=== PATIENT | male | born 1950 | race Caucasian/White ===

== ENCOUNTER 2020-10-07 10:42 | Inpatient (IN) | payer MEDICARE, OTHER ==
[2020-10-07 10:48] VITALS: RESP 18
[2020-10-07] MEDS ORDERED: FUROSEMIDE 10 MG/ML 2 ML VIAL IV STA (11:09)
--- NOTE | 2020-10-07 11:11 | ED ---
General Adult HPI - General Chief complaint: Chest Pain Stated complaint: swelling in legs Time Seen by Provider: 10/07/20 10:45 Source: patient, RN notes reviewed, old records reviewed Mode of arrival: wheelchair Limitations: no limitations - History of Present Illness Initial comments: This is a 69-year-old male with past medical history significant for smoking. Patient states he hasn't seen a doctor since . Patient comes in today because he states his legs are swollen his been ongoing for over 2 weeks. Patient states it started in August when he was put on steroids for a short duration. Patient states she's had no chest pain palpitations. Patient states she's little bit short of breath but he does smoke heavily. Patient denies any abdominal pain patient denies nausea vomiting or diarrhea. Patient states the swelling is now up into his abdomen. Patient noted today it was difficult to get his pants buckled. Patient denies any recent fever chills or cough. Patient states 2 weeks ago he had an upper respiratory infection which she was given Zithromax for. - Related Data Allergies Allergy/AdvReac Type Severity Reaction Status Date / Time Penicillins Allergy Unknown Verified 10/07/20 10:48 Review of Systems ROS Statement: Those systems with pertinent positive or pertinent negative responses have been documented in the HPI. ROS Other: All systems not noted in ROS Statement are negative. Past Medical History Past Medical History: No Reported History History of Any Multi-Drug Resistant Organisms: None Reported Past Surgical History: No Surgical Hx Reported Past Psychological History: No Psychological Hx Reported Smoking Status: Current some day smoker Past Alcohol Use History: None Reported Past Drug Use History: None Reported General Exam - General Exam Comments Initial Comments: GENERAL: Patient is well-developed and well-nourished. Patient is nontoxic and well- hydrated and is in mild distress. ENT: Neck is soft and supple. No significant lymphadenopathy is noted. Oropharynx is clear. Moist mucous membranes. Neck has full range of motion without eliciting any pain. EYES: The sclera were anicteric and conjunctiva were pink and moist. Extraocular movements were intact and pupils were equal round and reactive to light. Ey elids were unremarkable. PULMONARY: Unlabored respirations. Good breath sounds bilaterally. No audible rales rhonchi or wheezing was noted. CARDIOVASCULAR: There is a regular rate and rhythm without any murmurs gallops or rubs. ABDOMEN: Soft and nontender with normal bowel sounds. SKIN: Skin is clear with no lesions or rashes and otherwise unremarkable. NEUROLOGIC: Patient is alert and oriented x3. Cranial nerves II through XII are grossly intact. Motor and sensory are also intact. Normal speech, volume and content. Symmetrical smile. MUSCULOSKELETAL: Normal extremities with adequate strength and full range of motion. 2+ edema in the legs and his mild edema all the way up into the abdomen. LYMPHATICS: No significant lymphadenopathy is noted PSYCHIATRIC: Normal psychiatric evaluation. Limitations: no limitations Course Vital Signs 10/07/20 10:45 Temperature 98.2 F Pulse Rate 100 Respiratory 18 Rate Blood Pressure 122/61 O2 Sat by Pulse 96 Oximetry Medical Decision Making - Medical Decision Making EKG shows sinus rhythm at [address] interval 218 QRS is 116 QT interval is 362 QTC is 454. Patient's EKG shows T-wave inversions with in leads V5 and V6 and 1 and aVL. Chest x-ray shows probable congestive heart failure. Patient's troponin was mildly elevated at 0.1 and having congestive heart failure I heparinized the patient I consult cardiology. I spoke with Dr. Avendaño he agreed to admit the patient admitted the patient wrote admitting orders I continued heparin Nitropaste on the floor. - Lab Data Result diagrams: 10/07/20 11:11 10/07/20 11:11 Lab Results 10/07/20 10/07/20 10/07/20 Range/Units 11:11 11:11 11:11 WBC 8.0 (3.8-10.6) k/uL RBC 5.13 (4.30-5.90) m/uL Hgb 15.9 (13.0-17.5) gm/dL Hct 48.2 (39.0-53.0) % MCV 93.9 (80.0-100.0) fL MCH 31.0 (25.0-35.0) pg MCHC 33.0 (31.0-37.0) g/dL RDW 14.3 (11.5-15.5) % Plt Count 236 (150-450) k/uL MPV 7.5 Neutrophils % 72 % Lymphocytes % 19 % Monocytes % 6 % Eosinophils % 1 % Basophils % 1 % Neutrophils # 5.7 (1.3-7.7) k/uL Lymphocytes # 1.5 (1.0-4.8) k/uL Monocytes # 0.5 (0-1.0) k/uL Eosinophils # 0.0 (0-0.7) k/uL Basophils # 0.1 (0-0.2) k/uL PT 10.7 (9.0-12.0) sec INR 1.0 (<1.2) APTT 23.3 (22.0-30.0) sec Sodium 139 (137-145) mmol/L Potassium 4.6 (3.5-5.1) mmol/L Chloride 106 (98-107) mmol/L Carbon Dioxide 25 (22-30) mmol/L Anion Gap 8 mmol/L BUN 25 H (9-20) mg/dL Creatinine 0.73 (0.66-1.25) mg/dL Est GFR (CKD-EPI)AfAm >90 (>60 ml/min/1.73 sqM) Est GFR (CKD-EPI)NonAf >90 (>60 ml/min/1.73 sqM) Glucose 139 H (74-99) mg/dL Calcium 9.2 (8.4-10.2) mg/dL Magnesium 1.9 (1.6-2.3) mg/dL Total Bilirubin 0.7 (0.2-1.3) mg/dL AST 48 (17-59) U/L ALT 47 (4-49) U/L Alkaline Phosphatase 102 (38-126) U/L Troponin I (0.000-0.034) ng/mL NT-Pro-B Natriuret Pep pg/mL Total Protein 6.6 (6.3-8.2) g/dL Albumin 3.7 (3.5-5.0) g/dL 10/07/20 10/07/20 Range/Units 11:11 11:11 WBC (3.8-10.6) k/uL RBC (4.30-5.90) m/uL Hgb (13.0-17.5) gm/dL Hct (39.0-53.0) % MCV (80.0-100.0) fL MCH (25.0-35.0) pg MCHC (31.0-37.0) g/dL RDW (11.5-15.5) % Plt Count (150-450) k/uL MPV Neutrophils % % Lymphocytes % % Monocytes % % Eosinophils % % Basophils % % Neutrophils # (1.3-7.7) k/uL Lymphocytes # (1.0-4.8) k/uL Monocytes # (0-1.0) k/uL Eosinophils # (0-0.7) k/uL Basophils # (0-0.2) k/uL PT (9.0-12.0) sec INR (<1.2) APTT (22.0-30.0) sec Sodium (137-145) mmol/L Potassium (3.5-5.1) mmol/L Chloride (98-107) mmol/L Carbon Dioxide (22-30) mmol/L Anion Gap mmol/L BUN (9-20) mg/dL Creatinine (0.66-1.25) mg/dL Est GFR (CKD-EPI)AfAm (>60 ml/min/1.73 sqM) Est GFR (CKD-EPI)NonAf (>60 ml/min/1.73 sqM) Glucose (74-99) mg/dL Calcium (8.4-10.2) mg/dL Magnesium (1.6-2.3) mg/dL Total Bilirubin (0.2-1.3) mg/dL AST (17-59) U/L ALT (4-49) U/L Alkaline Phosphatase (38-126) U/L Troponin I 0.100 H* (0.000-0.034) ng/mL NT-Pro-B Natriuret Pep 11836 pg/mL Total Protein (6.3-8.2) g/dL Albumin (3.5-5.0) g/dL Critical Care Time Critical Care Time: Yes Total Critical Care Time: 35 Disposition Clinical Impression: Acute non-ST elevation myocardial infarction (NSTEMI) Disposition: ADMITTED IP TO THIS HOSP Referrals: None,Stated [Primary Care Provider] - 1-2 days Time of Disposition: 12:25
[2020-10-07 11:23] LABS: Basophils # (A) 0.1 k/uL (0-0.2); Basophils % (A) 1 %; Eosinophils % (A) 1 %; HCT 48.2 % (39.0-53.0); HGB 15.9 gm/dL (13.0-17.5); Lymphocytes # (A) 1.5 k/uL (1.0-4.8); Lymphocytes % (A) 19 %; MCV 93.9 fL (80.0-100.0); Mean Platelet Volume 7.5; Monocytes # (A) 0.5 k/uL (0-1.0); Monocytes % (A) 6 %; Neutrophils # (A) 5.7 k/uL (1.3-7.7); Neutrophils % (A) 72 %; Platelet Count 236 k/uL (150-450); RBC 5.13 m/uL (4.30-5.90); RDW 14.3 % (11.5-15.5)
[2020-10-07 11:34] LABS: ALT 47 U/L (4-49); AST 48 U/L (17-59); African American GFR (CKD) >90 (>60 ml/min/1.73 sqM); Albumin 3.7 g/dL (3.5-5.0); Alkaline Phosphatase 102 U/L (38-126); Anion Gap 8 mmol/L; Blood Urea Nitrogen 25 mg/dL (9-20); Calcium 9.2 mg/dL (8.4-10.2); Carbon Dioxide 25 mmol/L (22-30); Chloride 106 mmol/L (98-107); Glucose 139 mg/dL (74-99); Magnesium 1.9 mg/dL (1.6-2.3); Non-African American GFR(CKD) >90 (>60 ml/min/1.73 sqM); Potassium 4.6 mmol/L (3.5-5.1); Sodium 139 mmol/L (137-145); Total Bilirubin 0.7 mg/dL (0.2-1.3); Total Protein 6.6 g/dL (6.3-8.2)
[2020-10-07 11:41] LABS: Partial Thromboplastin Time 23.3 sec (22.0-30.0); Prothrombin Time 10.7 sec (9.0-12.0)
--- NOTE | 2020-10-07 11:45 | XR ---
EXAMINATION TYPE: XR chest 2V DATE OF EXAM: 10/07/2020 COMPARISON: NONE TECHNIQUE: PA and lateral views submitted. HISTORY: Shortness of breath and chest pain FINDINGS: Bilateral consolidation and pleural effusion with diffuse interstitial pattern. No pneumothorax. Hear t size enlarged. Atherosclerotic change aorta. Arthropathy of the shoulders. IMPRESSION: 1. CHF favored over interstitial pneumonia.
[2020-10-07] MEDS ORDERED: HEPARIN SODIUM,PORCINE 5,000 UNIT/ML 1 ML VIAL IV ONE (12:27)
[2020-10-07] MEDS: FUROSEMIDE 10 MG/ML 4 ML VIAL IV SCH ×2 (12:42→23:20)
[2020-10-07] MEDS: HEPARIN SOD,PORK IN 0.45% NACL 25,000 UNIT in 0.45% NACL 1 250ML.BAG IV SCH (12:45)
[2020-10-07] MEDS ORDERED: NITROGLYCERIN OINT 1 INCH/GM PACKET TOPICAL SCH (13:00)
[2020-10-07] MEDS ORDERED: NITROGLYCERIN SL TABS 0.4 MG TAB SUBLINGUAL PRN (14:10)
--- NOTE | 2020-10-07 15:07 | P.HPIM ---
History of Present Illness H&P Date: 10/07/20 Chief Complaint: CC: Lower extremity edema Patient is a 69-year-old male with a significant past medical history of tobacco abuse who has not seen a PCP since the who presents to the ED with worsening lower extremity edema 2 weeks. Patient states that 2 weeks ago he was having some URI symptoms with nasal congestion so he went to an urgent care and was prescribed steroids and azithromycin. Patient states that after 3 days of steroids he noticed lower extremity swelling so called the urgent care who told him to discontinue the steroids. Patient states that since then his lower extremity swelling has been worsening to the point where it has extended to his abdomen and this morning he had a difficult time putting his pants on. So he decided to come to the ED. Patient also states that he has been feeling more short of breath than usual. He states that he can normally walk about a block however today just walking from the car to the ED he had to stop a couple of times to catch his breath. Patient states that at times he has to get up in the middle of the night gasping for air. Patient states he sleeps on 2 pillows. He is currently denying any chest pain, nausea vomiting, fever or chills. In ED EKG shows sinus rhythm and T-wave inversions in leads V5 and V6 and 1 and aVL Chest x-ray shows finding consistent with CHF. Troponin is 0.1. BNP is 14,000. Review of Systems 10 ROS reviewed and are negative except as noted in HPI Past Medical History Past Medical History: No Reported History History of Any Multi-Drug Resistant Organisms: None Reported Past Surgical History: No Surgical Hx Reported Past Psychological History: No Psychological Hx Reported Smoking Status: Current every day smoker Past Alcohol Use History: None Reported Past Drug Use History: None Reported - Past Family History Father History Unknown: Yes Medications and Allergies Home Medications Medication Instructions Recorded Confirmed Type No Known Home Medications 10/07/20 10/07/20 History Allergies Allergy/AdvReac Type Severity Reaction Status Date / Time Penicillins Allergy Unknown Verified 10/07/20 12:41 Physical Exam Osteopathic Statement: *. No significant issues noted on an osteopathic structural exam other than those noted in the History and Physical/Consult. Vitals: Vital Signs Temp Pulse Pulse Resp BP BP Pulse Ox 10/07/20 13:43 97.5 F L 96 18 121/90 94 L 10/07/20 13:09 98.6 F 98 18 116/82 98 10/07/20 10:45 98.2 F 100 18 122/61 96 Intake and Output 10/07/20 10/07/20 10/07/20 06:59 14:59 22:59 Output Total 650 Balance -650 Output: Urine 650 Other: Weight 68.039 kg General: [Alert and oriented, well nourished, no acute distress, cachectic appearing]. Eye: [PERRL, EOMI, normal conjunctiva]. HENT: [Normocephalic, clear tympanic membranes, normal hearing, moist oral mucosa, no scleral icterus, no sinus tenderness]. Neck: [Supple, non-tender, no carotid bruits, no JVD, no lymphadenopathy]. Lungs: [Diminished pulses bilaterally]. Heart: [Normal rate, regular rhythm, no murmur, gallop + +3 bilateral lower extremity edema]. Abdomen: [Soft, non-tender, non-distended, normal bowel sounds, no masses]. Musculoskeletal: [Normal range of motion and strength, no tenderness or swelling]. Skin: [Skin is warm, dry and pink, no rashes or lesions]. Neurologic: [Awake, alert, and oriented X3, CN II-XII intact]. Psychiatric: [Cooperative, appropriate mood and affect]. Results CBC & Chem 7: 10/07/20 11:11 10/07/20 11:11 Labs: Abnormal Lab Results - Last 24 Hours (Table) 10/07/20 10/07/20 Range/Units 11:11 11:11 BUN 25 H (9-20) mg/dL Glucose 139 H (74-99) mg/dL Troponin I 0.100 H* (0.000-0.034) ng/mL Thrombosis Risk Factor Assmnt - Choose All That Apply Each Factor Represents 1 point: Heart failure (<1month), Swollen legs (current) Each Risk Factor Represents 2 Points: Age 61-74 years Thrombosis Risk Factor Assessment Total Risk Factor Score: 4 Thrombosis Risk Factor Assessment Level: Moderate Risk Assessment and Plan Assessment: #Lower extremity edema secondary to heart failure versus pulmonary hypertension due to cor pulmonale -Check echocardiogram -Resume Lasix 40 mg IV every 8 hours -Strict I's and O's -Cardiology consult #Non-ST elevation UT likely type II -Resume heparin drip -Trend troponin -Resume aspirin 325 daily -Cardiology consult -Check hemoglobin A1c and lipid panel #Likely underlying COPD -Not in exacerbation at this no wheezing on exam -DuoNeb as needed -At the time of discharge will encourage patient to follow-up with pulmonology for PFTs #Tobacco abuse -Patient states that he quit 3 weeks ago. CODE STATUS:full code DVT prophylaxis: Heparin drip Discussed with: Patient, ER, rn Anticipated length of stay > than [address]: Depending on clinical course. Anticipate patient will go home
[2020-10-07] MEDS: IPRATROPIUM-ALBUTEROL 3 ML NEB INHALATION PRN (19:54)
[2020-10-08 05:00] LABS: Basophils % (A) 1 %; Eosinophils # (A) 0.1 k/uL (0-0.7); Eosinophils % (A) 1 %; HCT 43.8 % (39.0-53.0); HGB 14.3 gm/dL (13.0-17.5); Lymphocytes # (A) 1.3 k/uL (1.0-4.8); Lymphocytes % (A) 17 %; MCH 30.4 pg (25.0-35.0); MCHC 32.7 g/dL (31.0-37.0); MCV 92.9 fL (80.0-100.0); Mean Platelet Volume 7.6; Monocytes # (A) 0.5 k/uL (0-1.0); Monocytes % (A) 7 %; Neutrophils # (A) 5.4 k/uL (1.3-7.7); Neutrophils % (A) 73 %; Platelet Count 227 k/uL (150-450); RBC 4.72 m/uL (4.30-5.90); RDW 14.3 % (11.5-15.5); WBC 7.3 k/uL (3.8-10.6)
[2020-10-08 05:11] LABS: ALT 58 U/L (4-49); AST 127 U/L (17-59); African American GFR (CKD) >90 (>60 ml/min/1.73 sqM); Albumin 3.5 g/dL (3.5-5.0); Alkaline Phosphatase 111 U/L (38-126); Anion Gap 5 mmol/L; Blood Urea Nitrogen 30 mg/dL (9-20); Calcium 9.2 mg/dL (8.4-10.2); Carbon Dioxide 32 mmol/L (22-30); Chloride 101 mmol/L (98-107); Cholesterol 182 mg/dL (<200); Glucose 104 mg/dL (74-99); HDL Cholesterol 77 mg/dL (40-60); LDL Cholesterol,Calculated 89 mg/dL (0-99); Magnesium 1.9 mg/dL (1.6-2.3); Non-African American GFR(CKD) 80 (>60 ml/min/1.73 sqM); Potassium 4.2 mmol/L (3.5-5.1); Sodium 138 mmol/L (137-145); Total Bilirubin 0.8 mg/dL (0.2-1.3); Total Protein 6.2 g/dL (6.3-8.2); Triglycerides 78 mg/dL (<150)
[2020-10-08] MEDS: FUROSEMIDE 10 MG/ML 4 ML VIAL IV SCH ×3 (08:30→23:50)
[2020-10-08] MEDS ORDERED: ASPIRIN 325 MG TAB PO SCH (09:00)
--- NOTE | 2020-10-08 10:16 | P.PN ---
Subjective Progress Note Date: 10/08/20 Principal diagnosis: CC: Lower Extremity swelling Patient says that his breathing is slightly better today. Patient thinks that his lower extremity edema is also improving. Yesterday the patient's troponin increased to 8.7 and this morning 21. Cardiology was made aware. Objective - Vital Signs Vital signs: Vital Signs Temp 97.4 F L 10/08/20 08:00 Pulse 75 10/08/20 08:00 Resp 18 10/08/20 08:00 BP 137/76 10/08/20 08:00 Pulse Ox 93 L 10/08/20 08:00 Intake & Output 10/07/20 10/08/20 10/08/20 18:59 06:59 18:59 Intake Total 240 485.239 Output Total 1000 1974 500 Balance -760 -1489.761 -500 Weight 68.039 kg 71.6 kg Intake: Intake, IV Titration 145.239 Amount Heparin Sod,Pork in 0.45% 145.239 NaCl 25,000 unit In 0.45 % NaCl 1 250ml.bag @ 12 UNITS/KG/HR 8.165 mls/hr IV .Q24H [facility] Rx#: [id number] Oral 240 340 Output: Urine 1000 1974 500 Other: # Voids 1 2 - Exam General examination - Alert and Oriented 3 in NAD, cachectic appearing Heart - + S1S2 no murmurs Lungs - diminished breath sounds bilaterally Abdomen soft NT ND +ve BS Extremities - +3 pitting edema in bilateral lower extremities STEERSMAN - Moving all 4 extremities spontaneously Psych - Calm and cooperative - Labs CBC & Chem 7: 10/08/20 04:23 10/08/20 04:23 Labs: Abnormal Lab Results - Last 24 Hours (Table) 10/07/20 10/07/20 10/07/20 Range/Units 11:11 11:11 14:41 APTT (22.0-30.0) sec Carbon Dioxide (22-30) mmol/L BUN 25 H (9-20) mg/dL Glucose 139 H (74-99) mg/dL AST (17-59) U/L ALT (4-49) U/L Troponin I 0.100 H* 0.978 H* (0.000-0.034) ng/mL Total Protein (6.3-8.2) g/dL HDL Cholesterol (40-60) mg/dL 10/07/20 10/07/20 10/08/20 Range/Units 18:18 18:18 04:23 APTT 36.0 H (22.0-30.0) sec Carbon Dioxide 32 H (22-30) mmol/L BUN 30 H (9-20) mg/dL Glucose 104 H (74-99) mg/dL AST 127 H (17-59) U/L ALT 58 H (4-49) U/L Troponin I 8.770 H* (0.000-0.034) ng/mL Total Protein 6.2 L (6.3-8.2) g/dL HDL Cholesterol 77 H (40-60) mg/dL 10/08/20 10/08/20 Range/Units 04:23 04:23 APTT 37.5 H (22.0-30.0) sec Carbon Dioxide (22-30) mmol/L BUN (9-20) mg/dL Glucose (74-99) mg/dL AST (17-59) U/L ALT (4-49) U/L Troponin I 21.100 H* (0.000-0.034) ng/mL Total Protein (6.3-8.2) g/dL HDL Cholesterol (40-60) mg/dL Assessment and Plan Assessment: #Non-ST elevation PR likley type 1 -Resume heparin drip -Troponin is increasing. Last troponin is 21. Cardiology has been notified. -Resume aspirin 325 daily -Check hemoglobin A1c and lipid panel #Lower extremity edema secondary to heart failure versus pulmonary hypertension due to cor pulmonale -Check echocardiogram -Resume Lasix 40 mg IV every 8 hours -Strict I's and O's -Cardiology consult #Likely underlying COPD -Not in exacerbationas there is no wheezing on exam -DuoNeb as needed -At the time of discharge will encourage patient to follow-up with pulmonology for PFTs #Tobacco abuse -Patient states that he quit 3 weeks ago. CODE STATUS:full code DVT prophylaxis: Heparin drip Discussed with: Patient, ER, rn Anticipated length of stay > than [address]: Depending on clinical course. Anticipate patient will go home
[2020-10-08] MEDS ORDERED: ATORVASTATIN 80 MG TAB PO STA (11:04)
[2020-10-08] MEDS ORDERED: ALPRAZolam 0.5 MG TAB PO PRN (11:04)
[2020-10-08] MEDS ORDERED: NITROGLYCERIN SL TABS 0.4 MG TAB SUBLINGUAL PRN ×2 (11:04→15:32)
[2020-10-08] MEDS ORDERED: ASPIRIN 325 MG TAB PO STA (11:04)
[2020-10-08] MEDS: lisinopriL 5 MG TAB PO SCH ×2 (11:04→22:09)
[2020-10-08] MEDS ORDERED: ALPRAZolam 0.25 MG TAB PO PRN (11:04)
[2020-10-08] MEDS: ATORVASTATIN 40 MG TAB PO SCH (11:04)
[2020-10-08] MEDS ORDERED: SODIUM CHLORIDE 0.9% 1,000 ML in EMPTY BAG 1 BAG IV ONE (11:04)
[2020-10-08] MEDS: METOPROLOL TARTRATE 25 MG TAB PO SCH ×2 (11:05→22:09)
[2020-10-08 11:30] VITALS: BMI 21.4
--- NOTE | 2020-10-08 12:37 | CONS ---
CONSULTATION Mr. Miguel is a 69-year-old male who has not seen a physician in over 30 years, who presented with symptoms of progressive dyspnea and peripheral edema. His symptoms started about 2 weeks or so ago. Initially he was seen in a medic and was started on steroids and antibiotics but he started to have progressive peripheral edema. He had no chest discomfort. He had some episode of PND. He has some cough. No wheezing. He takes no medication at home. He smokes about a pack a day. On admission, he was noted to be in heart failure and his troponin elevated initially at 0.97, 8.7 and 21.1. His NT proBNP on admission was 14,000. He is feeling slightly better today. He denies any dizziness or palpitations. He denies any nausea. His coronary risk factors are remarkable for the smoking. He has no documented history of hypertension and hyperlipidemia. MEDICATION: At home none. REVIEW OF SYSTEMS: RESPIRATORY SYSTEM: He had dyspnea on exertion, the cough and wheezing and the dyspnea and wheezing. GI system: No recent GI bleeding. No nausea. No vomiting. system: No dysuria or hematuria. Nervous system: No history of stroke or seizure. PHYSICAL EXAMINATION: He is a 69-year-old male, alert, oriented, in no apparent distress. Blood pressure 137/70 with a heart rate in 70s. HEAD: Normocephalic. Eyes: Sclerae anicteric. Neck: No bruit. Lungs with crackles and rales at the bases. HEART: Regular rate and rhythm S1, S2. No S3. No rub. ABDOMEN: Soft, nontender. Positive bowel sounds. No organomegaly. Extremities +3 edema bilaterally. LAB DATA: Revealed BUN and creatinine 30 and 0.96. Hemoglobin of 14.3, white blood cell of 7.3. His EKG revealed a sinus mechanism with left ventricular hypertrophy and nonspecific ST- T wave changes. His chest x-ray revealed evidence of CHF and pleural effusion. IMPRESSION: 1. Acute congestive heart failure, his systolic function is not available. Probably systolic dysfunction. 2. Evidence of non ST-segment elevation myocardial infarction. The patient has no chest discomfort. His main complaint has been the dyspnea on exertion. 3. History of smoking. RECOMMENDATION: From the cardiac standpoint, I will continue IV Lasix. I will start beta alexsander and his BASSAM inhibitor and I will add a statin to his regimen. Patient will undergo an echocardiogram. He will require coronary angiography. I will reassess his status and see if he is stable to lay supine to undergo the procedure. I have discussed those findings with the patient. Thank you for this consult. We will follow with you. MARIA LUISA / COLEEN: [id number] /
[2020-10-08] MEDS ORDERED: IV FLUID CONTINUATION 1,000 ML IV ONE (13:00)
[2020-10-08] MEDS ORDERED: fentaNYL (PF) 50 MCG/ML 2 ML AMP ONE (13:07)
[2020-10-08] MEDS ORDERED: VERAPAMIL 2.5 MG/ML 2 ML AMP ONE (13:07)
[2020-10-08] MEDS ORDERED: HEPARIN SODIUM 1,000 UN/ML (10ML VL) ONE (13:07)
[2020-10-08] MEDS ORDERED: LIDOCAINE 1% INJ 10MG/ML (20 ML MDV) ONE (13:07)
[2020-10-08] MEDS ORDERED: fentaNYL (PF) 50 MCG/ML 2 ML AMP IV ONE (13:15)
[2020-10-08] MEDS ORDERED: LIDOCAINE 1% INJ 10MG/ML (20 ML MDV) SQ ONE (13:16)
[2020-10-08] MEDS ORDERED: VERAPAMIL SYRINGE (5 MG/10 ML) INTRAARTER ONE (13:26)
--- NOTE | 2020-10-08 13:30 | ECHOF ---
Referral Reason:LE edema MEASUREMENTS -------- HEIGHT: 177.8 cm WEIGHT: 68.0 kg BP: IVSd: 1.4 cm (0.6 - 1.1) LVIDd: 4.4 cm (3.9 - 5.3) LVPWd: 1.6 cm (0.6 - 1.1) IVSs: 1.2 cm LVIDs: 3.8 cm LVPWs: 1.1 cm LAESV Index (A-L): 61.44 ml/m AV Cusp: 2.0 cm (1.5 - 2.6) LA Diam: 3.3 cm (2.7 - 3.8) MV EXCURSION: 21.730 mm (> 18.000) MV EF SLOPE: 170 mm/s (70 - 150) EPSS: 4.9 cm MV E Tao: 0.59 m/s MV DecT: 150 ms MV A Tao: 0.35 m/s MV E/A Ratio: 1.69 RAP: 5.00 mmHg RVSP: 45.09 mmHg FINDINGS -------- Sinus rhythm. This was a technically adequate study. The left ventricular size is normal. There is moderate concentric left ventricular hypertrophy. T here is severe global hypokinesis of LV . Overall left ventricular systolic function is severely im paired with, an EF < 20%. Increased LAP. Grade 3 Diastolic Dysfunction. The right ventricle is normal in size. LA is severely dilated >40 ml/m2 The right atrial size is normal. There is mild aortic valve sclerosis. Mild mitral annular calcification present. Mild mitral regurgitation is present. The tricuspid valve appears structurally normal. Mild tricuspid regurgitation present. There is m ild pulmonary hypertension. The right ventricular systolic pressure, as measured by Doppler, is 45. 09mmHg. There is no pulmonic regurgitation present. The aortic root size is normal. IVC Not well visulized. There is no pericardial effusion. CONCLUSIONS -------- 1. There is moderate concentric left ventricular hypertrophy. 2. There is severe global hypokinesis of LV . 3. Overall left ventricular systolic function is severely impaired with, an EF < 20%. 4. Increased LAP. Grade 3 Diastolic Dysfunction. 5. LA is severely dilated >40 ml/m2 6. There is mild aortic valve sclerosis. 7. Mild mitral regurgitation is present. 8. Mild tricuspid regurgitation present. 9. There is mild pulmonary hypertension. 10. There is no pericardial effusion. SPECIAL DELIVERY WORKER: Sima South RDCS
[2020-10-08] MEDS ORDERED: HEPARIN SODIUM 1,000 UN/ML (10ML VL) IV ONE (13:34)
[2020-10-08] MEDS ORDERED: CLOPIDOGREL 75 MG TAB ONE (13:50)
[2020-10-08] MEDS ORDERED: CLOPIDOGREL 75 MG TAB PO ONE (13:52)
[2020-10-08] MEDS ORDERED: IOPAMIDOL-370 125ML BTL INJ ONE ×2 (14:18)
[2020-10-08] MEDS ORDERED: IOPAMIDOL-370 100ML BTL INJ ONE ×3 (14:30→15:04)
[2020-10-08] MEDS: HEPARIN SOD,PORK IN 0.45% NACL 25,000 UNIT in 0.45% NACL 1 250ML.BAG IV SCH (15:31)
[2020-10-08] MEDS ORDERED: ZOLPIDEM 5 MG TAB PO PRN (15:32)
[2020-10-08] MEDS ORDERED: MAG HYDROX/AL HYDROX/SIMETH 30 ML CUP PO PRN (15:32)
[2020-10-08] MEDS ORDERED: ATROPINE SULFATE 0.1 MG/ML 10ML SYRINGE IV PRN (15:32)
[2020-10-08] MEDS ORDERED: RX INFO: IV CONTRAST WAS GIVEN 1 EACH MISC MISCELLANE PRN (15:32)
[2020-10-08] MEDS ORDERED: SODIUM CHLORIDE 0.9% 1,000 ML IV SCH (15:45)
[2020-10-08] MEDS: IPRATROPIUM-ALBUTEROL 3 ML NEB INHALATION PRN ×2 (15:46→18:48)
--- NOTE | 2020-10-08 16:04 | CC ---
CARDIAC CATHETERIZATION REPORT Mr. Miguel is a 69-year-old male with history of chronic tobacco use who has not seen a physician in over 40 years. He presented to the emergency room with symptoms of progressive dyspnea and peripheral edema going on for the last 2 weeks. After admission he was noted to have an elevation of the troponin up to 21 without significant EKG changes. His echocardiogram revealed severe global hypokinesis. In view of his presentation, recommendation was made regarding cardiac catheterization. The procedure, its risks and complications were discussed with the patient, who was in full understanding and agreement. PROCEDURE DESCRIPTION: The patient was brought to the laboratory technology teacher in a fasting, semi-sedated state. After receiving fentanyl and Benadryl and achieving a moderate conscious sedated state, using Xylocaine anesthesia and Seldinger technique, a 6-Italian sheath was introduced into the right radial artery. Selective right and left coronary angiography was performed using 5-Italian 3-1/2 bend right and left Maikol catheters. Multiple views were taken of the arteries, including hemiaxial views. A 6-Italian AL 0.75 guiding catheter was used to cannulate the anomalous origin of the left circumflex. Multiple views of the coronary arteries were obtained. Following that, angioplasty and stenting were performed. Following that, a 5-Italian tight pigtail catheter was introduced into the left ventricle and pressures were calculated. At the end of the procedure, catheter and sheath were removed. Hemostasis was obtained with deployment of a TR band. There was no immediate complication. The patient was returned to his room in stable condition. FINDINGS: FLUOROSCOPY: There was severe calcification involving the proximal left anterior descending artery as well as the ostial right coronary artery. LEFT MAIN: This is a large-sized vessel bifurcating into ramus intermedius and LAD. The left main coronary artery is calcified; has no evidence of high-grade stenosis. LEFT ANTERIOR DESCENDING ARTERY: This is a large-sized vessel reaching to the apex with a wrap around the apex segment giving rise to a small diagonal branch. At the takeoff of the first septal provider relations coordinator, there is an extensive calcified 50% plaque. The rest of the vessel has no high-grade stenosis. RAMUS INTERMEDIUS: This is a large-sized vessel reaching toward the apicolateral wall. It has mild disease proximally of 30% without any evidence of high-grade stenosis. RIGHT CORONARY ARTERY: This is a codominant vessel, small in caliber. It has a 40% plaque proximally. The rest of the vessel has no high-grade stenosis. 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 The vessel is totally occluded proximally with no significant antegrade flow. COLLATERALS: There is a collateral from the left coronary system toward the left circumflex, PDA and obtuse marginal branch. LEFT VENTRICULOGRAM: Left ventriculogram was not performed. HEMODYNAMICS: There was no gradient across the aortic valve. The left ventricular end- diastolic pressure was 20 mmHg. CONCLUSION: 1. 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 2. Heavily calcified left anterior descending artery with a 50% plaque in the proximal segment. 3. A 50% plaque in the ostium of the RCA. 4. Elevated left ventricular end-diastolic pressure. RECOMMENDATIONS: In view of findings and anatomy, I have recommended proceeding with attempted angioplasty and stenting of the left circumflex. The procedure, its risks and complications were discussed with the patient, who is in full understanding and agreement. MMODL / IJN: [id number] /
--- NOTE | 2020-10-08 16:13 | CC ---
CARDIAC CATHETERIZATION REPORT Mr. 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 In view of that, recommendation was made regarding angioplasty and stenting. The procedure, it risks and complications were discussed with the patient, who was in full understanding and agreement. PROCEDURE DESCRIPTION: Using the 6-Finnish 0.75 AL guiding catheter, the ostium of the left circumflex was cannulated. Attempts to advance a 0.014 balanced medium weight J-wire with the help of a straight Supercross were unsuccessful. That wire was removed and a Whisper J-wire was advanced and was able to cross the total occlusion. Subsequent attempts to advance the Supercross were unsuccessful. The microcatheter was removed and attempts to advance a 1.5 x 8 mm Trek balloon were unsuccessful. That balloon was removed and a 1.0 x 8 mm Sapphire balloon was advanced and multiple inflations at maximum of 10 atmospheres were done. Following that the balloon was removed and the 1.5 balloon was readvanced and multiple inflations were done at maximum of 10 atmospheres. After removing the balloon, the microcatheter was reintroduced and the wire was exchanged to a 0.014 balanced medium weight J-wire. After removing the microcatheter, a 2.0 x 12 mm Trek balloon was advanced and multiple inflations were done at a maximum of 8 atmospheres. Following that, a 2.25 x 12 mm Trek balloon was advanced and multiple inflations up to 8 atmospheres were done, Following that, the balloon was removed and attempts to advance a 2.5 x 15 mm Xience stent were unsuccessful. That stent was removed and a 2.5 x 12 mm NC Emerge balloon was advanced and inflations in multiple segments at maximum of 12 atmospheres were done. Following that, the balloon was removed and the 2.5 x 15 mm Xience Kailee stent was advanced, deployed and post-dilated at 16 atmospheres. Following that the balloon was removed and a 2.5 x 23 mm Xience Kailee stent was deployed proximal to the first one and post-dilated at 16 atmospheres. After removing that balloon, a 2.5 x 28 mm Xience Kailee stent was deployed proximally and post-dilated to 16 atmospheres. After the last inflation, after appropriate wait, the balloon and the guidewire were withdrawn back into the guiding catheter. Images were obtained and repeated. Those images revealed stable successful stenting. At that point, the guiding catheter, the balloon and the guidewire were removed, and the 5- Finnish FR 3-1/2 catheter was introduced. Images of the left coronary system were obtained. Following that, catheter was removed and left ventricular end-diastolic pressure was calculated. Following that, catheter and sheath were removed. Hemostasis was obtained with deployment of a TR band. There was no immediate complication. The patient was returned to his room in stable condition. Of note, the patient received a total of 4000 units of intravenous heparin as well as oral loading dose of clopidogrel. His ACT was monitored. He had no chest discomfort or EKG changes with the inflations. He received intra-arterial verapamil at the start of the procedure. 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 RECOMMENDATIONS: Patient will be continued on aspirin, Plavix, BASSAM inhibitor, beta alexsander and statin. The importance of dual antiplatelet treatment was discussed with the patient, who is in full understanding and agreement. Duration of the procedure was 155 minutes. MMPRINCESSL / ESMERN: [id number] /
[2020-10-09] MEDS ORDERED: HEPARIN SODIUM,PORCINE 10,000 UNIT in SODIUM CHLORIDE 0.9% 1,000 ML IRRIGATION PRN (07:00)
[2020-10-09] MEDS ORDERED: HEPARIN SODIUM,PORCINE 2,500 UNIT in SODIUM CHLORIDE 0.9% 250 ML IRRIGATION PRN (07:00)
[2020-10-09] MEDS: IPRATROPIUM-ALBUTEROL 3 ML NEB INHALATION PRN ×3 (07:04→20:01)
[2020-10-09 07:30] LABS: Basophils % (A) 0 %; Eosinophils # (A) 0.1 k/uL (0-0.7); Eosinophils % (A) 1 %; HCT 40.5 % (39.0-53.0); HGB 13.6 gm/dL (13.0-17.5); Lymphocytes # (A) 1.1 k/uL (1.0-4.8); Lymphocytes % (A) 14 %; MCH 30.8 pg (25.0-35.0); MCHC 33.6 g/dL (31.0-37.0); MCV 91.8 fL (80.0-100.0); Mean Platelet Volume 7.6; Monocytes # (A) 0.5 k/uL (0-1.0); Monocytes % (A) 7 %; Neutrophils # (A) 5.7 k/uL (1.3-7.7); Neutrophils % (A) 76 %; Platelet Count 225 k/uL (150-450); RBC 4.42 m/uL (4.30-5.90); RDW 14.3 % (11.5-15.5); WBC 7.5 k/uL (3.8-10.6)
[2020-10-09 07:44] LABS: African American GFR (CKD) >90 (>60 ml/min/1.73 sqM); Anion Gap 6 mmol/L; Blood Urea Nitrogen 28 mg/dL (9-20); Calcium 8.9 mg/dL (8.4-10.2); Carbon Dioxide 30 mmol/L (22-30); Chloride 101 mmol/L (98-107); Glucose 97 mg/dL (74-99); Non-African American GFR(CKD) 82 (>60 ml/min/1.73 sqM); Potassium 3.8 mmol/L (3.5-5.1); Sodium 137 mmol/L (137-145)
[2020-10-09] MEDS: ASPIRIN 81 MG PO SCH (09:23)
[2020-10-09] MEDS: ATORVASTATIN 40 MG TAB PO SCH (09:23)
[2020-10-09] MEDS: METOPROLOL TARTRATE 25 MG TAB PO SCH ×2 (09:23→20:36)
[2020-10-09] MEDS: CLOPIDOGREL 75 MG TAB PO SCH (09:23)
[2020-10-09] MEDS: SPIRONOLACTONE 25 MG TAB PO SCH (09:24)
[2020-10-09] MEDS: FUROSEMIDE 10 MG/ML 4 ML VIAL IV SCH ×3 (09:24→23:35)
[2020-10-09] MEDS: lisinopriL 5 MG TAB PO SCH ×2 (09:24→20:36)
--- NOTE | 2020-10-09 13:38 | P.PN ---
Subjective Progress Note Date: 10/09/20 Patient is doing well today. He denies any chest pain. He reported that lower extremity edema improved significantly since admission. No shortness of breath. Objective - Vital Signs Vital signs: Vital Signs Temp 98.2 F 10/09/20 08:00 Pulse 88 10/09/20 08:00 Resp 18 10/09/20 04:00 BP 117/70 10/09/20 08:00 Pulse Ox 96 10/09/20 08:00 Intake & Output 10/08/20 10/09/20 10/09/20 18:59 06:59 18:59 Intake Total 480 Output Total 2250 500 Balance -1770 -500 Weight 71.6 kg 72.1 kg Intake: IV 100 Intake, IV Titration 140 Amount Sodium Chloride 0.9% 1, 140 000 ml In Empty Bag 1 bag @ 1 ML/KG/HR 71.6 mls/hr IV .[id number] ONE Rx#: [id number] Oral 240 Output: Urine 2250 500 - Exam General: The patient is awake and alert, in no distress Eye: there is normal conjunctiva bilaterally. Neck: The neck is supple, there is no JVD. Cardiovascular: Normal S1-S2, no S3-S4, no murmurs. Respiratory: Lungs clear to auscultation bilaterally Gastrointestinal: Abdomen is soft, nontender Musculoskeletal: There is +1-2 pedal edema up to the midshin Neurological:. Speech is normal. Skin: Skin is warm and dry - Labs CBC & Chem 7: 10/09/20 07:06 10/09/20 07:06 Labs: Abnormal Lab Results - Last 24 Hours (Table) 10/08/20 10/09/20 Range/Units 16:20 07:06 BUN 28 H (9-20) mg/dL Troponin I 10.800 H* (0.000-0.034) ng/mL Assessment and Plan Assessment: This is a 69-year-old male with no known past medical history who presented to the emergency room with worsening lower extremity edema and some URI symptoms. Patient was evaluated in the ER and admitted to the hospital for further management of his medical problems noted below. #Non-ST elevation ID sueley type 1 -Seen and evaluated by cardiology. Status post left heart catheterization with stent placement to left circumflex -Continue optimal medical management Aspirin, Plavix, Metoprolol, Spironolactone, and Lipitor #Ischemic cardiomyopathy with acute systolic heart failure exacerbation -Echocardiogram showed EF less than 20% -Currently on Lasix 40 mg every 8 hours -Continue strict I's and O's. Diuresing well. Daily weight. #Likely underlying COPD -Not in exacerbationas there is no wheezing on exam -DuoNeb as needed -At the time of discharge will encourage patient to follow-up with pulmonology for PFTs #Tobacco abuse -Patient states that he quit 3 weeks ago. CODE STATUS:full code Anticipated discharge place: Depending on clinical course. Anticipate patient will go home
--- NOTE | 2020-10-09 14:19 | P.PN ---
Subjective Progress Note Date: 10/09/20 HISTORY OF PRESENT ILLNESS: Patient is status post cardiac cath physician with stent to the circumflex. Patient examined this point the bedside. He denies chest pain or pressure. Denies shortness of breath. He remains on IV Lasix. Creatinine 0.94 today. He continues to have bilateral lower extremity edema that is improving daily. Echocardiogram performed reveals ejection fraction less than 20%. PHYSICAL EXAM: VITAL SIGNS: Reviewed. GENERAL: Well-developed in no acute distress. NECK: Supple. No JVD or thyromegaly LUNGS: Respirations even and unlabored. Lungs essentially clear to auscultation bilaterally. HEART: Regular rate and rhythm. S1 and S2 heard. EXTREMITIES: Normal range of motion. No clubbing or cyanosis. Peripheral pulses intact. 2+ bilateral lower extremity edema. Radial cath site with pulse present. ASSESSMENT: Non-STEMI, status post cardiac cath with PCI to circumflex Ischemic cardiomyopathy, EF 20% Acute systolic congestive heart failure Nicotine dependence PLAN: Continue current cardiac medications Continue IV Lasix for another 24 hours Patient will require LifeVest at the time of discharge to prevent sudden cardiac secondary to cardiomyopathy with ejection fraction less than 20%. Anticipate discharge home tomorrow. Nurse practitioner note has been reviewed by physician. Signing provider agrees with the documented findings, assessment, and plan of care. Objective - Vital Signs Vital signs: Vital Signs Temp 98.2 F 10/09/20 08:00 Pulse 88 10/09/20 08:00 Resp 18 10/09/20 04:00 BP 117/70 10/09/20 08:00 Pulse Ox 96 10/09/20 08:00 Intake & Output 10/08/20 10/09/20 10/09/20 18:59 06:59 18:59 Intake Total 480 Output Total 2250 500 Balance -1770 -500 Weight 71.6 kg 72.1 kg Intake: IV 100 Intake, IV Titration 140 Amount Sodium Chloride 0.9% 1, 140 000 ml In Empty Bag 1 bag @ 1 ML/KG/HR 71.6 mls/hr IV .[id number] ONE Rx#: [id number] Oral 240 Output: Urine 2250 500 - Labs CBC & Chem 7: 10/09/20 07:06 10/09/20 07:06 Labs: Abnormal Lab Results - Last 24 Hours (Table) 10/08/20 10/09/20 Range/Units 16:20 07:06 BUN 28 H (9-20) mg/dL Troponin I 10.800 H* (0.000-0.034) ng/mL
[2020-10-10 00:24] VITALS: TEMP 98
[2020-10-10] MEDS: IPRATROPIUM-ALBUTEROL 3 ML NEB INHALATION PRN (07:51)
[2020-10-10 08:39] LABS: Calcium 9.1 mg/dL (8.4-10.2); Magnesium 1.7 mg/dL (1.6-2.3); Potassium 4.1 mmol/L (3.5-5.1)
--- NOTE | 2020-10-10 09:26 | P.DS ---
Providers Date of admission: 10/07/20 12:35 Expected date of discharge: 10/10/20 Attending physician: Malcolm Avendaño MD Consults: 10/07/20 12:25 Consult Physician Routine Consulting Provider: Abe Mandujano Consult Reason/Comments: N STEMI, congestive heart failure Do you want consulting provider notified?: Yes 10/08/20 15:32 Consult Physician Routine Consulting Provider: Abe Mandujano Consult Reason/Comments: Post Interventional patient Do you want consulting provider notified?: Already Contacted Primary care physician: Stated None Hospital Course: This is a 69-year-old male with no known past medical history who presented to the emergency room with worsening lower extremity edema and some URI symptoms. Patient was evaluated in the ER and admitted to the hospital for further management of his medical problems noted below. #Non-ST elevation [place] -Seen and evaluated by cardiology. Status post left heart catheterization with stent placement to left circumflex -Continue optimal medical management Aspirin, Plavix, Metoprolol, Spironolactone, and Lipitor #Ischemic cardiomyopathy with acute systolic heart failure exacerbation -Echocardiogram showed EF less than 20% -Patient will be discharged with the LifeVest and plan to follow-up with cardiology outpatient for repeat echocardiogram and assessment for the need for permanent defibrillator -Started on IV Lasix during this admission with good response -Continue Lasix 40 mg daily and monitor weight daily at home #Likely underlying COPD -Not in exacerbationas #Tobacco abuse -Patient states that he quit 3 weeks ago. Encouraged to continue his effort Patient will be discharged home in a stable condition. For further details about this hospitalization please refer to the electronic chart. Time spent on discharge > 30 minutes including counseling and coordination of care Patient Condition at Discharge: Stable Plan - Discharge Summary Discharge Rx Participant: No New Discharge Prescriptions: New Spironolactone [Aldactone] 25 mg PO DAILY #30 tab Aspirin 81 mg PO DAILY #30 chew Furosemide [Lasix] 40 mg PO DAILY #30 tablet Atorvastatin [Lipitor] 40 mg PO DAILY #30 tab Metoprolol Tartrate [Lopressor] 25 mg PO BID #60 tab Clopidogrel [Plavix] 75 mg PO DAILY #30 tab lisinopriL [Zestril] 5 mg PO DAILY #30 tab Discharge Medication List Aspirin 81 mg PO DAILY #30 chew 10/10/20 [Rx] Atorvastatin [Lipitor] 40 mg PO DAILY #30 tab 10/10/20 [Rx] Clopidogrel [Plavix] 75 mg PO DAILY #30 tab 10/10/20 [Rx] Furosemide [Lasix] 40 mg PO DAILY #30 tablet 10/10/20 [Rx] Metoprolol Tartrate [Lopressor] 25 mg PO BID #60 tab 10/10/20 [Rx] Spironolactone [Aldactone] 25 mg PO DAILY #30 tab 10/10/20 [Rx] lisinopriL [Zestril] 5 mg PO DAILY #30 tab 10/10/20 [Rx] Follow up Appointment(s)/Referral(s): Patricia Mckinney MD [STAFF PHYSICIAN] - 1 Week Beka Cunha [STAFF PHYSICIAN] - 3 Days Patient Instructions/Handouts: *[facility] - After Heart Catheterization - Am bulatory Care Instructions, Heart Failure (DC), How to Stop Smoking (DC) Discharge Disposition: HOME SELF-CARE
[2020-10-10] MEDS: ASPIRIN 81 MG PO SCH (10:28)
[2020-10-10] MEDS: FUROSEMIDE 10 MG/ML 4 ML VIAL IV SCH (10:28)
[2020-10-10] MEDS: lisinopriL 5 MG TAB PO SCH (10:28)
[2020-10-10] MEDS: SPIRONOLACTONE 25 MG TAB PO SCH (10:28)
[2020-10-10] MEDS: METOPROLOL TARTRATE 25 MG TAB PO SCH (10:28)
[2020-10-10] MEDS: CLOPIDOGREL 75 MG TAB PO SCH (10:28)
[2020-10-10] MEDS: ATORVASTATIN 40 MG TAB PO SCH (10:29)
[2020-10-10 13:07] VITALS: BP 103/51; PULSE 57
--- NOTE | 2020-10-10 14:46 | P.PN ---
Subjective Progress Note Date: 10/10/20 HISTORY OF PRESENT ILLNESS: 10/09/2020 Patient is status post cardiac catheterization with stent to the circumflex. Patient examined this point the bedside. He denies chest pain or pressure. Denies shortness of breath. He remains on IV Lasix. Creatinine 0.94 today. He continues to have bilateral lower extremity edema that is improving daily. Echocardiogram performed reveals ejection fraction less than 20%. 10/10/2020 Patient examined this morning the bedside. He denies chest pain or pressure. Denies shortness of breath. Vital signs are stable. He is anxious to be di scharged home today. He is awaiting a LifeVest. PHYSICAL EXAM: VITAL SIGNS: Reviewed. GENERAL: Well-developed in no acute distress. NECK: Supple. No JVD or thyromegaly LUNGS: Respirations even and unlabored. Lungs essentially clear to auscultation bilaterally. HEART: Regular rate and rhythm. S1 and S2 heard. EXTREMITIES: Normal range of motion. No clubbing or cyanosis. Peripheral pulses intact. 2+ bilateral lower extremity edema. Radial cath site with pulse present. ASSESSMENT: Non-STEMI, status post cardiac cath with PCI to circumflex Ischemic cardiomyopathy, EF 20% Acute systolic congestive heart failure Nicotine dependence PLAN: Continue current cardiac medications Transition patient to oral Lasix Patient will require LifeVest at the time of discharge to prevent sudden cardiac secondary to cardiomyopathy with ejection fraction less than 20%. Case management following as patient does not have any insurance. Patient may be discharged home this afternoon if he is able to receive his LifeVest today. Nurse practitioner note has been reviewed by physician. Signing provider agrees with the documented findings, assessment, and plan of care. Objective - Vital Signs Vital signs: Vital Signs Temp 98.0 F 10/10/20 08:00 Pulse 57 L 10/10/20 12:00 Resp 18 10/10/20 07:51 BP 103/51 10/10/20 12:00 Pulse Ox 95 10/10/20 12:00 Intake & Output 10/09/20 10/10/20 10/10/20 18:59 06:59 18:59 Intake Total 780 240 Output Total 1300 Balance 780 -1300 240 Weight 66.4 kg Intake: Oral 780 240 Output: Urine 1300 Other: # Voids 2 - Labs CBC & Chem 7: 10/09/20 07:06 10/10/20 07:39 Labs: Abnormal Lab Results - Last 24 Hours (Table) 10/10/20 Range/Units 07:39 Chloride 97 L (98-107) mmol/L Carbon Dioxide 40 H (22-30) mmol/L BUN 25 H (9-20) mg/dL Glucose 107 H (74-99) mg/dL
[2020-10-11] MEDS ORDERED: FUROSEMIDE 40 MG TAB PO SCH (09:00)
== END 2020-10-10 17:54 | disposition home or self-care (01) | DRG 246 ==
LOC: EC 10:42 → 3SCARD 12:35
PROVIDERS: ADMIT Internal Medicine; ATTEND Internal Medicine
PROC: 027036Z Dilation of Coronary Artery, One Artery with Three Drug-eluting Intraluminal Devices, Percutaneous Approach (ICD-10-PCS; principal; 2020-10-08 12:41)
PROC: B2111ZZ Fluoroscopy of Multiple Coronary Arteries using Low Osmolar Contrast (ICD-10-PCS; 2020-10-08 12:41)
DX: I21.4 Non-ST elevation (NSTEMI) myocardial infarction (principal); I50.23 Acute on chronic systolic (congestive) heart failure; R64 Cachexia; J44.9 Chronic obstructive pulmonary disease, unspecified; I25.10 Atherosclerotic heart disease of native coronary artery without angina pectoris; I25.5 Ischemic cardiomyopathy; F17.210 Nicotine dependence, cigarettes, uncomplicated; Z71.6 Tobacco abuse counseling; Z88.0 Allergy status to penicillin
CPT/HCPCS: 36415; 71046; 80048; 80053; 80061; 83036; 83735; 83880; 84484; 85025; 85347; 85610; 85730; 93005; 93306; 93458; 94640; 94760; 96365; 96375; 96376; 99291

== ENCOUNTER → 2020-11-22 | Outpatient (CLI) | payer MEDICARE, OTHER ==
[2020-11-22 21:11] LABS: African American GFR (CKD) 86.8 (60.0-200.0); Albumin 4.6 g/dL (3.80-4.90); Albumin/Globulin Ratio 1.92 (1.60-3.17); Anion Gap 10.9 mmol/L (4.00-12.00); Calcium 9.8 mg/dL (8.7-10.3); Carbon Dioxide 27.1 mmol/L (21.6-31.8); Chol/HDL Ratio 2.56; Globulin 2.4 g/dL (1.6-3.3); LDL Cholesterol,Calculated 79.6 mg/dL (0.0-131.0); Non-African American GFR(CKD) 74.9 (60.0-200.0); Potassium 4.9 mmol/L (3.5-5.5); Total Bilirubin 0.9 mg/dL (0.2-1.2); VLDL Calculation 20.4 mg/dL (5.00-40.00)
== END | disposition home or self-care (01) ==
LOC: LABWHC1 11:15
PROVIDERS: ATTEND Internal Medicine Interventional Cardiology
DX: E78.2 Mixed hyperlipidemia (principal)
CPT/HCPCS: 36415; 80053; 80061

== ENCOUNTER 2020-12-06 11:43 | Day surgery (SDC) | payer MEDICARE, OTHER ==
[2020-12-05 08:55] VITALS: BMI 18.8
[~2020-12-06 11:43] MED LIST: CLINDAMYCIN 600 MG in SODIUM CHLORIDE 0.9% 250 ML IRRIGATION PRN; CLINDAMYCIN 900 MG in DEXTROSE 5% IN WATER 50 ML IVPB PRN; LIDOCAINE 1% (10MG/ML) FOR IV START INTRADERMA PRN; SODIUM CHLORIDE 0.9% 1,000 ML IV SCH
[2020-12-06] MEDS ORDERED: SODIUM CHLORIDE 0.9% 1,000 ML IV ONE (11:56)
[2020-12-06 12:29] LABS: Basophils % (A) 0 %; Eosinophils # (A) 0.4 k/uL (0-0.7); Eosinophils % (A) 5 %; HCT 37.9 % (39.0-53.0); HGB 12.5 gm/dL (13.0-17.5); Lymphocytes # (A) 1.6 k/uL (1.0-4.8); Lymphocytes % (A) 21 %; MCV 90.9 fL (80.0-100.0); Mean Platelet Volume 6.8; Monocytes # (A) 0.4 k/uL (0-1.0); Monocytes % (A) 5 %; Neutrophils % (A) 67 %; Platelet Count 263 k/uL (150-450); RBC 4.17 m/uL (4.30-5.90); RDW 14.5 % (11.5-15.5); WBC 7.4 k/uL (3.8-10.6)
[2020-12-06 12:39] LABS: African American GFR (CKD) >90 (>60 ml/min/1.73 sqM); Anion Gap 6 mmol/L; Blood Urea Nitrogen 22 mg/dL (9-20); Calcium 9.7 mg/dL (8.4-10.2); Carbon Dioxide 29 mmol/L (22-30); Chloride 101 mmol/L (98-107); Glucose 84 mg/dL (74-99); Non-African American GFR(CKD) 89 (>60 ml/min/1.73 sqM); Potassium 4.4 mmol/L (3.5-5.1); Sodium 136 mmol/L (137-145)
[2020-12-06] MEDS ORDERED: IOPAMIDOL-370 50ML BTL INJ ONE (13:05)
[2020-12-06] MEDS ORDERED: LIDOCAINE 1% INJ 10MG/ML (20 ML MDV) ONE ×2 (13:24→13:52)
[2020-12-06] MEDS ORDERED: fentaNYL (PF) 50 MCG/ML 2 ML AMP ONE (13:27)
[2020-12-06] MEDS ORDERED: MIDAZOLAM 2 MG/2 ML VIAL IV ONE (13:28)
[2020-12-06] MEDS ORDERED: fentaNYL (PF) 50 MCG/ML 2 ML AMP IV ONE (13:29)
[2020-12-06] MEDS ORDERED: PROPOFOL 10 MG/ML 20 ML VIAL IV ONE (13:31)
[2020-12-06] MEDS ORDERED: MIDAZOLAM 2 MG/2 ML VIAL ONE (13:31)
[2020-12-06] MEDS ORDERED: LIDOCAINE 1% INJ 10MG/ML (20 ML MDV) SQ ONE ×3 (13:34→13:53)
[2020-12-06] MEDS ORDERED: ACETAMINOPHEN TAB 325 MG TAB PO PRN (14:45)
--- NOTE | 2020-12-06 17:15 | P.PCN ---
Date of Procedure: 12/06/20 Preoperative Diagnosis: Ischemic cardiomyopathy Postoperative Diagnosis: The same Procedure(s) Performed: Axillary venography, dual-chamber AICD implantation and DFT testing Description of Procedure: HISTORY: This is a 70-year-old gentleman with history of ischemic heart disease and ischemic heart myopathy, status post stent placement. Patient LV function hasn't improved. Patient has had LifeVest. Patient is advised to have prophylactic AICD implantation. Patient has class 1-2 CHF and LV function below 35%. CONSENT:I have discussed the risks, benefits and alternative therapies for the above-mentioned procedure and for both sedation/analgesia as well as necessary blood product administration, if indicated, as they pertain to this patient. The patient has indicated understanding and acceptance of the risks and pro cedures discussed. PROCEDURE: Patient was brought to the lab in a fasting state. Patient was prepped and draped in the usual fashion. Patient was given IV sedation by department of anesthesia. Axillary venography was performed for delineation of the axillary vein and subclavian vein. The skin below the left clavicle was infiltrated with lidocaine. Attempts were made to enter axillary vein from the lateral approach. However, it resulted in arterial stick and the procedure was canceled from that approach. Manual compression was applied for hemostasis. Subsequently ,subclavian stick was performed and the guidewire was advanced in the superior vena cava. An incision was made parallel to deltopectoral groove was deepened until the pectoral fascia was exposed. A pocket was created by blunt dissection and cautery. The introducer sheath was advanced over the guidewire. Another guidewire was advanced through the sheath and using exchange technique, a second introducer sheath was advanced. The atrial lead and ventricular lead were advanced through the sheath and left in superior vena cava. Conscious Sedation: Sedation was provided by department of anesthesia Duration : 62 minutes LEADS: ATRIAL: This is manufactured by [employer]. Model number is [id number]. The serial number is [id number]. VENTRICULAR: This is manufactured by [employer]. Model number is [id number] and the serial number is capital [id number] THE DEVICE: This is manufactured by [employer]. Model number is [id number] and the serial number is [id number]. The ventricular lead is maneuvered l with help of a straight and curved stylets into the left ventricle apical region. Satisfactory position was obtained and threshold measurements were made. The atrial lead was then maneuvered into the right atrial appendage. And thresholds were obtained. Both leads were screw-in leads THRESHOLDS: ATRIUM:. The minimum patient threshold was 0.7 at pulse width of 0.5 with impedance of 8 and 60 ohms P-wave: 4.7 VENTRICLE:. The minimal patient threshold is 0.7 at pulse width of 0.5 with impedance of 573. R-wave: 6 mV. The leads and pulse generator remained in the pocket after it was washed with antibiotics. Pocket was closed in the usual fashion. The fascia was closed with 2-0 Prolene ,the subcutaneous tissue was closed with 3-0 Prolene and the skin was closed with 4-0 Prolene. DFT TESTING. This was done under general anesthesia provided by department of anesthesia. Ventricular fibrillation was induced with T shock. This was appropriately detected. Shocks of 50 J followed by 20 J was applied. Patient converted to sinus rhythm with 20 J shock. There is one dropout. impedance was about 50 PROGRAMMING: Bradycardia programming: MODE: AAIR with mode switch to DDDR RATE: 60 to 130 OUTPUT: Atrium : 3.5 Ventricle : 3.5 Tachycardia programming: The VT zone was programmed to a rate of 171. The VF is programmed to a rate of 200 bpm. The monitor zone is programmed to 1 50 bpm. Further VF, the initial injection is programmed to 30 out of 40 and sedated. It was programmed pulled out of 16. The therapies for the V. tach were programmed to burst pacing 2 followed by cardioversion 1 at 25 J followed by cardioversion at 35 J 3. Therapies for the V. fib was programmed to 25 J shock followed by 355 FINAL IMPRESSION: #1. Axillary venography #2. Dual-chamber ICD implantation #3. DFT testing COMPLICATIONS: None PLAN: Continue to monitor patient on the telemetry unit. Continue prophylactic antibiotics. Chest x-ray today and tomorrow. Possible discharge in am
[2020-12-06] MEDS: LACTATED RINGERS 1,000 ML IV SCH ×2 (18:33→18:46)
[2020-12-06] MEDS ORDERED: CLINDAMYCIN 900 MG in DEXTROSE 5% IN WATER 50 ML IVPB SCH ×2 (19:30)
[2020-12-06] MEDS: lisinopriL 5 MG TAB PO SCH (20:58)
[2020-12-06] MEDS: METOPROLOL TARTRATE 25 MG TAB PO SCH (20:59)
[2020-12-07] VITALS: RESP 16
[2020-12-07] MEDS: METOPROLOL TARTRATE 25 MG TAB PO SCH (08:42)
[2020-12-07] MEDS: lisinopriL 5 MG TAB PO SCH (08:42)
[2020-12-07 08:45] VITALS: BP 100/49; PULSE 64; TEMP 98.5
--- NOTE | 2020-12-07 08:57 | XR ---
EXAMINATION TYPE: XR chest 2V DATE OF EXAM: 12/07/2020 COMPARISON: Chest x-ray 12/06/2020 HISTORY: Lead placement check TECHNIQUE: Frontal and lateral views of the chest are obtained. FINDINGS: There is again noted generator in the left pectoral region, leads are present in the right atrium and ventricle. Interstitium is increased. There is no focal air space opacity, pleural effusio n, or pneumothorax seen. The cardiac silhouette size is stable. The aorta is dense. There are promin ent lung volumes and flattening the hemidiaphragms suggesting underlying COPD. The osseous structures are intact. IMPRESSION: No acute cardiopulmonary process.
[2020-12-07] MEDS ORDERED: FUROSEMIDE 20 MG TAB PO SCH (09:00)
[2020-12-07] MEDS ORDERED: SPIRONOLACTONE 25 MG TAB PO SCH (09:00)
[2020-12-07] MEDS ORDERED: ATORVASTATIN 40 MG TAB PO SCH (09:00)
[2020-12-07] MEDS ORDERED: ASPIRIN 81 MG PO SCH (10:00)
--- NOTE | 2020-12-07 11:42 | XR ---
EXAMINATION TYPE: XR chest 1V portable DATE OF EXAM: 12/06/2020 COMPARISON: Chest x-ray 10/07/2020 HISTORY: Lead placement check TECHNIQUE: Single frontal view of the chest is obtained. FINDINGS: There is been interval placement of a generator in the left pectoral region, leads are pre sent in the right atrium and ventricle. Heart size appears prominently although patient is rotated. T here is interval improvement in aeration, interstitium, central vascularity prominence. Lung bases sh ow interval improved visualization of the hemidiaphragms. There is no evident pneumothorax. Underlyin g COPD changes are suspected, there may be pulmonary arterial hypertension, prominence of pulmonary a rteries noted. There is apical pleural thickening, prominence interstitium. The aorta is dense. IMPRESSION: Leads as described, improvement in findings of heart failure and prior exam. Additional findings above.
--- NOTE | 2020-12-07 13:18 | P.DS ---
Providers Attending physician: Oni Davila Primary care physician: Beka [facility] Course: 70-year-old male who underwent dual-chamber AICD implantation with Dr. Davila on 12/06/2020. Patient is doing well postoperatively. Chest x-ray obtained without evidence of pneumothorax. AICD was interrogated this morning by device rep and is functioning properly. Patient is stable for discharge home today. Please see EMR for further hospital course details. Discharge Diagnosis Ischemic cardiomyopathy, status post dual-chamber AICD implantation Nurse practitioner note has been reviewed by physician. Signing provider agrees with the documented findings, assessment, and plan of care. Plan - Discharge Summary Discharge Rx Participant: Yes New Discharge Prescriptions: New Clindamycin HCl 300 mg PO TID #9 cap Continue Spironolactone [Aldactone] 25 mg PO DAILY #30 tab Aspirin 81 mg PO DAILY #30 chew Atorvastatin [Lipitor] 40 mg PO DAILY #30 tab Metoprolol Tartrate [Lopressor] 25 mg PO BID #60 tab Clopidogrel [Plavix] 75 mg PO DAILY #30 tab Furosemide [Lasix] 20 mg PO DAILY lisinopriL [Zestril] 5 mg PO BID Discharge Medication List Aspirin 81 mg PO DAILY #30 chew 10/10/20 [Rx] Atorvastatin [Lipitor] 40 mg PO DAILY #30 tab 10/10/20 [Rx] Clopidogrel [Plavix] 75 mg PO DAILY #30 tab 10/10/20 [Rx] Metoprolol Tartrate [Lopressor] 25 mg PO BID #60 tab 10/10/20 [Rx] Spironolactone [Aldactone] 25 mg PO DAILY #30 tab 10/10/20 [Rx] Furosemide [Lasix] 20 mg PO DAILY 12/05/20 [History] lisinopriL [Zestril] 5 mg PO BID 12/05/20 [History] Clindamycin HCl 300 mg PO TID #9 cap 12/07/20 [Rx] Follow up Appointment(s)/Referral(s): Oni Davila MD [STAFF PHYSICIAN] - 1 Week (office will call you with an appt.) Patient Instructions/Handouts: Pacemaker (DC) Activity/Diet/Wound Care/Special Instructions: Resume plavix tomorrow Discharge Disposition: HOME SELF-CARE
== END 2020-12-07 12:49 | disposition home or self-care (01) ==
LOC: CATHEP 11:43 → 3SCARD 14:32 → CATHEP 12-07 12:49
PROVIDERS: ATTEND Internal Medicine Cardiovascular Disease
DX: I25.5 Ischemic cardiomyopathy (principal); I25.9 Chronic ischemic heart disease, unspecified; I11.0 Hypertensive heart disease with heart failure; I50.23 Acute on chronic systolic (congestive) heart failure; E78.2 Mixed hyperlipidemia; Z95.5 Presence of coronary angioplasty implant and graft; Z87.891 Personal history of nicotine dependence; Z98.1 Arthrodesis status; Z82.49 Family history of ischemic heart disease and other diseases of the circulatory system; Z79.02 Long term (current) use of antithrombotics/antiplatelets; Z79.82 Long term (current) use of aspirin; Z79.899 Other long term (current) drug therapy; Z88.0 Allergy status to penicillin
CPT/HCPCS: 93641; 33249; 80048; 85025; 71045; 71046; C1769 ×2; C1892 ×2; C1895; C1898; C1721; J2250; J2001; J3010; J2704; Q9967

== ENCOUNTER → 2021-04-25 | Outpatient (CLI) | payer MEDICARE, OTHER ==
--- NOTE | 2021-04-25 13:08 | XR ---
EXAMINATION TYPE: XR knee limited RT DATE OF EXAM: 04/25/2021 COMPARISON: NONE HISTORY: Pain TECHNIQUE: Two views are submitted. FINDINGS: There is severe narrowing of the tricompartment joint spaces with hypertrophic spurring. Diffuse oste openia with vascular calcifications.. Osseous structures are intact. No acute fracture seen. IMPRESSION: 1. Severe osteoarthritis..
== END | disposition home or self-care (01) ==
LOC: RADXRMAIN 12:25
PROVIDERS: ATTEND Family Medicine
DX: M17.11 Unilateral primary osteoarthritis, right knee (principal)

== ENCOUNTER → 2021-05-08 | Outpatient (CLI) | payer MEDICARE, OTHER ==
--- NOTE | 2021-05-08 21:33 | CTL ---
EXAMINATION TYPE: CT Low Dose Lung DATE OF EXAM ORDERED: 05/08/2021 HISTORY: . Lung cancer screening CT DLP: mGycm CT CTDI: mGy Automated exposure control for dose reduction was used. SCREENING VISIT: Initial COMPARISON: None TECHNIQUE: Low dose computed tomography scan was performed through the chest at 1 mm thick sections a nd reconstructed images in the coronal plane at [address] DIAGNOSTIC QUALITY: Limited, but interpretable FINDINGS: LUNG NODULES: None. Linear opacities are at the right apex may represent some scarring. LUNGS: COPD: Severity: Moderate Fibrosis: Severity: None Lymph nodes: None Other findings: None RIGHT PLEURAL SPACE: Effusion: None Calcification: None Thickening: None Pneumothorax: None LEFT PLEURAL SPACE: Effusion: None Calcification: None Thickening: None Pneumothorax: None HEART: Heart Size: Normal Coronary calcification: Moderate coronary artery calcification is present. Pericardial effusion: None OTHER FINDINGS: Upper abdomen: Normal Bony thorax: Normal Supraclavicular region: Normal Other: Ascending thoracic aorta at the level the main pulmonary artery measures 8.5 cm. The main pul monary artery at the bifurcation measures 2.4 cm. IMPRESSION: 1. No suspicious changes to suggest neoplasm. 2. COPD FOLLOW UP CT CHEST RECOMMENDATION: Yes, low-dose CT chest one year CT LUNG RAD: 2
== END | disposition home or self-care (01) ==
LOC: RADCTMAIN 07:27
PROVIDERS: ATTEND Family Medicine
DX: J44.9 Chronic obstructive pulmonary disease, unspecified (principal); I10 Essential (primary) hypertension; Z87.891 Personal history of nicotine dependence
CPT/HCPCS: 36415; 71271; 82565; 84520

== ENCOUNTER → 2021-05-10 | Outpatient (CLI) | payer MEDICARE, OTHER ==
--- NOTE | 2021-05-10 10:38 | CT ---
EXAMINATION TYPE: CT abdomen pelvis w con DATE OF EXAM: 05/10/2021 COMPARISON: HISTORY: Chronic Diarrhea CT DLP: 724 mGycm, Automated Exposure Control for Dose Reduction was Utilized. CONTRAST: CT scan of the abdomen and pelvis is performed with oral and with IV Contrast, patient injected with 100 mL of Isovue 300. FINDINGS: LUNG BASES: Motion artifact degradation with mild bibasilar linear scarring and/or atelectasis. LIVER/GB: No significant abnormality is appreciated. PANCREAS: No significant abnormality is seen. SPLEEN: No significant abnormality is seen. ADRENALS: No significant abnormality is seen. KIDNEYS: No significant abnormality is seen. BOWEL: Oral contrast reaches level of rectum. No suspicious small or large bowel dilatation is seen. Scattered colonic diverticula greatest near junction of left and sigmoid colon. Short segment of mode rate concentric wall thickening left lower quadrant near iliac crest could reflect focal spasm, deepak ntric or apple core type neoplasm not entirely excluded. Slightly low-lying cecum into the pelvis. No rmal contrast-filled appendix. Poor contrast opacification of duodenal sweep makes evaluation at this level suboptimal. Patient has little intra-abdominal fat. Some motion artifact degradation is presen t. PROSTATE/SEMINAL VESICLES: Heterogeneous enlarged prostate consistent with BPH. Mild areas of wall th ickening and bladder presumed product of outlet obstruction. LYMPH NODES: No greater than 1cm abdominal or pelvic lymph nodes are appreciated. OSSEOUS STRUCTURES: Moderate disc space narrowing L4-L5 and L5-S1 levels. Moderate axial joint space loss both hips OTHER: Moderate to severe calcified plaque of the abdominal aorta extends into branch vessels. Focal aneurysmal to 3.7 cm transversely axial image 24. No aneurysm extension into common iliac arteries.. IMPRESSION: 1. No bowel obstruction. Distal colonic diverticulosis. Short segment of moderate concentric wall thi ckening could reflect spasm, neoplasm not excluded. Colonoscopy follow-up advised if not performed in last 3 years. 2. Enlarged prostate consistent with BPH. Suspected outlet obstruction on bladder. 3. Moderate to severe atherosclerotic change of aorta with aneurysm up to 3.7 cm.
== END | disposition home or self-care (01) ==
LOC: RADCTMAIN 07:56
PROVIDERS: ATTEND Family Medicine
DX: K57.30 Diverticulosis of large intestine without perforation or abscess without bleeding (principal); N40.0 Benign prostatic hyperplasia without lower urinary tract symptoms; I71.4 Abdominal aortic aneurysm, without rupture
CPT/HCPCS: 74177; Q9967 ×2

== ENCOUNTER → 2021-06-11 | Outpatient (CLI) | payer OTHER ==
--- NOTE | 2021-06-11 09:50 | US ---
EXAMINATION TYPE: US duplex aorta DATE OF EXAM: 06/11/2021 COMPARISON: NONE CLINICAL HISTORY: Screening AAA [place] Medicare screen AAA. EXAM MEASUREMENTS: Abdominal Aorta: Proximal: 2.0 x 2.3cm Mid: 2.1 x 2.3cm Distal: 2.8 x 3.9cm Right Iliac: 0.7 x 0.8cm Left Iliac: 0.6 x 0.8cm AAA distal aorta measuring 2.8 x 3.9cm IMPRESSION: Distal abdominal aortic aneurysm as noted above.
== END | disposition home or self-care (01) ==
LOC: RADUSWWP 08:54
PROVIDERS: ATTEND Family Medicine
DX: Z13.6 Encounter for screening for cardiovascular disorders (principal); I71.4 Abdominal aortic aneurysm, without rupture
CPT/HCPCS: 93979

== ENCOUNTER → 2021-06-22 | Outpatient (CLI) | payer MEDICARE, OTHER ==
--- NOTE | 2021-06-22 11:59 | XR ---
Lumbar spine HISTORY: Radiating leg pain 3 views of lumbar spine, correlation CT scan 05/10/2021 Bone mineralization is reduced. Superior endplate of L1 shows some mild depression. There is a spinal curvature. Multilevel spondylosis is present. Loss of disc height is present at the intervertebral d isc levels, greatest at L5-S1, L4-5 with associated vacuum phenomenon. Sclerosis is present in the po sterior elements. Atherosclerotic calcifications are present at the infrarenal abdominal aorta level, there is abdominal aortic aneurysm. Dense calcification noted incidentally in the left lower quadran t. IMPRESSION: Osteoporotic compression deformity superior endplate of L1 is chronic. There is degenerat fer disc disease, facet arthropathy, mild spinal curvature. Abdominal aortic aneurysm was noted on pr ior CT.
== END | disposition home or self-care (01) ==
LOC: RADXRMAIN 10:55
PROVIDERS: ATTEND Family Medicine
DX: M51.17 Intervertebral disc disorders with radiculopathy, lumbosacral region (principal); I71.4 Abdominal aortic aneurysm, without rupture
CPT/HCPCS: 72100; G0103

== ENCOUNTER → 2021-08-08 | Outpatient (CLI) | payer MEDICARE ==
[2021-08-08 12:35] LABS: African American GFR (CKD) 98.5 (60.0-200.0); Albumin 4.2 g/dL (3.8-4.9); Albumin/Globulin Ratio 1.91 (1.60-3.17); Anion Gap 11.7 mmol/L (4.00-12.00); BUN/Creat Ratio 17.44 Ratio (12.00-20.00); Blood Urea Nitrogen 15.7 mg/dL (9.0-27.0); Calcium 9.3 mg/dL (8.7-10.3); Carbon Dioxide 25.3 mmol/L (21.6-31.8); Chol/HDL Ratio 2.01 Ratio; Globulin 2.2 g/dL (1.6-3.3); HDL Cholesterol 78.6 mg/dL (40.00-60.00); LDL Cholesterol,Calculated 68.9 mg/dL (0.0-131.0); Potassium 4.4 mmol/L (3.5-5.5); Total Bilirubin 0.3 mg/dL (0.30-1.20); Total Protein 6.4 g/dL (6.2-8.2); Triglycerides 52.5 mg/dL (0.00-149.00); VLDL Calculation 10.5 mg/dL (5.00-40.00)
== END | disposition home or self-care (01) ==
LOC: LABWHC1 07:05
PROVIDERS: ATTEND Nurse Practitioner Adult Health
DX: I25.5 Ischemic cardiomyopathy (principal); E78.2 Mixed hyperlipidemia
CPT/HCPCS: 36415; 80053; 80061

== ENCOUNTER 2022-01-18 07:30 | Inpatient (IN) | payer MEDICARE, OTHER ==
[2022-01-25 10:22] VITALS: BMI 21.2
[2022-01-28] MEDS ORDERED: CLINDAMYCIN 900 MG in DEXTROSE 5% IN WATER 50 ML IVPB PRN ×2 (05:00)
[2022-01-28] MEDS ORDERED: ONDANSETRON 4 MG/2 ML VIAL IVP ONE (10:18)
[2022-01-28] MEDS ORDERED: MIDAZOLAM 2 MG/2 ML VIAL IV PRN (10:18)
[2022-01-28] MEDS ORDERED: DEXAMETHASONE SOD PHOSPHATE 4 MG/ML 1 ML VIAL IV ONE (10:18)
[2022-01-28] MEDS ORDERED: LIDOCAINE 1% (10MG/ML) FOR IV START INTRADERMA PRN (10:18)
[2022-01-28] MEDS ORDERED: HYDROmorphone 0.5 MG/0.5 ML SYRINGE IVP PRN (10:18)
[2022-01-28] MEDS ORDERED: MIDAZOLAM 2 MG/2 ML VIAL IV ONE (11:52)
[2022-01-28] MEDS: LACTATED RINGERS 1,000 ML IV SCH (11:54)
--- NOTE | 2022-01-28 12:17 | P.ANPRN ---
Procedure Note - Anesthesia - Invasive Line Left Arterial Line Time Out Performed: Yes Date of Procedure: 01/28/22 Time of Procedure: 12:00 Location of Patient: PreOp Preparation: Sterile Prep, Sterile Dressing Arterial Line Location: Radial Ultrasound Used: No Purpose - Visualization and Identification of Vasculature: No Needle Guage: 20G- 2.5 inch Image Stored and Saved: No Narrative: Arterial line placement per sterile protocol utilized - one attempt. The patient tolerated well without any problems. No complications.
[2022-01-28] MEDS ORDERED: NITROGLYCERIN-D5W PMX 50 MG in DEXTROSE/WATER 1 250ML.BAG IV SCH ×2 (12:30→12:45)
[2022-01-28] MEDS ORDERED: PHENYLEPHRINE-0.9% NACL SYG 1,000 MCG/10 ML SYRINGE ONE (12:40)
[2022-01-28] MEDS ORDERED: fentaNYL (PF) 50 MCG/ML 2 ML AMP ONE (12:40)
[2022-01-28] MEDS ORDERED: PROTAMINE SULFATE 10 MG/ML 5 ML VIAL IV ONE (12:40)
[2022-01-28] MEDS ORDERED: PROPOFOL 10 MG/ML 20 ML VIAL IV ONE (12:40)
[2022-01-28] MEDS ORDERED: LIDOCAINE 2% INJ 20 MG/ML (2 ML VIAL) ONE (12:40)
[2022-01-28] MEDS ORDERED: HEPARIN SODIUM,PORCINE 10,000 UNIT/ML 1 ML VIAL ONE (12:40)
[2022-01-28] MEDS ORDERED: SUCCINYLCHOLINE CHLORIDE 100 MG/5 ML SYR IV ONE (12:40)
[2022-01-28] MEDS ORDERED: NEOSTIGMINE 1 MG/ML 10 ML VIAL ONE (12:40)
[2022-01-28] MEDS ORDERED: ROCURONIUM 10 MG/ML (5 ML VIAL) IV ONE (12:40)
[2022-01-28] MEDS ORDERED: GLYCOPYRROLATE 0.2 MG/ML 2 ML VIAL ONE (12:40)
[2022-01-28] MEDS ORDERED: MIDAZOLAM 2 MG/2 ML VIAL ONE (12:40)
[2022-01-28] MEDS ORDERED: PHENYLEPHRINE 40 MG in SODIUM CHLORIDE 0.9% 250 ML IV SCH (12:45)
[2022-01-28] MEDS ORDERED: SODIUM CHLORIDE 0.9% 500 ML 500 ML with HEPARIN SODIUM,PORCINE 5,000 UNIT IV ONE ×2 (13:23)
[2022-01-28] MEDS ORDERED: LACTATED RINGERS 1,000 ML IV ONE (13:45)
[2022-01-28] MEDS ORDERED: HYDROcodone/APAP 5-325MG 1 EACH TAB PO PRN (14:26)
[2022-01-28] MEDS ORDERED: ACETAMINOPHEN TAB 325 MG TAB PO PRN (14:26)
[2022-01-28] MEDS ORDERED: MORPHINE SULFATE 2 MG/ML SYRINGE IVP PRN (14:26)
[2022-01-28] MEDS ORDERED: MAG HYDROX/AL HYDROX/SIMETH 30 ML CUP PO PRN (14:26)
--- NOTE | 2022-01-28 14:49 | P.OP ---
Date of Procedure: 01/28/22 Preoperative Diagnosis: Hemodynamically severe right internal carotid artery stenosis. Postoperative Diagnosis: Same. Procedure(s) Performed: Right carotid endarterectomy with patch angioplasty. Anesthesia: NATIA Surgeon: Sameer Gutiérrez Estimated Blood Loss (ml): 25 Urine output (ml): 0 Pathology: other (Right carotid plaque.) Condition: stable Disposition: ICU Indications for Procedure: Patient is a 71-year-old male who presented with a complaint of lower extremity arterial insufficiency. During workup he was found be suffering from hemodynamically severe right internal carotid artery stenosis estimated to be greater than 80% on the right. The plaque is extremely heavily calcified and was not felt candidate for carotid stenting. Patient was thus offered carotid endarterectomy. The procedure, risk and benefits were discussed and patient wished to proceed. Consent form was signed. Description of Procedure: Patient was brought the upper and placed in the supine position and administered general endotracheal anesthesia delivered by the department anesthesiology. Patient received 900 mg of clindamycin intravenously in the perioperative phase for prophylactic antibiotic therapy. The right lateral neck and anterior chest wall were sterilely prepped and draped in usual manner. Skin incision overlying the anterior border the sternocleidomastoid muscle was made carried down through the subcutaneous tissues. Hemostasis was achieved using electrocautery. Platysma layer was incised. The facial vein was identified and skeletonized of investing tissues, doubly ligated with silk suture and divided. The dissection was then carried down through the fascia and entrance was gained into the carotid sheath. The origin of the internal carotid artery was dissected free of investing tissues. Ansa was mobilized from harm's way. The vagus nerve was identified and left undisturbed. Sloop was placed around the exposed proximal portion of the common carotid artery. The dissection was then carried cephalad to the old level of the superior thyroid artery was dissected free of investing tissues and encircled vessel loop. Similar procedure was performed on the external carotid artery. The dissection was then carried cephalad. The hypoglossal nerve was noted and left undisturbed. The internal carotid artery distal to the area of plaque formation was identified. This was soft and otherwise unremarkable. Vessel loop was placed about this section of the artery. The patient was systemically heparinized with 7500 units of heparin and after adequate circulation time vessel loops surrounding the internal carotid artery common carotid artery external and superior thyroid arteries were drawn closed. Arteriotomy was made in the common and extended through the bulb and into the internal segment. Some pressures were obtained. Mean pressure was approximate 45 mmHg and was felt appropriate to shunt the patient. As such a shunt was placed in the internal carotid artery, backbled and then placed into the common carotid artery thus restoring flow into the internal system. Should be noted the patient had a post heparinization ACT of approximately 280. Endarterectomy was then begun at the level of the common carotid extended to the bulb level. Retraction endarterectomy was performed on the external system. The endarterectomy was then extended into the internal carotid and the distal en d feathered off quite well without the need for tacking sutures. The specimen was then sent to pathology. The remaining luminal surface was inspected for any loose or free-floating material and where identified was removed. Patch angioplasty closure was performed with bovine pericardial patch and 6-0 Prolene suture placed in a running fashion. Just prior to completion of the anastomotic line the internal carotid artery was backbled and the common carotid artery was flushed and no thrombus was retrieved. The anastomotic line was completed. Backbleeding through the internal carotid artery was allowed to occur and the internal carotid was then occluded at its origin. Vessel loops surrounding the superior thyroid, external carotid and finally the common carotid artery were released thus flushing any potential debris into the external system. Flow was then restored into the internal system. Excellent pulsatile flow was identified superior to the end of the endarterectomy plane. One area of anastomotic line oozing was identified and this was controlled with 6-0 Prolene suture. The patient was administered 25 mg of protamine to help reverse the heparin effect. The wound was irrigated. Hemostasis was judged be adequate. Deep tissues were closed with 3-0 Vicryl dermis was closed with 4-0 Monocryl placed in running intradermal fashion. Appropriate dressing was applied. Patient tolerated the procedure well, awoke without apparent neurologic complication and was transferred to the recovery area in satisfactory and stable condition.
--- NOTE | 2022-01-28 15:35 | P.CNPUL ---
History of Present Illness Consult date: 01/28/22 Requesting physician: Sameer Gutiérrez Reason for consult: other Chief complaint: Severe right internal carotid artery stenosis History of present illness: This is a 71-year-old male patient who was recently found to have hemodynamically significant severe right internal carotid artery artery stenosis of greater than 80%. Patient was being evaluated for a complaint of lower extremity arterial insufficiency. Patient carries extensive history of smoking which has been in remission for 1 year. He used to smoke 1 pack a day for 57 years. Has a history of ischemic cardiomyopathy status post ICD/dual chamber pacemaker implantation, previous history of myocardial infarction, hypertension, dyslipidemia and coronary artery disease with previous stenting. He was seen by Dr. Lesetr in the pulmonary clinic for evaluation of his lung function, his full outpatient PFT showed FEV1 of 2.59 L or 78% predicted, FVC of 4.9 L or 110% of predicted with an MCV of 78, with reversibility of obstruction with bronchodilators. Patient is not oxygen dependent at baseline. His low dose computed tomography scan of the chest from April 2021 showed no suspicious changes to suggest neoplasm, and underlying COPD. On 01/28/2022 patient underwent right carotid endarterectomy with patch angioplasty. Patient tolerated procedure quite well, he is awake and alert, he is in the phase I recovery, hemodynamic stable, breathing comfortably, he is on minimal supplemental oxygen, no altered mentation, answering questions appropriate. His right neck oblique incision is covered with surgical dressing, clean dry and intact, trachea is midline, no hematoma noted, neurologically intact. No breathing difficulty, lung sounds are clear. Is awaiting a bed in the ICU. Patient is currently on nitroglycerin infusion at 5 mics per kilo per minute. Systolic blood pressures in the 130s millimeters of mercury. Has no specific complaints Review of Systems All systems: negative Constitutional: Denies chills, Denies fever Eyes: denies blurred vision, denies pain Ears, nose, mouth and throat: Denies headache, Denies sore throat Cardiovascular: Denies chest pain, Denies shortness of breath Respiratory: Denies cough Gastrointestinal: Denies abdominal pain, Denies diarrhea, Denies nausea, Denies vomiting Musculoskeletal: Denies myalgias Integumentary: Denies pruritus, Denies rash Neurological: Denies numbness, Denies weakness Psychiatric: Denies anxiety, Denies depression Endocrine: Denies fatigue, Denies weight change Past Medical History Past Medical History: Coronary Artery Disease (CAD), COPD, Hypertension, Myocardial Infarction (NH) Additional Past Medical History / Comment(s): hx covid 10/14/21-states received infusion., AAA., AICD., pain in legs with walking. Last Myocardial Infarction Date:: UNKNOWN History of Any Multi-Drug Resistant Organisms: None Reported Past Surgical History: Back Surgery, Heart Catheterization With Stent Additional Past Surgical History / Comment(s): [id number] (1972)., AICD - (12/06/20 [employer])., HEART CATH WITH 3 STENTS (10/08/20)., CATARACTS Past Anesthesia/Blood Transfusion Reactions: No Reported Reaction Date of Last Stent Placement:: 10/08/2020 Type of Cardiac Device: Permanent Pacemaker Device Placement Date:: 12/06/2020 Past Psychological History: No Psychological Hx Reported Smoking Status: Former smoker Past Alcohol Use History: Occasional Additional Past Alcohol Use History / Comment(s): QUIT SMOKING OCT 2020, HX OF 1-2 PPD, SMOKED APPROX 56 YEARS. Past Drug Use History: None Reported - Past Family History Father History Unknown: Yes Family Medical History: No Reported History Medications and Allergies Home Medications Medication Instructions Recorded Confirmed Type Aspirin 81 mg PO DAILY #30 chew 10/10/20 01/28/22 Rx Clopidogrel [Plavix] 75 mg PO DAILY #30 tab 10/10/20 01/25/22 Rx Metoprolol Tartrate [Lopressor] 25 mg PO BID #60 tab 10/10/20 01/28/22 Rx Spironolactone [Aldactone] 25 mg PO DAILY #30 tab 10/10/20 01/28/22 Rx lisinopriL [Zestril] 5 mg PO BID 12/05/20 01/28/22 History Albuterol Sulfate [Albuterol 2 puff PO Q6H PRN 01/25/22 01/28/22 History Sulfate Hfa] Atorvastatin [Lipitor] 40 mg PO HS 01/25/22 01/28/22 History Furosemide [Lasix] 20 mg PO DAILY 01/25/22 01/28/22 History Allergies Allergy/AdvReac Type Severity Reaction Status Date / Time ampicillin Allergy Unknown turned Verified 01/28/22 11:20 pink, trouble breathing Penicillins Allergy turned Verified 01/28/22 11:20 pink, trouble breathing Physical Exam Vitals: Vital Signs Temp Pulse Resp BP BP Pulse Ox 01/28/22 12:25 70 16 96 01/28/22 11:30 97.8 F 77 16 160/77 172/80 100 Intake and Output 01/27/22 01/28/22 01/28/22 22:59 06:59 14:59 Intake Total 2056 Output Total 20 Balance 2036 Intake: IV 2056 Output: Estimated Blood Loss 20 GENERAL EXAM: Alert, pleasant, 71-year-old white male, on room air, with a pulse ox of 99% comfortable in no apparent distress. HEAD: Normocephalic/atraumatic. EYES: Normal reaction of pupils, equal size. Conjunctiva pink, sclera white. NOSE: Clear with pink turbinates. THROAT: No erythema or exudates. NECK: No masses, no JVD, no thyroid enlargement, no adenopathy. Right neck incision is clean dry and intact CHEST: No chest wall deformity. Symmetrical expansion. LUNGS: Equal air entry with CVS: Regular rate and rhythm, normal S1 and S2, no gallops, no murmurs, no rubs ABDOMEN: Soft, nontender. No hepatosplenomegaly, normal bowel sounds, no guarding or rigidity. EXTREMITIES: No clubbing, no edema, no cyanosis, 2+ pulses and upper and lower extremities. MUSCULOSKELETAL: Muscle strength and tone normal. SPINE: No scoliosis or deformity SKIN: No rashes CENTRAL NERVOUS SYSTEM: Alert and oriented -3. No focal deficits, tone is normal in all 4 extremities. PSYCHIATRIC: Alert and oriented -3. Appropriate affect. Intact judgment and insight. Assessment and Plan Plan: Assessment: #1. Severe right internal carotid artery stenosis, status post right carotid endarterectomy with patch angioplasty on 01/28/2022 #2. [id number] smoking history, in remission for the past year #3. Ischemic cardiomyopathy with EF of 20%, status post ICD/dual-chamber pacemaker insertion #4. COPD, mild, stage II, may have component of asthma, based on the bronchodilator response on the PFT. FEV1 is 2.59 or 78% of predicted from 01/29/2021 #5. Possible history of EtOH, somewhat vague at this point #6. Hypertension #7. Dyslipidemia #8. Previous history of myocardial infarction #9. History of coronary artery disease with previous stenting of the circumflex #10. History of chronic systolic CHF Plan: Continue close hemodynamic monitoring in the ICU Patient is requiring minimal doses of nitroglycerin infusion Blood pressure stable, Breathing comfortably Provide incentive spirometer Prophylactic antibiotics per vascular surgery Continue monitor neurological status, Monitor for bleeding, hematoma at the incision Maintain pain control GI and DVT prophylaxis per vascular surgery We'll continue to follow I have personally seen and examined the patient, performed the documentation and the assessment and plan as written. Number of minutes spent on the visit: [15]
[2022-01-28 15:39] LABS: Glucose,Whole Blood 118 mg/dL (75-99)
[2022-01-28] MEDS: ASPIRIN 81 MG PO SCH (17:01)
[2022-01-28] MEDS: ATORVASTATIN 40 MG TAB PO SCH (20:39)
[2022-01-28] MEDS: METOPROLOL TARTRATE 25 MG TAB PO SCH (20:39)
[2022-01-28] MEDS: lisinopriL 5 MG TAB PO SCH (20:39)
[2022-01-28] MEDS: CLINDAMYCIN 900 MG in DEXTROSE 5% IN WATER 50 ML IVPB SCH ×2 (20:47)
--- NOTE | 2022-01-29 00:40 | P.CONS ---
History of Present Illness - Reason for Consult Consult date: 01/28/22 medical management post op Requesting physician: Sameer Gutiérrez - Chief Complaint scheduled right carotid endarterectomy - History of Present Illness 71 year old male with hypertension, hyperlipidemia, COPD, CAD, AAA, I CMP patient presented for scheduled right carotid endarterectomy. This was discovered while doing some workup for peripheral arterial disease. And found to have severe right internal carotid artery stenosis of more than 80%. Patient tolerated procedure well reports no difficulty swallowing or breathing no swelling at site of surgery no chest pain or trouble breathing. Patient with history of hypertension on medications currently blood pressure well-controlled required initially some nitro drip currently off the nitro drip. Patient also has history of mild COPD not requiring home oxygen currently denies any shortness of breath or wheezing He also has history of ischemic cardiomyopathy and coronary artery disease status post ICD and dual-chamber pacemaker. Most recent stent was in September 2020 denies any anginal-like symptoms Patient has history of heavy smoking he quit 1 year ago. Review of Systems Pertinent positives as noted in HPI. All other systems were reviewed and are negative Past Medical History Past Medical History: Coronary Artery Disease (CAD), COPD, Hypertension, Myocardial Infarction (MO) Additional Past Medical History / Comment(s): hx covid 10/14/21-states received infusion., AAA., AICD., pain in legs with walking. Last Myocardial Infarction Date:: UNKNOWN History of Any Multi-Drug Resistant Organisms: None Reported Past Surgical History: Back Surgery, Heart Catheterization With Stent Additional Past Surgical History / Comment(s): [id number] (1972)., AICD - (12/06/20 [employer])., HEART CATH WITH 3 STENTS (10/08/20)., CATARACTS Past Anesthesia/Blood Transfusion Reactions: No Reported Reaction Date of Last Stent Placement:: 10/08/2020 Type of Cardiac Device: Permanent Pacemaker Device Placement Date:: 12/06/2020 Past Psychological History: No Psychological Hx Reported Smoking Status: Former smoker Past Alcohol Use History: Occasional Additional Past Alcohol Use History / Comment(s): QUIT SMOKING OCT 2020, HX OF 1-2 PPD, SMOKED APPROX 58 YEARS. Past Drug Use History: None Reported - Past Family History Father History Unknown: Yes Family Medical History: No Reported History Medications and Allergies Home Medications Medication Instructions Recorded Confirmed Type Aspirin 81 mg PO DAILY #30 chew 01/12/21 05/02/22 Rx Clopidogrel [Plavix] 75 mg PO DAILY #30 tab 10/10/20 01/25/22 Rx Metoprolol Tartrate [Lopressor] 25 mg PO BID #60 tab 10/10/20 01/28/22 Rx Spironolactone [Aldactone] 25 mg PO DAILY #30 tab 10/10/20 01/28/22 Rx lisinopriL [Zestril] 5 mg PO BID 12/05/20 01/28/22 History Albuterol Sulfate [Albuterol 2 puff PO Q6H PRN 01/25/22 01/28/22 History Sulfate Hfa] Atorvastatin [Lipitor] 40 mg PO HS 01/25/22 01/28/22 History Furosemide [Lasix] 20 mg PO DAILY 01/25/22 01/28/22 History Allergies Allergy/AdvReac Type Severity Reaction Status Date / Time ampicillin Allergy Unknown turned Verified 01/28/22 11:20 pink, trouble breathing Penicillins Allergy turned Verified 01/28/22 11:20 pink, trouble breathing Physical Exam Vitals: Vital Signs Temp Pulse Pulse Resp BP BP BP 01/28/22 22:00 64 18 124/70 01/28/22 21:45 61 9 L 120/87 01/28/22 21:30 65 10 L 123/63 01/28/22 21:15 61 10 L 121/59 01/28/22 21:00 61 14 142/78 01/28/22 20:45 60 11 L 125/62 01/28/22 20:30 60 11 L 135/56 01/28/22 20:15 60 9 L 156/90 01/28/22 20:00 98.1 F 60 8 L 136/78 01/28/22 19:45 60 17 132/75 01/28/22 19:30 71 15 138/71 01/28/22 19:15 61 15 140/85 01/28/22 19:00 62 14 01/28/22 18:45 60 13 134/78 01/28/22 18:30 60 14 139/83 01/28/22 18:15 60 14 141/62 01/28/22 18:00 60 11 L 124/66 01/28/22 17:45 60 14 118/56 01/28/22 17:30 60 14 120/56 01/28/22 17:15 92.2 F L 60 16 139/63 01/28/22 17:07 60 17 127/70 01/28/22 17:00 151/67 01/28/22 16:45 157/73 01/28/22 16:30 157/70 01/28/22 16:15 151/71 01/28/22 16:00 166/68 01/28/22 15:45 139/79 01/28/22 15:15 59 L 16 161/69 01/28/22 15:00 68 16 143/65 01/28/22 14:48 97 F L 76 16 143/65 01/28/22 12:25 70 16 01/28/22 11:30 97.8 F 77 16 160/77 172/80 Pulse Ox 01/28/22 22:00 94 L 01/28/22 21:45 01/28/22 21:30 94 L 01/28/22 21:15 95 01/28/22 21:00 01/28/22 20:45 93 L 01/28/22 20:30 93 L 01/28/22 20:15 92 L 01/28/22 20:00 93 L 01/28/22 19:45 92 L 01/28/22 19:30 01/28/22 19:15 68 L 01/28/22 19:00 94 L 01/28/22 18:45 97 01/28/22 18:30 01/28/22 18:15 94 L 01/28/22 18:00 96 01/28/22 17:45 88 L 01/28/22 17:30 92 L 01/28/22 17:15 94 L 01/28/22 17:07 91 L 01/28/22 17:00 01/28/22 16:45 01/28/22 16:30 01/28/22 16:15 01/28/22 16:00 01/28/22 15:45 01/28/22 15:15 99 01/28/22 15:00 99 01/28/22 14:48 97 01/28/22 12:25 96 01/28/22 11:30 100 Intake and Output 01/28/22 01/28/22 01/29/22 14:59 22:59 06:59 Intake Total 2056 1034.05 Output Total 20 Balance 2036 1034.05 Intake: IV 2056 560 Lactated Ringers 1,000 ml 560 @ 80 mls/hr IV .[id number] BUCK Rx#:[id number] Intake, IV Titration 27.05 Amount Nitroglycerin-D5w Pmx 50 27.05 mg In Dextrose/Water 1 250ml.bag @ Titrate IV . Q0M [facility] Rx#:[id number] Oral 447 Output: Estimated Blood Loss 20 Other: Voiding Method Urinal # Voids 0 ABP, PAP, CO, CI - Last 8 Hours Arterial Blood Pressure 122/47 Arterial Blood Pressure 121/44 Arterial Blood Pressure 124/49 Arterial Blood Pressure 117/46 Arterial Blood Pressure 139/48 Arterial Blood Pressure 171/164 Arterial Blood Pressure 141/48 Arterial Blood Pressure 146/49 Arterial Blood Pressure 154/51 Arterial Blood Pressure 116/59 Arterial Blood Pressure 152/56 Arterial Blood Pressure 150/51 Arterial Blood Pressure 134/51 Arterial Blood Pressure 125/71 Arterial Blood Pressure 142/47 Arterial Blood Pressure 137/42 Arterial Blood Pressure 131/42 Arterial Blood Pressure 139/45 Arterial Blood Pressure 163/54 Constitutional: No acute distress, conversant, pleasant Eyes: Anicteric sclerae, moist conjunctiva, Pupils equal round reactive to light ENMT: NC/AT Oropharynx clear, no erythema, or exudates Neck: Right neck surgical site surgical dressing extracted intact and clean no palpable swelling no visible ecchymosis, Supple, no masses, or JVD No thyromegaly Lungs: Clear to auscultation Clear to percussion Normal respiratory effort, no accessory muscle use Cardiovascular: Heart regular in rate and rhythm, No murmurs, gallops, or rubs No peripheral edema Abdominal: Soft Nontender, no guarding, rebound or rigidity Abdomen moving with respiration Normoactive bowel sounds No hepatomegaly, No splenomegaly No palpable mass No abdominal wall hernia noted Skin: Normal temperature, tone, texture, turgor No induration No subcutaneous nodules No rash, lesions No ulcers Extremities: No digital cyanosis No clubbing Pedal pulses weak and symmetrical, capillary fill immediate Radial pulses intact and symmetrical No calf tenderness Psychiatric: Alert and oriented to person, place and time Appropriate affect fair judgement Neuro Muscles Strength 5/5 in all 4 extremities Sensation to light touch grossly present throughout Cranial nerves II-XII grossly intact No focal sensory deficits Lymphatics: no palpable cervical or supraclavicular , or inguinal lymph nodes Results Labs: Abnormal Lab Results - Last 24 Hours (Table) 01/28/22 Range/Units 15:37 POC Glucose (mg/dL) 118 H (75-99) mg/dL Assessment and Plan Assessment: Severe right internal carotid stenosis status post right carotid endarterectomy postoperative day 0 Tolerated procedure well Further management per primary team Chronic conditions Hypertension, currently controlled, resume a metoprolol and lisinopril History of CAD, status post stents September 2020 ICMP Resume cardiac meds, aspirin, Plavix, spironolactone, lisinopril, metoprolol COPD, DuoNeb's when necessary as needed Full code Check CBC CMP in the morning Thank you for allowing us to participate in the care of this patient. Do not hesitate to contact us with questions. Someone can be reached from the [facility] hospitalist group at all hours of the day at [phone].
[2022-01-29 05:46] LABS: Basophils % (A) 0 %; Eosinophils # (A) 0.1 k/uL (0-0.7); Eosinophils % (A) 0 %; HCT 31.2 % (39.0-53.0); HGB 10.4 gm/dL (13.0-17.5); Lymphocytes # (A) 1.2 k/uL (1.0-4.8); Lymphocytes % (A) 10 %; MCH 31.3 pg (25.0-35.0); MCHC 33.3 g/dL (31.0-37.0); MCV 94.2 fL (80.0-100.0); Mean Platelet Volume 8.3; Monocytes # (A) 0.7 k/uL (0-1.0); Monocytes % (A) 7 %; Neutrophils # (A) 9.1 k/uL (1.3-7.7); Neutrophils % (A) 81 %; Platelet Count 245 k/uL (150-450); RBC 3.32 m/uL (4.30-5.90); RDW 13.7 % (11.5-15.5); WBC 11.1 k/uL (3.8-10.6)
[2022-01-29 06:03] LABS: ALT 18 U/L (4-49); AST 33 U/L (17-59); African American GFR (CKD) >90 (>60 ml/min/1.73 sqM); Albumin 3.8 g/dL (3.5-5.0); Alkaline Phosphatase 111 U/L (38-126); Anion Gap 11 mmol/L; Blood Urea Nitrogen 20 mg/dL (9-20); Calcium 9.2 mg/dL (8.4-10.2); Carbon Dioxide 24 mmol/L (22-30); Chloride 102 mmol/L (98-107); Glucose 136 mg/dL (74-99); Magnesium 1.8 mg/dL (1.6-2.3); Non-African American GFR(CKD) 81 (>60 ml/min/1.73 sqM); Potassium 4.5 mmol/L (3.5-5.1); Sodium 137 mmol/L (137-145); Total Bilirubin 0.7 mg/dL (0.2-1.3); Total Protein 6.8 g/dL (6.3-8.2)
[2022-01-29] MEDS: CLINDAMYCIN 900 MG in DEXTROSE 5% IN WATER 50 ML IVPB SCH ×2 (06:45)
[2022-01-29] MEDS: SPIRONOLACTONE 25 MG TAB PO SCH (08:18)
[2022-01-29] MEDS: ENOXAPARIN 40 MG/0.4 ML SYRINGE SQ SCH (08:18)
[2022-01-29] MEDS: METOPROLOL TARTRATE 25 MG TAB PO SCH ×2 (08:18→21:02)
[2022-01-29] MEDS: ASPIRIN 81 MG PO SCH (08:18)
[2022-01-29] MEDS: lisinopriL 5 MG TAB PO SCH (08:18)
[2022-01-29] MEDS: CLOPIDOGREL 75 MG TAB PO SCH (08:18)
--- NOTE | 2022-01-29 09:10 | P.DS ---
Providers Date of admission: 01/28/22 10:43 Attending physician: Sameer Gutiérrez DO Consults: 01/28/22 14:31 Consult Physician Routine Consulting Provider: Domenico Moses Reason/Comments: icu management Do you want consulting provider notified?: Yes 01/28/22 14:35 Consult Physician Routine Consulting Provider: Paola Ybarra Consult Reason/Comments: Medical management Do you want consulting provider notified?: Yes Primary care physician: Beka [facility] Course: Discharge diagnoses: Hemodynamically severe right internal carotid artery stenosis status post right carotid endarterectomy with patch angioplasty This is 71-year-old male who had presented to vascular surgery with complaints of lower extremity arterial insufficiency. During that workup he was found to be suffering from hemodynamically severe right internal carotid artery stenosis with an estimated greater than 80% stenosis on the right. Patient is postop day #1 for right carotid endarterectomy with patch angioplasty. Overall he is doing well. He had some episodes of hypertension 180s to 200s over 70s 80s. He denies any shortness of breath or chest pain. Oxygen saturation has been 90-91% on room air. Patient denies any home oxygen use. Does have a history of COPD and follows with Dr. Lester. No focal deficits reported or noted. Qureshi catheter has been discontinued Some difficulty with urination, nursing reports 200 output. Encourage ambulation, medicine to adjust blood pressure medication for optimal blood pressure control. Possible discharge later today if blood pressure control. The impression and plan of care has been dictated as directed. I performed a history and examination of this patient, discussed the same with the dictator. I agree with the dictator's note ,documented as a scribe. Any additional findings or plans will be noted. Procedures: Right carotid endarterectomy with patch angioplasty Patient Condition at Discharge: Stable Plan - Discharge Summary Discharge Rx Participant: No New Discharge Prescriptions: No Action Spironolactone [Aldactone] 25 mg PO DAILY #30 tab Aspirin 81 mg PO DAILY #30 chew Metoprolol Tartrate [Lopressor] 25 mg PO BID #60 tab Clopidogrel [Plavix] 75 mg PO DAILY #30 tab lisinopriL [Zestril] 5 mg PO BID Atorvastatin [Lipitor] 40 mg PO HS Albuterol Sulfate [Albuterol Sulfate Hfa] 2 puff PO Q6H PRN PRN Reason: Shortness Of Breath Furosemide [Lasix] 20 mg PO DAILY Discharge Medication List Aspirin 81 mg PO DAILY #30 chew 10/10/20 [Rx] Clopidogrel [Plavix] 75 mg PO DAILY #30 tab 10/10/20 [Rx] Metoprolol Tartrate [Lopressor] 25 mg PO BID #60 tab 10/10/20 [Rx] Spironolactone [Aldactone] 25 mg PO DAILY #30 tab 10/10/20 [Rx] lisinopriL [Zestril] 5 mg PO BID 12/05/20 [History] Albuterol Sulfate [Albuterol Sulfate Hfa] 2 puff PO Q6H PRN 01/25/22 [History] Atorvastatin [Lipitor] 40 mg PO HS 01/25/22 [History] Furosemide [Lasix] 20 mg PO DAILY 01/25/22 [History] Follow up Appointment(s)/Referral(s): Sameer Gutiérrez DO [Doctor of Osteopathic Medicine] - 1 Week Beka Cunha [Primary Care Provider] - 1-2 Days Patient Instructions/Handouts: Carotid Endarterectomy (DC) Activity/Diet/Wound Care/Special Instructions: May shower using soap and water. No heavy lifting, strenuous activity until follow-up with surgeon. Watch incision site for redness, swelling, drainage, and report fever greater than 100.4 Continue aspirin, Plavix, and Lipitor Discharge Disposition: HOME SELF-CARE
[2022-01-29] MEDS ORDERED: lisinopriL 10 MG TAB PO SCH (09:26)
[2022-01-29] MEDS ORDERED: lisinopriL 5 MG TAB PO ONE (09:30)
[2022-01-29] MEDS: amLODIPine 5 MG TAB PO SCH ×2 (09:44→21:02)
[2022-01-29] MEDS: LACTATED RINGERS 1,000 ML IV SCH (11:19)
--- NOTE | 2022-01-29 11:44 | P.PN ---
Subjective Progress Note Date: 01/29/22 Principal diagnosis: Right carotid stenosis This is a 71-year-old male patient who was recently found to have hemodynamically significant severe right internal carotid artery artery stenosis of greater than 80%. Patient was being evaluated for a complaint of lower extremity arterial insufficiency. Patient carries extensive history of smoking which has been in remission for 1 year. He used to smoke 1 pack a day for 57 years. Has a history of ischemic cardiomyopathy status post ICD/dual chamber pacemaker implantation, previous history of myocardial infarction, hypertension, dyslipidemia and coronary artery disease with previous stenting. He was seen by Dr. Lester in the pulmonary clinic for evaluation of his lung function, his full outpatient PFT showed FEV1 of 2.59 L or 78% predicted, FVC of 4.9 L or 110% of predicted with an MCV of 78, with reversibility of obstruction with bronchodilators. Patient is not oxygen dependent at baseline. His low dose computed tomography scan of the chest from April 2021 showed no suspicious changes to suggest neoplasm, and underlying COPD. On 01/28/2022 patient underwent right carotid endarterectomy with patch angioplasty. Patient tolerated procedure quite well, he is awake and alert, he is in the phase I recovery, hemodynamic stable, breathing comfortably, he is on minimal supplemental oxygen, no altered mentation, answering questions appropriate. His right neck oblique incision is covered with surgical dressing, clean dry and intact, trachea is midline, no hematoma noted, neurologically intact. No breathing difficulty, lung sounds are clear. Is awaiting a bed in the ICU. Patient is currently on nitroglycerin infusion at 5 mics per kilo per minute. Systolic blood pressures in the 130s millimeters of mercury. Has no specific complaints The patient is seen today 01/29/2022 and follow-up in the intensive care unit. He is currently sitting up in bed. Awake and alert in no acute distress. He is maintaining good O2 saturations in the 90s on room air. He is status post right carotid endarterectomy. Postoperative day #1. He remains on nitroglycerin drip at 20 mcg/m. Lactated Ringer's at 80 MLS per hour. He resumed on his home medications of metoprolol, Zestril, Aldactone. Continued on statins, aspirin and Plavix. White count 11.1. Hemoglobin 10.4. Sodium 137. Potassium 4.5. BUN 20. Creatinine 0.94. Objective - Vital Signs Vital signs: Vital Signs Temp 98.0 F 01/29/22 08:00 Pulse 64 01/29/22 11:00 Resp 20 01/29/22 11:00 BP 189/86 01/29/22 11:00 Pulse Ox 91 L 01/29/22 11:00 Intake & Output 01/28/22 01/29/22 01/29/22 18:59 06:59 18:59 Intake Total 2531.30 1213.375 413.5 Output Total 20 1250 300 Balance 2511.30 -36.625 113.5 Weight 75 kg Intake: IV 2297 960 400 Lactated Ringers 1,000 ml 240 960 400 @ 80 mls/hr IV .[id number] BUCK Rx#:[id number] Intake, IV Titration 12.30 28.375 13.5 Amount Nitroglycerin-D5w Pmx 50 12.30 28.375 13.5 mg In Dextrose/Water 1 250ml.bag @ Titrate IV . Q0M BUCK Rx#:[id number] Oral 222 225 Output: Urine 1175 300 Post Void Residual 75 Estimated Blood Loss 20 Other: Voiding Method Urinal Urinal Urinal # Voids 0 1 0 ABP, PAP, CO, CI - Last Documented Arterial Blood Pressure 121/79 - Exam GENERAL EXAM: Alert, pleasant, 71-year-old male, on room air, with a pulse ox of 91% comfortable in no apparent distress. HEAD: Normocephalic/atraumatic. EYES: Normal reaction of pupils, equal size. Conjunctiva pink, sclera white. NOSE: Clear with pink turbinates. THROAT: No erythema or exudates. NECK: No masses, no JVD, no thyroid enlargement, no adenopathy. Right neck incision is clean dry and intact CHEST: No chest wall deformity. Symmetrical expansion. LUNGS: Equal air entry with CVS: Regular rate and rhythm, normal S1 and S2, no gallops, no murmurs, no rubs ABDOMEN: Soft, nontender. No hepatosplenomegaly, normal bowel sounds, no guarding or rigidity. EXTREMITIES: No clubbing, no edema, no cyanosis, 2+ pulses and upper and lower extremities. MUSCULOSKELETAL: Muscle strength and tone normal. SPINE: No scoliosis or deformity SKIN: No rashes CENTRAL NERVOUS SYSTEM: No focal deficits, tone is normal in all 4 extremities. PSYCHIATRIC: Alert and oriented -3. Appropriate affect. Intact judgment and insight. - Labs CBC & Chem 7: 01/29/22 05:30 01/29/22 05:30 Labs: Abnormal Lab Results - Last 24 Hours (Table) 01/28/22 01/29/22 01/29/22 Range/Units 15:37 05:30 05:30 WBC 11.1 H (3.8-10.6) k/uL RBC 3.32 L (4.30-5.90) m/uL Hgb 10.4 L (13.0-17.5) gm/dL Hct 31.2 L (39.0-53.0) % Neutrophils # 9.1 H (1.3-7.7) k/uL Glucose 136 H (74-99) mg/dL POC Glucose (mg/dL) 118 H (75-99) mg/dL Assessment and Plan Assessment: 1 Severe right internal carotid artery stenosis, status post right carotid endarterectomy with patch angioplasty on 01/28/2022 2 [id number] smoking history, in remission for the past year 3 Ischemic cardiomyopathy with EF of 20%, status post ICD/dual-chamber pacemaker insertion 4 COPD, mild, stage II, may have component of asthma, based on the bronchodilator response on the PFT. FEV1 is 2.59 or 78% of predicted from 01/29/2021 5 Possible history of EtOH, somewhat vague at this point 6 Hypertension 7 Dyslipidemia 8 Previous history of myocardial infarction 9 History of coronary artery disease with previous stenting of the circumflex 10 History of chronic systolic CHF Plan: The patient was seen and evaluated We will adjust hypertensive medications Increase lisinopril to 10 mg twice a day Add Norvasc 5 mg twice a day Continue beta blockers Wean off nitroglycerin drip Home once cleared by vascular surgery I have personally seen and examined the patient, performed the documentation and the assessment and plan as written. Number of minutes spent on the visit: 10.
[2022-01-29] MEDS: ALPRAZolam 0.5 MG TAB PO SCH ×2 (13:07→21:02)
[2022-01-29] MEDS: cloNIDine HCL 0.1 MG TAB PO SCH ×2 (13:07→21:05)
[2022-01-29] MEDS ORDERED: FUROSEMIDE 10 MG/ML 2 ML VIAL IV STA (16:11)
--- NOTE | 2022-01-29 16:14 | P.PN ---
Subjective Progress Note Date: 01/29/22 Principal diagnosis: carotid stenosis Patient is a 71-year-old, dyslipidemia, COPD CAD, AAA, and cardiomyopathy with ejection fraction less than 20% status post AICD who presented for elective right sided CEA. He has struggled with elevated blood pressures. Patient seen and examined at bedside. He typically follows with Dr. Mckinney of cardiology. He reports that he takes all his medications as prescribed at home and his blood pressure is typically fairly well controlled. He denies any significant pain. General: non toxic, no distress, appears at stated age Derm: warm, dry Head: atraumatic, normocephalic, symmetric, dressing over right neck Eyes: EOMI, no lid lag, anicteric sclera Mouth: no lip lesion, mucus membranes moist Cardiovascular: S1S2 irreg, no murmur, positive posterior tibial pulse bilateral, Lungs: CTA bilateral, no rhonchi, no rales , no accessory muscle use Abdominal: soft, nontender to palpation, no guarding, no appreciable organome nancie Ext: no gross muscle atrophy, no edema, no contractures Neuro: CN II-XI grossly intact, no focal neuro deficits Psych: Alert, oriented, appropriate affect Assessment/plan: Hypertensive urgency - norvasc added today - follow BP - metorpolol and lisinopril - pain control Right-sided carotid endarterectomy - management per surgery Cardiomyopathy with ejection fraction less than 20%, currently compensated - BB, ACEI - currently compensated Anemia - near baseline - follow CBC chronic: Dyslipidemia COPD without exacerbation Thank you for allowing us to participate in the care of this pleasant patient. Do not hesitate to contact us with questions. Someone can be reached from the [facility] hospitalist group all hours of the day at [phone] or via [employer]. Objective - Vital Signs Vital signs: Vital Signs Temp 98.0 F 01/29/22 16:00 Pulse 73 01/29/22 16:00 Resp 24 01/29/22 16:00 BP 188/82 01/29/22 16:00 Pulse Ox 91 L 01/29/22 16:00 Intake & Output 01/28/22 01/29/22 01/29/22 18:59 06:59 18:59 Intake Total 2531.30 1213.375 593.5 Output Total 20 1250 300 Balance 2511.30 -36.625 293.5 Weight 75 kg Intake: IV 2297 960 580 Lactated Ringers 1,000 ml 240 960 580 @ 80 mls/hr IV .[id number] BUCK Rx#:[id number] Intake, IV Titration 12.30 28.375 13.5 Amount Nitroglycerin-D5w Pmx 50 12.30 28.375 13.5 mg In Dextrose/Water 1 250ml.bag @ Titrate IV . Q0M BUCK Rx#:[id number] Oral 222 225 Output: Urine 1175 300 Post Void Residual 75 Estimated Blood Loss 20 Other: Voiding Method Urinal Urinal Urinal # Voids 0 1 0 ABP, PAP, CO, CI - Last Documented Arterial Blood Pressure 121/79 - Labs CBC & Chem 7: 01/29/22 05:30 01/29/22 05:30 Labs: Abnormal Lab Results - Last 24 Hours (Table) 01/29/22 01/29/22 Range/Units 05:30 05:30 WBC 11.1 H (3.8-10.6) k/uL RBC 3.32 L (4.30-5.90) m/uL Hgb 10.4 L (13.0-17.5) gm/dL Hct 31.2 L (39.0-53.0) % Neutrophils # 9.1 H (1.3-7.7) k/uL Glucose 136 H (74-99) mg/dL
[2022-01-29] MEDS: ONDANSETRON 4 MG/2 ML VIAL IVP PRN (18:30)
[2022-01-29] MEDS: ATORVASTATIN 40 MG TAB PO SCH (21:02)
[2022-01-29] MEDS: lisinopriL 10 MG TAB PO SCH (21:03)
[2022-01-30] MEDS: ONDANSETRON 4 MG/2 ML VIAL IVP PRN ×2 (02:14→08:26)
[2022-01-30 04:45] LABS: HCT 33.3 % (39.0-53.0); HGB 11.1 gm/dL (13.0-17.5); MCH 31.8 pg (25.0-35.0); MCHC 33.5 g/dL (31.0-37.0); Mean Platelet Volume 7.2; Platelet Count 291 k/uL (150-450); RDW 14.4 % (11.5-15.5); WBC 13.1 k/uL (3.8-10.6)
[2022-01-30 05:04] LABS: African American GFR (CKD) >90 (>60 ml/min/1.73 sqM); Anion Gap 8 mmol/L; Blood Urea Nitrogen 20 mg/dL (9-20); Calcium 9.2 mg/dL (8.4-10.2); Carbon Dioxide 26 mmol/L (22-30); Chloride 98 mmol/L (98-107); Glucose 143 mg/dL (74-99); Non-African American GFR(CKD) 80 (>60 ml/min/1.73 sqM); Potassium 4.1 mmol/L (3.5-5.1); Sodium 132 mmol/L (137-145)
[2022-01-30] MEDS: PANTOPRAZOLE 40 MG/10 ML VIAL IVP SCH (08:26)
[2022-01-30] MEDS: ENOXAPARIN 40 MG/0.4 ML SYRINGE SQ SCH ×2 (08:46→10:48)
--- NOTE | 2022-01-30 09:23 | CT ---
EXAMINATION TYPE: CT brain wo con DATE OF EXAM: 01/30/2022 COMPARISON: None HISTORY: Vomiting, rule out bleed CT DLP: 1277.4 mGycm Automated exposure control for dose reduction was used. FINDINGS: Prominent posterior fossa fluid and may represent prominent cisterna magna versus arachnoid cyst. Sravani la turcica normal. Craniocervical junction maintained. Orbits are symmetric. Calvarium intact. Mastoi d air cells and sinuses clear. There is generalized degenerative change. Faint low-attenuation the white matter can be associated wi th remote ischemic white matter change. More confluent density in the right temporal occipital juncti on suggests remote ischemia. No acute hemorrhage or mass effect. Intracranial atherosclerotic changes are noted. IMPRESSION: 1. Degenerative and remote ischemic change with no acute hemorrhage or mass effect. 2. Prominent CSF space posterior fossa differential diagnosis includes prominent cisterna magna versu s arachnoid cyst.
--- NOTE | 2022-01-30 09:36 | CT ---
EXAMINATION TYPE: CT soft tissue neck wo con DATE OF EXAM: 01/30/2022 COMPARISON: None HISTORY: Swelling on right side. Vomiting, rule out bleed. Unenhanced CT of the neck was performed. Lack of contrast does limit evaluation. AIRWAY: The suprag lottic, glottic, and subglottic portions of the airway appear patent and free of mass. There is increased soft tissue density with foci of air extending from the lower pole of the right pa rotid gland extending to the level of the right thyroid lobe measuring an estimated 8.1 cm craniocaud al dimension by 2.8 cm. This could reflect infection given internal foci of air. Hemorrhage is not ex cluded. Correlate clinically. SALIVARY GLANDS: The submandibular and parotid glands are free of mass or inflammatory process. THYROID GLAND: No nodules or masses seen. LYMPH NODES: No adenopathy seen greater than 1cm. LUNG APICES: No nodule or mass is seen. OTHER: Severe atheromatous change left carotid bulb. Mild scattered atheromatous change right carotid . Severe degenerative change cervical spine. IMPRESSION: As noted above there is increased soft tissue density extending from the lower pole of the right paro tid gland to the level of the right thyroid lobe. Internal foci of air are noted therefore infection is not excluded. Additional possibility is that of underlying hemorrhage.
--- NOTE | 2022-01-30 09:50 | P.PN ---
Subjective Progress Note Date: 01/30/22 Principal diagnosis: Carotid stenosis The patient is seen and examined postop day #2 for right carotid endarterectomy with patch angioplasty. The patient has had continued elevated blood pressures. Medicine has been managing and has increased lisinopril, added clonidine and No rvasc. Patient continues to be on nitro. He had an episode of vomiting through the night. States he started having hiccups and then vomited. This morning he also had 2 episodes of emesis after hiccups, with brown liquid. He denies any focal deficits. No pain in the neck. He denies any headache, shortness of breath, or chest pain. WBC 13 hemoglobin 11 platelet count 291,000 sodium 132 potassium 4.1 BUN 20 creatinine 0.95 Objective - Vital Signs Vital signs: Vital Signs Temp 97.9 F 01/30/22 04:00 Pulse 75 01/30/22 07:00 Resp 17 01/30/22 07:00 BP 137/70 01/30/22 07:00 Pulse Ox 92 L 01/30/22 07:00 Intake & Output 01/29/22 01/30/22 01/30/22 18:59 06:59 18:59 Intake Total 819.6 275.70 20 Output Total 1300 670 Balance -480.4 -394.30 20 Weight 77 kg Intake: IV 740 240 20 KVO 100 240 20 Lactated Ringers 1,000 ml 640 @ 80 mls/hr IV .[id number] BUCK Rx#:[id number] Intake, IV Titration 79.6 35.70 0 Amount Nitroglycerin-D5w Pmx 50 79.6 35.70 0 mg In Dextrose/Water 1 250ml.bag @ Titrate IV . Q0M BUCK Rx#:[id number] Output: Urine 1300 670 Other: Voiding Method Urinal Urinal # Voids 0 2 ABP, PAP, CO, CI - Last Documented Arterial Blood Pressure 179/62 - Exam General appearance: The patient is alert, oriented, appears in no acute distress. HET: Head is normocephalic and atraumatic. Pupils are equal and reactive. Neck: Supple without lymphadenopathy. Trachea midline. Dressing intact to right sided neck, removed small hematoma noted, with ecchymosis incision well approximated with glue. Heart: S1 S2. Regular rate and rhythm. Lungs: Clear to auscultation bilaterally. Abdomen: Soft, nontender, nondistended. Extremities: Normal skin color and turgor. No cyanosis, rash, ulceration, clubbing, or edema. Radial and pedal pulses are 2/4 bilaterally. Neurological: No focal deficits. Alert and oriented 3 - Labs CBC & Chem 7: 01/30/22 04:02 01/30/22 04:02 Labs: Abnormal Lab Results - Last 24 Hours (Table) 01/30/22 01/30/22 Range/Units 04:02 04:02 WBC 13.1 H (3.8-10.6) k/uL RBC 3.50 L (4.30-5.90) m/uL Hgb 11.1 L (13.0-17.5) gm/dL Hct 33.3 L (39.0-53.0) % Sodium 132 L (137-145) mmol/L Glucose 143 H (74-99) mg/dL Assessment and Plan Assessment: 1. Postop day #2 right carotid endarterectomy with patch angioplasty 2. Hemodynamically significant right ICA stenosis 3. Hypertension, uncontrolled 4. History coronary artery disease status post AICD, stents 5. COPD 6. Former smoker 7. History of myocardial infarction 8. Dyslipidemia Plan: 1. Continue symptomatic and supportive care 2. Continue Zofran as needed 3. Continue with recommendations ICU 4. Primary medicine for medical management 5. Cardiology consulted 6. Hold Lovenox 7. CT brain ordered 8. Gastric occult blood ordered 9. Increase ambulation as tolerated 10. Protonix 40 mg daily GI prophylaxis Further recommendations forthcoming per vascular surgeon The impression and plan of care has been dictated as directed. Dr. Qureshi I performed a history and examination of this patient, discussed the same with the dictator. I agree with the dictator's note ,documented as a scribe. Any additional findings or plans will be noted.
[2022-01-30] MEDS: ALPRAZolam 0.5 MG TAB PO SCH ×2 (09:57→21:22)
[2022-01-30] MEDS: METOPROLOL TARTRATE 25 MG TAB PO SCH ×2 (10:45→21:22)
[2022-01-30] MEDS: lisinopriL 10 MG TAB PO SCH ×2 (10:45→21:22)
--- NOTE | 2022-01-30 10:49 | CDI ---
Documentation Clarification Form Date: 01/30/2022 10:33:23 AM From: Renata Carson CCS, CCDS Admit Date: 01/28/2022 10:43:00 AM Patient Name: Narendra Miguel Visit Number: [id number] Discharge Date: ATTENTION: The Clinical Documentation Specialists (CDI) and [facility] Coding Staff appreciate your assistance in clarifying documentation. Please respond to the clarification below the line at the bottom and electronically sign. The CDI & [facility] Coding staff will review the response and follow-up if needed. Please note: Queries are made part of the Legal Health Record. If you have any questions, please contact the author of this message via ITS. Dr. Sameer Gutiérrez: Hypertension is documented in the patient's Past Medical history on Metoprolol & Lisinopril. Hypertensive Urgency is documented in the 01/29 Medical Management Progress Note with Norvasc added. Additional clarification is requested regarding the relationship, if any, that exists between the diagnosis of Hypertensive Urgency and the procedure. Patients Admitting Diagnosis per the 01/28 Procedure Note: Hemodynamically severe Right Internal Carotid Artery Stenosis. Post-Operative Diagnosis: Same. Procedure performed 01/28: Right Carotid Endarterectomy with Patch Angioplasty. History/Risk Factors per the 01/28 Medical Management Consult: PAD with severe Right Internal Carotid Artery Stenosis > 80%. Hypertension, Mild COPD, Ischemic Cardiomyopathy & CAD status post ICD & Dual Chamber Pacemaker, Coronary stent in 2020. Former smoker, quit 1 year ago. Clinical Indicators: Presented 01/28 for elective procedure described above. 01/28 BP: Left Arm 160/77, Right Arm: 172/80, 143/65, 161/69, 166/68, 151/71, 157/70. Arterial BP: 163/54, 139/45, 142/47, 134/51, 116/59, 154/51, 171/164. 01/29 BP: 164/65, 113/50, 181/75, 117/52, 194/84, 212/84 01/30 BP: 177/80, 110/59, 138/69, 101/56, 117/62 Treatment 01/29: RA - O2 2Lnc, PO Plavix 75 mg Daily, PO Aldactone 25 mg Daily, PO Norvasc 5 mg BID, PO Zestril 5 mg x1, PO Catapres 0.1 mg BID, IV Lasix 20 mg x1, IV Zofran 4 mg q6H/prn, PO Zestril 10 mg BID. 01/30: IV Apresoline 20 mg q4H/prn. What relationship, if any, exists between the diagnosis of Hypertensive Urgency and the procedure: [ ] Hypertensive Urgency is a complication of surgical procedure [ ] Hypertensive Urgency is an expected outcome of the surgical procedure [ x ] Hypertensive Urgency is related to patients co-morbid condition(s), please specify: and is not a complication of the procedure [ ] Other please specify: [ ] Unable to determine (Template Last Revised: November 2020) MTDD
--- NOTE | 2022-01-30 11:01 | CDI ---
Documentation Clarification Form Date: 01/30/2022 10:50:00 AM From: Renata Carson CCS, CCDS Admit Date: 01/28/2022 10:43:00 AM Patient Name: Narendra Miguel Visit Number: [id number] Discharge Date: ATTENTION: The Clinical Documentation Specialists (CDI) and [facility] Coding Staff appreciate your assistance in clarifying documentation. Please respond to the clarification below the line at the bottom and electronically sign. The CDI & [facility] Coding staff will review the response and follow-up if needed. Please note: Queries are made part of the Legal Health Record. If you have any questions, please contact the author of this message via ITS. Dr. Paola Ybarra: Anemia, near baseline is documented in the 01/29 Medical Management Progress Note. The patient also had surgery on 01/28: Right Carotid Endarterectomy. Additional specificity regarding the type & acuity of Anemia is requested along with any relationship between the diagnosis of Anemia and the procedure. . Patients Admitting Diagnosis per the 01/28 Procedure Note: Hemodynamically severe Right Internal Carotid Artery Stenosis. Post-Operative Diagnosis: Same. Procedure performed 01/28: Right Carotid Endarterectomy with Patch Angioplasty. History/Risk Factors per the 01/28 Medical Management Consult: PAD with severe Right Internal Carotid Artery Stenosis > 80%. Hypertension, Mild COPD, Ischemic Cardiomyopathy & CAD status post ICD & Dual Chamber Pacemaker, Coronary stent in 2020. Former smoker, quit 1 year ago. Clinical Indicators: Presented 01/28 for elective procedure described above. 01/28 VS: T 97.8 - 97; P 77 - 59; R 16, BP 160/77, PO 100 RA 01/29 VS: T ( ), P 66, R 20 - 11, BP 181/75, 127/52; PO 92, 80, 94 01/28 LAB: Hgb & Hct not documented. 01/29 Hgb: 10.4, Hct 31.2 01/30: Hgb 11.1, Hct 33.3 Treatment 01/28: IV Zofran 4 mg x1, IV Versed, IV Nitro/Dextrose 250 mls @ 1.5 mls/hr q24H, IV Na Cl w/Heparin, IV Lactated Ringers, IV Morphine 2 mg q4H/prn, po Aspirin 162 mg Daily, IV Clindamycin 56 mls @ 50 mls/hr q8H. 01/29: RA - O2 2Lnc, PO Plavix 75 mg Daily, PO Aldactone 25 mg Daily, PO Norvasc 5 mg BID, PO Zestril 5 mg x1, PO Catapres 0.1 mg BID, IV Lasix 20 mg x1, IV Zofran 4 mg q6H/prn, PO Zestril 10 mg BID. 01/30: IV Apresoline 20 mg q4H/prn. Please clarify the type and acuity of Anemia and the relationship between the Anemia and the procedure performed: [ ] Acute blood loss anemia [ ] ABLA is a complication of the patient's procedure [ ] ABLA is not a complication of the patient's procedure [ ] Acute on chronic blood loss anemia [ ] Chronic blood loss anemia [ ] Hemolytic anemia [ ] Drug induced anemia [ ] Anemia of chronic disease [ ] Unable to determine [ ] Other, please specify: (Template Last Revised: October 2020) Chronic anemia, undetermined etiology baseline HgB 11.4-December2021 MTDD
--- NOTE | 2022-01-30 11:39 | P.PN ---
Subjective Progress Note Date: 01/30/22 Principal diagnosis: Right carotid artery stenosis This is a 71-year-old male patient who was recently found to have hemodynamically significant severe right internal carotid artery artery stenosis of greater than 80%. Patient was being evaluated for a complaint of lower extremity arterial insufficiency. Patient carries extensive history of smoking which has been in remission for 1 year. He used to smoke 1 pack a day for 57 years. Has a history of ischemic cardiomyopathy status post ICD/dual chamber pacemaker implantation, previous history of myocardial infarction, hypertension, dyslipidemia and coronary artery disease with previous stenting. He was seen by Dr. Lester in the pulmonary clinic for evaluation of his lung function, his full outpatient PFT showed FEV1 of 2.59 L or 78% predicted, FVC of 4.9 L or 110% of predicted with an MCV of 78, with reversibility of obstruction with bronchodilators. Patient is not oxygen dependent at baseline. His low dose computed tomography scan of the chest from April 2021 showed no suspicious changes to suggest neoplasm, and underlying COPD. On 01/28/2022 patient underwent right carotid endarterectomy with patch angioplasty. Patient tolerated procedure quite well, he is awake and alert, he is in the phase I recovery, hemodynamic stable, breathing comfortably, he is on minimal supplemental oxygen, no altered mentation, answering questions appropriate. His right neck oblique incision is covered with surgical dressing, clean dry and intact, trachea is midline, no hematoma noted, neurologically intact. No breath ing difficulty, lung sounds are clear. Is awaiting a bed in the ICU. Patient is currently on nitroglycerin infusion at 5 mics per kilo per minute. Systolic blood pressures in the 130s millimeters of mercury. Has no specific complaints The patient is seen today 01/29/2022 and follow-up in the intensive care unit. He is currently sitting up in bed. Awake and alert in no acute distress. He is maintaining good O2 saturations in the 90s on room air. He is status post right carotid endarterectomy. Postoperative day #1. He remains on nitroglycerin drip at 20 mcg/m. Lactated Ringer's at 80 MLS per hour. He resumed on his home medications of metoprolol, Zestril, Aldactone. Continued on statins, aspirin and Plavix. White count 11.1. Hemoglobin 10.4. Sodium 137. Potassium 4.5. BUN 20. Creatinine 0.94. Patient was reevaluated today on 02/17, his postoperative day #2, status post right carotid endarterectomy with patch angioplasty. Blood pressure seems to be better controlled, I discontinued his nitroglycerin, however the patient is now having intermittent episodes of nausea and vomiting and his oral medications are placed back on hold. CT of the brain is nondiagnostic. Patient looked fairly comfortable during my evaluation. He was not in any distress, he did receive Zofran earlier. A blood pressure is rather low, his oral medications are on hold, I recommended Apresoline 20 mg every 4 hours when necessary if his blood pressure remains high. In the meantime I have discontinued his doctor listened drip. May inpatient Restart oral meds with small sips of water if needed . His labs today are basically unremarkable including basic metabolic profile, and CBC. Objective - Vital Signs Vital signs: Vital Signs Temp 98.1 F 01/30/22 08:00 Pulse 69 01/30/22 11:13 Resp 13 01/30/22 11:13 BP 134/68 01/30/22 11:13 Pulse Ox 99 01/30/22 11:13 Intake & Output 01/29/22 01/30/22 01/30/22 18:59 06:59 18:59 Intake Total 819.6 275.70 101.175 Output Total 1300 670 250 Balance -480.4 -394.30 -148.825 Weight 77 kg Intake: IV 740 240 80 KVO 100 240 80 Lactated Ringers 1,000 ml 640 @ 80 mls/hr IV .[id number] BUCK Rx#:[id number] Intake, IV Titration 79.6 35.70 6.175 Amount Nitroglycerin-D5w Pmx 50 79.6 35.70 6.175 mg In Dextrose/Water 1 250ml.bag @ Titrate IV . Q0M BUCK Rx#:[id number] Oral 15 Output: Urine 1300 670 200 Urine/Stool Mix 50 Other: Voiding Method Urinal Urinal Urinal # Voids 0 2 ABP, PAP, CO, CI - Last Documented Arterial Blood Pressure 127/43 - Exam Physical Exam: Revealed 71-year-old white male in no distress. On room air. Head: Atraumatic, normocephalic. HEENT:[Neck is supple.] [No neck masses.] [No thyromegaly.] [No JVD.] Chest: [Clear throughout, no crackles, no rhonchi, no wheezes.] Cardiac Exam: [Normal S1 and S2, no S3 gallop, no murmur.] Abdomen: [Soft, nontender, no megaly, no rebound, no guarding, normal bowel sounds.] Extremities: [No clubbing, no edema, no cyanosis.] Psychiatric: Normal mood affect and normal mental status examination. Musculoskeletal: No deformities and no limitation in range of motion Neurological Exam: [No focal neurologic deficit.] - Labs CBC & Chem 7: 01/30/22 04:02 01/30/22 04:02 Labs: Abnormal Lab Results - Last 24 Hours (Table) 01/30/22 01/30/22 Range/Units 04:02 04:02 WBC 13.1 H (3.8-10.6) k/uL RBC 3.50 L (4.30-5.90) m/uL Hgb 11.1 L (13.0-17.5) gm/dL Hct 33.3 L (39.0-53.0) % Sodium 132 L (137-145) mmol/L Glucose 143 H (74-99) mg/dL Assessment and Plan Assessment: Impression: Status post carotid endarterectomy and patch angioplasty, postoperative day #2. Nausea and vomiting, exact etiology is not clear, patient received Zofran, presently asymptomatic. He has no abdominal pain, and no abdominal tenderness on physical examination. We will treat his nausea and vomiting symptomatically. History of ischemic cardiomyopathy ejection fraction of 20%, patient had previous ICD/dual-chamber pacemaker insertion. History of alcohol abuse, patient is vague about his alcohol consumption. Previous history of [place]/coronary arteriosclerosis. And previous stenting of the circumflex. History of chronic systolic congestive heart failure. Recommendation: Continue to monitor the patient in the ICU. Hold oral intake for now. Zofran for nausea and vomiting. CT of the brain is nondiagnostic. Discontinue nitroglycerin drip, used Apresoline 20 mg IV push every 4 hours when necessary for elevated blood pressure above 160 systolic. Possible discharge planning in the next 24 hours. We'll continue to follow. Time with Patient: Less than 30
[2022-01-30] MEDS: SPIRONOLACTONE 25 MG TAB PO SCH (11:58)
[2022-01-30] MEDS: FUROSEMIDE 20 MG TAB PO SCH (11:58)
--- NOTE | 2022-01-30 12:04 | XR ---
EXAMINATION TYPE: XR KUB DATE OF EXAM: 01/30/2022 COMPARISON: NONE HISTORY: Nausea and pain TECHNIQUE: One view abdominal series FINDINGS: There are numerous severely dilated bowel loops in the abdomen suspicious for obstruction. Air is see n within the colon. Bilateral lower lobe infiltrate seen in the lung bases is suggestion of cardiac l venu. No obvious free air. Hypertrophic and degenerative change of the spine. Diffuse osteopenia. Art hropathy of the hips. Report called to patient's nurse at 12:02 PM 01/30/2022. IMPRESSION: 1. Numerous severely dilated small bowel loops correlate for obstruction. Severe ileus in the differe ntial diagnosis. 2. Bilateral lower lobe infiltrate.
[2022-01-30] MEDS: SODIUM CHLORIDE 0.9% 1,000 ML IV SCH (12:56)
[2022-01-30] MEDS: ASPIRIN 81 MG PO SCH (12:56)
[2022-01-30] MEDS: CLOPIDOGREL 75 MG TAB PO SCH (12:56)
--- NOTE | 2022-01-30 14:51 | P.PN ---
Subjective Progress Note Date: 01/30/22 (delayed charting seen at 0930) Principal diagnosis: carotid stenosis Patient is a 71-year-old, dyslipidemia, COPD CAD, AAA, and cardiomyopathy with ejection fraction less than 20% status post AICD who presented for elective right sided CEA. He has struggled with elevated blood pressures. He then developed nausea and vomtiting overnight Patient seen and examined at bedside. still with nausea, no vomiting, no abd pain, not passing gas, feeling tired. General: non toxic, no distress, appears at stated age Derm: warm, dry Head: atraumatic, normocephalic, symmetric, dressing over right neck Eyes: EOMI, no lid lag, anicteric sclera Mouth: no lip lesion, mucus membranes moist Cardiovascular: S1S2 irreg, no murmur, positive posterior tibial pulse bilateral, Lungs: CTA bilateral, no rhonchi, no rales , no accessory muscle use Abdominal: soft, nontender to palpation, no guarding, no appreciable organomegaly Ext: no gross muscle atrophy, no edema, no contractures Neuro: CN II-XI grossly intact, no focal neuro deficits Psych: sleeping but awakes to voice, oriented, appropriate affect Assessment/plan: Hypertensive urgency - off nitro gtt, metoprolol and lisinopril - hold norvasc and catapress - follow BP Ileus vs obstruction - NPO - NGT ordered by pulm - continue to monitor Right-sided carotid endarterectomy - management per surgery Cardiomyopathy with ejection fraction less than 20%, currently compensated - BB, ACEI - currently compensated Anemia, chronic - near baseline - follow CBC chronic: Dyslipidemia COPD without exacerbation Thank you for allowing us to participate in the care of this pleasant patient. Do not hesitate to contact us with questions. Someone can be reached from the [facility] hospitalist group all hours of the day at [phone] or via [employer]. Objective - Vital Signs Vital signs: Vital Signs Temp 99.1 F 01/30/22 12:00 Pulse 67 01/30/22 14:00 Resp 11 L 01/30/22 14:00 BP 129/65 01/30/22 14:00 Pulse Ox 100 01/30/22 14:00 Intake & Output 01/29/22 01/30/22 01/30/22 18:59 06:59 18:59 Intake Total 819.6 275.70 251.175 Output Total 1300 670 250 Balance -480.4 -394.30 1.175 Weight 77 kg Intake: IV 740 240 80 KVO 100 240 80 Lactated Ringers 1,000 ml 640 @ 80 mls/hr IV .[id number] BUCK Rx#:[id number] Intake, IV Titration 79.6 35.70 156.175 Amount Nitroglycerin-D5w Pmx 50 79.6 35.70 6.175 mg In Dextrose/Water 1 250ml.bag @ Titrate IV . Q0M BUCK Rx#:[id number] Sodium Chloride 0.9% 1, 150 000 ml @ 75 mls/hr IV . [id number] BUCK Rx#:[id number] Oral 15 Output: Urine 1300 670 200 Urine/Stool Mix 50 Other: Voiding Method Urinal Urinal Urinal # Voids 0 2 ABP, PAP, CO, CI - Last Documented Arterial Blood Pressure 128/40 - Labs CBC & Chem 7: 01/30/22 04:02 01/30/22 04:02 Labs: Abnormal Lab Results - Last 24 Hours (Table) 01/30/22 01/30/22 Range/Units 04:02 04:02 WBC 13.1 H (3.8-10.6) k/uL RBC 3.50 L (4.30-5.90) m/uL Hgb 11.1 L (13.0-17.5) gm/dL Hct 33.3 L (39.0-53.0) % Sodium 132 L (137-145) mmol/L Glucose 143 H (74-99) mg/dL
--- NOTE | 2022-01-30 18:42 | P.CRDCN ---
History of Present Illness Consult date: 01/30/22 Chief complaint: Nausea and vomiting History of present illness: The patient is a 71-year-old gentleman with coronary artery disease and prior st enting of the left circumflex as well as history of severe cardiomyopathy status post AICD for primary prevention as well as hypertension and dyslipidemia who was admitted to the hospital and underwent elective right internal carotid endarterectomy was performed 48 hours ago and the procedure itself was uneventful. The patient subsequently was admitted to the intensive care unit. We requested to see the patient here for further evaluation of uncontrolled blood pressure. The pressure has been elevated around 180 mmHg systolic and the patient subsequently was started on nitro drip. Subsequently he was weaned from nitro drip and currently he is on beta alexsander as well as BASSAM inhibitor as well as aldosterone antagonist. Currently his pressure has been on average around 130 mmHg to 140 mmHg. The patient has been struggling with severe nausea and vomiting and subsequently he was evaluated by the surgical service and he was diagnosed with small bowel obstruction and a conservative medical approach was advised. Currently he is nothing by mouth except for meds. He denies any abdominal pain. He denies any symptoms of chest pain or chest discomfort or shortness of breath. Currently he is receiving Lasix at 20 mg by mouth daily as well as lisinopril at 5 mg by mouth daily as well as Aldactone at 25 mg daily and also he is on metoprolol tartrate 25 mg by mouth twice a day. He is not on any drips and the nitroglycerin was stopped a earlier today because his pressure has been under better control. He is not in any overt congestive heart failure and he is not experiencing any symptoms of chest pain or chest discomfort at this point. Beside that he is on high intensity statin along with aspirin. The blood work was reviewed and his kidney function is within normal limits. Past Medical History Past Medical History: Coronary Artery Disease (CAD), COPD, Hypertension, Myocardial Infarction (CT) Additional Past Medical History / Comment(s): hx covid 10/14/21-states received infusion., AAA., AICD., pain in legs with walking. Last Myocardial Infarction Date:: UNKNOWN History of Any Multi-Drug Resistant Organisms: None Reported Past Surgical History: Back Surgery, Heart Catheterization With Stent Additional Past Surgical History / Comment(s): [id number] (1972)., AICD - (12/06/20 [employer])., HEART CATH WITH 3 STENTS (10/08/20)., CATARACTS Past Anesthesia/Blood Transfusion Reactions: No Reported Reaction Date of Last Stent Placement:: 10/08/2020 Type of Cardiac Device: Permanent Pacemaker Device Placement Date:: 12/06/2020 Past Psychological History: No Psychological Hx Reported Smoking Status: Former smoker Past Alcohol Use History: Occasional Additional Past Alcohol Use History / Comment(s): QUIT SMOKING OCT 2020, HX OF 1-2 PPD, SMOKED APPROX 56 YEARS. Past Drug Use History: None Reported - Past Family History Father History Unknown: Yes Family Medical History: No Reported History Medications and Allergies Home Medications Medication Instructions Recorded Confirmed Type Aspirin 81 mg PO DAILY #30 chew 10/10/20 01/28/22 Rx Clopidogrel [Plavix] 75 mg PO DAILY #30 tab 10/10/20 01/25/22 Rx Metoprolol Tartrate [Lopressor] 25 mg PO BID #60 tab 10/10/20 01/28/22 Rx Spironolactone [Aldactone] 25 mg PO DAILY #30 tab 10/10/20 01/28/22 Rx lisinopriL [Zestril] 5 mg PO BID 12/05/20 01/28/22 History Albuterol Sulfate [Albuterol 2 puff PO Q6H PRN 01/25/22 01/28/22 History Sulfate Hfa] Atorvastatin [Lipitor] 40 mg PO HS 01/25/22 01/28/22 History Furosemide [Lasix] 20 mg PO DAILY 01/25/22 01/28/22 History Allergies Allergy/AdvReac Type Severity Reaction Status Date / Time ampicillin Allergy Unknown turned Verified 01/28/22 11:20 pink, trouble breathing Penicillins Allergy turned Verified 01/28/22 11:20 pink, trouble breathing Physical Exam Vitals: Vital Signs Temp Pulse Resp BP Pulse Ox 01/30/22 18:00 68 16 136/70 90 L 01/30/22 17:30 69 17 116/59 91 L 01/30/22 17:00 66 12 171/87 98 01/30/22 16:30 77 19 131/64 93 L 01/30/22 16:00 65 12 125/59 94 L 01/30/22 15:30 65 11 L 122/64 96 01/30/22 15:00 70 26 H 145/65 96 01/30/22 14:30 66 20 118/65 95 01/30/22 14:00 67 11 L 129/65 100 01/30/22 13:30 67 11 L 139/69 89 L 01/30/22 13:00 73 18 118/60 93 L 01/30/22 12:30 67 11 L 124/67 95 01/30/22 12:00 99.1 F 74 23 114/63 91 L 01/30/22 11:30 71 14 117/63 95 01/30/22 11:13 69 13 134/68 99 01/30/22 11:12 70 13 134/68 99 01/30/22 11:11 68 13 134/68 99 01/30/22 11:10 68 16 134/68 99 01/30/22 11:09 67 16 134/68 99 01/30/22 11:08 70 17 134/68 95 01/30/22 11:07 70 18 134/68 97 01/30/22 11:06 69 16 134/68 98 01/30/22 11:05 69 17 134/68 96 01/30/22 11:04 67 16 134/68 90 L 01/30/22 11:03 77 23 134/68 91 L 01/30/22 11:02 71 21 134/68 93 L 01/30/22 11:01 72 17 111/62 01/30/22 11:00 73 19 111/62 99 01/30/22 10:59 72 16 111/62 75 L 01/30/22 10:58 71 21 111/62 93 L 01/30/22 10:57 73 19 111/62 86 L 01/30/22 10:56 79 20 111/62 77 L 01/30/22 10:55 73 20 111/62 82 L 01/30/22 10:54 72 16 111/62 85 L 01/30/22 10:53 75 19 111/62 89 L 01/30/22 10:52 75 19 111/62 92 L 01/30/22 10:51 70 26 H 111/62 85 L 01/30/22 10:50 77 27 H 111/62 87 L 01/30/22 10:49 75 22 111/62 90 L 01/30/22 10:48 74 16 111/62 86 L 01/30/22 10:47 76 21 111/62 81 L 01/30/22 10:46 76 17 110/57 01/30/22 10:45 73 19 110/57 90 L 01/30/22 10:44 72 20 110/57 97 01/30/22 10:43 69 11 L 110/57 97 01/30/22 10:42 70 12 110/57 97 01/30/22 10:41 68 12 110/57 98 01/30/22 10:40 70 12 110/57 99 01/30/22 10:39 68 12 110/57 99 01/30/22 10:38 68 13 110/57 99 01/30/22 10:37 68 18 110/57 97 01/30/22 10:36 78 16 110/57 91 L 01/30/22 10:35 80 18 110/57 83 L 01/30/22 10:34 72 18 110/57 91 L 01/30/22 10:33 75 22 110/57 86 L 01/30/22 10:32 75 19 110/57 97 01/30/22 10:31 74 13 110/57 98 01/30/22 10:30 72 12 118/62 98 01/30/22 10:29 73 12 118/62 98 01/30/22 10:28 73 12 118/62 98 01/30/22 10:27 73 12 118/62 98 01/30/22 10:26 72 13 118/62 96 01/30/22 10:25 71 12 118/62 97 01/30/22 10:24 72 12 118/62 97 01/30/22 10:03 73 12 117/62 87 L 01/30/22 10:02 75 13 117/62 83 L 01/30/22 10:01 73 11 L 117/62 84 L 01/30/22 10:00 76 11 L 116/61 96 01/30/22 09:59 73 13 116/61 91 L 01/30/22 09:58 73 12 116/61 92 L 01/30/22 09:57 72 12 116/61 91 L 01/30/22 09:56 75 12 116/61 78 L 01/30/22 09:55 76 11 L 116/61 86 L 01/30/22 09:54 74 11 L 116/61 83 L 01/30/22 09:53 75 13 116/61 81 L 05/22 09:52 75 11 L 116/61 78 L 01/30/22 09:51 74 11 L 116/61 83 L 01/30/22 09:50 75 14 116/61 89 L 01/30/22 09:49 74 11 L 116/61 84 L 01/30/22 09:48 71 11 L 116/61 82 L 01/30/22 09:47 75 11 L 116/61 83 L 01/30/22 09:46 74 12 116/61 89 L 01/30/22 09:45 75 12 101/56 01/30/22 09:44 74 12 101/56 94 L 01/30/22 09:43 75 13 101/56 94 L 01/30/22 09:42 73 16 101/56 95 01/30/22 09:41 73 14 101/56 96 01/30/22 09:40 75 16 101/56 96 01/30/22 09:39 77 17 101/56 96 01/30/22 09:38 75 20 101/56 97 01/30/22 09:37 75 18 101/56 96 01/30/22 09:36 75 20 101/56 97 01/30/22 09:35 77 20 101/56 93 L 01/30/22 09:34 81 20 101/56 83 L 01/30/22 09:33 78 14 101/56 94 L 01/30/22 09:32 78 19 101/56 95 01/30/22 09:31 78 21 101/56 92 L 01/30/22 09:30 77 21 138/69 95 01/30/22 09:29 78 21 138/69 01/30/22 09:28 76 19 138/69 01/30/22 09:27 75 18 138/69 01/30/22 09:26 138/69 01/30/22 09:25 138/69 01/30/22 09:24 138/69 01/30/22 09:23 138/69 01/30/22 09:22 138/69 01/30/22 09:21 138/69 01/30/22 09:20 138/69 01/30/22 09:19 138/69 01/30/22 09:18 138/69 01/30/22 09:17 138/69 01/30/22 09:16 138/69 01/30/22 09:15 138/69 01/30/22 09:14 138/69 01/30/22 09:13 138/69 01/30/22 09:12 138/69 01/30/22 09:11 138/69 01/30/22 09:10 138/69 01/30/22 09:09 138/69 01/30/22 09:08 138/69 01/30/22 09:07 138/69 01/30/22 09:06 138/69 01/30/22 09:05 138/69 01/30/22 09:04 138/69 01/30/22 09:03 138/69 01/30/22 09:02 74 138/69 01/30/22 08:49 82 21 138/69 91 L 01/30/22 08:40 75 24 139/71 90 L 01/30/22 08:30 80 21 181/86 90 L 01/30/22 08:00 98.1 F 70 13 132/82 90 L 01/30/22 07:30 74 11 L 143/69 92 L 01/30/22 07:00 75 17 137/70 92 L 01/30/22 06:30 69 12 119/63 92 L 01/30/22 06:00 68 13 144/75 92 L 01/30/22 05:30 71 15 113/70 93 L 01/30/22 05:00 69 14 139/70 94 L 01/30/22 04:30 68 12 139/70 92 L 01/30/22 04:00 97.9 F 68 17 119/61 92 L 01/30/22 03:30 70 14 110/59 92 L 01/30/22 03:00 69 13 157/72 91 L 01/30/22 02:30 72 19 173/75 91 L 01/30/22 02:00 76 18 161/83 91 L 01/30/22 01:30 72 19 139/77 91 L 01/30/22 01:00 70 15 120/73 93 L 01/30/22 00:30 69 14 140/74 92 L 01/30/22 00:00 98.3 F 71 18 177/80 92 L 01/29/22 23:30 76 18 141/75 92 L 01/29/22 23:00 70 17 127/89 93 L 01/29/22 22:30 72 15 145/78 91 L 01/29/22 22:00 66 14 150/74 01/29/22 21:30 72 19 165/86 91 L 01/29/22 21:00 67 14 139/68 92 L 01/29/22 20:30 71 23 125/68 94 L 01/29/22 20:00 97.9 F 70 21 134/63 93 L 01/29/22 19:30 73 24 131/64 01/29/22 19:00 101 H 15 107/59 92 L Intake and Output 01/30/22 01/30/22 01/30/22 06:59 14:59 22:59 Intake Total 194.45 251.175 300 Output Total 620 250 225 Balance -425.55 1.175 75 Intake: IV 160 80 KVO 160 80 Intake, IV Titration 34.45 156.175 300 Amount Nitroglycerin-D5w Pmx 50 34.45 6.175 mg In Dextrose/Water 1 250ml.bag @ Titrate IV . Q0M [facility] Rx#:[id number] Sodium Chloride 0.9% 1, 150 300 000 ml @ 75 mls/hr IV . [id number] [facility] Rx#:[id number] Oral 15 Output: Urine 620 200 225 Urine/Stool Mix 50 Other: Voiding Method Urinal Urinal Urinal # Voids 2 Weight 77 kg ABP, PAP, CO, CI - Last 8 Hours Arterial Blood Pressure 141/54 Arterial Blood Pressure 159/50 Arterial Blood Pressure 123/47 Arterial Blood Pressure 138/125 Arterial Blood Pressure 97/70 Arterial Blood Pressure 116/40 Arterial Blood Pressure 123/40 Arterial Blood Pressure 154/45 Arterial Blood Pressure 128/40 Arterial Blood Pressure 128/43 Arterial Blood Pressure 145/45 Arterial Blood Pressure 118/44 Arterial Blood Pressure 143/52 Arterial Blood Pressure 127/45 Arterial Blood Pressure 127/43 Arterial Blood Pressure 131/45 Arterial Blood Pressure 138/46 Arterial Blood Pressure 147/48 Arterial Blood Pressure 157/50 Arterial Blood Pressure 161/51 Arterial Blood Pressure 147/48 Arterial Blood Pressure 145/49 Arterial Blood Pressure 142/47 Arterial Blood Pressure 146/49 Arterial Blood Pressure 159/60 Arterial Blood Pressure 138/50 Arterial Blood Pressure 146/50 Arterial Blood Pressure 138/46 Arterial Blood Pressure 142/49 Arterial Blood Pressure 143/50 Arterial Blood Pressure 145/50 Arterial Blood Pressure 151/54 Arterial Blood Pressure 144/49 Arterial Blood Pressure 149/51 Arterial Blood Pressure 155/54 Arterial Blood Pressure 171/58 Arterial Blood Pressure 121/46 Arterial Blood Pressure 120/45 Arterial Blood Pressure 121/46 Arterial Blood Pressure 111/42 Arterial Blood Pressure 105/40 Arterial Blood Pressure 121/44 Arterial Blood Pressure 117/42 Arterial Blood Pressure 117/41 Arterial Blood Pressure 118/45 Arterial Blood Pressure 126/45 Arterial Blood Pressure 119/43 Arterial Blood Pressure 120/44 Arterial Blood Pressure 124/44 Arterial Blood Pressure 133/46 Arterial Blood Pressure 146/50 Arterial Blood Pressure 148/54 - Constitutional General appearance: no acute distress - Respiratory Respiratory: bilateral: diminished - Cardiovascular Rhythm: regular Heart sounds: normal: S1, S2 Results 01/30/22 04:02 01/30/22 04:02 CBC 01/30/22 Range/Units 04:02 WBC 13.1 H (3.8-10.6) k/uL RBC 3.50 L (4.30-5.90) m/uL Hgb 11.1 L (13.0-17.5) gm/dL Hct 33.3 L (39.0-53.0) % Plt Count 291 (150-450) k/uL Comprehensive Metabolic Panel 01/30/22 Range/Units 04:02 Sodium 132 L (137-145) mmol/L Potassium 4.1 (3.5-5.1) mmol/L Chloride 98 (98-107) mmol/L Carbon Dioxide 26 (22-30) mmol/L BUN 20 (9-20) mg/dL Creatinine 0.95 (0.66-1.25) mg/dL Glucose 143 H (74-99) mg/dL Calcium 9.2 (8.4-10.2) mg/dL Current Medications Generic Name Dose Route Start Last Admin Trade Name Freq PRN Reason Stop Dose Admin Acetaminophen 650 mg 01/28/22 14:26 Acetaminophen Tab 325 Mg Tab PO Q4HR PRN Pain Hydrocodone Bitart/Acetaminophen 1 each 01/28/22 14:26 Hydrocodone/Apap 5-325mg 1 Each Tab PO Q6HR PRN Pain Scale 4 to 6 Al Hydroxide/Mg Hydroxide 30 ml 01/28/22 14:26 Mag Hydrox/Al Hydrox/Simeth 30 Ml Cup PO Q6HR PRN Indigestion Alprazolam 0.5 mg 01/29/22 12:45 01/30/22 09:57 Alprazolam 0.5 Mg Tab PO Not Given BID [facility] Aspirin 162 mg 01/28/22 14:30 01/30/22 12:56 Aspirin 81 Mg PO 162 mg DAILY [facility] Administration Atorvastatin Calcium 40 mg 01/28/22 21:00 01/29/22 21:02 Atorvastatin 40 Mg Tab PO 40 mg HS [facility]CK Administration Clopidogrel Bisulfate 75 mg 01/29/22 09:00 01/30/22 12:56 Clopidogrel 75 Mg Tab PO 75 mg DAILY [facility] Administration Enoxaparin Sodium 40 mg 01/29/22 09:00 01/30/22 10:48 Enoxaparin 40 Mg/0.4 Ml Syringe SQ 40 mg DAILY [facility] Administration Furosemide 20 mg 01/30/22 09:00 01/30/22 11:58 Furosemide 20 Mg Tab PO 20 mg DAILY [facility] Administration Hydralazine HCl 20 mg 01/30/22 09:34 Hydralazine Hcl 20 Mg/Ml 1 Ml Vial IVP Q4HR PRN Blood Pressure - High Sodium Chloride 1,000 mls @ 75 mls/hr 01/30/22 12:45 01/30/22 12:56 Saline 0.9% IV 75 mls/hr .[id number] [facility] Administration Lidocaine HCl 0.1 ml 01/28/22 10:18 Lidocaine 1% (10mg/Ml) For Iv Start INTRADERMA PER PROTOCOL PRN IV Start Lisinopril 10 mg 01/29/22 21:00 01/30/22 10:45 Lisinopril 10 Mg Tab PO 10 mg BID BUCK Administration Metoclopramide HCl 10 mg 01/30/22 14:00 Metoclopramide 5 Mg/Ml 2 Ml Vial IVP Q6HR [facility] Metoprolol Tartrate 25 mg 01/28/22 21:00 01/30/22 10:45 Metoprolol Tartrate 25 Mg Tab PO 25 mg BID [facility]CK Administration Morphine Sulfate 2 mg 01/28/22 14:26 Morphine Sulfate 2 Mg/Ml Syringe IVP Q4H PRN Pain Scale 6 to 7 Ondansetron HCl 4 mg 01/29/22 18:18 01/30/22 08:26 Ondansetron 4 Mg/2 Ml Vial IVP 4 mg Q6H PRN Administration Nausea Pantoprazole Sodium 40 mg 01/30/22 09:00 01/30/22 08:26 Pantoprazole 40 Mg/10 Ml Vial IVP 40 mg DAILY [facility] Administration Spironolactone 25 mg 01/29/22 09:00 01/30/22 11:58 Spironolactone 25 Mg Tab PO 25 mg DAILY [facility]CK Administration Intake and Output 01/30/22 01/30/22 01/30/22 06:59 14:59 22:59 Intake Total 194.45 251.175 300 Output Total 620 250 225 Balance -425.55 1.175 75 Intake: IV 160 80 KVO 160 80 Intake, IV Titration 34.45 156.175 300 Amount Nitroglycerin-D5w Pmx 50 34.45 6.175 mg In Dextrose/Water 1 250ml.bag @ Titrate IV . Q0M [facility] Rx#:[id number] Sodium Chloride 0.9% 1, 150 300 000 ml @ 75 mls/hr IV . [id number] [facility] Rx#:[id number] Oral 15 Output: Urine 620 200 225 Urine/Stool Mix 50 Other: Voiding Method Urinal Urinal Urinal # Voids 2 Weight 77 kg 01/30/22 04:02 01/30/22 04:02 Assessment and Plan Assessment: Assessment #1 status post elective right carotid endarterectomy #2 small bowel obstruction treated conservatively #3 hypertension urgency #4 CAD with prior revascularization #5 history of severe cardiomyopathy status post AICD for primary prevention #6 borderline anemia #7 dyslipidemia #8 multiple comorbid conditions Plan #1 the symptoms of nausea and vomiting related to small bowel obstruction is contributing to the elevated blood pressure #2 the pressure seems to be under reasonable control on the current medical r egimen #3 possible increase the dose of lisinopril if the pressure starts going up above 130 mmHg #4 consider starting the patient on nitro drip if we need to #5 follow-up with the patient #6 low-sodium diet
--- NOTE | 2022-01-30 18:49 | P.GSCN ---
History of Present Illness Consult date: 01/30/22 Reason for Consult: Abdominal ileus History of present illness: 71-year-old male underwent elective right carotid endarterectomy 2 days ago. P lynnette was complaining of bloating and some nausea and had subsequent vomiting. Abdominal x-rays were performed which showed moderate amount of small bowel air with mild dilation present. No definite transition point is seen and some air also seen in colon. Patient denies pain. We are consulted for possible bowel obstruction. Patient is currently in the ICU still because of uncontrolled hypertension. Patient has had flatus. No bowel movement. No nausea currently. Attempts at nasogastric tube placement were unsuccessful. Review of Systems The patient denies any acute changes in vision or hearing, no dysphagia or odynophagia, no chest pain or shortness of breath, no dysuria or hematuria, no headache, no runny nose, no rectal bleeding or melena, no unexplained weight loss Past Medical History Past Medical History: Coronary Artery Disease (CAD), COPD, Hypertension, Myocardial Infarction (MD) Additional Past Medical History / Comment(s): hx covid 10/14/21-states received infusion., AAA., AICD., pain in legs with walking. Last Myocardial Infarction Date:: UNKNOWN History of Any Multi-Drug Resistant Organisms: None Reported Past Surgical History: Back Surgery, Heart Catheterization With Stent Additional Past Surgical History / Comment(s): [id number] (1972)., AICD - (12/06/20 [employer])., HEART CATH WITH 3 STENTS (10/08/20)., CATARACTS Past Anesthesia/Blood Transfusion Reactions: No Reported Reaction Date of Last Stent Placement:: 10/08/2020 Type of Cardiac Device: Permanent Pacemaker Device Placement Date:: 12/06/2020 Past Psychological History: No Psychological Hx Reported Smoking Status: Former smoker Past Alcohol Use History: Occasional Additional Past Alcohol Use History / Comment(s): QUIT SMOKING OCT 2020, HX OF 1-2 PPD, SMOKED APPROX 56 YEARS. Past Drug Use History: None Reported - Past Family History Father History Unknown: Yes Family Medical History: No Reported History Medications and Allergies Home Medications Medication Instructions Recorded Confirmed Type Aspirin 81 mg PO DAILY #30 chew 10/10/20 01/28/22 Rx Clopidogrel [Plavix] 75 mg PO DAILY #30 tab 10/10/20 01/25/22 Rx Metoprolol Tartrate [Lopressor] 25 mg PO BID #60 tab 10/10/20 01/28/22 Rx Spironolactone [Aldactone] 25 mg PO DAILY #30 tab 10/10/20 01/28/22 Rx lisinopriL [Zestril] 5 mg PO BID 12/05/20 01/28/22 History Albuterol Sulfate [Albuterol 2 puff PO Q6H PRN 01/25/22 01/28/22 History Sulfate Hfa] Atorvastatin [Lipitor] 40 mg PO HS 01/25/22 01/28/22 History Furosemide [Lasix] 20 mg PO DAILY 01/25/22 01/28/22 History Allergies Allergy/AdvReac Type Severity Reaction Status Date / Time ampicillin Allergy Unknown turned Verified 01/28/22 11:20 pink, trouble breathing Penicillins Allergy turned Verified 01/28/22 11:20 pink, trouble breathing Surgical - Exam Vital Signs Temp Pulse Resp BP Pulse Ox 97.8 F 77 16 172/80 100 01/28/22 11:30 01/28/22 11:30 01/28/22 11:30 01/28/22 11:30 01/28/22 11:30 Physical exam: General: Well-developed, well-nourished HEENT: Normocephalic, sclerae nonicteric, right neck incision clean and dry with mild induration Abdomen: Nontender, mild distention Extremities: No edema Neuro: Alert and oriented Results - Labs 01/30/22 04:02 01/30/22 04:02 Abnormal Lab Results - Last 24 Hours (Table) 01/30/22 01/30/22 Range/Units 04:02 04:02 WBC 13.1 H (3.8-10.6) k/uL RBC 3.50 L (4.30-5.90) m/uL Hgb 11.1 L (13.0-17.5) gm/dL Hct 33.3 L (39.0-53.0) % Sodium 132 L (137-145) mmol/L Glucose 143 H (74-99) mg/dL Diabetes panel 01/30/22 Range/Units 04:02 Sodium 132 L (137-145) mmol/L Potassium 4.1 (3.5-5.1) mmol/L Chloride 98 (98-107) mmol/L Carbon Dioxide 26 (22-30) mmol/L BUN 20 (9-20) mg/dL Creatinine 0.95 (0.66-1.25) mg/dL Glucose 143 H (74-99) mg/dL Calcium 9.2 (8.4-10.2) mg/dL Calcium panel 01/30/22 Range/Units 04:02 Calcium 9.2 (8.4-10.2) mg/dL Pituitary panel 01/30/22 Range/Units 04:02 Sodium 132 L (137-145) mmol/L Potassium 4.1 (3.5-5.1) mmol/L Chloride 98 (98-107) mmol/L Carbon Dioxide 26 (22-30) mmol/L BUN 20 (9-20) mg/dL Creatinine 0.95 (0.66-1.25) mg/dL Glucose 143 H (74-99) mg/dL Calcium 9.2 (8.4-10.2) mg/dL Adrenal panel 01/30/22 Range/Units 04:02 Sodium 132 L (137-145) mmol/L Potassium 4.1 (3.5-5.1) mmol/L Chloride 98 (98-107) mmol/L Carbon Dioxide 26 (22-30) mmol/L BUN 20 (9-20) mg/dL Creatinine 0.95 (0.66-1.25) mg/dL Glucose 143 H (74-99) mg/dL Calcium 9.2 (8.4-10.2) mg/dL Assessment and Plan (1) Ileus Narrative/Plan: 71-year-old male with abdominal bloating and x-rays suggesting ileus versus SBO. Certainly ileus more likely in this scenario. Add IV Reglan. Increase activity per primary service. Repeat abdominal x-rays tomorrow. Keep nothing by mouth for now. Will follow. Current Visit: Yes Status: Acute Code(s): K56.7 - ILEUS, UNSPECIFIED SNOMED Code(s): 738198562
[2022-01-30] MEDS: METOCLOPRAMIDE 5 MG/ML 2 ML VIAL IVP SCH ×2 (19:09→19:13)
[2022-01-30] MEDS: hydrALAZINE HCL 20 MG/ML 1 ML VIAL IVP PRN (19:10)
[2022-01-30] MEDS: ATORVASTATIN 40 MG TAB PO SCH (21:22)
[2022-01-31] MEDS: METOCLOPRAMIDE 5 MG/ML 2 ML VIAL IVP SCH ×4 (00:56→20:43)
[2022-01-31] MEDS: hydrALAZINE HCL 20 MG/ML 1 ML VIAL IVP PRN (01:07)
[2022-01-31] MEDS: SODIUM CHLORIDE 0.9% 1,000 ML IV SCH ×2 (05:19→10:43)
[2022-01-31 05:41] LABS: HCT 30.5 % (39.0-53.0); HGB 10.1 gm/dL (13.0-17.5); MCH 31.5 pg (25.0-35.0); MCV 95.5 fL (80.0-100.0); Mean Platelet Volume 7.4; Platelet Count 237 k/uL (150-450); RBC 3.19 m/uL (4.30-5.90); RDW 13.8 % (11.5-15.5); WBC 11.9 k/uL (3.8-10.6)
[2022-01-31 05:58] LABS: Albumin 3.2 g/dL (3.5-5.0); Calcium 8.5 mg/dL (8.4-10.2); Magnesium 1.8 mg/dL (1.6-2.3); Potassium 4.2 mmol/L (3.5-5.1); Total Bilirubin 0.8 mg/dL (0.2-1.3); Total Protein 5.9 g/dL (6.3-8.2)
--- NOTE | 2022-01-31 07:26 | P.PN ---
Subjective Progress Note Date: 01/31/22 Principal diagnosis: Hypertension urgency The patient is a 71-year-old gentleman with coronary artery disease and prior stenting of the LCx as well as severe cardiomyopathy and status post AICD as well as hypertension and dyslipidemia who was admitted to the hospital and underwent carotid endarterectomy. We consulted to see the patient for hypertension urgency. Beside that the patient was diagnosed recently with small bowel obstruction and he was experiencing symptoms of nausea and vomiting. We felt that hypertension was elevated wises severe nausea and vomiting he was experiencing. Once the nausea and vomiting has resolved his pressure has been under better control. His average systolic pressure is about 1 30 mmHg. Currently he is on metoprolol tartrate as well as lisinopril as well as Aldactone. I'm going to increase the dose of lisinopril from 20 mg by mouth daily to 30 mg by mouth daily and continue up titrating the dose of lisinopril if the pressure allowed. Beside that continue the current dose of metoprolol tartrate 25 mg twice and continue Aldactone at 25 mg by mouth daily. Beside that he is on dual antiplatelet therapy as well as high intensity statin Objective - Vital Signs Vital signs: Vital Signs Temp 98.6 F 01/31/22 04:30 Pulse 65 01/31/22 07:00 Resp 10 L 01/31/22 07:00 BP 138/57 01/31/22 07:00 Pulse Ox 95 01/31/22 07:00 Intake & Output 01/30/22 01/31/22 01/31/22 18:59 06:59 18:59 Intake Total 551.175 900 75 Output Total 475 400 Balance 76.175 500 75 Weight 74 kg Intake: IV 80 KVO 80 Intake, IV Titration 456.175 900 75 Amount Nitroglycerin-D5w Pmx 50 6.175 mg In Dextrose/Water 1 250ml.bag @ Titrate IV . Q0M [facility] Rx#:[id number] Sodium Chloride 0.9% 1, 450 900 75 000 ml @ 75 mls/hr IV . [id number] [facility] Rx#:[id number] Oral 15 Output: Urine 425 400 Urine/Stool Mix 50 Other: Voiding Method Urinal Urinal ABP, PAP, CO, CI - Last Documented Arterial Blood Pressure 125/41 - Constitutional General appearance: Present: no acute distress - Respiratory Respiratory: bilateral: diminished - Cardiovascular Rhythm: regular Heart sounds: normal: S1, S2 Abnormal Heart Sounds: Present: systolic murmur - Labs CBC & Chem 7: 01/31/22 05:00 01/31/22 05:00 Labs: Abnormal Lab Results - Last 24 Hours (Table) 01/31/22 01/31/22 Range/Units 05:00 05:00 WBC 11.9 H (3.8-10.6) k/uL RBC 3.19 L (4.30-5.90) m/uL Hgb 10.1 L (13.0-17.5) gm/dL Hct 30.5 L (39.0-53.0) % Sodium 136 L (137-145) mmol/L BUN 23 H (9-20) mg/dL Glucose 108 H (74-99) mg/dL Total Protein 5.9 L (6.3-8.2) g/dL Albumin 3.2 L (3.5-5.0) g/dL Assessment and Plan Assessment: Assessment #1 status post elective right carotid endarterectomy #2 small bowel obstruction treated conservatively #3 hypertension urgency #4 CAD with prior revascularization #5 history of severe cardiomyopathy status post AICD for primary prevention #6 borderline anemia #7 dyslipidemia #8 multiple comorbid conditions Plan #1 the blood pressure seems to be under better control on the current medical regimen #2 increase the dose of lisinopril 30 mg by mouth daily from 20 mg by mouth daily #3 continue uptitrate the dose of lisinopril if the blood pressure allow #4 the nausea and vomiting related to small bowel obstruction have resolved #5 follow-up with the patient
[2022-01-31] MEDS ORDERED: ALPRAZolam 0.5 MG TAB PO PRN (07:58)
[2022-01-31] MEDS: lisinopriL 10 MG TAB PO SCH (08:18)
[2022-01-31] MEDS: ASPIRIN 81 MG PO SCH (08:18)
[2022-01-31] MEDS: METOPROLOL TARTRATE 25 MG TAB PO SCH ×2 (08:19→20:44)
[2022-01-31] MEDS: PANTOPRAZOLE 40 MG/10 ML VIAL IVP SCH (08:19)
[2022-01-31] MEDS: SPIRONOLACTONE 25 MG TAB PO SCH (08:19)
[2022-01-31] MEDS: ENOXAPARIN 40 MG/0.4 ML SYRINGE SQ SCH (08:19)
[2022-01-31] MEDS: FUROSEMIDE 20 MG TAB PO SCH (08:19)
[2022-01-31] MEDS: CLOPIDOGREL 75 MG TAB PO SCH (08:19)
--- NOTE | 2022-01-31 09:32 | XR ---
EXAMINATION TYPE: XR abdomen 2V DATE OF EXAM: 01/31/2022 COMPARISON: NONE HISTORY: Nausea and pain TECHNIQUE: One view abdominal series FINDINGS: There are numerous severely dilated bowel loops in the abdomen suspicious for obstruction. Air is see n within the colon. Bilateral lower lobe infiltrate seen in the lung bases is suggestion of cardiac l venu. No obvious free air. Hypertrophic and degenerative change of the spine. Diffuse osteopenia. Art hropathy of the hips. IMPRESSION: 1. Numerous severely dilated small bowel loops correlate for obstruction. Severe ileus in the differe ntial diagnosis. 2. Bilateral lower lobe infiltrate.
--- NOTE | 2022-01-31 10:39 | P.PN ---
Subjective Progress Note Date: 01/31/22 Principal diagnosis: Carotid stenosis The patient is seen and examined postop day #3 for right carotid endarterectomy with patch angioplasty. Yesterday patient had continued elevated blood pressures. There've been changes to oral medications by both ICU team as well as cardiology. Yesterday he was having some vomiting, abdominal x-ray was taken and showed ileus possible small bowel obstruction. Gen. surgery Dr. Moncada was consulted, he saw the patient did believe it was more likely to be an ileus and not a small bowel obstruction. The NG tube was attempted on patient however they were unable to place it. He states he's been passing some flatus. No bowel movement. No more nausea or vomiting. Has been nothing by mouth. Blood pressures are more controlled, running 125 over 40s 50s to 150s over 50s.. Repeat abdominal x-ray reports numerous severely dilated small bowel loops correlate for obstruction. Severe ileus is in the differential. Bilateral lower lobe infiltrate. Objective - Vital Signs Vital signs: Vital Signs Temp 98.6 F 01/31/22 04:30 Pulse 65 01/31/22 07:00 Resp 10 L 01/31/22 07:00 BP 138/57 01/31/22 07:00 Pulse Ox 95 01/31/22 07:00 Intake & Output 01/30/22 01/31/22 01/31/22 18:59 06:59 18:59 Intake Total 551.175 900 75 Output Total 475 400 Balance 76.175 500 75 Weight 74 kg Intake: IV 80 KVO 80 Intake, IV Titration 456.175 900 75 Amount Nitroglycerin-D5w Pmx 50 6.175 mg In Dextrose/Water 1 250ml.bag @ Titrate IV . Q0M [facility] Rx#:[id number] Sodium Chloride 0.9% 1, 450 900 75 000 ml @ 75 mls/hr IV . [id number] [facility] Rx#:[id number] Oral 15 Output: Urine 425 400 Urine/Stool Mix 50 Other: Voiding Method Urinal Urinal ABP, PAP, CO, CI - Last Documented Arterial Blood Pressure 125/41 - Exam General appearance: The patient is alert, oriented, appears in no acute distress. HET: Head is normocephalic and atraumatic. Pupils are equal and reactive. Neck: Supple without lymphadenopathy. Trachea midline. Right side of neck with small hematoma noted, swelling, with ecchymosis incision well approximated with glue. Patient has full range of motion of his neck. Heart: S1 S2. Regular rate and rhythm. Lungs: Clear to auscultation bilaterally. Abdomen: Soft, nontender, nondistended. Extremities: Normal skin color and turgor. No cyanosis, rash, ulceration, clubbing, or edema. Radial and pedal pulses are 2/4 bilaterally. Neurological: No focal deficits. Alert and oriented 3 - Labs CBC & Chem 7: 01/31/22 05:00 01/31/22 05:00 Labs: Abnormal Lab Results - Last 24 Hours (Table) 01/31/22 01/31/22 Range/Units 05:00 05:00 WBC 11.9 H (3.8-10.6) k/uL RBC 3.19 L (4.30-5.90) m/uL Hgb 10.1 L (13.0-17.5) gm/dL Hct 30.5 L (39.0-53.0) % Sodium 136 L (137-145) mmol/L BUN 23 H (9-20) mg/dL Glucose 108 H (74-99) mg/dL Total Protein 5.9 L (6.3-8.2) g/dL Albumin 3.2 L (3.5-5.0) g/dL Assessment and Plan Assessment: 1. Postop day #3 right carotid endarterectomy with patch angioplasty 2. Hemodynamically significant right ICA stenosis 3. Hypertension, uncontrolled, resolved 4. Ileus 5. History coronary artery disease status post AICD, stents 6. COPD 7. Former smoker 8. History of myocardial infarction 9. Dyslipidemia Plan: 1. Continue symptomatic and supportive care 2. Continue Zofran as needed, Reglan added 3. Continue with recommendations ICU 4. Primary medicine for medical management 5. Cardiology consulted 6. Increase, encourage ambulation as tolerated 7. Protonix 40 mg daily GI prophylaxis 8. Gen. surgery on consult, appreciate their recommendations 9. Okay to start clear liquid diet Further recommendations forthcoming per vascular surgeon The impression and plan of care has been dictated as directed. Dr. Gutiérrez I performed a history and examination of this patient, discussed the same with the dictator. I agree with the dictator's note ,documented as a scribe. Any additional findings or plans will be noted.
--- NOTE | 2022-01-31 10:54 | P.PN ---
Subjective Progress Note Date: 01/31/22 Principal diagnosis: Right carotid artery stenosis This is a 71-year-old male patient who was recently found to have hemodynamically significant severe right internal carotid artery artery stenosis of greater than 80%. Patient was being evaluated for a complaint of lower extremity arterial insufficiency. Patient carries extensive history of smoking which has been in remission for 1 year. He used to smoke 1 pack a day for 57 years. Has a history of ischemic cardiomyopathy status post ICD/dual chamber pacemaker implantation, previous history of myocardial infarction, hypertension, dyslipidemia and coronary artery disease with previous stenting. He was seen by Dr. Lester in the pulmonary clinic for evaluation of his lung function, his full outpatient PFT showed FEV1 of 2.59 L or 78% predicted, FVC of 4.9 L or 110% of predicted with an MCV of 78, with reversibility of obstruction with bronchodilators. Patient is not oxygen dependent at baseline. His low dose computed tomography scan of the chest from April 2021 showed no suspicious changes to suggest neoplasm, and underlying COPD. On 01/28/2022 patient underwent right carotid endarterectomy with patch angioplasty. Patient tolerated procedure quite well, he is awake and alert, he is in the phase I recovery, hemodynamic stable, breathing comfortably, he is on minimal supplemental oxygen, no altered mentation, answering questions appropriate. His right neck oblique incision is covered with surgical dressing, clean dry and intact, trachea is midline, no hematoma noted, neurologically intact. No breath ing difficulty, lung sounds are clear. Is awaiting a bed in the ICU. Patient is currently on nitroglycerin infusion at 5 mics per kilo per minute. Systolic blood pressures in the 130s millimeters of mercury. Has no specific complaints The patient is seen today 01/29/2022 and follow-up in the intensive care unit. He is currently sitting up in bed. Awake and alert in no acute distress. He is maintaining good O2 saturations in the 90s on room air. He is status post right carotid endarterectomy. Postoperative day #1. He remains on nitroglycerin drip at 20 mcg/m. Lactated Ringer's at 80 MLS per hour. He resumed on his home medications of metoprolol, Zestril, Aldactone. Continued on statins, aspirin and Plavix. White count 11.1. Hemoglobin 10.4. Sodium 137. Potassium 4.5. BUN 20. Creatinine 0.94. Patient was reevaluated today on 01/30/22, his postoperative day #2, status post right carotid endarterectomy with patch angioplasty. Blood pressure seems to be better controlled, I discontinued his nitroglycerin, however the patient is now having intermittent episodes of nausea and vomiting and his oral medications are placed back on hold. CT of the brain is nondiagnostic. Patient looked fairly comfortable during my evaluation. He was not in any distress, he did receive Zofran earlier. A blood pressure is rather low, his oral medications are on hold, I recommended Apresoline 20 mg every 4 hours when necessary if his blood pressure remains high. In the meantime I have discontinued his doctor listened drip. May inpatient Restart oral meds with small sips of water if needed . His labs today are basically unremarkable including basic metabolic profile, and CBC. Reevaluated today on 01/31/22, patient remains in the ICU, he is postoperative day #3. Clinically the patient is doing great, however the patient developed ileus, and there was difficulty passing a nasogastric tube in this patient, surgery was consulted, today the patient does not seem to be in any distress, denies any abdominal pain denies any nausea or vomiting. His flat abdomen showed multiple dilated bowel loops. Patient is able to take his oral medications. No further episodes of vomiting. Again the nurses had difficulty passing the nasogastric tube in spite of multiple attempts, and no more attempts were made. Patient has not had any bowel movements since admission. His CBC is normal his electrolytes are normal renal profile is normal patient remains on IV fluids, and surgery is addressing his ileus. Objective - Vital Signs Vital signs: Vital Signs Temp 98.5 F 01/31/22 08:00 Pulse 66 01/31/22 10:00 Resp 15 01/31/22 10:00 BP 144/63 01/31/22 10:00 Pulse Ox 90 L 01/31/22 10:00 Intake & Output 01/30/22 01/31/22 01/31/22 18:59 06:59 18:59 Intake Total 551.175 900 300 Output Total 475 400 400 Balance 76.175 500 -100 Weight 74 kg Intake: IV 80 KVO 80 Intake, IV Titration 456.175 900 300 Amount Nitroglycerin-D5w Pmx 50 6.175 mg In Dextrose/Water 1 250ml.bag @ Titrate IV . Q0M [facility] Rx#:[id number] Sodium Chloride 0.9% 1, 450 900 300 000 ml @ 75 mls/hr IV . [id number] [facility] Rx#:[id number] Oral 15 Output: Urine 425 400 400 Urine/Stool Mix 50 Other: Voiding Method Urinal Urinal ABP, PAP, CO, CI - Last Documented Arterial Blood Pressure 155/52 - Exam Physical Exam: Revealed 71-year-old white male in no distress. On room air. Head: Atraumatic, normocephalic. HEENT:[Neck is supple.] [No neck masses.] [No thyromegaly.] [No JVD.] Chest: [Clear throughout, no crackles, no rhonchi, no wheezes.] Cardiac Exam: [Normal S1 and S2, no S3 gallop, no murmur.] Abdomen: [Slightly distended but not tender. no megaly, no rebound, no guarding, no bowel sounds. Extremities: [No clubbing, no edema, no cyanosis.] Psychiatric: Normal mood affect and normal mental status examination. Musculoskeletal: No deformities and no limitation in range of motion Neurological Exam: [No focal neurologic deficit.] - Labs CBC & Chem 7: 01/31/22 05:00 01/31/22 05:00 Labs: Abnormal Lab Results - Last 24 Hours (Table) 01/31/22 01/31/22 Range/Units 05:00 05:00 WBC 11.9 H (3.8-10.6) k/uL RBC 3.19 L (4.30-5.90) m/uL Hgb 10.1 L (13.0-17.5) gm/dL Hct 30.5 L (39.0-53.0) % Sodium 136 L (137-145) mmol/L BUN 23 H (9-20) mg/dL Glucose 108 H (74-99) mg/dL Total Protein 5.9 L (6.3-8.2) g/dL Albumin 3.2 L (3.5-5.0) g/dL Assessment and Plan Assessment: Impression: Status post carotid endarterectomy and patch angioplasty, postoperative day #3 Acute ileus, being addressed by surgery on the case. History of ischemic cardiomyopathy ejection fraction of 20%, patient had previous ICD/dual-chamber pacemaker insertion. History of alcohol abuse, patient is vague about his alcohol consumption. Previous history of [place]/coronary arteriosclerosis. And previous stenting of the circumflex. History of chronic systolic congestive heart failure. Recommendation: Transfer patient out of the ICU. Surgery to continue to follow regarding his ileus. Resume oral meds for blood pressure. Zofran for nausea and vomiting. We'll continue to follow. Time with Patient: Less than 30
--- NOTE | 2022-01-31 11:02 | CDI ---
Documentation Clarification Form Date: 01/31/2022 10:48:41 AM From: Renata Carson CCS, CCDS Admit Date: 01/28/2022 10:43:00 AM Patient Name: Narendra Miguel Visit Number: [id number] Discharge Date: ATTENTION: The Clinical Documentation Specialists (CDI) and [facility] Coding Staff appreciate your assistance in clarifying documentation. Please respond to the clarification below the line at the bottom and electronically sign. The CDI & [facility] Coding staff will review the response and follow-up if needed. Please note: Queries are made part of the Legal Health Record. If you have any questions, please contact the author of this message via ITS. Dr. Sameer Gutiérrez: Ileus is documented in the following documents status post Right Carotid Endarterectomy on 01/28: 01/30 Medical Management Progress Note: Ileus vs Obstruction: npo, NGT ordered by Pulmonary/Critical Care, Monitor. 01/30 Surgery Consult: Abdominal Ileus: Add IV Reglan, Increase activity, Repeat Abominal Xrays tomorrow, NPO. Additional clarification is requested regarding the relationship, if any, that exists between the diagnosis of Ileus and the procedure. Patients Admitting Diagnosis per the 01/28 Procedure Note: Hemodynamically severe Right Internal Carotid Artery Stenosis. Post-Operative Diagnosis: Same. Procedure performed 01/28: Right Carotid Endarterectomy with Patch Angioplasty History/Risk Factors per the 01/29 Medical Management Consult: CAD status post Heart Catheterization with Stent, AICD, Hypertension, RI, COVID 09/2021, AAA, Former Smoker. Clinical Indicators: Presented for Elective procedure described above. Per the 01/30 Vascular Surgery Progress Note: POD #2, the patient continued to have elevated blood pressures, had an episode of vomiting in the night, started having hiccups & then vomited. Continued in ICU, IV Zofran, Lovenox held, Gastric occult blood ordered, increased ambulation, IV Protonix. 01/30 XR KUB: Numerous severely dilated small bowel loops correlate for obstruction. Severe ileus in the differential diagnosis. Bilateral lower lobe infiltrate. 01/31 XR Abdomen: Numerous severely dilated small bowel loops correlate for obstruction.Severe ileus in the differential diagnosis. Bilateral lower lobe infiltrate. Treatment 01/30: IV Protonix 40 mg Daily, IV Apresoline 20 mg q4H/prn, IV Na Cl 1,000 mls @ 75 mls/hr q13H, IV Reglan 10 mg q6H. What relationship, if any, exists between the diagnosis of Ileus and the procedure: [ ] Ileus is a complication of surgical procedure [ ] Ileus is an expected outcome of the surgical procedure [] Ileus is related to patients co-morbid condition(s) of (please specify condition): and is not a complication of the procedure [ X] Other please specify: [ ] Unable to determine (Template Last Revised: November 2020) NO RELATIONSHIP TO SURGERY MTDD
--- NOTE | 2022-01-31 14:04 | P.PN ---
Subjective Progress Note Date: 01/31/22 Principal diagnosis: ileus Patient was seen and examined. No acute events overnight. Yesterday, patient started experiencing abdominal pain and intractable nausea and vomiting. KUB showed dilated loops of bowel with severe ileus. NG tube was attempted but was unsuccessful. Patient was seen and examined this afternoon. He reports complete resolution of his nausea and vomiting. He denies any abdominal pain. Reports that he is passing gas. He denies any chest pain, shortness of breath or palpitations. No nausea or vomiting. No fever or chills. Objective - Vital Signs Vital signs: Vital Signs Temp 98.5 F 01/31/22 08:00 Pulse 73 01/31/22 13:00 Resp 19 01/31/22 13:00 BP 152/60 01/31/22 13:00 Pulse Ox 90 L 01/31/22 10:00 Intake & Output 01/30/22 01/31/22 01/31/22 18:59 06:59 18:59 Intake Total 551.175 900 775 Output Total 475 400 500 Balance 76.175 500 275 Weight 74 kg Intake: IV 80 KVO 80 Intake, IV Titration 456.175 900 525 Amount Nitroglycerin-D5w Pmx 50 6.175 mg In Dextrose/Water 1 250ml.bag @ Titrate IV . Q0M [facility] Rx#:[id number] Sodium Chloride 0.9% 1, 450 900 525 000 ml @ 75 mls/hr IV . [id number] [facility] Rx#:[id number] Oral 15 250 Output: Urine 425 400 500 Urine/Stool Mix 50 Other: Voiding Method Urinal Urinal Urinal ABP, PAP, CO, CI - Last Documented Arterial Blood Pressure 155/52 - Exam General: [non toxic], [no distress], [appears at stated age] Derm: [warm], [dry] Head: [atraumatic], [normocephalic], [symmetric] Eyes: [EOMI], [no lid lag], [anicteric sclera] Mouth: [no lip lesion], [mucus membranes moist] Cardiovascular: [S1S2 reg], [no murmur] Lungs: [CTA bilateral], [no rhonchi, no rales] , [no accessory muscle use] Abdominal: [soft], [ nontender to palpation], [no guarding], [positive bowel sounds] Ext: [no gross muscle atrophy], [no edema], [no contractures] Neuro: [no focal neuro deficits] Psych: [Alert], [oriented], [appropriate affect] - Labs CBC & Chem 7: 01/31/22 05:00 01/31/22 05:00 Labs: Abnormal Lab Results - Last 24 Hours (Table) 01/31/22 01/31/22 Range/Units 05:00 05:00 WBC 11.9 H (3.8-10.6) k/uL RBC 3.19 L (4.30-5.90) m/uL Hgb 10.1 L (13.0-17.5) gm/dL Hct 30.5 L (39.0-53.0) % Sodium 136 L (137-145) mmol/L BUN 23 H (9-20) mg/dL Glucose 108 H (74-99) mg/dL Total Protein 5.9 L (6.3-8.2) g/dL Albumin 3.2 L (3.5-5.0) g/dL Assessment and Plan Assessment: Hypertensive urgency - Continue lisinopril, Aldactone and metoprolol. Hydralazine IV as needed. Ileus vs obstruction - Failed attempt at NG tube. - Clear liquid diet and advance as tolerated. - Continue Reglan scheduled. - Continue Protonix 40 mg IV daily. - Zofran as needed for nausea and vomiting. - General surgery on board. Right-sided carotid endarterectomy - Management per surgery Cardiomyopathy with ejection fraction less than 20%, currently compensated - BB, ACEI - Currently compensated Anemia, chronic - Near baseline - Follow CBC Chronic conditions: Dyslipidemia COPD without exacerbation
--- NOTE | 2022-01-31 15:17 | P.PN ---
Subjective Progress Note Date: 01/31/22 Principal diagnosis: Ileus Patient feels well today. He is sitting up in the chair. He was started on sips of liquids and tolerating that well. He has had more flatus. Today's x- rays reviewed and still shows some degree of small bowel dilation although areas present within the colon. Patient denies nausea or vomiting. Objective - Vital Signs Vital signs: Vital Signs Temp 98.5 F 01/31/22 08:00 Pulse 73 01/31/22 13:00 Resp 19 01/31/22 13:00 BP 152/60 01/31/22 13:00 Pulse Ox 90 L 01/31/22 10:00 Intake & Output 01/30/22 01/31/22 01/31/22 18:59 06:59 18:59 Intake Total 551.175 900 775 Output Total 475 400 500 Balance 76.175 500 275 Weight 74 kg Intake: IV 80 KVO 80 Intake, IV Titration 456.175 900 525 Amount Nitroglycerin-D5w Pmx 50 6.175 mg In Dextrose/Water 1 250ml.bag @ Titrate IV . Q0M [facility] Rx#:[id number] Sodium Chloride 0.9% 1, 450 900 525 000 ml @ 75 mls/hr IV . [id number] [facility] Rx#:[id number] Oral 15 250 Output: Urine 425 400 500 Urine/Stool Mix 50 Other: Voiding Method Urinal Urinal Urinal ABP, PAP, CO, CI - Last Documented Arterial Blood Pressure 155/52 - Exam Abdomen: Soft, minimal distention, nontender - Labs CBC & Chem 7: 01/31/22 05:00 01/31/22 05:00 Labs: Abnormal Lab Results - Last 24 Hours (Table) 01/31/22 01/31/22 Range/Units 05:00 05:00 WBC 11.9 H (3.8-10.6) k/uL RBC 3.19 L (4.30-5.90) m/uL Hgb 10.1 L (13.0-17.5) gm/dL Hct 30.5 L (39.0-53.0) % Sodium 136 L (137-145) mmol/L BUN 23 H (9-20) mg/dL Glucose 108 H (74-99) mg/dL Total Protein 5.9 L (6.3-8.2) g/dL Albumin 3.2 L (3.5-5.0) g/dL Assessment and Plan (1) Ileus Narrative/Plan: Overall patient seems to be improving despite x-ray appearance. Agree with clear liquid diet for now. We'll reevaluate tomorrow. Certainly if the patient has any abdominal complaints will evaluate with CT abdomen and pelvis. Current Visit: Yes Status: Acute Code(s): K56.7 - ILEUS, UNSPECIFIED SNOMED Code(s): 975294020
[2022-01-31] MEDS: cloNIDine HCL 0.1 MG TAB PO SCH (18:57)
[2022-01-31] MEDS: amLODIPine 5 MG TAB PO SCH (18:57)
[2022-01-31] MEDS: ATORVASTATIN 40 MG TAB PO SCH (20:44)
[2022-02-01] MEDS: METOCLOPRAMIDE 5 MG/ML 2 ML VIAL IVP SCH ×3 (00:55→12:55)
[2022-02-01 08:26] VITALS: TEMP 98.4
[2022-02-01] MEDS: ENOXAPARIN 40 MG/0.4 ML SYRINGE SQ SCH (08:28)
[2022-02-01] MEDS: PANTOPRAZOLE 40 MG/10 ML VIAL IVP SCH (08:28)
[2022-02-01] MEDS: CLOPIDOGREL 75 MG TAB PO SCH (08:29)
[2022-02-01] MEDS: ASPIRIN 81 MG PO SCH (08:29)
[2022-02-01] MEDS: lisinopriL 10 MG TAB PO SCH (08:29)
[2022-02-01] MEDS: METOPROLOL TARTRATE 25 MG TAB PO SCH (08:29)
[2022-02-01] MEDS: FUROSEMIDE 20 MG TAB PO SCH (08:29)
[2022-02-01] MEDS: SPIRONOLACTONE 25 MG TAB PO SCH (08:29)
--- NOTE | 2022-02-01 11:52 | P.PN ---
Subjective Progress Note Date: 02/01/22 Principal diagnosis: Hypertension urgency The patient is a 71-year-old gentleman with coronary artery disease and prior stenting of the LCx as well as severe cardiomyopathy and status post AICD as well as hypertension and dyslipidemia who was admitted to the hospital and underwent carotid endarterectomy. We consulted to see the patient for hypertension urgency. Beside that the patient was diagnosed recently with small bowel obstruction and he was experiencing symptoms of nausea and vomiting. The patient was seen this morning he is asymptomatic from the cardiovascular st andpoint of view and he is hemodynamically stable. From the cardiovascular standpoint of view, the patient can be discharged home. Otherwise if he is stable with follow-up with the patient on when necessary case. Pressure seems to be under excellent control on the current medical regimen Objective - Vital Signs Vital signs: Vital Signs Temp 98.4 F 02/01/22 08:00 Pulse 93 02/01/22 08:00 Resp 14 02/01/22 08:00 BP 139/61 02/01/22 08:00 Pulse Ox 93 L 02/01/22 08:00 Intake & Output 01/31/22 02/01/22 02/01/22 18:59 06:59 18:59 Intake Total 1075 Output Total 850 Balance 225 Weight 70 kg Intake: Intake, IV Titration 825 Amount Sodium Chloride 0.9% 1, 825 000 ml @ 75 mls/hr IV . [id number] [facility] Rx#:[id number] Oral 250 Output: Urine 850 Other: Voiding Method Urinal Toilet Urinal # Voids 1 ABP, PAP, CO, CI - Last Documented Arterial Blood Pressure 155/52 - Constitutional General appearance: Present: no acute distress - Respiratory Respiratory: bilateral: diminished - Cardiovascular Rhythm: regular Heart sounds: normal: S1, S2 - Labs CBC & Chem 7: 01/31/22 05:00 01/31/22 05:00 Assessment and Plan Assessment: Assessment #1 status post elective right carotid endarterectomy #2 small bowel obstruction treated conservatively #3 hypertension urgency #4 CAD with prior revascularization #5 history of severe cardiomyopathy status post AICD for primary prevention #6 borderline anemia #7 dyslipidemia #8 multiple comorbid conditions Plan #1 the blood pressure seems to be under better control on the current medical regimen #2 follow-up with the patient on when necessary came
--- NOTE | 2022-02-01 12:07 | P.DS ---
Providers Date of admission: 01/28/22 10:43 Expected date of discharge: 02/01/22 Attending physician: Sameer Gutiérrez DO Consults: 01/28/22 14:31 Consult Physician Routine Consulting Provider: Domenico Moses Consult Reason/Comments: icu management Do you want consulting provider notified?: Yes 01/28/22 14:35 Consult Physician Routine Consulting Provider: Paola Ybarra Consult Reason/Comments: Medical management Do you want consulting provider notified?: Yes 01/30/22 08:10 Consult Physician Urgent Consulting Provider: Luciano Navarro Consult Reason/Comments: hypertensive urgency, hx CAD known to Dr. Mckinney Do you want consulting provider notified?: Yes 01/30/22 12:36 Consult Physician Urgent Consulting Provider: César Moncada Consult Reason/Comments: ileus Do you want consulting provider notified?: Yes Primary care physician: Beka [facility] Course: Discharge diagnoses: Hemodynamically severe right internal carotid artery stenosis status post right carotid endarterectomy with patch angioplasty This is 71-year-old male who had presented to vascular surgery with complaints of lower extremity arterial insufficiency. During that workup he was found to be suffering from hemodynamically severe right internal carotid artery stenosis with an estimated greater than 80% stenosis on the right. Patient is postop day # 4 for right carotid endarterectomy with patch angioplasty. Patient initially had hypertensive episodes requiring nitro and hydrazine initiated by ICU and medicine teams. He continued to have hypertensive episodes and cardio logy was consulted. He had medications were adjusted and her last 2 days blood pressures have improved. Postop day #1 patient did have some hiccups and vomiting. He was slightly distended. He had an abdominal x-ray that did show ileus versus small bowel obstruction. Gen. surgery was consulted. NG tube was attempted however I was not able to be placed. Since then he had started passing flatus. He now has had 3 bowel movements. No nausea or vomiting. Advancing to a regular diet. Denies any focal deficits, shortness of breath, chest pain. No abdominal pain nausea or vomiting. He has been afebrile. He is voiding without difficulty. The impression and plan of care has been dictated as directed. Dr. Qureshi I performed a history and examination of this patient, discussed the same with the dictator. I agree with the dictator's note ,documented as a scribe. Any additional findings or plans will be noted. Procedures: Right carotid endarterectomy with patch angioplasty Patient Condition at Discharge: Stable Plan - Discharge Summary Discharge Rx Participant: No New Discharge Prescriptions: New lisinopriL [Zestril] 30 mg PO DAILY 30 Days #90 tab Metoclopramide [Reglan] 10 mg PO ACHS #28 tab Continue Spironolactone [Aldactone] 25 mg PO DAILY #30 tab Aspirin 81 mg PO DAILY #30 chew Metoprolol Tartrate [Lopressor] 25 mg PO BID #60 tab Clopidogrel [Plavix] 75 mg PO DAILY #30 tab Atorvastatin [Lipitor] 40 mg PO HS Albuterol Sulfate [Albuterol Sulfate Hfa] 2 puff PO Q6H PRN PRN Reason: Shortness Of Breath Furosemide [Lasix] 20 mg PO DAILY Discontinued lisinopriL [Zestril] 5 mg PO BID Discharge Medication List Aspirin 81 mg PO DAILY #30 chew 10/10/20 [Rx] Clopidogrel [Plavix] 75 mg PO DAILY #30 tab 10/10/20 [Rx] Metoprolol Tartrate [Lopressor] 25 mg PO BID #60 tab 10/10/20 [Rx] Spironolactone [Aldactone] 25 mg PO DAILY #30 tab 10/10/20 [Rx] Albuterol Sulfate [Albuterol Sulfate Hfa] 2 puff PO Q6H PRN 01/25/22 [History] Atorvastatin [Lipitor] 40 mg PO HS 01/25/22 [History] Furosemide [Lasix] 20 mg PO DAILY 01/25/22 [History] Metoclopramide [Reglan] 10 mg PO ACHS #28 tab 02/01/22 [Rx] lisinopriL [Zestril] 30 mg PO DAILY 30 Days #90 tab 02/01/22 [Rx] Follow up Appointment(s)/Referral(s): Sameer Gutiérrez DO [Doctor of Osteopathic Medicine] - 1 Week Beka Cunha [Primary Care Provider] - 1-2 Days Patricia Mckinney MD [STAFF PHYSICIAN] - 1 Week Patient Instructions/Handouts: Carotid Endarterectomy (DC) Activity/Diet/Wound Care/Special Instructions: May shower using soap and water. No heavy lifting, strenuous activity until follow-up with surgeon. Watch incision site for redness, swelling, drainage, and report fever greater than 100.4 Continue aspirin, Plavix, and Lipitor Discharge Disposition: HOME SELF-CARE
[2022-02-01 12:55] VITALS: BP 164/69; PULSE 85; RESP 16
--- NOTE | 2022-02-01 13:24 | P.PN ---
Subjective Progress Note Date: 02/01/22 Principal diagnosis: ileus Patient was seen and examined. No acute events overnight. He reports complete resolution of his nausea and vomiting. He denies any abdominal pain. Reports that he is passing gas. Had a bowel movement today. He denies any chest pain, shortness of breath or palpitations. No nausea or vomiting. No fever or chills. Excited about wanting to go home. Objective - Vital Signs Vital signs: Vital Signs Temp 98.4 F 02/01/22 12:00 Pulse 85 02/01/22 12:00 Resp 16 02/01/22 12:00 BP 164/69 02/01/22 12:00 Pulse Ox 98 02/01/22 12:00 Intake & Output 01/31/22 02/01/22 02/01/22 18:59 06:59 18:59 Intake Total 1075 Output Total 850 Balance 225 Weight 70 kg Intake: Intake, IV Titration 825 Amount Sodium Chloride 0.9% 1, 825 000 ml @ 75 mls/hr IV . [id number] [facility] Rx#:[id number] Oral 250 Output: Urine 850 Other: Voiding Method Urinal Toilet Urinal # Voids 1 ABP, PAP, CO, CI - Last Documented Arterial Blood Pressure 155/52 - Exam General: [non toxic], [no distress], [appears at stated age] Derm: [warm], [dry] Head: [atraumatic], [normocephalic], [symmetric] Eyes: [EOMI], [no lid lag], [anicteric sclera] Mouth: [no lip lesion], [mucus membranes moist] Cardiovascular: [S1S2 reg], [no murmur] Lungs: [CTA bilateral], [no rhonchi, no rales] , [no accessory muscle use] Abdominal: [soft], [ nontender to palpation], [no guarding], [positive bowel sounds] Ext: [no gross muscle atrophy], [no edema], [no contractures] Neuro: [no focal neuro deficits] Psych: [Alert], [oriented], [appropriate affect] - Labs CBC & Chem 7: 01/31/22 05:00 01/31/22 05:00 Assessment and Plan Assessment: Hypertensive urgency - Continue lisinopril, Aldactone and metoprolol. Ileus vs obstruction - Failed attempt at NG tube. - Clear liquid diet and advance as tolerated. - Continue Reglan for 7 more days. - Continue Protonix. - Zofran as needed for nausea and vomiting. - General surgery on board. Right-sided carotid endarterectomy - Management per surgery Cardiomyopathy with ejection fraction less than 20%, currently compensated - BB, ACEI - Currently compensated Anemia, chronic - Near baseline - Follow CBC Chronic conditions: Dyslipidemia COPD without exacerbation This patient is medically cleared for discharge. Thank you for involving us in the care of this patient.
--- NOTE | 2022-02-01 13:28 | P.PN ---
Subjective Progress Note Date: 02/01/22 CHIEF COMPLAINT: Ileus HISTORY OF PRESENT ILLNESS: Patient is sitting up in bed. He is tolerating his clear liquids. His diet has been advanced to regular primary service. On patient denies any nausea or vomiting. He's been having flatus and bowel movements. He is up and ambulating. He denies any abdominal pain. Afebrile WBC 11.9 hemoglobin 10.1 PHYSICAL EXAM: VITAL SIGNS: Reviewed. GENERAL: Well-developed in no acute distress. HEENT: No sclera icterus. Extraocular movements grossly intact. Moist buccal mucosa. Head is atraumatic, normocephalic. ABDOMEN: Soft. Nondistended. Nontender. NEUROLOGIC: Alert and oriented. Cranial nerves II through XII grossly intact. ASSESSMENT: 1. Ileus improved PLAN: -Patient can be discharged from surgical standpoint if he tolerates regular diet Physician Quotation Checker note has been reviewed by physician. Signing provider agrees with the documented findings, assessment, and plan of care. I have personally seen and examined the patient, reviewed the PHOTOGRAPHIC AIDE /PAs history, exam and MDM and agree with the assessment and plan as written. Based on total visit time, I have performed more than 50% of the visit. As above: Patient tolerating regular food so far. Denies nausea or vomiting. He did have a bowel movement. Does not feel bloated. Possible discharge today if tolerates diet further. Objective - Vital Signs Vital signs: Vital Signs Temp 98.4 F 02/01/22 08:00 Pulse 93 02/01/22 08:00 Resp 14 02/01/22 08:00 BP 139/61 02/01/22 08:00 Pulse Ox 93 L 02/01/22 08:00 Intake & Output 01/31/22 02/01/22 02/01/22 18:59 06:59 18:59 Intake Total 1075 Output Total 850 Balance 225 Weight 70 kg Intake: Intake, IV Titration 825 Amount Sodium Chloride 0.9% 1, 825 000 ml @ 75 mls/hr IV . [id number] [facility] Rx#:[id number] Oral 250 Output: Urine 850 Other: Voiding Method Urinal Toilet Urinal # Voids 1 ABP, PAP, CO, CI - Last Documented Arterial Blood Pressure 155/52 - Labs CBC & Chem 7: 01/31/22 05:00 01/31/22 05:00
== END 2022-02-01 14:38 | disposition home or self-care (01) | DRG 38 ==
LOC: 2ORMAIN 01-28 10:43 → 2SICU 01-28 15:12 → 3SCARD 01-31 17:46
PROVIDERS: ADMIT Surgery; ATTEND Surgery
PROC: 03UK0JZ Supplement Right Internal Carotid Artery with Synthetic Substitute, Open Approach (ICD-10-PCS; 2022-01-28)
PROC: 03CK0ZZ Extirpation of Matter from Right Internal Carotid Artery, Open Approach (ICD-10-PCS; principal; 2022-01-28 12:30)
DX: I65.21 Occlusion and stenosis of right carotid artery (principal); I50.22 Chronic systolic (congestive) heart failure; K56.7 Ileus, unspecified; E78.5 Hyperlipidemia, unspecified; I11.0 Hypertensive heart disease with heart failure; I71.4 Abdominal aortic aneurysm, without rupture; F10.21 Alcohol dependence, in remission; D64.89 Other specified anemias; R06.6 Hiccough; R11.10 Vomiting, unspecified; I16.0 Hypertensive urgency; I25.10 Atherosclerotic heart disease of native coronary artery without angina pectoris; I25.2 Old myocardial infarction; I25.5 Ischemic cardiomyopathy; I73.9 Peripheral vascular disease, unspecified; I77.1 Stricture of artery; J44.9 Chronic obstructive pulmonary disease, unspecified; Z79.02 Long term (current) use of antithrombotics/antiplatelets; Z79.82 Long term (current) use of aspirin; Z79.899 Other long term (current) drug therapy; Z86.16 Personal history of COVID-19; Z87.891 Personal history of nicotine dependence; Z95.5 Presence of coronary angioplasty implant and graft; Z95.810 Presence of automatic (implantable) cardiac defibrillator; Z88.0 Allergy status to penicillin; Z82.49 Family history of ischemic heart disease and other diseases of the circulatory system; Z88.1 Allergy status to other antibiotic agents
CPT/HCPCS: 70450; 70490; 74018; 74019; 80048; 80053; 83735; 85025; 85027; 86850; 86900; 86901; 88304; 88311

== ENCOUNTER → 2022-01-25 | Outpatient (CLI) | payer MEDICARE, OTHER ==
[2022-01-25 18:10] LABS: HCT 35.1 % (39.6-50.0); HGB 11.4 g/dL (13.0-17.0); MCHC 32.5 g/dL (32.0-37.0); MCV 95.4 fL (80.0-97.0); Mean Platelet Volume 9.8 fL (9.5-12.2); NRBC Per 100 WBC 0 /100 WBCS (0.0-0.0); Platelet Count 282 X 10*3/uL (140-440); RBC 3.68 X 10*6/uL (4.40-5.60); RDW 13.5 % (11.5-14.5); WBC 6.07 X 10*3/uL (4.50-10.00)
[2022-01-25 18:17] LABS: Anion Gap 13.2 mmol/L (10.00-18.00); Carbon Dioxide 22.1 mmol/L (20.0-27.5); Potassium 5.5 mmol/L (3.5-5.5)
== END | disposition home or self-care (01) ==
LOC: LABPAT 11:00
PROVIDERS: ATTEND Surgery
DX: Z01.812 Encounter for preprocedural laboratory examination (principal)
CPT/HCPCS: 36415; 80051; 85027

== ENCOUNTER 2022-02-02 20:09 | Inpatient (IN) | payer MEDICARE, OTHER ==
[2022-02-02] MEDS ORDERED: ONDANSETRON 4 MG/2 ML VIAL IVP STA (20:35)
[2022-02-02 20:49] LABS: Basophils % (A) 0 %; Eosinophils # (A) 0.2 k/uL (0-0.7); Eosinophils % (A) 2 %; HGB 10.8 gm/dL (13.0-17.5); Lymphocytes # (A) 1.4 k/uL (1.0-4.8); Lymphocytes % (A) 13 %; MCH 30.8 pg (25.0-35.0); MCHC 32.7 g/dL (31.0-37.0); Mean Platelet Volume 7.4; Monocytes # (A) 0.5 k/uL (0-1.0); Monocytes % (A) 5 %; Neutrophils # (A) 8.3 k/uL (1.3-7.7); Neutrophils % (A) 78 %; Platelet Count 332 k/uL (150-450); RBC 3.51 m/uL (4.30-5.90); RDW 13.7 % (11.5-15.5); WBC 10.7 k/uL (3.8-10.6)
--- NOTE | 2022-02-02 21:00 | XR ---
EXAMINATION TYPE: XR KUB DATE OF EXAM: 02/02/2022 COMPARISON: 01/31/2022 HISTORY: Follow-up ileus. Abdominal pain. TECHNIQUE: 2 views upright FINDINGS: There are multiple small bowel fluid levels in mildly dilated small bowel. No evidence of f ree air. There is some blunting of the costophrenic angles. Sacroiliac joints are intact. There is va scular calcification. IMPRESSION: Dilated small bowel with fluid levels suggestive of ileus or mechanical small bowel obst ruction. No change compared to the old exam.
[2022-02-02 21:02] LABS: Calcium 8.6 mg/dL (8.4-10.2); Potassium 3.2 mmol/L (3.5-5.1); Total Bilirubin 1.1 mg/dL (0.2-1.3); Total Protein 6.7 g/dL (6.3-8.2)
--- NOTE | 2022-02-02 23:12 | CT ---
EXAMINATION TYPE: CT abdomen pelvis w con DATE OF EXAM: 02/02/2022 COMPARISON: 05/10/2021 HISTORY: pain CT DLP: 831.6 mGycm Automated exposure control for dose reduction was used. CONTRAST: Performed with IV Contrast, patient injected with 100 mL of Isovue 300. Images obtained from the diaphragm to the floor of the pelvis with IV contrast. There is bilateral pleural effusions. Heart is borderline enlarged. No pericardial effusion. There is some infiltrate and atelectasis at both lung bases. The stomach is intact. Gallbladder is intact. The bile ducts are not dilated. Spleen is intact. There is no evidence of pancreatic mass. Liver shows no focal defect. There is no adrenal mass. Kidneys show satisfactory contrast opacification. There is no hydronephrosi s. Delayed images show normal renal excretion. There is aneurysm of the lower abdominal aorta that me asures up to 4 cm. There is thrombus on the left lateral wall. No retroperitoneal adenopathy. Bladder distends smoothly. There is some prostate calcification. No inguinal hernia. There is small amount o f free fluid in the pelvis with low attenuation. There are multiple sigmoid diverticula. There are so me dilated fluid-filled loops of small bowel in the lower abdomen. Small bowel measures up to 4.2 cm. Appendix is medial and posterior and appears normal. Transverse colon is not dilated. There is some retained fecal material in the cecum. Terminal ileum appears dilated. The lumbar vertebrae have normal alignment. No compression fracture. There is degenerative disc space narrowing at L4-5 and L5-S1. The bony pelvis is intact. The hip joints are intact. IMPRESSION: Dilated small bowel suggestive of distal mechanical small bowel obstruction or significant small donna l ileus and appears new compared to the old exam. Transition point not seen. Small bowel appears dila garrett up to the cecum. Colonic diverticulosis without diverticulitis. 4 cm abdominal aortic aneurysm without change. Pleural effusions with basilar pulmonary infiltrates and atelectasis is new compared to the old exam. Congestive heart failure is possible.
--- NOTE | 2022-02-02 23:31 | ED ---
Abdominal Pain HPI - General Chief Complaint: Abdominal Pain Stated Complaint: Recheck Abdominal Pain Time Seen by Provider: 02/02/22 20:30 Source: patient Mode of arrival: ambulatory Limitations: no limitations - History of Present Illness Initial Comments: 71-year-old male just discharged from the hospital yesterday after he had carotid endarterectomy surgery presents today with abdominal pain. After surgery he did develop an ileus. His nausea was controlled and did have a bowel movement therefore he was discharged from the hospital. He reports that he went home yesterday. Had some soup for breakfast and some soup for dinner. Afterwards he felt very nauseated and had an episode of heaving. He admits to abdominal discomfort. Did have a bowel movement yesterday which was loose. No black or bloody stools. He was told that if he had recurrence of his symptoms that he needed to come back to the hospital. No other alleviating, precipit ating or modifying factors - Related Data Home Medications Medication Instructions Recorded Confirmed Albuterol Sulfate [Albuterol 2 puff PO RT-Q6H PRN 01/25/22 02/03/22 Sulfate Hfa] Atorvastatin [Lipitor] 40 mg PO HS 01/25/22 02/03/22 Furosemide [Lasix] 20 mg PO DAILY 01/25/22 02/03/22 Previous Rx's Medication Instructions Recorded Aspirin 81 mg PO DAILY #30 chew 10/10/20 Clopidogrel [Plavix] 75 mg PO DAILY #30 tab 10/10/20 Spironolactone [Aldactone] 25 mg PO DAILY #30 tab 10/10/20 lisinopriL [Zestril] 30 mg PO DAILY 30 Days #90 tab 02/01/22 Metoprolol Tartrate [Lopressor] 50 mg PO BID 30 Days #60 tab 02/06/22 Allergies Allergy/AdvReac Type Severity Reaction Status Date / Time ampicillin Allergy Unknown turned Verified 02/03/22 12:06 pink, trouble breathing Penicillins Allergy turned Verified 02/03/22 12:06 pink, trouble breathing Review of Systems ROS Statement: Those systems with pertinent positive or pertinent negative responses have been documented in the HPI. ROS Other: All systems not noted in ROS Statement are negative. Past Medical History Past Medical History: Coronary Artery Disease (CAD), COPD, Hypertension, Myocardial Infarction (MD) Additional Past Medical History / Comment(s): hx covid 10/14/21-states received infusion., AAA., AICD., pain in legs with walking. Last Myocardial Infarction Date:: UNKNOWN History of Any Multi-Drug Resistant Organisms: None Reported Past Surgical History: Back Surgery, Heart Catheterization With Stent Additional Past Surgical History / Comment(s): [id number] (1972)., AICD - (12/06/20 [employer])., HEART CATH WITH 3 STENTS (10/08/20)., CATARACTS Past Anesthesia/Blood Transfusion Reactions: No Reported Reaction Date of Last Stent Placement:: 10/08/2020 Type of Cardiac Device: Permanent Pacemaker Device Placement Date:: 12/06/2020 Past Psychological History: No Psychological Hx Reported Smoking Status: Former smoker Past Alcohol Use History: Occasional Past Drug Use History: None Reported - Past Family History Father History Unknown: Yes Family Medical History: No Reported History General Exam Limitations: no limitations General appearance: alert, in no apparent distress Head exam: Present: atraumatic, normocephalic, normal inspection Eye exam: Present: normal appearance, PERRL, EOMI. Absent: scleral icterus, conjunctival injection, periorbital swelling ENT exam: Present: normal exam, mucous membranes moist Neck exam: Present: tenderness, other (healing incision right neck. palpable swelling to surrouding soft tissue with ecchymosis). Absent: meningismus, lymphadenopathy Respiratory exam: Present: normal lung sounds bilaterally. Absent: respiratory distress, wheezes, rales, rhonchi, stridor Cardiovascular Exam: Present: regular rate, normal rhythm, normal heart sounds. Absent: systolic murmur, diastolic murmur, rubs, gallop, clicks GI/Abdominal exam: Present: soft, distended, tenderness (generalized), diminished bowel sounds. Absent: guarding, rebound, rigid Extremities exam: Present: normal inspection, full ROM, normal capillary refill. Absent: tenderness, pedal edema, joint swelling, calf tenderness Back exam: Present: normal inspection Neurological exam: Present: alert, oriented X3, CN II-XII intact Psychiatric exam: Present: normal affect, normal mood Skin exam: Present: warm, dry, intact, normal color. Absent: rash Course Vital Signs 02/02/22 02/02/22 02/02/22 20:11 20:46 22:15 Temperature 97.9 F Pulse Rate 60 78 79 Pulse Rate [ Pulse Oximetery ] Respiratory 18 18 18 Rate Blood Pressure 207/74 213/89 183/74 O2 Sat by Pulse 94 L 95 95 Oximetry 02/03/22 02/03/22 02/03/22 01:05 01:49 02:00 Temperature 99.1 F Pulse Rate 106 H 88 Pulse Rate [ 128 H Pulse Oximetery ] Respiratory 18 18 18 Rate Blood Pressure 175/72 156/94 O2 Sat by Pulse 96 95 92 L Oximetry Medical Decision Making - Medical Decision Making Upon arrival patient is placed into room 3. A thorough history and physical exam was performed. IV access established and the patient is given 4 of Zofran for nausea. Laboratory studies are conducted and reviewed. Potassium mildly low at 3.2. Lipase 602. CT performed of the abdomen and pelvis which demonstrates dilated small bowel suggestive of distal mechanical small bowel obstruction or significant small bowel ileus. Transition point not well seen. Because of this I did recommend admission for surgical consultation. Spoke with Dr. Bazan who agreed to admit the patient. Dr. Moncada placed on consult. - Lab Data Result diagrams: 02/06/22 04:06 02/06/22 04:06 Lab Results 02/02/22 02/02/22 02/02/22 Range/Units 20:39 20:39 20:39 WBC 10.7 H (3.8-10.6) k/uL RBC 3.51 L (4.30-5.90) m/uL Hgb 10.8 L (13.0-17.5) gm/dL Hct 33.0 L (39.0-53.0) % MCV 94.0 (80.0-100.0) fL MCH 30.8 (25.0-35.0) pg MCHC 32.7 (31.0-37.0) g/dL RDW 13.7 (11.5-15.5) % Plt Count 332 (150-450) k/uL MPV 7.4 Neutrophils % 78 % Lymphocytes % 13 % Monocytes % 5 % Eosinophils % 2 % Basophils % 0 % Neutrophils # 8.3 H (1.3-7.7) k/uL Lymphocytes # 1.4 (1.0-4.8) k/uL Monocytes # 0.5 (0-1.0) k/uL Eosinophils # 0.2 (0-0.7) k/uL Basophils # 0.0 (0-0.2) k/uL Sodium 138 (137-145) mmol/L Potassium 3.2 L (3.5-5.1) mmol/L Chloride 103 (98-107) mmol/L Carbon Dioxide 25 (22-30) mmol/L Anion Gap 10 mmol/L BUN 18 (9-20) mg/dL Creatinine 0.97 (0.66-1.25) mg/dL Est GFR (CKD-EPI)AfAm 90 (>60 ml/min/1.73 sqM) Est GFR (CKD-EPI)NonAf 78 (>60 ml/min/1.73 sqM) Glucose 219 H (74-99) mg/dL Plasma Lactic Acid Gulshan 1.7 (0.7-2.0) mmol/L Calcium 8.6 (8.4-10.2) mg/dL Total Bilirubin 1.1 (0.2-1.3) mg/dL AST 43 (17-59) U/L ALT 29 (4-49) U/L Alkaline Phosphatase 108 (38-126) U/L Total Protein 6.7 (6.3-8.2) g/dL Albumin 4.0 (3.5-5.0) g/dL Lipase 602 H (23-300) U/L Disposition Clinical Impression: Ileus, Abdominal pain, Small bowel obstruction Disposition: ADMITTED IP TO THIS [facility] Condition: Stable Is patient prescribed a controlled substance at d/c from ED?: No Time of Disposition: 23:30 Decision to Admit Reason: Admit from EC Decision Date: 02/02/22 Decision Time: 23:30
[2022-02-02] MEDS ORDERED: ONDANSETRON 4 MG/2 ML VIAL IVP PRN (23:51)
[2022-02-02] MEDS ORDERED: NALOXONE 0.4 MG/ML 1 ML VIAL IV PRN (23:51)
--- NOTE | 2022-02-03 00:45 | P.HPIM ---
History of Present Illness H&P Date: 02/03/22 Patient is 71-year-old male with a PMH of hypertension, hyperlipidemia, coronary artery disease status post multiple stents, abdominal aortic aneurysm, carotid stenosis status post right carotid endarterectomy on 01/28/22 presents to the emergency room with complaints of abdominal distention and constipation. Of note, the patient had developed ileus and hypertensive urgency postoperatively, requiring a 4 day hospitalization, and was discharged on 02/01. Multiple attempts were made to place an NG tube during prior hospitalization without success. He reports having a bowel movement shortly after discharge and none in the past 36 hours. Reports gradually worsening abdominal distention and discomfort. Unable to quantify the pain. Denies nausea, vomiting. Denies chest pain, shortness of breath, fever, chills, cough, urinary complaints. CT abdomen and pelvis revealed findings consistent for small bowel ileus versus obstruction with no transition point noted along with an unchanged aortic aneurysm. Laboratory evaluation was remarkable for leukocytosis of 10.7, hemoglobin 10.8, potassium 3.2, glucose 219, and lactic acid 1.7. Blood pressure was elevated upon presentation to the emergency room at 207/74, pulse 60, and SpO2 94% on room air. Review of systems: Pertinent positives and negatives as discussed in HPI, a complete review of systems was performed and all other systems are negative. Physical examination: General: non toxic, no distress, appears at stated age, normal weight Derm: no unusual rashes/lesions no unusual ecchymoses, warm, dry Head: atraumatic, normocephalic, symmetric Eyes: EOMI, no lid lag, anicteric sclera, pupils equal round reactive to light ENT: Nose and ears atraumatic, no thrush, no pharyngeal erythema Neck: R neck incision approximated and healing, No thyromegaly, no cervical lymphadenopathy, trachea midline, supple Mouth: no lip lesion, mucus membranes moist Cardiovascular: S1S2 reg, no murmur, positive posterior tibial pulse bilateral, no edema, capillary refill less than 2 seconds Lungs: CTA bilateral, no rhonchi, no rales , no accessory muscle use Abdominal: Mildly distended, minimal diffuse tenderness, no guarding, no appreciable organomegaly, normal bowel sounds Ext: no gross muscle atrophy, muscle strength 5 out of 5 in all 4 extremities grossly, no contractures, Neuro: CN II-XI grossly intact, light touch intact all 4 extremities, finger to nose within normal limits, Psych: Alert, oriented, appropriate affect Assessment/plan Ileus versus small bowel obstruction -Attempted to pass NG tube twice without success -Nothing by mouth for now -Surgery consult -Antiemetics HTN urgency -C/w home antihypertensives -Stat dose of Labetalol ordered Hyperglycemia -Check A1C Hypokalemia -Replace and monitor Leukocytosis, likely due to ongoing stressor -Continue to monitor Chronic conditions: Hyperlipidemia, coronary artery disease, recent carotid endarterectomy -Continue with home meds DVT prophylaxis -Heparin subcu The patient is admitted with an anticipated greater than 2 midnight stay for evaluation of SBO/ileus CODE STATUS: Full Code Discussed with: Patient Anticipated discharge date: 2-[address]: Home Past Medical History Past Medical History: Coronary Artery Disease (CAD), COPD, Hypertension, Myocardial Infarction ([place]) Additional Past Medical History / Comment(s): hx covid 10/14/21-states received infusion., AAA., AICD., pain in legs with walking. Last Myocardial Infarction Date:: UNKNOWN History of Any Multi-Drug Resistant Organisms: None Reported Past Surgical History: Back Surgery, Heart Catheterization With Stent Additional Past Surgical History / Comment(s): [id number] (1972)., AICD - (12/06/20 [employer])., HEART CATH WITH 3 STENTS (10/08/20)., CATARACTS Past Anesthesia/Blood Transfusion Reactions: No Reported Reaction Date of Last Stent Placement:: 10/08/2020 Type of Cardiac Device: Permanent Pacemaker Device Placement Date:: 12/06/2020 Past Psychological History: No Psychological Hx Reported Smoking Status: Former smoker Past Alcohol Use History: Occasional Past Drug Use History: None Reported - Past Family History Father History Unknown: Yes Family Medical History: No Reported History Medications and Allergies Home Medications Medication Instructions Recorded Confirmed Type Aspirin 81 mg PO DAILY #30 chew 10/10/20 01/28/22 Rx Clopidogrel [Plavix] 75 mg PO DAILY #30 tab 10/10/20 01/25/22 Rx Metoprolol Tartrate [Lopressor] 25 mg PO BID #60 tab 10/10/20 01/28/22 Rx Spironolactone [Aldactone] 25 mg PO DAILY #30 tab 10/10/20 01/28/22 Rx Albuterol Sulfate [Albuterol 2 puff PO Q6H PRN 01/25/22 01/28/22 History Sulfate Hfa] Atorvastatin [Lipitor] 40 mg PO HS 01/25/22 01/28/22 History Furosemide [Lasix] 20 mg PO DAILY 01/25/22 01/28/22 History Metoclopramide [Reglan] 10 mg PO ACHS #28 tab 02/01/22 Rx lisinopriL [Zestril] 30 mg PO DAILY 30 Days #90 tab 02/01/22 Rx Allergies Allergy/AdvReac Type Severity Reaction Status Date / Time ampicillin Allergy Unknown turned Verified 02/02/22 20:15 pink, trouble breathing Penicillins Allergy turned Verified 02/02/22 20:15 pink, trouble breathing Physical Exam Vitals: Vital Signs Temp Pulse Resp BP Pulse Ox 02/02/22 20:46 78 18 213/89 95 02/02/22 20:11 97.9 F 60 18 207/74 94 L Intake and Output 02/02/22 02/02/22 02/03/22 14:59 22:59 06:59 Other: Weight 69.4 kg Results CBC & Chem 7: 02/02/22 20:39 02/02/22 20:39 Labs: Abnormal Lab Results - Last 24 Hours (Table) 02/02/22 02/02/22 Range/Units 20:39 20:39 WBC 10.7 H (3.8-10.6) k/uL RBC 3.51 L (4.30-5.90) m/uL Hgb 10.8 L (13.0-17.5) gm/dL Hct 33.0 L (39.0-53.0) % Neutrophils # 8.3 H (1.3-7.7) k/uL Potassium 3.2 L (3.5-5.1) mmol/L Glucose 219 H (74-99) mg/dL Lipase 602 H (23-300) U/L
[2022-02-03] MEDS ORDERED: LABETALOL 200 MG TAB PO STA (02:21)
[2022-02-03] MEDS ORDERED: POTASSIUM CHLORIDE ER 20 MEQ TAB.ER PO STA (02:22)
[2022-02-03] MEDS ORDERED: MORPHINE SULFATE 2 MG/ML SYRINGE IVP STA (02:23)
--- NOTE | 2022-02-03 02:48 | XR ---
EXAMINATION TYPE: XR chest 1V portable DATE OF EXAM: 02/03/2022 COMPARISON: 12/07/2020 HISTORY: Hypoxemia TECHNIQUE: Single view FINDINGS: There is some blunting of the right costophrenic angle. There is increased interstitial den sity in the right lung. There is left axillary pacemaker. Thoracic aorta is atheromatous. IMPRESSION: Compared to last exam there is appearance of small right pleural effusion and mild right sided interstitial infiltrate. No obvious heart failure.
[2022-02-03] MEDS ORDERED: METOPROLOL TARTRATE 25 MG TAB PO SCH ×2 (03:00→09:00)
[2022-02-03 03:52] LABS: Basophils % (A) 0 %; Eosinophils % (A) 0 %; HCT 31.1 % (39.0-53.0); HGB 10.3 gm/dL (13.0-17.5); Lymphocytes # (A) 0.6 k/uL (1.0-4.8); Lymphocytes % (A) 8 %; MCHC 33.1 g/dL (31.0-37.0); MCV 93.6 fL (80.0-100.0); Mean Platelet Volume 7.1; Monocytes # (A) 0.4 k/uL (0-1.0); Monocytes % (A) 5 %; Neutrophils % (A) 86 %; Platelet Count 303 k/uL (150-450); RBC 3.32 m/uL (4.30-5.90); RDW 14.3 % (11.5-15.5); WBC 8.1 k/uL (3.8-10.6)
[2022-02-03 04:05] LABS: African American GFR (CKD) >90 (>60 ml/min/1.73 sqM); Anion Gap 8 mmol/L; Blood Urea Nitrogen 16 mg/dL (9-20); Calcium 8.8 mg/dL (8.4-10.2); Carbon Dioxide 28 mmol/L (22-30); Chloride 101 mmol/L (98-107); Glucose 131 mg/dL (74-99); Non-African American GFR(CKD) 83 (>60 ml/min/1.73 sqM); Potassium 3.7 mmol/L (3.5-5.1); Sodium 137 mmol/L (137-145)
[2022-02-03] MEDS ORDERED: FUROSEMIDE 10 MG/ML 10 ML VIAL IV STA (05:39)
[2022-02-03 06:50] LABS: Glucose,Whole Blood 128 mg/dL (75-99)
[2022-02-03] MEDS: INSULIN ASPART (NovoLOG) 100 UNIT/ML VIAL SQ SCH ×4 (08:56→20:46)
[2022-02-03] MEDS: lisinopriL 10 MG TAB PO SCH (09:03)
[2022-02-03] MEDS: METOCLOPRAMIDE 10 MG TAB PO SCH ×4 (09:03→21:31)
[2022-02-03] MEDS: FUROSEMIDE 20 MG TAB PO SCH (09:04)
[2022-02-03] MEDS: SPIRONOLACTONE 25 MG TAB PO SCH (09:04)
[2022-02-03] MEDS: HEPARIN SODIUM,PORCINE/PF 5,000 UNIT/0.5 ML SYRINGE SQ SCH ×3 (09:04→23:49)
[2022-02-03] MEDS: CLOPIDOGREL 75 MG TAB PO SCH (09:04)
[2022-02-03] MEDS: ASPIRIN 81 MG PO SCH (09:04)
--- NOTE | 2022-02-03 10:33 | P.GSCN ---
History of Present Illness Consult date: 02/03/22 Reason for Consult: Abdominal pain History of present illness: 71-year-old male known to our service. Patient was recently hospitalized for el ective carotid endarterectomy. Postoperatively the patient had an ileus with abdominal bloating and nausea with vomiting. Patient was discharged home tolerating a regular diet here however at home had a few meals and subsequent developed abdominal discomfort and recurrent vomiting. Came back for evaluation. Patient describes abdominal bloating. He says it is better than it was yesterday. His pain is likewise minimal compared to yesterday. CAT scan performed which was described as ileus versus SBO. On a few of the images pneumatosis is not excluded in the small bowel. The patient's white blood cell count is normal, no fevers, normal lactic acid. Patient appears quite comfortable. Review of Systems The patient denies any acute changes in vision or hearing, no dysphagia or odynophagia, no chest pain or shortness of breath, no dysuria or hematuria, no headache, no runny nose, no rectal bleeding or melena, no unexplained weight loss Past Medical History Past Medical History: Coronary Artery Disease (CAD), COPD, Hypertension, Myocardial Infarction ([place]) Additional Past Medical History / Comment(s): hx covid 10/14/21-states received infusion., AAA., AICD., pain in legs with walking. Last Myocardial Infarction Date:: UNKNOWN History of Any Multi-Drug Resistant Organisms: None Reported Past Surgical History: Back Surgery, Heart Catheterization With Stent Additional Past Surgical History / Comment(s): [id number] (1972)., AICD - (12/06/20 [employer])., HEART CATH WITH 3 STENTS (10/08/20)., CATARACTS Past Anesthesia/Blood Transfusion Reactions: No Reported Reaction Date of Last Stent Placement:: 10/08/2020 Type of Cardiac Device: Permanent Pacemaker Device Placement Date:: 12/06/2020 Past Psychological History: No Psychological Hx Reported Smoking Status: Former smoker Past Alcohol Use History: Occasional Past Drug Use History: None Reported - Past Family History Father History Unknown: Yes Family Medical History: No Reported History Medications and Allergies Home Medications Medication Instructions Recorded Confirmed Type Aspirin 81 mg PO DAILY #30 chew 10/10/20 01/28/22 Rx Clopidogrel [Plavix] 75 mg PO DAILY #30 tab 10/10/20 01/25/22 Rx Metoprolol Tartrate [Lopressor] 25 mg PO BID #60 tab 10/10/20 01/28/22 Rx Spironolactone [Aldactone] 25 mg PO DAILY #30 tab 10/10/20 01/28/22 Rx Albuterol Sulfate [Albuterol 2 puff PO Q6H PRN 01/25/22 01/28/22 History Sulfate Hfa] Atorvastatin [Lipitor] 40 mg PO HS 01/25/22 01/28/22 History Furosemide [Lasix] 20 mg PO DAILY 01/25/22 01/28/22 History Metoclopramide [Reglan] 10 mg PO ACHS #28 tab 02/01/22 Rx lisinopriL [Zestril] 30 mg PO DAILY 30 Days #90 tab 02/01/22 Rx Allergies Allergy/AdvReac Type Severity Reaction Status Date / Time ampicillin Allergy Unknown turned Verified 02/02/22 20:15 pink, trouble breathing Penicillins Allergy turned Verified 02/02/22 20:15 pink, trouble breathing Surgical - Exam Vital Signs Temp Pulse Resp BP Pulse Ox 97.9 F 60 18 207/74 94 L 02/02/22 20:11 02/02/22 20:11 02/02/22 20:11 02/02/22 20:11 02/02/22 20:11 Physical exam: General: Well-developed, well-nourished HEENT: Normocephalic, sclerae nonicteric Abdomen: Mild distention, mild diffuse tenderness, no rebound or guarding Extremities: No edema Neuro: Alert and oriented Results - Labs 02/03/22 03:22 02/03/22 03:22 Abnormal Lab Results - Last 24 Hours (Table) 02/02/22 02/02/22 02/03/22 Range/Units 20:39 20:39 03:22 WBC 10.7 H (3.8-10.6) k/uL RBC 3.51 L 3.32 L (4.30-5.90) m/uL Hgb 10.8 L 10.3 L (13.0-17.5) gm/dL Hct 33.0 L 31.1 L (39.0-53.0) % Neutrophils # 8.3 H (1.3-7.7) k/uL Lymphocytes # 0.6 L (1.0-4.8) k/uL Potassium 3.2 L (3.5-5.1) mmol/L Glucose 219 H (74-99) mg/dL POC Glucose (mg/dL) (75-99) mg/dL Troponin I (0.000-0.034) ng/mL Lipase 602 H (23-300) U/L 02/03/22 02/03/22 02/03/22 Range/Units 03:22 03:22 06:48 WBC (3.8-10.6) k/uL RBC (4.30-5.90) m/uL Hgb (13.0-17.5) gm/dL Hct (39.0-53.0) % Neutrophils # (1.3-7.7) k/uL Lymphocytes # (1.0-4.8) k/uL Potassium (3.5-5.1) mmol/L Glucose 131 H (74-99) mg/dL POC Glucose (mg/dL) 128 H (75-99) mg/dL Troponin I 0.087 H* (0.000-0.034) ng/mL Lipase (23-300) U/L 02/03/22 Range/Units 07:55 WBC (3.8-10.6) k/uL RBC (4.30-5.90) m/uL Hgb (13.0-17.5) gm/dL Hct (39.0-53.0) % Neutrophils # (1.3-7.7) k/uL Lymphocytes # (1.0-4.8) k/uL Potassium (3.5-5.1) mmol/L Glucose (74-99) mg/dL POC Glucose (mg/dL) (75-99) mg/dL Troponin I 0.100 H* (0.000-0.034) ng/mL Lipase (23-300) U/L Diabetes panel 02/02/22 02/03/22 02/03/22 Range/Units 20:39 03:22 03:22 Sodium 138 137 (137-145) mmol/L Potassium 3.2 L 3.7 (3.5-5.1) mmol/L Chloride 103 101 (98-107) mmol/L Carbon Dioxide 25 28 (22-30) mmol/L BUN 18 16 (9-20) mg/dL Creatinine 0.97 0.91 (0.66-1.25) mg/dL Glucose 219 H 131 H (74-99) mg/dL Hemoglobin A1c 5.6 (0.0-6.0) % Calcium 8.6 8.8 (8.4-10.2) mg/dL AST 43 (17-59) U/L ALT 29 (4-49) U/L Alkaline Phosphatase 108 (38-126) U/L Total Protein 6.7 (6.3-8.2) g/dL Albumin 4.0 (3.5-5.0) g/dL Thyroid panel 02/03/22 Range/Units 03:22 TSH 0.484 (0.465-4.680) mIU/L Calcium panel 02/02/22 02/03/22 Range/Units 20:39 03:22 Calcium 8.6 8.8 (8.4-10.2) mg/dL Albumin 4.0 (3.5-5.0) g/dL Pituitary panel 02/02/22 02/03/22 02/03/22 Range/Units 20:39 03:22 03:22 Sodium 138 137 (137-145) mmol/L Potassium 3.2 L 3.7 (3.5-5.1) mmol/L Chloride 103 101 (98-107) mmol/L Carbon Dioxide 25 28 (22-30) mmol/L BUN 18 16 (9-20) mg/dL Creatinine 0.97 0.91 (0.66-1.25) mg/dL Glucose 219 H 131 H (74-99) mg/dL Calcium 8.6 8.8 (8.4-10.2) mg/dL TSH 0.484 (0.465-4.680) mIU/L Adrenal panel 02/02/22 02/03/22 Range/Units 20:39 03:22 Sodium 138 137 (137-145) mmol/L Potassium 3.2 L 3.7 (3.5-5.1) mmol/L Chloride 103 101 (98-107) mmol/L Carbon Dioxide 25 28 (22-30) mmol/L BUN 18 16 (9-20) mg/dL Creatinine 0.97 0.91 (0.66-1.25) mg/dL Glucose 219 H 131 H (74-99) mg/dL Calcium 8.6 8.8 (8.4-10.2) mg/dL Total Bilirubin 1.1 (0.2-1.3) mg/dL AST 43 (17-59) U/L ALT 29 (4-49) U/L Alkaline Phosphatase 108 (38-126) U/L Total Protein 6.7 (6.3-8.2) g/dL Albumin 4.0 (3.5-5.0) g/dL Assessment and Plan (1) Abdominal pain Narrative/Plan: 71-year-old male readmitted with abdominal pain and vomiting. CAT scan images again were suspicious for possible pneumatosis however patient appears quite comfortable, his pain is improved, and his exam findings are benign. Keep nothing by mouth except for sips of liquids for today. Contacted the patient's vascular surgeon and will consult them as well. We'll follow closely. Current Visit: Yes Status: Acute Code(s): R10.9 - UNSPECIFIED ABDOMINAL PAIN SNOMED Code(s): 49281249
--- NOTE | 2022-02-03 11:23 | P.CRDCN ---
History of Present Illness Consult date: 02/03/22 History of present illness: This is a 71-year-old gentleman who is known to her service before with a past medical history significant for coronary artery disease and prior stenting of the left circumflex as well as severe cardiomyopathy status post AICD for primary prevention as well as hypertension and dyslipidemia and carotid disease was underwent recently right carotid endarterectomy and during his hospital stay he developed abdominal discomfort and was diagnosed with small bowel obstruction which was resolved spontaneously and the patient was discharged in stable medical condition. He presented back to the hospital because after he left from here he was at home and he tried to eat and subsequently developed discomfort in the belly again and for that reason he decided to come to the emergency department. We consulted to see the patient because his troponin was checked and came in to be slightly abnormal. The patient did not have any symptoms of chest pain or chest discomfort nor increasing in the shortness of breath nor dizziness or lightheadedness or any feeling of heart racing or fluttering and no presyncope or syncope. His main issue was abdominal discomfort which has somewhat improved compared to before. Currently surgical team is on the case regarding the possible small bowel obstruction. On examination he is a slightly tachycardic. I'm going to increase the dose of metoprolol from 25 mg by mouth twice a day to 50 mg by mouth twice a day. The mildly abnormal troponin could be related to the tachycardia and also could be related to the cardiomyopathy. I would advise only a conservative medical approach in the absence of any signs of ischemia clinically. Past Medical History Past Medical History: Coronary Artery Disease (CAD), COPD, Hypertension, Myocardial Infarction ([place]) Additional Past Medical History / Comment(s): hx covid 10/14/21-states received infusion., AAA., AICD., pain in legs with walking. Last Myocardial Infarction Date:: UNKNOWN History of Any Multi-Drug Resistant Organisms: None Reported Past Surgical History: Back Surgery, Heart Catheterization With Stent Additional Past Surgical History / Comment(s): [id number] (1972)., AICD -(12/06/20 [employer])., HEART CATH WITH 3 STENTS (10/08/20)., CATARACTS Past Anesthesia/Blood Transfusion Reactions: No Reported Reaction Date of Last Stent Placement:: 10/08/2020 Type of Cardiac Device: Permanent Pacemaker Device Placement Date:: 12/06/2020 Past Psychological History: No Psychological Hx Reported Smoking Status: Former smoker Past Alcohol Use History: Occasional Past Drug Use History: None Reported - Past Family History Father History Unknown: Yes Family Medical History: No Reported History Medications and Allergies Home Medications Medication Instructions Recorded Confirmed Type Aspirin 81 mg PO DAILY #30 chew 10/10/20 01/28/22 Rx Clopidogrel [Plavix] 75 mg PO DAILY #30 tab 10/10/20 01/25/22 Rx Metoprolol Tartrate [Lopressor] 25 mg PO BID #60 tab 10/10/20 01/28/22 Rx Spironolactone [Aldactone] 25 mg PO DAILY #30 tab 10/10/20 01/28/22 Rx Albuterol Sulfate [Albuterol 2 puff PO Q6H PRN 01/25/22 01/28/22 History Sulfate Hfa] Atorvastatin [Lipitor] 40 mg PO HS 01/25/22 01/28/22 History Furosemide [Lasix] 20 mg PO DAILY 01/25/22 01/28/22 History Metoclopramide [Reglan] 10 mg PO ACHS #28 tab 02/01/22 Rx lisinopriL [Zestril] 30 mg PO DAILY 30 Days #90 tab 02/01/22 Rx Allergies Allergy/AdvReac Type Severity Reaction Status Date / Time ampicillin Allergy Unknown turned Verified 02/02/22 20:15 pink, trouble breathing Penicillins Allergy turned Verified 02/02/22 20:15 pink, trouble breathing Physical Exam Vitals: Vital Signs Temp Pulse Pulse Pulse Resp BP BP 02/03/22 08:00 99.3 F 81 16 139/67 02/03/22 04:00 82 02/03/22 03:32 128 H 18 02/03/22 03:19 153/77 02/03/22 02:00 99.1 F 128 H 18 02/03/22 01:49 88 18 156/94 02/03/22 01:05 106 H 18 175/72 02/02/22 22:15 79 18 183/74 02/02/22 20:46 78 18 213/89 02/02/22 20:11 97.9 F 60 18 207/74 Pulse Ox 02/03/22 08:00 95 02/03/22 04:00 02/03/22 03:32 02/03/22 03:19 02/03/22 02:00 92 L 02/03/22 01:49 95 02/03/22 01:05 96 02/02/22 22:15 95 02/02/22 20:46 95 02/02/22 20:11 94 L Intake and Output 02/02/22 02/03/22 02/03/22 22:59 06:59 14:59 Other: Voiding Method Urinal # Voids 2 Weight 69.4 kg 69.4 kg - Constitutional General appearance: no acute distress - Respiratory Respiratory: bilateral: diminished - Cardiovascular Rhythm: regular Results 02/03/22 03:22 02/03/22 03:22 Cardiac Enzymes 02/02/22 02/03/22 02/03/22 Range/Units 20:39 03:22 07:55 AST 43 (17-59) U/L Troponin I 0.087 H* 0.100 H* (0.000-0.034) ng/mL 02/03/22 Range/Units 10:17 AST (17-59) U/L Troponin I 0.087 H* (0.000-0.034) ng/mL CBC 02/02/22 02/03/22 Range/Units 20:39 03:22 WBC 10.7 H 8.1 (3.8-10.6) k/uL RBC 3.51 L 3.32 L (4.30-5.90) m/uL Hgb 10.8 L 10.3 L (13.0-17.5) gm/dL Hct 33.0 L 31.1 L (39.0-53.0) % Plt Count 332 303 (150-450) k/uL Comprehensive Metabolic Panel 02/02/22 02/03/22 Range/Units 20:39 03:22 Sodium 138 137 (137-145) mmol/L Potassium 3.2 L 3.7 (3.5-5.1) mmol/L Chloride 103 101 (98-107) mmol/L Carbon Dioxide 25 28 (22-30) mmol/L BUN 18 16 (9-20) mg/dL Creatinine 0.97 0.91 (0.66-1.25) mg/dL Glucose 219 H 131 H (74-99) mg/dL Calcium 8.6 8.8 (8.4-10.2) mg/dL AST 43 (17-59) U/L ALT 29 (4-49) U/L Alkaline Phosphatase 108 (38-126) U/L Total Protein 6.7 (6.3-8.2) g/dL Albumin 4.0 (3.5-5.0) g/dL Current Medications Generic Name Dose Route Start Last Admin Trade Name Freq PRN Reason Stop Dose Admin Aspirin 81 mg 02/03/22 09:00 02/03/22 09:04 Aspirin 81 Mg PO 81 mg DAILY BUCK Administration Atorvastatin Calcium 40 mg 02/03/22 21:00 Atorvastatin 40 Mg Tab PO HS BUCK Clopidogrel Bisulfate 75 mg 02/03/22 09:00 02/03/22 09:04 Clopidogrel 75 Mg Tab PO 75 mg DAILY BUCK Administration Furosemide 20 mg 02/03/22 09:00 02/03/22 09:04 Furosemide 20 Mg Tab PO 20 mg DAILY BUCK Administration Heparin Sodium (Porcine) 5,000 unit 02/03/22 08:00 02/03/22 09:04 Heparin Sodium,Porcine/Pf 5,000 Unit/0.5 Ml Syringe SQ 5,000 unit Q8HR BUCK Administration Insulin Aspart 0 unit 02/03/22 07:30 02/03/22 08:56 Insulin Aspart (Novolog) 100 Unit/Ml Vial SQ Not Given [facility] Protocol Lisinopril 30 mg 02/03/22 09:00 02/03/22 09:03 Lisinopril 10 Mg Tab PO 30 mg DAILY BUCK Administration Metoclopramide HCl 10 mg 02/03/22 07:30 02/03/22 09:03 Metoclopramide 10 Mg Tab PO 10 mg ACHS [facility] Administration Metoprolol Tartrate 50 mg 02/03/22 21:00 Metoprolol Tartrate 25 Mg Tab PO BID BUCK Naloxone HCl 0.2 mg 02/02/22 23:51 Naloxone 0.4 Mg/Ml 1 Ml Vial IV Q2M PRN Opioid Reversal Ondansetron HCl 4 mg 02/02/22 23:51 Ondansetron 4 Mg/2 Ml Vial IVP Q8HR PRN Nausea And Vomiting Spironolactone 25 mg 02/03/22 09:00 02/03/22 09:04 Spironolactone 25 Mg Tab PO 25 mg DAILY BUCK Administration Intake and Output 02/02/22 02/03/22 02/03/22 22:59 06:59 14:59 Other: Voiding Method Urinal # Voids 2 Weight 69.4 kg 69.4 kg 02/03/22 03:22 02/03/22 03:22 Assessment and Plan Assessment: Assessment #1 status post right carotid endarterectomy. The site appears to be swollen. Vascular surgeon is on the case #2 small bowel obstruction. Surgical team is on the case #3 evidence of myocardial injury without ischemia. This is could be related to tachycardia as well as cardiomyopathy #4 coronary artery disease with prior revascularization #5 history of severe cardiomyopathy status post AICD #Multiple comorbid conditions Plan #1 consider medical treatment for the mildly abnormal troponin #2 increase the dose of metoprolol because of the tachycardia #3 follow-up with the patient and continue up titrating the dose of metoprolol if need to
[2022-02-03 11:58] LABS: Glucose,Whole Blood 107 mg/dL (75-99)
[2022-02-03 12:29] LABS: African American GFR (CKD) 82 (>60 ml/min/1.73 sqM); Anion Gap 11 mmol/L; Blood Urea Nitrogen 18 mg/dL (9-20); Calcium 8.8 mg/dL (8.4-10.2); Carbon Dioxide 29 mmol/L (22-30); Chloride 102 mmol/L (98-107); Glucose 115 mg/dL (74-99); Magnesium 1.9 mg/dL (1.6-2.3); Non-African American GFR(CKD) 71 (>60 ml/min/1.73 sqM); Potassium 3.9 mmol/L (3.5-5.1); Sodium 142 mmol/L (137-145)
[2022-02-03] MEDS ORDERED: METOPROLOL TARTRATE 25 MG TAB PO STA (13:57)
--- NOTE | 2022-02-03 14:51 | P.GSCN ---
History of Present Illness Consult date: 02/03/22 History of present illness: Patient is a 71-year-old male known to us from previous admission, he recently underwent a right carotid endarterectomy and subsequent swelling had an ileus. He is found to be improving was sent home. He had increasing abdominal pain with meals and return to the ER. At this time he feels much better than he did previously. He denies any pain in his neck surgical site. He denies any weakness or difficulty with breathing or swallowing. Review of Systems 14 point review of systems performed. Pertinent positives and negatives per the HPI Past Medical History Past Medical History: Coronary Artery Disease (CAD), COPD, Hypertension, Myocardial Infarction (MT) Additional Past Medical History / Comment(s): hx covid 10/14/21-states received infusion., AAA., AICD., pain in legs with walking. Last Myocardial Infarction Date:: UNKNOWN History of Any Multi-Drug Resistant Organisms: None Reported Past Surgical History: Back Surgery, Heart Catheterization With Stent Additional Past Surgical History / Comment(s): [id number] (1972)., AICD - (12/06/20 [employer])., HEART CATH WITH 3 STENTS (10/08/20)., CATARACTS Past Anesthesia/Blood Transfusion Reactions: No Reported Reaction Date of Last Stent Placement:: 10/08/2020 Type of Cardiac Device: Permanent Pacemaker Device Placement Date:: 12/06/2020 Past Psychological History: No Psychological Hx Reported Smoking Status: Former smoker Past Alcohol Use History: Occasional Past Drug Use History: None Reported - Past Family History Father History Unknown: Yes Family Medical History: No Reported History Medications and Allergies Home Medications Medication Instructions Recorded Confirmed Type Aspirin 81 mg PO DAILY #30 chew 10/10/20 02/03/22 Rx Clopidogrel [Plavix] 75 mg PO DAILY #30 tab 10/10/20 02/03/22 Rx Metoprolol Tartrate [Lopressor] 25 mg PO BID #60 tab 10/10/20 02/03/22 Rx Spironolactone [Aldactone] 25 mg PO DAILY #30 tab 10/10/20 02/03/22 Rx Albuterol Sulfate [Albuterol 2 puff PO RT-Q6H PRN 01/25/22 02/03/22 History Sulfate Hfa] Atorvastatin [Lipitor] 40 mg PO HS 01/25/22 02/03/22 History Furosemide [Lasix] 20 mg PO DAILY 01/25/22 02/03/22 History Metoclopramide [Reglan] 10 mg PO ACHS #28 tab 02/01/22 02/03/22 Rx lisinopriL [Zestril] 30 mg PO DAILY 30 Days #90 tab 02/01/22 02/03/22 Rx Allergies Allergy/AdvReac Type Severity Reaction Status Date / Time ampicillin Allergy Unknown turned Verified 02/03/22 12:06 pink, trouble breathing Penicillins Allergy turned Verified 02/03/22 12:06 pink, trouble breathing Surgical - Exam Vital Signs Temp Pulse Resp BP Pulse Ox 97.9 F 60 18 207/74 94 L 02/02/22 20:11 02/02/22 20:11 02/02/22 20:11 02/02/22 20:11 02/02/22 20:11 Gen. is a pleasant and cooperative male in no acute distress. HEENT is normocephalic, atraumatic, extraocular motion intact. Right neck with swelling, likely hematoma versus seroma. Nonpulsatile. No active bleeding. No evidence of infection. Heart appears regular in rate and rhythm at this time. Lungs a re clear bilaterally. Abdomen soft, nontender nondistended. Extremity show no clubbing, cyanosis or edema Results Computed tomography scan is reviewed. - Labs 02/03/22 03:22 02/03/22 10:17 Abnormal Lab Results - Last 24 Hours (Table) 02/02/22 02/02/22 02/03/22 Range/Units 20:39 20:39 03:22 WBC 10.7 H (3.8-10.6) k/uL RBC 3.51 L 3.32 L (4.30-5.90) m/uL Hgb 10.8 L 10.3 L (13.0-17.5) gm/dL Hct 33.0 L 31.1 L (39.0-53.0) % Neutrophils # 8.3 H (1.3-7.7) k/uL Lymphocytes # 0.6 L (1.0-4.8) k/uL Potassium 3.2 L (3.5-5.1) mmol/L Glucose 219 H (74-99) mg/dL POC Glucose (mg/dL) (75-99) mg/dL Troponin I (0.000-0.034) ng/mL Lipase 602 H (23-300) U/L 02/03/22 02/03/22 02/03/22 Range/Units 03:22 03:22 06:48 WBC (3.8-10.6) k/uL RBC (4.30-5.90) m/uL Hgb (13.0-17.5) gm/dL Hct (39.0-53.0) % Neutrophils # (1.3-7.7) k/uL Lymphocytes # (1.0-4.8) k/uL Potassium (3.5-5.1) mmol/L Glucose 131 H (74-99) mg/dL POC Glucose (mg/dL) 128 H (75-99) mg/dL Troponin I 0.087 H* (0.000-0.034) ng/mL Lipase (23-300) U/L 02/03/22 02/03/22 02/03/22 Range/Units 07:55 10:17 10:17 WBC (3.8-10.6) k/uL RBC (4.30-5.90) m/uL Hgb (13.0-17.5) gm/dL Hct (39.0-53.0) % Neutrophils # (1.3-7.7) k/uL Lymphocytes # (1.0-4.8) k/uL Potassium (3.5-5.1) mmol/L Glucose 115 H (74-99) mg/dL POC Glucose (mg/dL) (75-99) mg/dL Troponin I 0.100 H* 0.087 H* (0.000-0.034) ng/mL Lipase (23-300) U/L 02/03/22 Range/Units 11:57 WBC (3.8-10.6) k/uL RBC (4.30-5.90) m/uL Hgb (13.0-17.5) gm/dL Hct (39.0-53.0) % Neutrophils # (1.3-7.7) k/uL Lymphocytes # (1.0-4.8) k/uL Potassium (3.5-5.1) mmol/L Glucose (74-99) mg/dL POC Glucose (mg/dL) 107 H (75-99) mg/dL Troponin I (0.000-0.034) ng/mL Lipase (23-300) U/L Diabetes panel 02/02/22 02/03/22 02/03/22 Range/Units 20:39 03:22 03:22 Sodium 138 137 (137-145) mmol/L Potassium 3.2 L 3.7 (3.5-5.1) mmol/L Chloride 103 101 (98-107) mmol/L Carbon Dioxide 25 28 (22-30) mmol/L BUN 18 16 (9-20) mg/dL Creatinine 0.97 0.91 (0.66-1.25) mg/dL Glucose 219 H 131 H (74-99) mg/dL Hemoglobin A1c 5.6 (0.0-6.0) % Calcium 8.6 8.8 (8.4-10.2) mg/dL AST 43 (17-59) U/L ALT 29 (4-49) U/L Alkaline Phosphatase 108 (38-126) U/L Total Protein 6.7 (6.3-8.2) g/dL Albumin 4.0 (3.5-5.0) g/dL 02/03/22 Range/Units 10:17 Sodium 142 (137-145) mmol/L Potassium 3.9 (3.5-5.1) mmol/L Chloride 102 (98-107) mmol/L Carbon Dioxide 29 (22-30) mmol/L BUN 18 (9-20) mg/dL Creatinine 1.05 (0.66-1.25) mg/dL Glucose 115 H (74-99) mg/dL Hemoglobin A1c (0.0-6.0) % Calcium 8.8 (8.4-10.2) mg/dL AST (17-59) U/L ALT (4-49) U/L Alkaline Phosphatase (38-126) U/L Total Protein (6.3-8.2) g/dL Albumin (3.5-5.0) g/dL Thyroid panel 02/03/22 Range/Units 03:22 TSH 0.484 (0.465-4.680) mIU/L Calcium panel 02/02/22 02/03/22 02/03/22 Range/Units 20:39 03:22 10:17 Calcium 8.6 8.8 8.8 (8.4-10.2) mg/dL Albumin 4.0 (3.5-5.0) g/dL Pituitary panel 02/02/22 02/03/22 02/03/22 Range/Units 20:39 03:22 03:22 Sodium 138 137 (137-145) mmol/L Potassium 3.2 L 3.7 (3.5-5.1) mmol/L Chloride 103 101 (98-107) mmol/L Carbon Dioxide 25 28 (22-30) mmol/L BUN 18 16 (9-20) mg/dL Creatinine 0.97 0.91 (0.66-1.25) mg/dL Glucose 219 H 131 H (74-99) mg/dL Calcium 8.6 8.8 (8.4-10.2) mg/dL TSH 0.484 (0.465-4.680) mIU/L 02/03/22 Range/Units 10:17 Sodium 142 (137-145) mmol/L Potassium 3.9 (3.5-5.1) mmol/L Chloride 102 (98-107) mmol/L Carbon Dioxide 29 (22-30) mmol/L BUN 18 (9-20) mg/dL Creatinine 1.05 (0.66-1.25) mg/dL Glucose 115 H (74-99) mg/dL Calcium 8.8 (8.4-10.2) mg/dL TSH (0.465-4.680) mIU/L Adrenal panel 02/02/22 02/03/22 02/03/22 Range/Units 20:39 03:22 10:17 Sodium 138 137 142 (137-145) mmol/L Potassium 3.2 L 3.7 3.9 (3.5-5.1) mmol/L Chloride 103 101 102 (98-107) mmol/L Carbon Dioxide 25 28 29 (22-30) mmol/L BUN 18 16 18 (9-20) mg/dL Creatinine 0.97 0.91 1.05 (0.66-1.25) mg/dL Glucose 219 H 131 H 115 H (74-99) mg/dL Calcium 8.6 8.8 8.8 (8.4-10.2) mg/dL Total Bilirubin 1.1 (0.2-1.3) mg/dL AST 43 (17-59) U/L ALT 29 (4-49) U/L Alkaline Phosphatase 108 (38-126) U/L Total Protein 6.7 (6.3-8.2) g/dL Albumin 4.0 (3.5-5.0) g/dL Assessment and Plan Assessment: Postop) carotid endarterectomy Abdominal pain Ileus versus obstruction Plan: At this time patient appears to be relatively comfortable. No signs of toxicity. His labs are stable and his vitals are improved. No further tachycardia with adjustment of medications. His neck site appears clean and dry. There is some swelling as noted previously prior to his discharge, this point no further intervention is needed. We'll continue to monitor this. Continue medications as ordered.
[2022-02-03 16:58] LABS: Glucose,Whole Blood 114 mg/dL (75-99)
[2022-02-03 20:37] LABS: Glucose,Whole Blood 100 mg/dL (75-99)
[2022-02-03] MEDS: ATORVASTATIN 40 MG TAB PO SCH (21:31)
[2022-02-03] MEDS: METOPROLOL TARTRATE 50 MG TAB PO SCH (21:31)
[2022-02-04 07:02] LABS: Glucose,Whole Blood 93 mg/dL (75-99)
[2022-02-04] MEDS: ASPIRIN 81 MG PO SCH (07:53)
[2022-02-04] MEDS: METOPROLOL TARTRATE 50 MG TAB PO SCH ×2 (07:53→19:20)
[2022-02-04] MEDS: CLOPIDOGREL 75 MG TAB PO SCH (07:54)
[2022-02-04] MEDS: HEPARIN SODIUM,PORCINE/PF 5,000 UNIT/0.5 ML SYRINGE SQ SCH ×2 (07:54→16:47)
[2022-02-04] MEDS: METOCLOPRAMIDE 10 MG TAB PO SCH ×4 (07:54→19:20)
[2022-02-04] MEDS: INSULIN ASPART (NovoLOG) 100 UNIT/ML VIAL SQ SCH ×4 (07:54→19:21)
[2022-02-04] MEDS: SPIRONOLACTONE 25 MG TAB PO SCH (07:54)
[2022-02-04] MEDS: FUROSEMIDE 20 MG TAB PO SCH (07:54)
[2022-02-04] MEDS: lisinopriL 10 MG TAB PO SCH (07:54)
--- NOTE | 2022-02-04 09:05 | P.PN ---
Subjective Progress Note Date: 02/04/22 Hospital course: Patient is a very pleasant 71-year-old male with a past medical history CAD with stents, cardiomyopathy status post AICD, abdominal aortic aneurysm, hypertension, hyperlipidemia, and carotid stenosis status post right carotid endarterectomy on 01/28/22. Patient presented to the emergency department on 02/03/22 with a chief complaint of abdominal pain and distention. Patient underwent current hospitalization with carotid endarterectomy on 01/28/22 and was discharged on 02/01/22 and during this hospitalization patient developed constipation. He reports gradually worsening constipation, abdominal distention, and now experiencing abdominal discomfort. Patient underwent full evaluation in the emergency department. He was found to have elevated troponin of 0.087, 0.100, and 0.087. EKG completed revealing sinus tachycardia at 123 beats per minute with ST depression in leads 1, 2, and V4 through V6. CBC initially revealing mild leukocytosis with WBC count of 10.7 and BMP showing hypokalemia with potassium of 3.2. KUB revealed dilated small bowel with fluid levels suggestive of ileus versus mechanical small bowel obstruction. CT abdomen and pelvis with contrast revealing a dilated small bowel suggestive of distal mechanical small bowel obstruction versus ileus as well as colonic diverticulosis without diverticulitis and a stable 4 cm abdominal aortic aneu rysm. Physical exam: Vital signs reviewed and stable. General: Nontoxic, no distress and appears stated age. Derm: Skin warm and dry, normal coloration for ethnicity. Head/Neck: Atraumatic, normocephalic and symmetric. Patient has moderate swelling to right lateral neck with a healing surgical incision that is intact with no signs of dehiscence or infection Eyes: EOMs intact, no lid lag, and anicteric sclera Mouth: no lip lesions, mucus membranes moist Cardiovascular: regular rate and rhythm with normal S1S2, no murmur, positive posterior tibial pulses bilaterally, and cap refill < 2 seconds. Lungs: Respirations even, regular, and unlabored on room air. Lungs CTA bilaterally, no rhonchi, no rales, no wheezing, and no accessory muscle usage. Abdominal: soft, nontender to palpation, no guarding, no appreciable organomegaly. bowel sounds 4 quadrants.. Ext: ROM intact. No gross muscle atrophy, no edema, no contractures Neuro: Speech clear, face symmetrical and CN II-XII grossly intact with no noted focal neuro deficits Psych: Alert and oriented to person, place, time, and situation. Appropriate and pleasant affect. Assessment and Plan of Care: Small bowel obstruction versus ileus -Likely resolved, patient reports having 2 bowel movements over the past 24 hours accompanied by resolution of previously reported abdominal pain/dis comfort. -Gen. surgery advanced diet to clear liquids, appreciate further recommendations. -Continue to monitor closely and provide symptomatic and supportive care. Elevated troponin Sinus tachycardia History of CAD with stents Cardiomyopathy status post AICD -Cardiology following, recommending medical treatment for the mildly abnormal troponin -Telemetry monitoring -Metoprolol increased secondary to tachycardia -Continue daily medication regimen with aspirin, atorvastatin, Plavix, lisinopril, metoprolol, Lasix, and Aldactone Status post right carotid endarterectomy -Vascular surgery following -Continue daily medication regimen with aspirin, atorvastatin, and Plavix. Abdominal aortic aneurysm -CT abdomen and pelvis revealing stable 4 cm abdominal aortic aneurysm -Continue to follow up outpatient with cardiothoracic/vascular surgery for long- term monitoring/management. Hypertension -Monitor vital signs and continue daily medication regimen. Hyperlipidemia -Continue daily medication regimen with atorvastatin nightly. CODE STATUS: Full code DVT prophylaxis: Heparin Discussed with: Patient and RN Anticipated discharge date: Clinical course to determine Anticipated discharge place: Home A total of 36 minutes was spent on the care of this complex patient more than 50% of the time was spent in counseling and care coordination. I reviewed the documentation as provided by the ANNE above, who is the original author of this note. I agree with the documented assessment and plan, with the following changes: none Objective - Vital Signs Vital signs: Vital Signs Temp 98.8 F 02/04/22 01:49 Pulse 75 02/04/22 01:49 Resp 16 02/04/22 01:49 BP 110/63 02/04/22 01:49 Pulse Ox 95 02/04/22 01:49 Intake & Output 02/03/22 02/04/22 02/04/22 18:59 06:59 18:59 Other: Voiding Method Urinal Urinal # Voids 3 2 - Labs CBC & Chem 7: 02/04/22 04:17 02/04/22 04:17 Labs: Abnormal Lab Results - Last 24 Hours (Table) 02/03/22 02/03/22 02/03/22 Range/Units 07:55 10:17 10:17 Glucose 115 H (74-99) mg/dL POC Glucose (mg/dL) (75-99) mg/dL Troponin I 0.100 H* 0.087 H* (0.000-0.034) ng/mL 02/03/22 02/03/22 02/03/22 Range/Units 11:57 16:57 20:35 Glucose (74-99) mg/dL POC Glucose (mg/dL) 107 H 114 H 100 H (75-99) mg/dL Troponin I (0.000-0.034) ng/mL
--- NOTE | 2022-02-04 09:09 | P.PN ---
Subjective Progress Note Date: 02/04/22 Principal diagnosis: Abdominal pain The patient was seen and examined sitting up in bed as a follow-up. Patient recently underwent right carotid endarterectomy with patch angioplasty. During that admission he had some nausea and vomiting was found to have an ileus versus small bowel obstruction. His symptoms are not improved, he had no further nausea or vomiting, he had several bowel movements and he was discharged home. Apparently he started having abdominal pain with nausea and vomiting and return to the hospital. Today he states he has no abdominal pain, nausea or vomiting. He's had 2 bowel movements this morning. He's been tolerating ice chips. Gen. surgery is following. He denies any pain in the left side of his neck. He has full range of motion. No focal deficits. Objective - Vital Signs Vital signs: Vital Signs Temp 98.3 F 02/04/22 08:00 Pulse 78 02/04/22 08:00 Resp 18 02/04/22 08:00 BP 145/66 02/04/22 08:00 Pulse Ox 99 02/04/22 08:53 Intake & Output 02/03/22 02/04/22 02/04/22 18:59 06:59 18:59 Other: Voiding Method Urinal Urinal Urinal # Voids 3 2 - Exam General appearance: The patient is alert, oriented, appears in no acute distress. HET: Head is normocephalic and atraumatic. Pupils are equal and reactive. Neck: Supple, right side of neck with swelling likely hematoma versus seroma. Incision site is well approximated with no active bleeding or drainage. Heart: S1 S2. Regular rate and rhythm. Lungs: Clear to auscultation bilaterally. Abdomen: Soft, nontender, nondistended. Extremities: Normal skin color and turgor. No cyanosis, rash, ulceration, clubbing, or edema. Radial and pedal pulses are 2/4 bilaterally. Neurological: No focal deficits. Strength and sensation are grossly intact. - Labs CBC & Chem 7: 02/03/22 03:22 02/03/22 10:17 Labs: Abnormal Lab Results - Last 24 Hours (Table) 02/03/22 02/03/22 02/03/22 Range/Units 10:17 10:17 11:57 Glucose 115 H (74-99) mg/dL POC Glucose (mg/dL) 107 H (75-99) mg/dL Troponin I 0.087 H* (0.000-0.034) ng/mL 02/03/22 02/03/22 Range/Units 16:57 20:35 Glucose (74-99) mg/dL POC Glucose (mg/dL) 114 H 100 H (75-99) mg/dL Troponin I (0.000-0.034) ng/mL Assessment and Plan Assessment: 1. Postop right carotid endarterectomy 2. Abdominal pain 3. Ileus versus obstruction Plan: 1. Advance diet per recommendations from general surgery 2. There is no indication for any vascular surgical intervention 3. Await recommendations from general surgery 4. Patient is cleared for discharge from vascular surgery once otherwise medically cleared. Patient to follow-up with Dr. Mackenzie this . The impression and plan of care has been dictated as directed. Dr. Gutiérrez I performed a history and examination of this patient, discussed the same with the dictator. I agree with the dictator's note ,documented as a scribe. Any additional findings or plans will be noted.
[2022-02-04 09:26] LABS: ALT 31 U/L (10-49); AST 36 U/L (14-35); African American GFR (CKD) 69.1 (60.0-200.0); Albumin 3.8 g/dL (3.8-4.9); Albumin/Globulin Ratio 1.81 (1.60-3.17); Alkaline Phosphatase 86 U/L (41-126); Blood Urea Nitrogen 22.2 mg/dL (9.0-27.0); Calcium 9.1 mg/dL (8.7-10.3); Carbon Dioxide 27.6 mmol/L (20.0-27.5); Chloride 102 mmol/L (96-109); Globulin 2.1 g/dL (1.6-3.3); Glucose 92 mg/dL (70-110); Non-African American GFR(CKD) 59.6 (60.0-200.0); Potassium 3.8 mmol/L (3.5-5.5); Sodium 140 mmol/L (135-145); Total Protein 5.9 g/dL (6.2-8.2)
[2022-02-04 09:27] LABS: LDL Cholesterol,Calculated 53.4 mg/dL (0.0-131.0)
[2022-02-04 09:33] LABS: Basophils # (A) 0.04 X 10*3/uL (0.00-0.10); Basophils % (A) 0.6 %; Eosinophils # (A) 0.18 X 10*3/uL (0.04-0.35); Eosinophils % (A) 2.6 %; HCT 28.2 % (39.6-50.0); Immature Grans, Automated 0.7 %; Lymphocytes % (A) 20.4 %; MCH 31.1 pg (27.0-32.0); MCHC 31.9 g/dL (32.0-37.0); MCV 97.6 fL (80.0-97.0); Mean Platelet Volume 10.1 fL (9.5-12.2); Monocytes # (A) 0.76 X 10*3/uL (0.20-1.00); Monocytes % (A) 11.1 %; NRBC Per 100 WBC 0 /100 WBCS (0.0-0.0); Neutrophils # (A) 4.44 X 10*3/uL (1.80-7.70); Neutrophils % (A) 64.6 %; Platelet Count 263 X 10*3/uL (140-440); RBC 2.89 X 10*6/uL (4.40-5.60); RDW 14.1 % (11.5-14.5); WBC 6.87 X 10*3/uL (4.50-10.00)
--- NOTE | 2022-02-04 11:09 | P.PN ---
Subjective Progress Note Date: 02/04/22 CHIEF COMPLAINT: Abdominal pain HISTORY OF PRESENT ILLNESS: The patient was readmitted to the hospital with abdominal pain and vomiting. This has resolved. He has had 2 bowel movements this morning. He is having flatus. He reports decrease in his abdominal distention. Denies any nausea or vomiting. Afebrile. WBC is 6.87 hemoglobin 9.0 potassium is 3.8 creatinine 1.2 patient recently hospitalized for an elective carotid enterectomy. He has been evaluated by vascular surgery. PHYSICAL EXAM: VITAL SIGNS: Reviewed. GENERAL: Well-developed in no acute distress. HEENT: No sclera icterus. Extraocular movements grossly intact. Moist buccal mucosa. Head is atraumatic, normocephalic. ABDOMEN: Soft. Nondistended. Nontender. NEUROLOGIC: Alert and oriented. Cranial nerves II through XII grossly intact. ASSESSMENT: 1. Abdominal pain with vomiting 2. Ileus versus small bowel obstruction 3. Pneumatosis PLAN: -Advance diet to clear liquids -Encourage patient to ambulate -Continue supportive care -Continue to monitor Physician Computer Technical Support Specialist note has been reviewed by physician. Signing provider agrees with the documented findings, assessment, and plan of care. I have personally seen and examined the patient, reviewed the TENTER /PAs history, exam and MDM and agree with the assessment and plan as written. Based on total visit time, I have performed more than 50% of the visit. As above: Patient doing well today. No pain at this time. He has had 3 bowel moments now. No nausea or vomiting. Tolerating clear liquids. Will increase to full liquids. Possible discharge tomorrow if doing well. Objective - Vital Signs Vital signs: Vital Signs Temp 98.3 F 02/04/22 08:00 Pulse 78 02/04/22 08:00 Resp 18 02/04/22 08:00 BP 145/66 02/04/22 08:00 Pulse Ox 99 02/04/22 08:53 Intake & Output 02/03/22 02/04/22 02/04/22 18:59 06:59 18:59 Other: Voiding Method Urinal Urinal Urinal # Voids 3 2 - Labs CBC & Chem 7: 02/04/22 04:17 02/04/22 04:17 Labs: Abnormal Lab Results - Last 24 Hours (Table) 02/03/22 02/03/22 02/03/22 Range/Units 10:17 10:17 11:57 RBC (4.40-5.60) X 10*6/uL Hgb (13.0-17.0) g/dL Hct (39.6-50.0) % MCV (80.0-97.0) fL MCHC (32.0-37.0) g/dL Immature Gran # (0.00-0.04) X 10*3/uL Carbon Dioxide (20.0-27.5) mmol/L Est GFR (CKD-EPI)NonAf (60.0-200.0) Glucose 115 H (74-99) mg/dL POC Glucose (mg/dL) 107 H (75-99) mg/dL AST (14-35) U/L Troponin I 0.087 H* (0.000-0.034) ng/mL Total Protein (6.2-8.2) g/dL 02/03/22 02/03/22 02/04/22 Range/Units 16:57 20:35 04:17 RBC 2.89 L (4.40-5.60) X 10*6/uL Hgb 9.0 L (13.0-17.0) g/dL Hct 28.2 L (39.6-50.0) % MCV 97.6 H (80.0-97.0) fL MCHC 31.9 L (32.0-37.0) g/dL Immature Gran # 0.05 H (0.00-0.04) X 10*3/uL Carbon Dioxide (20.0-27.5) mmol/L Est GFR (CKD-EPI)NonAf (60.0-200.0) Glucose (74-99) mg/dL POC Glucose (mg/dL) 114 H 100 H (75-99) mg/dL AST (14-35) U/L Troponin I (0.000-0.034) ng/mL Total Protein (6.2-8.2) g/dL 02/04/22 Range/Units 04:17 RBC (4.40-5.60) X 10*6/uL Hgb (13.0-17.0) g/dL Hct (39.6-50.0) % MCV (80.0-97.0) fL MCHC (32.0-37.0) g/dL Immature Gran # (0.00-0.04) X 10*3/uL Carbon Dioxide 27.6 H (20.0-27.5) mmol/L Est GFR (CKD-EPI)NonAf 59.6 L (60.0-200.0) Glucose (74-99) mg/dL POC Glucose (mg/dL) (75-99) mg/dL AST 36 H (14-35) U/L Troponin I (0.000-0.034) ng/mL Total Protein 5.9 L (6.2-8.2) g/dL
[2022-02-04 11:57] LABS: Glucose,Whole Blood 133 mg/dL (75-99)
--- NOTE | 2022-02-04 12:40 | CA ---
Transthoracic Echo Report Name: Narendra Miguel Age: 71 Gender: M : 1950 Exam Date: 02/04/2022 11:35 Exam Location: [facility] Ht (in): 71 Wt (lb): 153 Ordering Physician: Jing Walden MD Attending/Referring Phys: Sameer Gutiérrez DO [place] Operator Ana Coates RDCS Procedure CPT: Indications: positive trop, assess heart function Cardiac Hx: Technical Quality: Technically difficult study Contrast 1: Lumason Total Dose (mL): 4 Contrast 2: Total Dose (mL): MEASUREMENTS (Male / Female) Normal Values 2D ECHO LV Diastolic Diameter PLAX 4.7 cm 4.2 - 5.9 / 3.9 - 5.3 cm LV Systolic Diameter PLAX 3.8 cm IVS Diastolic Thickness 1.8 cm 0.6 - 1.0 / 0.6 - 0.9 cm LVPW Diastolic Thickness 1.6 cm 0.6 - 1.0 / 0.6 - 0.9 cm LV Relative Wall Thickness 0.7 LA Volume 74.0 cm??? 18 - 58 / 22 - 52 cm??? M-MODE Aortic Root Diameter MM 4.1 cm AV Cusp Separation MM 2.0 cm DOPPLER AV Peak Velocity 166.9 cm/s AV Peak Gradient 11.1 mmHg LVOT Peak Velocity 67.2 cm/s LVOT Peak Gradient 1.8 mmHg MV Area PHT 5.7 cm??? Mitral E Point Velocity 86.2 cm/s Mitral A Point Velocity 116.4 cm/s Mitral E to A Ratio 0.7 MV Deceleration Time 133.8 ms TR Peak Velocity 168.6 cm/s TR Peak Gradient 11.4 mmHg Right Ventricular Systolic Press 16.4 mmHg FINDINGS Left Ventricle Severely increased left ventricular wall thickness. No obvious regional wall motion abnormalities. Left ventricular ejection fraction is estimated at 50- 55%. Right Ventricle Right ventricle not well visualized. Right ventricular systolic pressure within normal limits. Right Atrium Right atrium not well visualized. Left Atrium Moderately increased left atrial volume. Mildly increased left atrial area. Mitral Valve No mitral stenosis. Mitral valve not well visualized. Mild mitral regurgitation. Aortic Valve Aortic valve not well visualized. No aortic regurgitation. No aortic stenosis. Tricuspid Valve Tricuspid valve not well visualized. Mild tricuspid regurgitation. Pulmonic Valve Pulmonic valve not well visualized. Trace pulmonic regurgitation. No pulmonic stenosis. Pericardium No pericardial or pleural effusion. Aorta Aortic root and proximal ascending aorta not well visualized. CONCLUSIONS Normal LV systolic function Enlarged left atrium Mild mitral regurgitation Previewed by: Dr. Naga Betancourt MD (Electronically Signed) Final Date: 04 Feb 2022 12:39
[2022-02-04 17:11] LABS: Glucose,Whole Blood 88 mg/dL (75-99)
[2022-02-04 19:17] LABS: Glucose,Whole Blood 130 mg/dL (75-99)
[2022-02-04] MEDS: ATORVASTATIN 40 MG TAB PO SCH (19:20)
[2022-02-05] MEDS: HEPARIN SODIUM,PORCINE/PF 5,000 UNIT/0.5 ML SYRINGE SQ SCH ×4 (00:01→22:46)
[2022-02-05 07:32] LABS: Glucose,Whole Blood 109 mg/dL (75-99)
[2022-02-05] MEDS: INSULIN ASPART (NovoLOG) 100 UNIT/ML VIAL SQ SCH ×4 (07:36→22:29)
[2022-02-05] MEDS: METOCLOPRAMIDE 10 MG TAB PO SCH ×4 (08:22→22:39)
[2022-02-05] MEDS: FUROSEMIDE 20 MG TAB PO SCH (08:22)
[2022-02-05] MEDS: SPIRONOLACTONE 25 MG TAB PO SCH (08:22)
[2022-02-05] MEDS: CLOPIDOGREL 75 MG TAB PO SCH (08:22)
[2022-02-05] MEDS: lisinopriL 10 MG TAB PO SCH (08:22)
[2022-02-05] MEDS: ASPIRIN 81 MG PO SCH (08:22)
[2022-02-05] MEDS: METOPROLOL TARTRATE 50 MG TAB PO SCH ×2 (08:22→22:39)
--- NOTE | 2022-02-05 11:29 | P.PN ---
Subjective Progress Note Date: 02/05/22 CHIEF COMPLAINT: Abdominal pain HISTORY OF PRESENT ILLNESS: The patient was readmitted to the hospital with abdominal pain and vomiting. This has resolved. Patient reports that he had loose stools every hour during the night last night. He reports his last stool was at 7 AM and loose. He reports that his stools were dark and possibly black in color. He denies any nausea or vomiting. His pain is resolved. He's currently on full liquid diet. Afebrile. CBC pending PHYSICAL EXAM: VITAL SIGNS: Reviewed. GENERAL: Well-developed in no acute distress. HEENT: No sclera icterus. Extraocular movements grossly intact. Moist buccal mucosa. Head is atraumatic, normocephalic. ABDOMEN: Soft. Nondistended. Nontender. NEUROLOGIC: Alert and oriented. Cranial nerves II through XII grossly intact. ASSESSMENT: 1. Abdominal pain with vomiting improved 2. Ileus versus small bowel obstruction 3. Pneumatosis PLAN: - -Encourage patient to ambulate -Continue supportive care -Continue to monitor Physician Cooker Loader note has been reviewed by physician. Signing provider agrees with the documented findings, assessment, and plan of care. I have personally seen and examined the patient, reviewed the PLOW MECHANIC /PAs history, exam and MDM and agree with the assessment and plan as written. Based on total visit time, I have performed more than 50% of the visit. As above: Patient denies abdominal pain. He has had multiple stools. Spoke with the nursing staff. Stools are brownish in color and not black. Await repeat CBC. Advance diet. If tolerates May discharge. Objective - Vital Signs Vital signs: Vital Signs Temp 98.7 F 02/05/22 08:00 Pulse 77 02/05/22 08:00 Resp 16 02/05/22 08:00 BP 163/65 02/05/22 08:00 Pulse Ox 93 L 02/05/22 08:00 Intake & Output 02/04/22 02/05/22 02/05/22 18:59 06:59 18:59 Intake Total 1270 Balance 1270 Intake: Oral 1270 Other: Voiding Method Urinal # Voids 3 # Bowel Movements 2 - Labs CBC & Chem 7: 02/04/22 04:17 02/04/22 04:17 Labs: Abnormal Lab Results - Last 24 Hours (Table) 02/04/22 02/04/2202/05/22 Range/Units 11:56 19:16 07:30 POC Glucose (mg/dL) 133 H 130 H 109 H (75-99) mg/dL
[2022-02-05 11:44] LABS: Glucose,Whole Blood 104 mg/dL (75-99)
--- NOTE | 2022-02-05 11:50 | P.PN ---
Subjective Progress Note Date: 02/05/22 Principal diagnosis: Abdominal pain The patient was seen and examined sitting up in bed as a follow-up. Patient recently underwent right carotid endarterectomy with patch angioplasty. During that admission he had some nausea and vomiting was found to have an ileus versus small bowel obstruction. His symptoms are not improved, he had no further nausea or vomiting, he had several bowel movements and he was discharged home. Apparently he started having abdominal pain with nausea and vomiting and return to the hospital. Gen. surgery is following patient for ileus versus small bowel obstruction. Patient had several bowel movements, loose through the night. He denies any abdominal pain, nausea, or vomiting. He's been afebrile. Denies any pain in his neck. States has full range of motion. No focal deficits. Objective - Vital Signs Vital signs: Vital Signs Temp 98.7 F 02/05/22 08:00 Pulse 77 02/05/22 08:00 Resp 16 02/05/22 08:00 BP 163/65 02/05/22 08:00 Pulse Ox 93 L 02/05/22 08:00 Intake & Output 02/04/22 02/05/22 02/05/22 18:59 06:59 18:59 Intake Total 1270 Balance 1270 Intake: Oral 1270 Other: Voiding Method Urinal # Voids 3 # Bowel Movements 2 - Exam General appearance: The patient is alert, oriented, appears in no acute distress. HET: Head is normocephalic and atraumatic. Pupils are equal and reactive. Neck: Supple, right side of neck with swelling likely hematoma versus seroma. Incision site is well approximated with no active bleeding or drainage. Heart: S1 S2. Regular rate and rhythm. Lungs: Clear to auscultation bilaterally. Abdomen: Soft, nontender, nondistended. Positive bowel sounds. Extremities: Normal skin color and turgor. No cyanosis, rash, ulceration, clubbing, or edema. Radial and pedal pulses are 2/4 bilaterally. Neurological: No focal deficits. Strength and sensation are grossly intact. - Labs CBC & Chem 7: 02/04/22 04:17 02/04/22 04:17 Labs: Abnormal Lab Results - Last 24 Hours (Table) 02/04/22 02/04/22 02/05/22 Range/Units 11:56 19:16 07:30 POC Glucose (mg/dL) 133 H 130 H 109 H (75-99) mg/dL 02/05/22 Range/Units 11:43 POC Glucose (mg/dL) 104 H (75-99) mg/dL Assessment and Plan Assessment: 1. Postop right carotid endarterectomy 2. Abdominal pain 3. Ileus versus obstruction Plan: 1. Advance diet per recommendations from general surgery 2. There is no indication for any vascular surgical intervention 3. Await recommendations from general surgery 4. Patient is cleared for discharge from vascular surgery once otherwise medically cleared. Patient to follow-up with Dr. Mackenzie this . The impression and plan of care has been dictated as directed. Dr. Reed I performed a history and examination of this patient, discussed the same with the dictator. I agree with the dictator's note ,documented as a scribe. Any additional findings or plans will be noted.
--- NOTE | 2022-02-05 12:30 | P.PN ---
Subjective Progress Note Date: 02/05/22 Hospital course: Patient is a very pleasant 71-year-old male with a past medical history CAD with stents, cardiomyopathy status post AICD, abdominal aortic aneurysm, hypertension, hyperlipidemia, and carotid stenosis status post right carotid endarterectomy on 01/28/22. Patient presented to the emergency department on 02/03/22 with a chief complaint of abdominal pain and distention. Patient underwent current hospitalization with carotid endarterectomy on 01/28/22 and was discharged on 02/01/22 and during this hospitalization patient developed constipation. He reports gradually worsening constipation, abdominal distention, and now experiencing abdominal discomfort. Patient underwent full evaluation in the emergency department. He was found to have elevated troponin of 0.087, 0.100, and 0.087. EKG completed revealing sinus tachycardia at 123 beats per minute with ST depression in leads 1, 2, and V4 through V6. CBC initially revealing mild leukocytosis with WBC count of 10.7 and BMP showing hypokalemia with potassium of 3.2. KUB revealed dilated small bowel with fluid levels suggestive of ileus versus mechanical small bowel obstruction. CT abdomen and pelvis with contrast revealing a dilated small bowel suggestive of distal mechanical small bowel obstruction versus ileus as well as colonic diverticulosis without diverticulitis and a stable 4 cm abdominal aortic aneu rysm. Physical exam: Patient was seen and fully evaluated at the bedside this morning. Patient re ports having several bouts of "explosive loose stool" throughout the night. he denies having any abdominal pain or cramping and denies having any nausea or vomiting. Patient reports he is tolerating his full liquid diet. Vital signs reviewed and stable. General: Nontoxic, no distress and appears stated age. Derm: Skin warm and dry, normal coloration for ethnicity. Head/Neck: Atraumatic, normocephalic and symmetric. Patient has mild swelling to right lateral neck with a healing surgical incision that is intact with no signs of dehiscence or infection (swelling appears to be improving) Eyes: EOMs intact, no lid lag, and anicteric sclera Mouth: no lip lesions, mucus membranes moist Cardiovascular: regular rate and rhythm with normal S1S2, no murmur, positive posterior tibial pulses bilaterally, and cap refill < 2 seconds. Lungs: Respirations even, regular, and unlabored on room air. Lungs CTA bilaterally, no rhonchi, no rales, no wheezing, and no accessory muscle usage. Abdominal: soft, nontender to palpation, no guarding, no appreciable organomegaly. bowel sounds 4 quadrants.. Ext: ROM intact. No gross muscle atrophy, no edema, no contractures Neuro: Speech clear, face symmetrical and CN II-XII grossly intact with no noted focal neuro deficits Psych: Alert and oriented to person, place, time, and situation. Appropriate and pleasant affect. Assessment and Plan of Care: Small bowel obstruction versus ileus -Likely resolved, patient began having bowel movements again on 02/04/22 and reports having several bowel movements throughout the past 24 hours. -Gen. surgery advanced diet to full liquids and continuing to monitor. Ap preciate further recommendations. -Continue to monitor closely and provide symptomatic and supportive care. Acute on chronic anemia -Hemoglobin 9.0 -no signs of active bleeding at this time, we will continue to monitor with repeat a.m. labs. Elevated troponin Sinus tachycardia History of CAD with stents Cardiomyopathy status post AICD -Cardiology following, recommending medical treatment for the mildly abnormal troponin -Telemetry monitoring -Metoprolol was increased secondary to tachycardia -Continue daily medication regimen with aspirin, atorvastatin, Plavix, lisinopril, metoprolol, Lasix, and Aldactone Status post right carotid endarterectomy -Vascular surgery following -Continue daily medication regimen with aspirin, atorvastatin, and Plavix. Abdominal aortic aneurysm -CT abdomen and pelvis revealing stable 4 cm abdominal aortic aneurysm -Continue to follow up outpatient with cardiothoracic/vascular surgery for long- term monitoring/management. Hypertension -Monitor vital signs and continue daily medication regimen. Hyperlipidemia -Continue daily medication regimen with atorvastatin nightly. CODE STATUS: Full code DVT prophylaxis: Heparin Discussed with: Patient and RN Anticipated discharge date: Clinical course to determine Anticipated discharge place: Home A total of 38 minutes was spent on the care of this complex patient more than 50% of the time was spent in counseling and care coordination. I reviewed the documentation as provided by the ANNE above, who is the original author of this note. I agree with the documented assessment and plan, with the following changes: none Objective - Vital Signs Vital signs: Vital Signs Temp 98.7 F 02/05/22 08:00 Pulse 77 02/05/22 08:00 Resp 16 02/05/22 08:00 BP 163/65 02/05/22 08:00 Pulse Ox 93 L 02/05/22 08:00 Intake & Output 02/04/22 02/05/22 02/05/22 18:59 06:59 18:59 Intake Total 1270 Balance 1270 Intake: Oral 1270 Other: Voiding Method Urinal # Voids 3 # Bowel Movements 2 - Labs CBC & Chem 7: 02/06/22 04:06 02/06/22 04:06 Labs: Abnormal Lab Results - Last 24 Hours (Table) 02/04/22 02/05/22 02/05/22 Range/Units 19:16 07:30 11:43 POC Glucose (mg/dL) 130 H 109 H 104 H (75-99) mg/dL
[2022-02-05 12:46] LABS: Basophils % (A) 0 %; Eosinophils # (A) 0.2 k/uL (0-0.7); Eosinophils % (A) 2 %; HGB 10.7 gm/dL (13.0-17.5); Lymphocytes # (A) 1.4 k/uL (1.0-4.8); Lymphocytes % (A) 17 %; MCH 31.1 pg (25.0-35.0); MCHC 32.4 g/dL (31.0-37.0); Mean Platelet Volume 7.3; Monocytes # (A) 0.6 k/uL (0-1.0); Monocytes % (A) 7 %; Neutrophils % (A) 72 %; Platelet Count 366 k/uL (150-450); RBC 3.44 m/uL (4.30-5.90); RDW 13.9 % (11.5-15.5); WBC 8.4 k/uL (3.8-10.6)
[2022-02-05 16:08] LABS: Glucose,Whole Blood 115 mg/dL (75-99)
[2022-02-05 21:00] LABS: Glucose,Whole Blood 128 mg/dL (75-99)
[2022-02-05] MEDS: ATORVASTATIN 40 MG TAB PO SCH (22:39)
[2022-02-06 03:00] VITALS: BP 159/67; PULSE 75; RESP 17; TEMP 98.7
[2022-02-06 06:42] LABS: Glucose,Whole Blood 122 mg/dL (75-99)
[2022-02-06] MEDS: INSULIN ASPART (NovoLOG) 100 UNIT/ML VIAL SQ SCH ×2 (06:45→11:35)
[2022-02-06] MEDS: CLOPIDOGREL 75 MG TAB PO SCH (08:44)
[2022-02-06] MEDS: lisinopriL 10 MG TAB PO SCH (08:44)
[2022-02-06] MEDS: FUROSEMIDE 20 MG TAB PO SCH (08:44)
[2022-02-06] MEDS: SPIRONOLACTONE 25 MG TAB PO SCH (08:44)
[2022-02-06] MEDS: ASPIRIN 81 MG PO SCH (08:44)
[2022-02-06] MEDS: METOPROLOL TARTRATE 50 MG TAB PO SCH (08:44)
[2022-02-06] MEDS: HEPARIN SODIUM,PORCINE/PF 5,000 UNIT/0.5 ML SYRINGE SQ SCH (08:44)
[2022-02-06] MEDS: METOCLOPRAMIDE 10 MG TAB PO SCH (08:47)
[2022-02-06 09:00] LABS: HGB 9.6 g/dL (13.0-17.0); MCH 30.9 pg (27.0-32.0); MCV 96.5 fL (80.0-97.0); Mean Platelet Volume 9.7 fL (9.5-12.2); NRBC Per 100 WBC 0 /100 WBCS (0.0-0.0); Platelet Count 323 X 10*3/uL (140-440); RBC 3.11 X 10*6/uL (4.40-5.60); RDW 14.3 % (11.5-14.5); WBC 8.76 X 10*3/uL (4.50-10.00)
[2022-02-06 09:19] LABS: African American GFR (CKD) 69.1 (60.0-200.0); Albumin/Globulin Ratio 1.54 (1.60-3.17); Anion Gap 13.3 mmol/L (10.00-18.00); BUN/Creat Ratio 20.08 Ratio (12.00-20.00); Blood Urea Nitrogen 24.1 mg/dL (9.0-27.0); Calcium 9.2 mg/dL (8.7-10.3); Carbon Dioxide 22.7 mmol/L (20.0-27.5); Globulin 2.6 g/dL (1.6-3.3); Non-African American GFR(CKD) 59.6 (60.0-200.0); Potassium 4.3 mmol/L (3.5-5.5); Total Bilirubin 0.6 mg/dL (0.30-1.20); Total Protein 6.6 g/dL (6.2-8.2)
[2022-02-06 11:32] LABS: Glucose,Whole Blood 96 mg/dL (75-99)
--- NOTE | 2022-02-06 11:34 | P.PN ---
Subjective Progress Note Date: 02/06/22 CHIEF COMPLAINT: Abdominal pain HISTORY OF PRESENT ILLNESS: Patient reports his abdominal pain has improved. He did have 12 episodes of loose stool through the night. No blood or black stool reported. Patient reports that his abdominal pain has resolved. Denies any nausea or vomiting. He is tolerating a low fiber diet. Patient had been receiving Reglan. Reglan discontinued this morning. Afebrile. WBC 8.7 HGB 9.6 creatinine 1.2 PHYSICAL EXAM: VITAL SIGNS: Reviewed. GENERAL: Well-developed in no acute distress. HEENT: No sclera icterus. Extraocular movements grossly intact. Moist buccal mucosa. Head is atraumatic, normocephalic. ABDOMEN: Soft. Nondistended. Nontender. NEUROLOGIC: Alert and oriented. Cranial nerves II through XII grossly intact. ASSESSMENT: 1. Abdominal pain with vomiting resolved 2. Ileus versus small bowel obstruction 3. Pneumatosis 4. Diarrhea PLAN: -Patient is tolerating low fiber diet. Abdominal pain has resolved. Discontinue Reglan. Patient can be discharged from surgical standpoint Physician Set Illustrator note has been reviewed by physician. Signing provider agrees with the documented findings, assessment, and plan of care. I have personally seen and examined the patient, reviewed the TIMBER MANAGEMENT SPECIALIST /PAs history, exam and MDM and agree with the assessment and plan as written. Based on total visit time, I have performed more than 50% of the visit. As above: Patient had some loose brown stools overnight. Doing well today. Tolerating regular food. Would like to go home. May discharge. Objective - Vital Signs Vital signs: Vital Signs Temp 98.7 F 02/06/22 02:00 Pulse 75 02/06/22 02:00 Resp 17 02/06/22 02:00 BP 159/67 02/06/22 02:00 Pulse Ox 96 02/06/22 02:00 Intake & Output 02/05/22 02/06/22 02/06/22 18:59 06:59 18:59 Other: # Bowel Movements 2 - Labs CBC & Chem 7: 02/06/22 04:06 02/06/22 04:06 Labs: Abnormal Lab Results - Last 24 Hours (Table) 02/05/22 02/05/22 02/05/22 Range/Units 11:32 11:43 16:07 RBC 3.44 L (4.30-5.90) m/uL Hgb 10.7 L (13.0-17.5) gm/dL Hct 33.0 L (39.0-53.0) % Est GFR (CKD-EPI)NonAf (60.0-200.0) BUN/Creatinine Ratio (12.00-20.00) Ratio Glucose (70-110) mg/dL POC Glucose (mg/dL) 104 H 115 H (75-99) mg/dL Albumin/Globulin Ratio (1.60-3.17) g/dL 02/05/22 02/06/22 02/06/22 Range/Units 20:58 04:06 04:06 RBC 3.11 L (4.30-5.90) m/uL Hgb 9.6 L (13.0-17.5) gm/dL Hct 30.0 L (39.0-53.0) % Est GFR (CKD-EPI)NonAf 59.6 L (60.0-200.0) BUN/Creatinine Ratio 20.08 H (12.00-20.00) Ratio Glucose 120 H (70-110) mg/dL POC Glucose (mg/dL) 128 H (75-99) mg/dL Albumin/Globulin Ratio 1.54 L (1.60-3.17) g/dL 02/06/22 Range/Units 06:41 RBC (4.30-5.90) m/uL Hgb (13.0-17.5) gm/dL Hct (39.0-53.0) % Est GFR (CKD-EPI)NonAf (60.0-200.0) BUN/Creatinine Ratio (12.00-20.00) Ratio Glucose (70-110) mg/dL POC Glucose (mg/dL) 122 H (75-99) mg/dL Albumin/Globulin Ratio (1.60-3.17) g/dL
--- NOTE | 2022-02-06 14:38 | P.DS ---
Providers Date of admission: 02/02/22 23:52 Expected date of discharge: 02/06/22 Attending physician: Torito Morin MD Consults: 02/02/22 23:53 Consult Physician Urgent Consulting Provider: César Moncada Consult Reason/Comments: sbo vs ileus Do you want consulting provider notified?: Yes 02/03/22 06:00 Consult Physician Urgent Consulting Provider: Torito Morin Consult Reason/Comments: Critical troponin; ST depression Do you want consulting provider notified?: Yes, Notify in am 02/03/22 09:27 Consult Physician Routine Consulting Provider: Rubina Qureshi Consult Reason/Comments: carotid endarectomy earlier this week Do you want consulting provider notified?: Already Contacted Primary care physician: Beka Cunha Va Hospital Course: Discharge Diagnosis: Ileus, resolved Abdominal pain with vomiting, resolved Diarrhea, patient is tolerating a low fiber diet and abdominal pain has resolved. Reglan was discontinued by surgery team and patient to follow up outpatient with Dr. Moncada in 1 week. Acute on chronic anemia, stable Elevated troponin, Cardiology evaluated and recommended continued daily cardiac medication regimen for the mildly abnormal troponin with daily aspirin, atorvastatin, Plavix, lisinopril, metoprolol, Lasix, and Aldactone. Sinus tachycardia, cardiology increased her metoprolol from 25 mg twice daily up to 50 mg twice daily. History of CAD with stents Cardiomyopathy status post AICD Status post right carotid endarterectomy, continue to follow-up with vascular surgery outpatient and continue daily medication regimen with aspirin, atorvastatin, and Plavix. Abdominal aortic aneurysm. CT abdomen and pelvis revealing stable 4 cm abdominal aortic aneurysm. Continue to follow up outpatient with cardiothoracic/vascular surgery for long-term monitoring/management. Hypertension, Monitor vital signs and continue daily medication regimen with th is and apparently metoprolol was increased from 25 mg twice daily up to 50 mg twice daily. Hyperlipidemia. Continue daily medication regimen with atorvastatin nightly. Hospital Course: Patient is a very pleasant 71-year-old male with a past medical history CAD with stents, cardiomyopathy status post AICD, abdominal aortic aneurysm, hypertension, hyperlipidemia, and carotid stenosis status post right carotid endarterectomy on 01/28/22. Patient presented to the emergency department on 02/03/22 with a chief complaint of abdominal pain and distention. Patient underwent current hospitalization with carotid endarterectomy on 01/28/22 and was discharged on 02/01/22 and during this hospitalization patient developed constipation. He reports gradually worsening constipation, abdominal distention, and now experiencing abdominal discomfort. Patient underwent full evaluation in the emergency department. He was found to have elevated troponin of 0.087, 0.100, and 0.087. EKG completed revealing sinus tachycardia at 123 beats per minute with ST depression in leads 1, 2, and V4 through V6. CBC initially revealing mild leukocytosis with WBC count of 10.7 and BMP showing hypokalemia with potassium of 3.2. KUB revealed dilated small bowel with fluid levels suggestive of ileus versus mechanical small bowel obstruction. CT abdomen and pelvis with contrast revealing a dilated small bowel suggestive of distal mechanical small bowel obstruction versus ileus as well as colonic diverticulosis without diverticulitis and a stable 4 cm abdominal aortic aneurysm. Patient underwent a 4 night 5 day hospitalization and was monitored closely. He was evaluated by general surgery, cardiology, and vascular surgery. Ileus resolved and patient was having bowel movements without difficulties. Patient was then noted to have frequent episodes of diarrhea and Reglan was discontinued by surgery team. Metoprolol was increased by cardiology secondary to sinus tachycardia. Cardiology recommending patient continue daily cardiac medication regimen with aspirin, atorvastatin, Plavix, lisinopril, Lasix, and Aldactone in addition to increasing home metoprolol dose. Vascular surgery evaluated patient as patient is status post right carotid endarterectomy and recommending patient to continue to follow up outpatient with her office as well as continue daily medication regimen. Patient's previously reported abdominal pain and distention completely resolved. Patient tolerating oral intake with a low fiber diet and denied having any other complaints. Morning labs reviewed showing no significant abnormalities and a stable hemoglobin of 9.6. Vital signs stable. Patient medically stable for discharge home and to follow up outpatient with general surgery, vascular surgery, cardiology, and PCP. Physical exam: Vital signs reviewed and stable. General: Nontoxic, no distress and appears stated age. Derm: Skin warm and dry, normal coloration for ethnicity. Head/Neck: Atraumatic, normocephalic and symmetric. Patient has mild swelling to right lateral neck with a healing surgical incision that is intact with no signs of dehiscence or infection (swelling appears to be improving) Eyes: EOMs intact, no lid lag, and anicteric sclera Mouth: no lip lesions, mucus membranes moist Cardiovascular: regular rate and rhythm with normal S1S2, no murmur, positive posterior tibial pulses bilaterally, and cap refill < 2 seconds. Lungs: Respirations even, regular, and unlabored on room air. Lungs CTA bilaterally, no rhonchi, no rales, no wheezing, and no accessory muscle usage. Abdominal: soft, nontender to palpation, no guarding, no appreciable organomegaly. bowel sounds 4 quadrants.. Ext: ROM intact. No gross muscle atrophy, no edema, no contractures Neuro: Speech clear, face symmetrical and CN II-XII grossly intact with no noted focal neuro deficits Psych: Alert and oriented to person, place, time, and situation. Appropriate and pleasant affect. A total of 39 minutes of time were spent preparing this complex discharge summary. Pt was discharged on 02/06/22 at 8:49 AM. I reviewed the documentation as provided by the ANNE above, who is the original author of this note. I agree with the documented assessment and plan, with the following changes: none Patient Condition at Discharge: Stable Plan - Discharge Summary Discharge Rx Participant: No New Discharge Prescriptions: New Metoprolol Tartrate [Lopressor] 50 mg PO BID 30 Days #60 tab Continue Spironolactone [Aldactone] 25 mg PO DAILY #30 tab Aspirin 81 mg PO DAILY #30 chew Clopidogrel [Plavix] 75 mg PO DAILY #30 tab Atorvastatin [Lipitor] 40 mg PO HS Albuterol Sulfate [Albuterol Sulfate Hfa] 2 puff PO RT-Q6H PRN PRN Reason: Shortness Of Breath lisinopriL [Zestril] 30 mg PO DAILY 30 Days #90 tab Furosemide [Lasix] 20 mg PO DAILY Discontinued Metoprolol Tartrate [Lopressor] 25 mg PO BID #60 tab Metoclopramide [Reglan] 10 mg PO ACHS #28 tab Discharge Medication List Aspirin 81 mg PO DAILY #30 chew 10/10/20 [Rx] Clopidogrel [Plavix] 75 mg PO DAILY #30 tab 10/10/20 [Rx] Spironolactone [Aldactone] 25 mg PO DAILY #30 tab 10/10/20 [Rx] Albuterol Sulfate [Albuterol Sulfate Hfa] 2 puff PO RT-Q6H PRN 01/25/22 [History] Atorvastatin [Lipitor] 40 mg PO HS 01/25/22 [History] Furosemide [Lasix] 20 mg PO DAILY 01/25/22 [History] lisinopriL [Zestril] 30 mg PO DAILY 30 Days #90 tab 02/01/22 [Rx] Metoprolol Tartrate [Lopressor] 50 mg PO BID 30 Days #60 tab 02/06/22 [Rx] Follow up Appointment(s)/Referral(s): César Moncada MD [Medical Doctor] - 02/14/22 9:20 am Sameer Gutiérrez DO [Doctor of Osteopathic Medicine] - 1 Week (office not answering Please call to schedule appointment) Naga Betancourt MD [STAFF PHYSICIAN] - 1 Week Beka Cunha [Primary Care Provider] - 02/13/22 11:45 am Patient Instructions/Handouts: Bowel Obstruction (DC), Ileus (DC) Activity/Diet/Wound Care/Special Instructions: Activity: As tolerated. Take breaks as needed. Diet: Heart healthy and carb consistent diet. Avoid salts, or foods with hidden salts such as canned or boxed foods and frozen dinners. Extra salt makes your heart work harder and traps the fluid in your body for longer. Special Instructions: Take all of your medications as directed and remember to keep all of your doctor's appointments and follow-up as needed. Continue to follow up outpatient for long-term monitoring/management of abdominal aortic aneurysm which is currently at 4 cm and unchanged from previous computed tomography scan. Thank you for allowing us to participate in your care, it was truly a pleasure having you for our patient!!! Discharge Disposition: HOME SELF-CARE
== END 2022-02-06 14:47 | disposition home or self-care (01) | DRG 389 ==
LOC: EC 20:09 → 4SSUR 23:52
PROVIDERS: ADMIT Internal Medicine; ATTEND Internal Medicine
DX: K56.7 Ileus, unspecified (principal); I42.9 Cardiomyopathy, unspecified; I5A Non-ischemic myocardial injury (non-traumatic); J44.9 Chronic obstructive pulmonary disease, unspecified; I71.4 Abdominal aortic aneurysm, without rupture; I16.0 Hypertensive urgency; K57.30 Diverticulosis of large intestine without perforation or abscess without bleeding; I10 Essential (primary) hypertension; I25.10 Atherosclerotic heart disease of native coronary artery without angina pectoris; D72.829 Elevated white blood cell count, unspecified; F43.9 Reaction to severe stress, unspecified; E78.5 Hyperlipidemia, unspecified; E87.6 Hypokalemia; R73.9 Hyperglycemia, unspecified; D64.9 Anemia, unspecified; K63.89 Other specified diseases of intestine; I25.2 Old myocardial infarction; Z79.82 Long term (current) use of aspirin; Z79.899 Other long term (current) drug therapy; Z79.02 Long term (current) use of antithrombotics/antiplatelets; Z86.16 Personal history of COVID-19; Z95.810 Presence of automatic (implantable) cardiac defibrillator; Z95.5 Presence of coronary angioplasty implant and graft; Z87.39 Personal history of other diseases of the musculoskeletal system and connective tissue; Z87.891 Personal history of nicotine dependence; Z86.79 Personal history of other diseases of the circulatory system; Z98.42 Cataract extraction status, left eye; Z98.41 Cataract extraction status, right eye; Z98.890 Other specified postprocedural states; Z88.0 Allergy status to penicillin
CPT/HCPCS: 36415; 71045; 74018; 74177; 80048; 80053; 80061; 83036; 83605; 83690; 83735; 83880; 84443; 84484; 85025; 85027; 93005; 93306; 94760; 96374; 99285

== ENCOUNTER 2022-02-21 12:06 | Emergency (ER) | payer MEDICARE, OTHER ==
--- NOTE | 2022-02-21 21:24 | ED ---
General Adult HPI - General Stated complaint: Hypotensive Time Seen by Provider: 02/21/22 21:08 Source: patient Mode of arrival: ambulatory Limitations: no limitations - History of Present Illness Initial comments: This patient is a 71-year-old man who presents here to have evaluation of hypotension. The patient states that he measures his blood pressure at home and it had been running in the 80s to 90s. He states that he had right carotid endarterectomy and that after the surgery his medication was changed from taking lisinopril 10 mg per day to lisinopril 30 mg per day. Since his surgery he noted the change in his blood pressure, was running low, and he was having fatigue. He states that yesterday he went to take a nap around 1 and he ended up sleeping 5-6 hours. When he went for the follow-up today they noted that his blood pressure was low and recommended that he be seen here. The patient had registered and then had waited approximately 9 hours by the time I had seen him. His blood pressure has recovered nicely him and he states that he is feeling well he has no symptoms now. -: days(s) Severity scale (1-10): 0 Consistency: constant Improves with: none Worsens with: none Associated Symptoms: weakness, other (Fatigue) Treatments Prior to Arrival: none - Related Data Home Medications Medication Instructions Recorded Confirmed Albuterol Sulfate [Albuterol 2 puff PO RT-Q6H PRN 01/25/22 02/03/22 Sulfate Hfa] Atorvastatin [Lipitor] 40 mg PO HS 01/25/22 02/03/22 Furosemide [Lasix] 20 mg PO DAILY 01/25/22 02/03/22 Previous Rx's Medication Instructions Recorded Aspirin 81 mg PO DAILY #30 chew 10/10/20 Clopidogrel [Plavix] 75 mg PO DAILY #30 tab 10/10/20 Spironolactone [Aldactone] 25 mg PO DAILY #30 tab 10/10/20 lisinopriL [Zestril] 30 mg PO DAILY 30 Days #90 tab 02/01/22 Metoprolol Tartrate [Lopressor] 50 mg PO BID 30 Days #60 tab 02/06/22 Allergies Allergy/AdvReac Type Severity Reaction Status Date / Time ampicillin Allergy Unknown turned Verified 02/03/22 12:06 pink, trouble breathing Penicillins Allergy turned Verified 02/03/22 12:06 pink, trouble breathing Review of Systems ROS Statement: Those systems with pertinent positive or pertinent negative responses have been documented in the HPI. ROS Other: All systems not noted in ROS Statement are negative. Constitutional: Reports: weakness (Generalized). Denies: fever, chills Eyes: Denies: vision change Respiratory: Denies: cough, dyspnea Cardiovascular: Denies: chest pain, palpitations, edema, syncope Gastrointestinal: Denies: abdominal pain, nausea, vomiting, melena, hematochezia Genitourinary: Denies: dysuria, hematuria Musculoskeletal: Denies: back pain Skin: Denies: rash Neurological: Denies: headache, weakness, numbness, confusion Past Medical History Past Medical History: Coronary Artery Disease (CAD), COPD, Hypertension, Myocardial Infarction ([place]) Additional Past Medical History / Comment(s): hx covid 10/14/21-states received infusion., AAA., AICD., pain in legs with walking. Last Myocardial Infarction Date:: UNKNOWN History of Any Multi-Drug Resistant Organisms: None Reported Past Surgical History: Back Surgery, Heart Catheterization With Stent Additional Past Surgical History / Comment(s): [id number] (1972)., AICD - (12/06/20 [employer])., HEART CATH WITH 3 STENTS (10/08/20)., CATARACTS Past Anesthesia/Blood Transfusion Reactions: No Reported Reaction Date of Last Stent Placement:: 10/08/2020 Type of Cardiac Device: Permanent Pacemaker Device Placement Date:: 12/06/2020 Past Psychological History: No Psychological Hx Reported Smoking Status: Former smoker Past Alcohol Use History: Occasional Past Drug Use History: None Reported - Past Family History Father History Unknown: Yes Family Medical History: No Reported History General Exam General appearance: alert, in no apparent distress Head exam: Present: atraumatic, normocephalic Eye exam: Present: normal appearance. Absent: scleral icterus, conjunctival injection ENT exam: Present: normal oropharynx Neck exam: Present: full ROM, other (The patient's right CEA site is clean dry and intact. No erythema or warmth. No signs of infection). Absent: tenderness Respiratory exam: Present: normal lung sounds bilaterally. Absent: respiratory distress, wheezes, rales, rhonchi, stridor, accessory muscle use Cardiovascular Exam: Present: regular rate, normal rhythm, normal heart sounds. Absent: systolic murmur, diastolic murmur, rubs, gallop GI/Abdominal exam: Present: soft. Absent: distended, tenderness, guarding, rebound, rigid, mass Extremities exam: Present: normal inspection, normal capillary refill. Absent: pedal edema, calf tenderness Back exam: Present: normal inspection. Absent: CVA tenderness (R), CVA tenderness (L) Neurological exam: Present: alert, oriented X3, CN II-XII intact. Absent: motor sensory deficit Skin exam: Present: warm, dry, intact, normal color. Absent: rash Medical Decision Making - Medical Decision Making I discussed obtaining some tests to workup the patient's earlier hypotension, but he states he is feeling well now and would like to go home. We discussed resuming his presurgical dosing of lisinopril. He does regularly check his blood pressure at home. He will stay on top of the pressure and understands he can of course increase the lisinopril. Should he have any recurrence of symptoms or should anything change he will return here Disposition Clinical Impression: Medication side effect Disposition: HOME SELF-CARE Condition: Good Instructions (If sedation given, give patient instructions): Hypotension (ED) Is patient prescribed a controlled substance at d/c from ED?: No Referrals: Beka Cunha [Primary Care Provider] - 1-2 days
== END 2022-02-21 21:48 | disposition home or self-care (01) ==
LOC: EC 12:06
DX: R53.1 Weakness (principal); T46.4X5A Adverse effect of angiotensin-converting-enzyme inhibitors, initial encounter; I10 Essential (primary) hypertension; I25.2 Old myocardial infarction; J44.9 Chronic obstructive pulmonary disease, unspecified; I25.10 Atherosclerotic heart disease of native coronary artery without angina pectoris; Z87.891 Personal history of nicotine dependence; Z79.51 Long term (current) use of inhaled steroids; Z79.82 Long term (current) use of aspirin; Z79.02 Long term (current) use of antithrombotics/antiplatelets; Z79.899 Other long term (current) drug therapy
CPT/HCPCS: 99284

== ENCOUNTER 2022-02-25 11:25 | Inpatient (IN) | payer MEDICARE, OTHER ==
[2022-02-25] MEDS ORDERED: ONDANSETRON 4 MG/2 ML VIAL IVP STA (12:22)
[2022-02-25] MEDS ORDERED: SODIUM CHLORIDE 0.9% 1,000 ML IV STA (12:22)
--- NOTE | 2022-02-25 12:40 | ED ---
General Adult HPI - General Chief complaint: Recheck/Abnormal Lab/Rx Stated complaint: Low BP Time Seen by Provider: 02/25/22 12:15 Source: patient, RN notes reviewed, old records reviewed Mode of arrival: wheelchair Limitations: no limitations - History of Present Illness Initial comments: Patient is a 71-year-old male with past medical history remarkable for recent carotid endarterectomy at the beginning of this month, hypertension, CAD with a pacemaker in place who presents to the emergency department complaining of generalized weakness. Patient has been having generalized weakness for the last 5-6 days. Did present to the emergency department late last week, and we did a prolonged period of time before seeing doctors as there was down time at that time. He was feeling improved by the time He was evaluated. He did have low blood pressure at that time has had low blood pressure since they increased his lisinopril dosage from 10 mg daily to 30 mg. The physician at that time recommended he decrease his dosage back, 10 mg and follow up with his PCP. Due to the holiday weekend, he has been unable to follow up with his PCP. Since he was seen the other day, patient has had intermittent episodes of nonbilious nonbloody emesis, nonbloody diarrhea, as well as loss of appetite. States he feels dehydrated. Denies any fevers, chills, cough. Denies chest pain. Denies headaches but does endorse a lightheadedness feeling. Denies any urinary complaints. His no other acute complaints at this time. No known sick contacts . No trauma. Presents for further evaluation.He states he has only eaten one can of pears of the last 4 days. He states he has no appetite. Denies any abdominal pain. - Related Data Home Medications Medication Instructions Recorded Confirmed Albuterol Sulfate [Albuterol 2 puff PO RT-Q6H PRN 01/25/22 02/25/22 Sulfate Hfa] Atorvastatin [Lipitor] 40 mg PO HS 01/25/22 02/25/22 Furosemide [Lasix] 20 mg PO DAILY 01/25/22 02/25/22 Previous Rx's Medication Instructions Recorded Aspirin 81 mg PO DAILY #30 chew 10/10/20 Clopidogrel [Plavix] 75 mg PO DAILY #30 tab 10/10/20 Spironolactone [Aldactone] 25 mg PO DAILY #30 tab 10/10/20 lisinopriL [Zestril] 30 mg PO DAILY 30 Days #90 tab 02/01/22 Metoprolol Tartrate [Lopressor] 50 mg PO BID 30 Days #60 tab 02/06/22 Allergies Allergy/AdvReac Type Severity Reaction Status Date / Time ampicillin Allergy Unknown turned Verified 02/25/22 13:48 pink, trouble breathing Penicillins Allergy turned Verified 02/25/22 13:48 pink, trouble breathing Review of Systems ROS Statement: Those systems with pertinent positive or pertinent negative responses have been documented in the HPI. Review of Systems: CONST: Endorses generalized weakness. EYES: Denies blurry vision ENT: Denies nasal congestion C/V: Denies Chest pain RESP: Denies shortness of breath GI: Denies abdominal pain : Denies dysuria SKIN: Denies rash. MSK: Denies joint pain. NEURO: Denies headache ROS Other: All systems not noted in ROS Statement are negative. Past Medical History Past Medical History: Coronary Artery Disease (CAD), COPD, Hypertension, Myocardial Infarction ([place]) Additional Past Medical History / Comment(s): hx covid 10/14/21-states received infusion., AAA., AICD., pain in legs with walking. Last Myocardial Infarction Date:: UNKNOWN History of Any Multi-Drug Resistant Organisms: None Reported Past Surgical History: Back Surgery, Heart Catheterization With Stent Additional Past Surgical History / Comment(s): [id number] (1972)., AICD - (12/06/20 [employer])., HEART CATH WITH 3 STENTS (10/08/20)., CATARACTS Past Anesthesia/Blood Transfusion Reactions: No Reported Reaction Date of Last Stent Placement:: 10/08/2020 Type of Cardiac Device: Permanent Pacemaker Device Placement Date:: 12/06/2020 Past Psychological History: No Psychological Hx Reported Smoking Status: Former smoker Past Alcohol Use History: Occasional Past Drug Use History: None Reported - Past Family History Father History Unknown: Yes Family Medical History: No Reported History General Exam - General Exam Comments Initial Comments: General: Appears in no acute distress. HEAD: Normal with no signs of head trauma. EYES: PERRLA, EOMI, conjunctiva normal, no discharge. ENT: Hearing grossly intact, normal oropharynx.. Dry Mucous membranes. RESPIRATORY: Clear breath sounds bilaterally. No wheezes, rales, or rhonchi. C/V: Regular rate and rhythm. S1 and S2 auscultated, no edema, peripheral pulses 2+ and intact throughout ABD: Abd is soft, nontender, nondistended EXT: Normal range of motion, no obvious deformity.Patient is kyphotic. SKIN: No rashes or lesions observed on exposed skin. NEURO: Alert and oriented 4. No focal sensory strength deficits. Limitations: no limitations Course Vital Signs 02/25/22 02/25/22 02/25/22 11:50 12:05 12:30 Temperature 98 F Pulse Rate 58 L 60 Pulse Rate [ 61 Validation Engineer ] Respiratory 18 23 Rate Blood Pressure 64/42 101/48 88/54 O2 Sat by Pulse 87 L 97 100 Oximetry 02/25/22 02/25/22 02/25/22 12:50 13:00 13:30 Temperature Pulse Rate 60 60 71 Pulse Rate [ Validation Engineer ] Respiratory 16 22 23 Rate Blood Pressure 88/54 98/58 O2 Sat by Pulse 84 L Oximetry 02/25/22 02/25/22 02/25/22 14:00 14:16 14:30 Temperature Pulse Rate 61 68 64 Pulse Rate [ Validation Engineer ] Respiratory 24 16 19 Rate Blood Pressure 139/88 O2 Sat by Pulse 96 92 L Oximetry 02/25/22 02/25/22 15:00 15:33 Temperature 97.9 F Pulse Rate 68 65 Pulse Rate [ Validation Engineer ] Respiratory 19 15 Rate Blood Pressure 125/84 O2 Sat by Pulse Oximetry Medical Decision Making - Medical Decision Making Patient's vital signs and he was in triage report, however patient inaccuracy, a s we repeated the medicines he was placed in a room and blood pressure is within normal limits, pulse ox is stable on room air. Based on the patient's presentation and physical exam, I'm concerned for possible infectious etiology versus cardiopulmonary etiology for the patient. Exam is relatively unremarkable. However he does appear dehydrated and will be given a 1 L fluid bolus. We will obtain laboratory studies, EKG, chest x-ray start. He was in agreement with this plan. Patient's EKG shows no signs of acute ischemia or signs of acute hyperkalemia. Shows chronic changes. Chest x-ray shows no acute cardiopulmonary process. Laboratory studies are remarkable for leukocytosis of 16.1. Hemoglobin of 11.9 which is chronic. Patient has acute renal failure, with SHOPPER of 116, creatinine of 10.13, as well as hyperkalemia of 7.8. Patient has what appears to be metabolic anion gap acidosis like he secondary to lactic acidosis. Troponin is elevated likely secondary to the patient's acute renal failure. At this time, patient does meet sepsis criteria. Patient will be given an additional 1 L fluid bolus to make 30 mL per KG requirement. Blood pressure is improved to 120 systolic. There is increased from 88 systolic. He will be placed on empiric vancomycin and Rocephin per sepsis protocol. Due to patient's hyperkalemia, he does meet ICU criteria. We will also speak with nephrology on- call. Cardiology will likely be consulted to monitor the patient. Troponin elevation is secondary to the acute renal failure more than likely with no acute EKG findings, no chest pain. We will continue to monitor. I discussed this the patient and family members and they were in agreement with this plan. He will be given a hyperkalemia cocktail as well, including calcium, albuterol, insulin, IV dextrose, Kayexalate. Blood cultures will be obtained and sent prior to initiating antibiotic therapy. Patient's current kidney issues are likely poly-factorial, secondary to an acute infection as well as secondary to severe dehydration as the patient has not been eating or drinking for the last multiple days. I spoke with Dr. Fu of critical care, who was in agreement and accepted the patient to the ICU. He is not convinced of sepsis at this time and recommended to start the patient on Rocephin. Vancomycin is therefore cancelled. Qureshi catheter will be placed. I did speak with Dr. Navarro of nephrology who recommended that the patient be placed on a bicarb drip instead of the normal saline maintenance infusion. She recommended 3 A of bicarbonate 100 mL an hour. This is ordered and replace the 100 mL an hour normal saline. We will obtain frequent potassium checks every 4 hours following the treatments. We'll monitor urine output. Troponin will be trended, however it is likely secondary to his acute renal failure. Flu are negative. I discussed this with the family and patient who were in agreement this plan.Vital signs improved with fluids. Vital signs are now within normal limits the stable at this time. Second IV was placed by nursing staff.Renal ultrasound was also obtained and showed no obvious uropathy or obstruction. Patient was therefore admitted and serous condition to the ICU. Patient was admitted under Dr. Frausto, place spoke with and accepted the patient. - Lab Data Result diagrams: 02/25/22 12:38 02/25/22 15:45 Lab Results 02/25/22 02/25/22 02/25/22 Range/Units 12:38 12:38 12:38 WBC 16.1 H (3.8-10.6) k/uL RBC 3.84 L (4.30-5.90) m/uL Hgb 11.9 L (13.0-17.5) gm/dL Hct 36.0 L (39.0-53.0) % MCV 93.7 (80.0-100.0) fL MCH 30.9 (25.0-35.0) pg MCHC 33.0 (31.0-37.0) g/dL RDW 13.5 (11.5-15.5) % Plt Count 361 (150-450) k/uL MPV 7.7 Neutrophils % 89 % Lymphocytes % 7 % Monocytes % 3 % Eosinophils % 1 % Basophils % 0 % Neutrophils # 14.3 H (1.3-7.7) k/uL Lymphocytes # 1.1 (1.0-4.8) k/uL Monocytes # 0.5 (0-1.0) k/uL Eosinophils # 0.1 (0-0.7) k/uL Basophils # 0.0 (0-0.2) k/uL PT 10.8 (9.0-12.0) sec INR 1.0 (<1.2) APTT 23.0 (22.0-30.0) sec VBG pH (7.31-7.41) VBG pCO2 (37-51) mmHg VBG HCO3 (24-28) mmol/L Sodium 134 L (137-145) mmol/L Potassium 7.8 H* (3.5-5.1) mmol/L Chloride 103 (98-107) mmol/L Carbon Dioxide 10 L (22-30) mmol/L Anion Gap 21 mmol/L BUN 116 H* (9-20) mg/dL Creatinine 10.13 H* (0.66-1.25) mg/dL Est GFR (CKD-EPI)AfAm 5 (>60 ml/min/1.73 sqM) Est GFR (CKD-EPI)NonAf 5 (>60 ml/min/1.73 sqM) Glucose 120 H (74-99) mg/dL Plasma Lactic Acid Gulshan (0.7-2.0) mmol/L Calcium 9.7 (8.4-10.2) mg/dL Magnesium 2.2 (1.6-2.3) mg/dL Total Bilirubin 0.4 (0.2-1.3) mg/dL AST 24 (17-59) U/L ALT 22 (4-49) U/L Alkaline Phosphatase 131 H (38-126) U/L Troponin I (0.000-0.034) ng/mL Total Protein 7.8 (6.3-8.2) g/dL Albumin 4.7 (3.5-5.0) g/dL Coronavirus (PCR) (Not Detectd) Influenza Type A RNA (Not Detectd) Influenza Type B (PCR) (Not Detectd) 02/25/22 02/25/22 02/25/22 Range/Units 12:38 13:00 13:00 WBC (3.8-10.6) k/uL RBC (4.30-5.90) m/uL Hgb (13.0-17.5) gm/dL Hct (39.0-53.0) % MCV (80.0-100.0) fL MCH (25.0-35.0) pg MCHC (31.0-37.0) g/dL RDW (11.5-15.5) % Plt Count (150-450) k/uL MPV Neutrophils % % Lymphocytes % % Monocytes % % Eosinophils % % Basophils % % Neutrophils # (1.3-7.7) k/uL Lymphocytes # (1.0-4.8) k/uL Monocytes # (0-1.0) k/uL Eosinophils # (0-0.7) k/uL Basophils # (0-0.2) k/uL PT (9.0-12.0) sec INR (<1.2) APTT (22.0-30.0) sec VBG pH (7.31-7.41) VBG pCO2 (37-51) mmHg VBG HCO3 (24-28) mmol/L Sodium (137-145) mmol/L Potassium (3.5-5.1) mmol/L Chloride (98-107) mmol/L Carbon Dioxide (22-30) mmol/L Anion Gap mmol/L BUN (9-20) mg/dL Creatinine (0.66-1.25) mg/dL Est GFR (CKD-EPI)AfAm (>60 ml/min/1.73 sqM) Est GFR (CKD-EPI)NonAf (>60 ml/min/1.73 sqM) Glucose (74-99) mg/dL Plasma Lactic Acid Gulshan (0.7-2.0) mmol/L Calcium (8.4-10.2) mg/dL Magnesium (1.6-2.3) mg/dL Total Bilirubin (0.2-1.3) mg/dL AST (17-59) U/L ALT (4-49) U/L Alkaline Phosphatase (38-126) U/L Troponin I 0.148 H* (0.000-0.034) ng/mL Total Protein (6.3-8.2) g/dL Albumin (3.5-5.0) g/dL Coronavirus (PCR) Not Detected (Not Detectd) Influenza Type A RNA Not Detected (Not Detectd) Influenza Type B (PCR) Not Detected (Not Detectd) 02/25/22 02/25/22 Range/Units 13:15 13:19 WBC (3.8-10.6) k/uL RBC (4.30-5.90) m/uL Hgb (13.0-17.5) gm/dL Hct (39.0-53.0) % MCV (80.0-100.0) fL MCH (25.0-35.0) pg MCHC (31.0-37.0) g/dL RDW (11.5-15.5) % Plt Count (150-450) k/uL MPV Neutrophils % % Lymphocytes % % Monocytes % % Eosinophils % % Basophils % % Neutrophils # (1.3-7.7) k/uL Lymphocytes # (1.0-4.8) k/uL Monocytes # (0-1.0) k/uL Eosinophils # (0-0.7) k/uL Basophils # (0-0.2) k/uL PT (9.0-12.0) sec INR (<1.2) APTT (22.0-30.0) sec VBG pH 7.15 L* (7.31-7.41) VBG pCO2 32 L (37-51) mmHg VBG HCO3 11 L (24-28) mmol/L Sodium (137-145) mmol/L Potassium (3.5-5.1) mmol/L Chloride (98-107) mmol/L Carbon Dioxide (22-30) mmol/L Anion Gap mmol/L BUN (9-20) mg/dL Creatinine (0.66-1.25) mg/dL Est GFR (CKD-EPI)AfAm (>60 ml/min/1.73 sqM) Est GFR (CKD-EPI)NonAf (>60 ml/min/1.73 sqM) Glucose (74-99) mg/dL Plasma Lactic Acid Gulshan 1.4 (0.7-2.0) mmol/L Calcium (8.4-10.2) mg/dL Magnesium (1.6-2.3) mg/dL Total Bilirubin (0.2-1.3) mg/dL AST (17-59) U/L ALT (4-49) U/L Alkaline Phosphatase (38-126) U/L Troponin I (0.000-0.034) ng/mL Total Protein (6.3-8.2) g/dL Albumin (3.5-5.0) g/dL Coronavirus (PCR) (Not Detectd) Influenza Type A RNA (Not Detectd) Influenza Type B (PCR) (Not Detectd) - EKG Data -: EKG Interpreted by Me EKG Comments: 12-lead Electrocardiogram Interpretation Note EKG was reviewed and interpreted by myself. 12-lead ECG performed at 1206 is interpreted by me as revealing normal sinus rhythm at a rate of 61 beats per minute. [place] is normal. MT interval is 230 ms, QRS durations 132 ms, QTc is 413 ms. There are chronic ST segment depressions in V4 through V6.. There were no acute ST or T wave abnormalities to suggest myocardial ischemia or injury. R wave progression across the precordium was satisfactory. By my interpretation this EKG is non-diagnostic for acute ischemia. Critical Care Time Critical Care Time: Yes Total Critical Care Time: 35 Critical Care Time: Upon my evaluation, this patient had a high probability of imminent or life- threatening deterioration due to concern for sepsis, acute renal failure, hyperkalemia, dehydration which required my direct attention, intervention, and personal management. I have personally provided 35 minutes of critical care time exclusive of time spent on separately billable procedures. Time includes review of laboratory data, radiology results, discussion with consultants, and monitoring for potential decompensation. Interventions were performed as documented in my note. Disposition Clinical Impression: Dehydration, Acute renal failure, Hyperkalemia, Diarrhea, Nausea & vomiting Disposition: ADMITTED IP TO THIS HOSP Condition: Serious Time of Disposition: 14:10
[2022-02-25 12:44] LABS: Basophils % (A) 0 %; Eosinophils # (A) 0.1 k/uL (0-0.7); Eosinophils % (A) 1 %; HGB 11.9 gm/dL (13.0-17.5); Lymphocytes # (A) 1.1 k/uL (1.0-4.8); Lymphocytes % (A) 7 %; MCH 30.9 pg (25.0-35.0); MCV 93.7 fL (80.0-100.0); Mean Platelet Volume 7.7; Monocytes # (A) 0.5 k/uL (0-1.0); Monocytes % (A) 3 %; Neutrophils # (A) 14.3 k/uL (1.3-7.7); Neutrophils % (A) 89 %; Platelet Count 361 k/uL (150-450); RBC 3.84 m/uL (4.30-5.90); RDW 13.5 % (11.5-15.5); WBC 16.1 k/uL (3.8-10.6)
[2022-02-25 12:52] LABS: Albumin 4.7 g/dL (3.5-5.0); Calcium 9.7 mg/dL (8.4-10.2); Magnesium 2.2 mg/dL (1.6-2.3); Total Bilirubin 0.4 mg/dL (0.2-1.3); Total Protein 7.8 g/dL (6.3-8.2)
--- NOTE | 2022-02-25 12:54 | XR ---
EXAMINATION TYPE: XR chest 2V DATE OF EXAM: 02/25/2022 COMPARISON: 02/03/2022 INDICATION: Weakness TECHNIQUE: Frontal and lateral views of the chest are obtained. FINDINGS: The heart size is normal. The pulmonary vasculature is normal. The lungs are clear. Pacemaker overlies left chest. IMPRESSION: 1. No acute pulmonary process.
[2022-02-25 12:56] LABS: Potassium 7.8 mmol/L (3.5-5.1)
[2022-02-25] MEDS ORDERED: ALBUTEROL NEB (CONC) 2.5 MG/0.5 ML INHALATION ONE (13:00)
[2022-02-25] MEDS ORDERED: INSULIN REGULAR 100 UNIT/ML VIAL (IV) IV ONE ×2 (13:00→17:24)
[2022-02-25] MEDS ORDERED: DEXTROSE 50% SYRINGE 50 ML IVP ONE (13:00)
[2022-02-25 13:01] LABS: Prothrombin Time 10.8 sec (9.0-12.0)
[2022-02-25] MEDS ORDERED: VANCOMYCIN IV PER PHARMACY 1 EACH MISC MISCELLANE PRN (13:02)
[2022-02-25] MEDS ORDERED: CALCIUM GLUCONATE IN NACL 1 GM in SALINE 1 100ML.BAG IVPB ONE ×2 (13:15→17:24)
[2022-02-25] MEDS ORDERED: SODIUM CHLORIDE 0.9% 1,000 ML IV SCH (13:15)
[2022-02-25] MEDS ORDERED: ONDANSETRON 4 MG/2 ML VIAL IVP PRN (13:35)
[2022-02-25 13:40] LABS: VBG PH 7.15 (7.31-7.41)
[2022-02-25] MEDS ORDERED: VANCOMYCIN 1,250 MG in SODIUM CHLORIDE 0.9% 250 ML IVPB ONE (14:00)
[2022-02-25] MEDS ORDERED: DEXTROSE 5% IN WATER 1,000 ML with SODIUM BICARB (1 MEQ/ML) 150 ML IV ONE (14:00)
--- NOTE | 2022-02-25 14:34 | US ---
EXAMINATION TYPE: US kidneys/renal and bladder DATE OF EXAM: 02/25/2022 COMPARISON: CT 02/02/2022 CLINICAL HISTORY: Acute renal failure. EXAM MEASUREMENTS: Right Kidney: 9.3 x 4.9 x 4.5 cm Left Kidney: 11.3 x 5.9 x 4.8 cm Right Kidney: Nonspecific hypoechoic area seen medially, measuring 1.2 x 1.1 x 0.8, without a definit e CT correlate, which may relate to a prominent pyramid or cyst. No hydronephrosis or renal calculi. Left Kidney: Limited due to gas. No definite hydronephrosis. Bladder: Not fully distended, limited. Bilateral Jets seen: Yes IMPRESSION: No evidence of obstructive uropathy within the limitations of the study.
[2022-02-25 15:35] LABS: Glucose,Whole Blood 131 mg/dL (75-99)
--- NOTE | 2022-02-25 16:02 | P.CNPUL ---
History of Present Illness Consult date: 02/25/22 Chief complaint: carlos History of present illness: 71-year-old male patient, presented to the emergency department because of generalized weakness and significantly abnormal blood work which includes an acute kidney injury and acute hyperkalemia and low urine output. The patient has been having diminished oral intake along with nausea and emesis and diminished appetite and he hasn't been able to tolerate any food. His blood pressure was also running low. He was maintained on a combination of medication which included BASSAM inhibitor and diuretics and Aldactone. His antihypertensive medications were modified and his lisinopril level was increased including a dosage of 30 mg and subsequently dropped down to 10 mg. Nevertheless, the p atient was running a lower blood pressure on outpatient basis. No chest pain. No shortness of breath. No pleurisy. No hemoptysis. No abdominal pain. No altered mentation. He is known to have multiple medical problems and comorbidities which includes CAD, previous history of coronary stent, history of cardiomyopathy and the most recent echo cardiac exam shows a preserved LV function. The patient has an AICD in place. The patient has an abdominal aortic aneurysm measuring 4 cm in size along with hypertension, hyperlipidemia, crotid artery disease. The patient was in the hospital between 01/28/2022 and 02/01/2022 and at that time he underwent a right carotid artery endarterectomy and his course was complicated by development of some constipation and this was treated medically and the patient was discharged. On 02/03/2022, the patient came in to the hospital again for abdominal pain and distention. CAT scan of the abdomen was done and showed ileus versus small bowel obstruction. The patient ultimately recovered with conservative measures. This turn down attendant to be an ileus. Gen. surgery and breast surgery were both consulted on the case. For now, the patient is an acute kidney injury. No fever no chills. Lactic acid level is at 1.4. Troponin is at 0.048. His sodium level is at 134 and a Cardizem 3 with a bicarb of 10 and a mild anion gap of the bullet acidosis. The BUN is at 160 with a creatinine of 10.1 and a glucose level is at 120. EKG is not showing any acute hyperkalemia changes. The white cell count is at 60 with a hemoglobin 11.9 and platelet count of 361. Chest x-ray shows no acute abnormalities. I was informed of this admission and accepted this patient to come in to the ICU with nephrology consultation. He received hyperkalemia cocktail in the emergency department the potassium level is to be monitored. He received calcium, bicarb, Kayexalate, and D50 insulin. His EKG showed no acute changes right hyperkalemia. Note that the patient had a COVID 19 infection back in Sep 2021 and he was treated with monoclonal antibodies. His current COVID 19 testing is negative and influenza screen is also negative. Review of Systems Constitutional: Reports fatigue, Reports poor appetite, Reports weakness Eyes: denies as per HPI, denies blurred vision, denies bulging eye, denies dec reased vision, denies diplopia, denies discharge, denies dry eye, denies irritation, denies itching, denies pain, denies photophobia, denies loss of peripheral vision, denies loss of vision, denies tunnel vision/blind spots Ears: deny: decreased hearing, ear discharge, earache, tinnitus Ears, nose, mouth and throat: Reports as per HPI Breasts: absent: as per HPI, gynecomastia Cardiovascular: Reports as per HPI Respiratory: Reports as per HPI Gastrointestinal: Reports loss of appetite, Reports nausea, Reports vomiting Genitourinary: Reports as per HPI Musculoskeletal: Reports as per HPI, Reports muscle weakness Musculoskeletal: absent: ankle pain, ankle stiffness, ankle swelling Integumentary: Reports as per HPI Neurological: Reports weakness Psychiatric: Reports as per HPI Endocrine: Reports as per HPI Hematologic/Lymphatic: Reports as per HPI Allergic/Immunologic: Reports as per HPI Past Medical History Past Medical History: Coronary Artery Disease (CAD), COPD, Hypertension, Myocardial Infarction ([place]) Additional Past Medical History / Comment(s): hx covid 10/14/21-states received infusion., AAA., AICD., pain in legs with walking. Last Myocardial Infarction Date:: UNKNOWN History of Any Multi-Drug Resistant Organisms: None Reported Past Surgical History: Back Surgery, Heart Catheterization With Stent Additional Past Surgical History / Comment(s): [id number] (1972)., AICD - (12/06/20 [employer])., HEART CATH WITH 3 STENTS (10/08/20)., CATARACTS Past Anesthesia/Blood Transfusion Reactions: No Reported Reaction Date of Last Stent Placement:: 10/08/2020 Type of Cardiac Device: Permanent Pacemaker Device Placement Date:: 12/06/2020 Past Psychological History: No Psychological Hx Reported Smoking Status: Former smoker Past Alcohol Use History: Occasional Past Drug Use History: None Reported - Past Family History Father History Unknown: Yes Family Medical History: No Reported History Medications and Allergies Home Medications Medication Instructions Recorded Confirmed Type Aspirin 81 mg PO DAILY #30 chew 10/10/20 02/25/22 Rx Clopidogrel [Plavix] 75 mg PO DAILY #30 tab 10/10/20 02/25/22 Rx Spironolactone [Aldactone] 25 mg PO DAILY #30 tab 10/10/20 02/25/22 Rx Albuterol Sulfate [Albuterol 2 puff PO RT-Q6H PRN 01/25/22 02/25/22 History Sulfate Hfa] Atorvastatin [Lipitor] 40 mg PO HS 01/25/22 02/25/22 History Furosemide [Lasix] 20 mg PO DAILY 01/25/22 02/25/22 History lisinopriL [Zestril] 30 mg PO DAILY 30 Days #90 tab 02/01/22 02/25/22 Rx Metoprolol Tartrate [Lopressor] 50 mg PO BID 30 Days #60 tab 02/06/22 02/25/22 Rx Allergies Allergy/AdvReac Type Severity Reaction Status Date / Time ampicillin Allergy Unknown turned Verified 02/25/22 13:48 pink, trouble breathing Penicillins Allergy turned Verified 02/25/22 13:48 pink, trouble breathing Physical Exam Vitals: Vital Signs Temp Pulse Pulse Resp BP Pulse Ox 02/25/22 14:16 68 16 139/88 02/25/22 12:50 60 16 88/54 02/25/22 12:05 61 02/25/22 11:50 98 F 58 L 18 64/42 87 L Intake and Output 02/25/22 02/25/22 02/25/22 06:59 14:59 22:59 Other: Weight 65.771 kg Vital signs reviewed and stable. The breathing is nonlabored and the patient is currently on room air oxygen. General: Nontoxic, no distress and appears stated age. Derm: Skin warm and dry, normal coloration for ethnicity. Head/Neck: Atraumatic, normocephalic and symmetric. Patient has mild swelling to right lateral neck with a healing surgical incision that is intact with no signs of dehiscence or infection (swelling appears to be improving) Eyes: EOMs intact, no lid lag, and anicteric sclera Mouth: no lip lesions, mucus membranes moist Cardiovascular: regular rate and rhythm with normal S1S2, no murmur, positive posterior tibial pulses bilaterally, and cap refill < 2 seconds. Lungs: Respirations even, regular, and unlabored on room air. Lungs CTA bilaterally, no rhonchi, no rales, no wheezing, and no accessory muscle usage. Abdominal: soft, nontender to palpation, no guarding, no appreciable organomegaly. bowel sounds 4 quadrants.. Ext: ROM intact. No gross muscle atrophy, no edema, no contractures Neuro: Speech clear, face symmetrical and CN II-XII grossly intact with no noted focal neuro deficits Psych: Alert and oriented to person, place, time, and situation. Appropriate and pleasant affect. Results - Laboratory Findings CBC and BMP: 02/25/22 12:38 02/25/22 12:38 PT/INR, D-dimer PT 10.8 sec (9.0-12.0) 02/25/22 12:38 INR 1.0 (<1.2) 02/25/22 12:38 Abnormal lab findings: Abnormal Labs 02/25/22 02/25/22 02/25/22 12:38 12:38 12:38 WBC 16.1 H RBC 3.84 L Hgb 11.9 L Hct 36.0 L Neutrophils # 14.3 H VBG pH VBG pCO2 VBG HCO3 Sodium 134 L Potassium 7.8 H* Carbon Dioxide 10 L BUN 116 H* Creatinine 10.13 H* Glucose 120 H Alkaline Phosphatase 131 H Troponin I 0.148 H* 02/25/22 13:15 WBC RBC Hgb Hct Neutrophils # VBG pH 7.15 L* VBG pCO2 32 L VBG HCO3 11 L Sodium Potassium Carbon Dioxide BUN Creatinine Glucose Alkaline Phosphatase Troponin I - Diagnostic Findings Chest x-ray: image reviewed Assessment and Plan Plan: Acute kidney injury, a complication of intravascular volume depletion, hypotension and medication effect as the patient And bassam inhibitors on outpatient basis. Acute anion gap metabolic acidosis Acute hyperkalemia secondary to above without any acute EKG changes Generalized weakness secondary to above Troponin leak, likely a type II ischemia Coronary artery disease with previous coronary stenting History of CHF. The most recent echo cardiac showed a preserved LV function History of AICD placement History of COVID 19 infection back in September 2021, recovered History of abdominal aortic aneurysm, 4 cm History of constipation with previous hospitalization for ileus/constipation Hypertension Hyperlipidemia Recent right carotid endarterectomy Plan Admit this patient to the intensive care unit. Hyperkalemia cocktail was given and the potassium level US of the kidney Bicarbonate drip with a total of 150 mEq of sodium bicarbonate severe and it 100 mL an hour Nephrology consult Stop lasix, aldactone and lisinopril Stop antihypertensive medications We'll continue to follow
[2022-02-25] MEDS: SODIUM CHLORIDE 0.9% 500 ML 500 ML IV SCH ×2 (16:49→16:50)
[2022-02-25 17:21] LABS: Appearance,Urine Cloudy (Clear); Bacteria,Urine Rare /hpf; Bilirubin,Urine Negative (Negative); Blood,Urine Moderate (Negative); Color,Urine Yellow; Glucose,Urine (UA) Negative (Negative); Hyaline Casts,Urine 44 /lpf (0-2); Ketones,Urine Negative (Negative); Leukocyte Esterase,Urine Trace (Negative); Mucus,Urine Rare /hpf; Nitrite,Urine Negative (Negative); Protein,Urine 1+ (Negative); RBC,Urine 20 /hpf (0-5); Specific Gravity,Urine 1.016 (1.001-1.035); Squamous Epithelial Cell,Urine <1 /hpf (0-4); Urobilinogen,Urine <2.0 mg/dL (<2.0); WBC,Urine 3 /hpf (0-5)
[2022-02-25] MEDS ORDERED: DEXTROSE 50% SYRINGE 50 ML IVP STA (17:25)
[2022-02-25] MEDS: SODIUM POLYSTYRENE SULFONATE 15 GM/60 ML BOTTLE PO SCH (17:41)
[2022-02-25] MEDS ORDERED: ALBUTEROL NEBULIZED 2.5 MG/3 ML INHALATION PRN (18:19)
--- NOTE | 2022-02-25 18:20 | P.HPIM ---
History of Present Illness H&P Date: 02/25/22 Chief Complaint: Weakness 71-year-old man with a history of hypertension, hyperlipidemia, COPD, CAD present for evaluation of generalized weakness. Patient was recently hospi talized here in early January for carotid endarterectomy. Following his discharge, patient had complaints of weakness and went to see his primary care physician who noted double blood pressure while he is taking his normal medications, and consequently decreased the dosage of his BP medications. Unfortunately, had not gotten much better, and in the time since then he has grown much weaker, and over the last several days he stopped making a significant amount of urine and feels very rundown. He denies fevers, reports chills. He denies nausea, vomiting, chest pain, palpitations, syncope, presyncope. He reports cough, mild dyspnea. He denies abdominal pain, constipation. He reports diarrhea. He denies numbness/weakness of extremities. In the emergency room, patient was afebrile, 139/88, heart rate 68, 92% on 4 L nasal cannula. CBC is remarkable for leukocytosis up to 16.1, hemoglobin of 11.9 with a left shift. Chemistries are remarkable for sodium of 134, potassium of 7.8, repeat was 6.2, BUN of 116, creatinine of 10.130 from normal baseline. LFTs show mild elevation of alkaline phosphatase at 131. Initial troponin is 0.129. VBG shows pH of 7.15, pCO2 of 32. UA shows 1+ protein, moderate blood, trace leukocyte esterase, 20 red blood cells, rare bacteria, 44 hyaline casts. Covid, influenza A/B are all negative. Coags are unremarkable. Chest x-ray shows no acute pulmonary process. EKG shows normal sinus rhythm with first- degree AV block, incomplete right bundle-branch block, T-wave inversions in leads 1, 2, 3, aVF, V4, V5, V6. T waves are not particularly peaked with possibly the exception of V3. Kidney ultrasound shows no evidence of obstructive uropathy. All Systems reviewed and pertinent positives and negatives noted in HPI, all other symptoms are negative Gen: awake, alert HEENT: normocephalic, atraumatic, good hearing acuity, moist mucous membranes Resp: good air exchange, breathing comfortably with no accessory muscle use, clear to auscultation bilaterally CVS: good distal perfusion x 4, regular rate and rhythm, no murmurs GI: soft, NTTP, ND : no SPT, no CVAT, pollard catheter is present MSK: no pitting edema, no clubbing Neuro: non-focal, moving all extremities Psych: cooperative, euthymic mood Labs and imaging reviewed as above Assessment/plan: Acute renal failure with hyperkalemia, secondary to ATN from hypotension as well as dehydration High anion gap metabolic acidosis -Admit to ICU, telemetry -Insulin, albuterol, D50, calcium were given in the ER -Nephrology consult -IV fluids with bicarb gtt -Pollard catheter -Strict ins and outs, daily weights -Trend lab work -Hold home lasix, spironolactone, lisinopril Acute hypoxemic respiratory failure -Unclear mechanism, continue oxygen as needed -Pulmonary consult -Possibly secondary to atelectasis, encourage incentive spirometry -ABG is pending Hypertension Hyperlipidemia COPD CAD -Home medications reviewed and reconciled, and changes noted above Patient is full code DVT prophylaxis with heparin 2 times a day Past Medical History Past Medical History: Coronary Artery Disease (CAD), COPD, Hypertension, Myocardial Infarction ([place]) Additional Past Medical History / Comment(s): hx covid 10/14/21-states received infusion., AAA., AICD., pain in legs with walking. Last Myocardial Infarction Date:: UNKNOWN History of Any Multi-Drug Resistant Organisms: None Reported Past Surgical History: Back Surgery, Heart Catheterization With Stent Additional Past Surgical History / Comment(s): [id number] (1972)., AICD - (12/06/20 [employer])., HEART CATH WITH 3 STENTS (10/08/20)., CATARACTS Past Anesthesia/Blood Transfusion Reactions: No Reported Reaction Date of Last Stent Placement:: 10/08/2020 Type of Cardiac Device: Permanent Pacemaker Device Placement Date:: 12/06/2020 Past Psychological History: No Psychological Hx Reported Smoking Status: Former smoker Past Alcohol Use History: Occasional Past Drug Use History: None Reported - Past Family History Father History Unknown: Yes Family Medical History: No Reported History Medications and Allergies Home Medications Medication Instructions Recorded Confirmed Type Aspirin 81 mg PO DAILY #30 chew 10/10/20 02/25/22 Rx Clopidogrel [Plavix] 75 mg PO DAILY #30 tab 10/10/20 02/25/22 Rx Spironolactone [Aldactone] 25 mg PO DAILY #30 tab 10/10/20 02/25/22 Rx Albuterol Sulfate [Albuterol 2 puff PO RT-Q6H PRN 01/25/22 02/25/22 History Sulfate Hfa] Atorvastatin [Lipitor] 40 mg PO HS 01/25/22 02/25/22 History Furosemide [Lasix] 20 mg PO DAILY 01/25/22 02/25/22 History lisinopriL [Zestril] 30 mg PO DAILY 30 Days #90 tab 02/01/22 02/25/22 Rx Metoprolol Tartrate [Lopressor] 50 mg PO BID 30 Days #60 tab 02/06/22 02/25/22 Rx Allergies Allergy/AdvReac Type Severity Reaction Status Date / Time ampicillin Allergy Unknown turned Verified 02/25/22 13:48 pink, trouble breathing Penicillins Allergy turned Verified 02/25/22 13:48 pink, trouble breathing Physical Exam Osteopathic Statement: *. No significant issues noted on an osteopathic structural exam other than those noted in the History and Physical/Consult. Vitals: Vital Signs Temp Pulse Pulse Resp BP Pulse Ox 02/25/22 16:00 67 23 124/67 02/25/22 15:33 97.9 F 65 15 125/84 02/25/22 15:00 68 19 02/25/22 14:30 64 19 92 L 02/25/22 14:16 68 16 139/88 02/25/22 14:00 61 24 96 02/25/22 13:30 71 23 84 L 02/25/22 13:00 60 22 98/58 02/25/22 12:50 60 16 88/54 02/25/22 12:30 60 23 88/54 100 02/25/22 12:05 61 101/48 97 02/25/22 11:50 98 F 58 L 18 64/42 87 L Intake and Output 02/25/22 02/25/22 02/25/22 06:59 14:59 22:59 Intake Total 1300 Output Total 175 Balance 1125 Intake: IV 1300 Calcium Gluconate in NaCl 100 1 gm In Saline 1 100ml. bag @ 100 mls/hr IVPB ONCE ONE Rx#:[id number] Dextrose 5% in Water 1, 200 000 ml @ 100 mls/hr IV . [id number] ONE with Sodium Bicarb (1 Meq/ml) 150 ml Rx#:[id number] Sodium Chloride 0.9% 1, 1000 000 ml @ 100 mls/hr IV . Q10H [facility] Rx#:[id number] Output: Urine 175 Other: Weight 65.771 kg 65.771 kg Results CBC & Chem 7: 02/25/22 12:38 02/25/22 15:45 Labs: Abnormal Lab Results - Last 24 Hours (Table) 02/25/22 02/25/22 02/25/22 Range/Units 12:38 12:38 12:38 WBC 16.1 H (3.8-10.6) k/uL RBC 3.84 L (4.30-5.90) m/uL Hgb 11.9 L (13.0-17.5) gm/dL Hct 36.0 L (39.0-53.0) % Neutrophils # 14.3 H (1.3-7.7) k/uL VBG pH (7.31-7.41) VBG pCO2 (37-51) mmHg VBG HCO3 (24-28) mmol/L Sodium 134 L (137-145) mmol/L Potassium 7.8 H* (3.5-5.1) mmol/L Carbon Dioxide 10 L (22-30) mmol/L BUN 116 H* (9-20) mg/dL Creatinine 10.13 H* (0.66-1.25) mg/dL Glucose 120 H (74-99) mg/dL POC Glucose (mg/dL) (75-99) mg/dL Alkaline Phosphatase 131 H (38-126) U/L Troponin I 0.148 H* (0.000-0.034) ng/mL Urine Protein (Negative) Urine Blood (Negative) Ur Leukocyte Esterase (Negative) Urine RBC (0-5) /hpf Urine Bacteria (None) /hpf Hyaline Casts (0-2) /lpf Urine Mucus (None) /hpf 02/25/22 02/25/22 02/25/22 Range/Units 13:15 15:33 15:45 WBC (3.8-10.6) k/uL RBC (4.30-5.90) m/uL Hgb (13.0-17.5) gm/dL Hct (39.0-53.0) % Neutrophils # (1.3-7.7) k/uL VBG pH 7.15 L* (7.31-7.41) VBG pCO2 32 L (37-51) mmHg VBG HCO3 11 L (24-28) mmol/L Sodium (137-145) mmol/L Potassium (3.5-5.1) mmol/L Carbon Dioxide (22-30) mmol/L BUN (9-20) mg/dL Creatinine (0.66-1.25) mg/dL Glucose (74-99) mg/dL POC Glucose (mg/dL) 131 H (75-99) mg/dL Alkaline Phosphatase (38-126) U/L Troponin I 0.129 H* (0.000-0.034) ng/mL Urine Protein (Negative) Urine Blood (Negative) Ur Leukocyte Esterase (Negative) Urine RBC (0-5) /hpf Urine Bacteria (None) /hpf Hyaline Casts (0-2) /lpf Urine Mucus (None) /hpf 02/25/22 02/25/22 Range/Units 15:45 16:10 WBC (3.8-10.6) k/uL RBC (4.30-5.90) m/uL Hgb (13.0-17.5) gm/dL Hct (39.0-53.0) % Neutrophils # (1.3-7.7) k/uL VBG pH (7.31-7.41) VBG pCO2 (37-51) mmHg VBG HCO3 (24-28) mmol/L Sodium (137-145) mmol/L Potassium 6.2 H* (3.5-5.1) mmol/L Carbon Dioxide (22-30) mmol/L BUN (9-20) mg/dL Creatinine (0.66-1.25) mg/dL Glucose (74-99) mg/dL POC Glucose (mg/dL) (75-99) mg/dL Alkaline Phosphatase (38-126) U/L Troponin I (0.000-0.034) ng/mL Urine Protein 1+ H (Negative) Urine Blood Moderate H (Negative) Ur Leukocyte Esterase Trace H (Negative) Urine RBC 20 H (0-5) /hpf Urine Bacteria Rare H (None) /hpf Hyaline Casts 44 H (0-2) /lpf Urine Mucus Rare H (None) /hpf
[2022-02-25] MEDS: METOPROLOL TARTRATE 50 MG TAB PO SCH (20:32)
[2022-02-25] MEDS: ATORVASTATIN 40 MG TAB PO SCH (20:32)
[2022-02-25] MEDS: HEPARIN SODIUM,PORCINE/PF 5,000 UNIT/0.5 ML SYRINGE SQ SCH (20:32)
[2022-02-25] MEDS: FAMOTIDINE 20 MG TAB PO SCH (20:32)
[2022-02-25 23:41] LABS: Calcium 9.1 mg/dL (8.4-10.2)
[2022-02-26 00:02] LABS: Glucose,Whole Blood 174 mg/dL (75-99)
[2022-02-26] MEDS: SODIUM POLYSTYRENE SULFONATE 15 GM/60 ML BOTTLE PO SCH ×3 (00:44→16:14)
[2022-02-26] MEDS: DEXTROSE 5% IN WATER 1,000 ML with SODIUM BICARB (1 MEQ/ML) 150 ML IV SCH ×2 (02:25→14:12)
[2022-02-26 05:50] LABS: Glucose,Whole Blood 163 mg/dL (75-99)
[2022-02-26 07:16] LABS: Albumin 3.4 g/dL (3.5-5.0); Calcium 8.7 mg/dL (8.4-10.2); Magnesium 1.8 mg/dL (1.6-2.3); Potassium 5.4 mmol/L (3.5-5.1); Total Bilirubin 0.4 mg/dL (0.2-1.3); Total Protein 5.9 g/dL (6.3-8.2)
[2022-02-26 07:18] LABS: Basophils % (A) 0 %; Eosinophils % (A) 0 %; HCT 28.3 % (39.0-53.0); Lymphocytes # (A) 1.2 k/uL (1.0-4.8); Lymphocytes % (A) 12 %; MCH 31.8 pg (25.0-35.0); MCHC 34.1 g/dL (31.0-37.0); MCV 93.1 fL (80.0-100.0); Mean Platelet Volume 7.4; Monocytes # (A) 0.6 k/uL (0-1.0); Monocytes % (A) 6 %; Neutrophils # (A) 8.2 k/uL (1.3-7.7); Neutrophils % (A) 81 %; Platelet Count 242 k/uL (150-450); RBC 3.04 m/uL (4.30-5.90); WBC 10.1 k/uL (3.8-10.6)
[2022-02-26 07:21] LABS: HGB 9.7 gm/dL (13.0-17.5)
[2022-02-26] MEDS ORDERED: VANCOMYCIN 1,250 MG in SODIUM CHLORIDE 0.9% 250 ML IVPB ONE (08:00)
[2022-02-26] MEDS: HEPARIN SODIUM,PORCINE/PF 5,000 UNIT/0.5 ML SYRINGE SQ SCH ×2 (08:21→20:22)
[2022-02-26] MEDS: CLOPIDOGREL 75 MG TAB PO SCH (08:21)
[2022-02-26] MEDS: FAMOTIDINE 20 MG TAB PO SCH ×2 (08:21→20:22)
[2022-02-26] MEDS: METOPROLOL TARTRATE 50 MG TAB PO SCH ×2 (08:21→20:22)
[2022-02-26] MEDS: ASPIRIN 81 MG PO SCH (08:21)
--- NOTE | 2022-02-26 11:05 | P.NPCON ---
History of Present Illness - Reason for Consult acute renal failure - History of Present Illness Patient is a 71-year-old male with previous history of hypertension, COPD, coronary artery disease. Patient is admitted to the hospital with complaints of increased weakness. Patient noted that his blood pressure was low at home he did come into the ER for evaluation. Blood pressure had improved and he was sent back home. Patient states that at home his weakness continued to worsen and therefore he came back. No complaints of significant diarrhea nausea or vomiting, no fever or chills no chest pains or shortness of breath. Potassium was 7.8 on admission and CO2 was 14. Serum creatinine was 7. Blood pressure was as low as 64 mmHg systolic. Patient has been maintained on aggressive IV hydration. He has had good urine output. Creatinine has improved to 5.7 with potassium at 5.4 today. Patient remains on bicarb drip at 100 mL an hour. Patient was maintained on BASSAM inhibitor's and Aldactone at home. He denies use of any nonsteroidal anti-inflammatory agents. Ultrasound shows no evidence of hydronephrosis Review of Systems As per HPI, other systems negative Past Medical History Past Medical History: Coronary Artery Disease (CAD), COPD, Hypertension, Myocardial Infarction ([place]) Additional Past Medical History / Comment(s): hx covid 10/14/21-states received infusion., AAA., AICD., pain in legs with walking. Last Myocardial Infarction Date:: UNKNOWN History of Any Multi-Drug Resistant Organisms: None Reported Past Surgical History: Back Surgery, Heart Catheterization With Stent Additional Past Surgical History / Comment(s): [id number] (1972)., AICD - (12/06/20 [employer])., HEART CATH WITH 3 STENTS (10/08/20)., CATARACTS Past Anesthesia/Blood Transfusion Reactions: No Reported Reaction Date of Last Stent Placement:: 10/08/2020 Type of Cardiac Device: Permanent Pacemaker Device Placement Date:: 12/06/2020 Past Psychological History: No Psychological Hx Reported Smoking Status: Former smoker Past Alcohol Use History: Occasional Past Drug Use History: None Reported - Past Family History Father History Unknown: Yes Family Medical History: No Reported History Medications and Allergies Home Medications Medication Instructions Recorded Confirmed Type Aspirin 81 mg PO DAILY #30 chew 10/10/20 02/25/22 Rx Clopidogrel [Plavix] 75 mg PO DAILY #30 tab 10/10/20 02/25/22 Rx Spironolactone [Aldactone] 25 mg PO DAILY #30 tab 10/10/20 02/25/22 Rx Albuterol Sulfate [Albuterol 2 puff PO RT-Q6H PRN 01/25/22 02/25/22 History Sulfate Hfa] Atorvastatin [Lipitor] 40 mg PO HS 01/25/22 02/25/22 History Furosemide [Lasix] 20 mg PO DAILY 01/25/22 02/25/22 History lisinopriL [Zestril] 30 mg PO DAILY 30 Days #90 tab 02/01/22 02/25/22 Rx Metoprolol Tartrate [Lopressor] 50 mg PO BID 30 Days #60 tab 02/06/22 02/25/22 Rx Allergies Allergy/AdvReac Type Severity Reaction Status Date / Time ampicillin Allergy Unknown turned Verified 02/25/22 13:48 pink, trouble breathing Penicillins Allergy turned Verified 02/25/22 13:48 pink, trouble breathing Physical Exam Vitals: Vital Signs Temp Pulse Pulse Resp BP Pulse Ox 02/26/22 10:00 63 12 111/52 97 02/26/22 09:00 66 9 L 115/53 95 02/26/22 08:00 98 F 60 15 106/58 95 02/26/22 07:00 67 12 100/54 98 02/26/22 06:00 66 14 98/41 97 02/26/22 05:00 65 14 108/56 98 02/26/22 04:00 65 13 102/50 98 02/26/22 03:00 63 16 115/53 97 02/26/22 02:00 62 15 110/56 96 02/26/22 01:00 65 16 115/56 98 02/26/22 00:14 63 13 115/56 98 02/26/22 00:00 98 F 64 15 96/81 100 02/25/22 23:00 64 18 108/50 98 02/25/22 22:00 67 12 130/51 98 02/25/22 21:00 67 19 142/57 98 02/25/22 20:00 98.1 F 66 18 131/52 100 02/25/22 19:30 66 16 129/58 100 02/25/22 19:00 73 14 129/58 99 02/25/22 18:30 67 16 99 02/25/22 18:00 86 16 162/58 98 02/25/22 17:30 64 16 148/60 96 02/25/22 17:00 63 14 162/59 100 02/25/22 16:30 60 15 100/88 02/25/22 16:00 67 23 124/67 02/25/22 15:33 97.9 F 65 15 125/84 02/25/22 15:00 68 19 02/25/22 14:30 64 19 92 L 02/25/22 14:16 68 16 139/88 02/25/22 14:00 61 24 96 02/25/22 13:30 71 23 84 L 02/25/22 13:00 60 22 98/58 02/25/22 12:50 60 16 88/54 02/25/22 12:30 60 23 88/54 100 02/25/22 12:05 61 101/48 97 02/25/22 11:50 98 F 58 L 18 64/42 87 L Intake and Output 02/25/22 02/26/22 02/26/22 22:59 06:59 14:59 Intake Total 1700 800 400 Output Total 485 445 220 Balance 1215 355 180 Intake: IV 1700 800 400 Calcium Gluconate in NaCl 100 1 gm In Saline 1 100ml. bag @ 100 mls/hr IVPB ONCE ONE Rx#:[id number] Dextrose 5% in Water 1, 600 800 400 000 ml @ 100 mls/hr IV . [id number] ONE with Sodium Bicarb (1 Meq/ml) 150 ml Rx#:[id number] Sodium Chloride 0.9% 1, 1000 000 ml @ 100 mls/hr IV . Q10H [facility] Rx#:[id number] Output: Urine 485 445 220 Other: Voiding Method Indwelling Catheter Indwelling Catheter Indwelling Catheter Weight 65.771 kg 67.3 kg Patient is awake, comfortable, not in any acute distress Examination of the heart S1 and S2 Examination lungs decreased breath sounds at the bases Abdomen is soft nontender next and examination lower extremity shows no evidence of edema [employer] exam grossly intact Results - Lab Results Most recent lab results Calcium 8.7 mg/dL (8.4-10.2) 02/26/22 06:24 Magnesium 1.8 mg/dL (1.6-2.3) 02/26/22 06:24 02/26/22 06:24 02/26/22 06:24 Assessment and Plan Assessment: 1. Acute kidney injury prerenal associated with severe hypotension and hypovolemia. Currently nonoliguric and improving with IV hydration. Ultrasound shows no evidence of hydronephrosis. UA shows 1+ protein and moderate blood 2. Severe hyperkalemia associated with acute kidney injury and metabolic acidosis as well as use of bassam inhibitors prior to admission. Currently improved 3. Anion gap metabolic acidosis associated with acute kidney injury. Lactic acid was not checked. Acidosis currently improved. Patient is maintained on bicarb drip 4. Severe hypotension, hypovolemia currently improved 5. Coronary artery disease with previous history of coronary artery stenting 6. Recent right carotid endarterectomy with bruising in the upper chest area Plan: Continue with the bicarb drip Repeat labs in a.m. Continue to hold off on BASSAM inhibitor's.
--- NOTE | 2022-02-26 11:13 | P.PN ---
Subjective Progress Note Date: 02/26/22 Principal diagnosis: Acute kidney injury 71-year-old male patient, presented to the emergency department because of generalized weakness and significantly abnormal blood work which includes an acute kidney injury and acute hyperkalemia and low urine output. The patient has been having diminished oral intake along with nausea and emesis and diminished appetite and he hasn't been able to tolerate any food. His blood pressure was also running low. He was maintained on a combination of medication which included BASSAM inhibitor and diuretics and Aldactone. His antihypertensive medications were modified and his lisinopril level was increased including a dosage of 30 mg and subsequently dropped down to 10 mg. Nevertheless, the patient was running a lower blood pressure on outpatient basis. No chest pain. No shortness of breath. No pleurisy. No hemoptysis. No abdominal pain. No altered mentation. He is known to have multiple medical problems and comorbidities which includes CAD, previous history of coronary stent, history of cardiomyopathy and the most recent echo cardiac exam shows a preserved LV function. The patient has an AICD in place. The patient has an abdominal aortic aneurysm measuring 4 cm in size along with hypertension, hyperlipidemia, crotid artery disease. The patient was in the hospital between 01/28/2022 and 02/01/2022 and at that time he underwent a right carotid artery endarterectomy and his course was complicated by development of some constipation and this was treated medically and the patient was discharged. On 02/03/2022, the patient came in to the hospital again for abdominal pain and distention. CAT scan of the abdomen was done and showed ileus versus small bowel obstruction. The patient ultimately recovered with conservative measures. This hospitalist nocturnist physician to be an ileus. Gen. surgery and breast surgery were both consulted on the case. For now, the patient is an acute kidney injury. No fever no chills. Lactic acid level is at 1.4. Troponin is at 0.048. His sodium level is at 134 and a Cardizem 3 with a bicarb of 10 and a mild anion gap of the bullet acidosis. The BUN is at 160 with a creatinine of 10.1 and a glucose level is at 120. EKG is not showing any acute hyperkalemia changes. The white cell count is at 60 with a hemoglobin 11.9 and platelet count of 361. Chest x-ray shows no acute abnormalities. I was informed of this admission and accepted this patient to come in to the ICU with nephrology consultation. He received hyperkalemia cocktail in the emergency department the potassium level is to be monitored. He received calcium, bicarb, Kayexalate, and D50 insulin. His EKG showed no acute changes right hyperkalemia. Note that the patient had a COVID 19 infection back in Sep 2021 and he was treated with monoclonal antibodies. His current COVID 19 testing is negative and influenza screen is also negative. On 02/26/2022 patient seen in follow-up in intensive care unit, he is awake and alert, in no acute distress, he is responding appropriately, he is oriented 3, breathing comfortably, room air pulse ox is 97%, he is not on any vasopressor support, IV fluids are D5 W with 3 A of bicarbonate at a rate of 100 ML per hour. His been tolerating oral intake, no nausea vomiting or diarrhea. However his appetite has been poor per nursing staff, blood pressure is been stable, no hypotension, he is afebrile, no cough, no shortness of breath, no complaints of chest discomfort, no abdominal pain no urinary complaints. He received a dose of Rocephin in the ER for possibility of sepsis during initial presentation. He has been fluid resuscitated, his vitals have been stable, his been afebrile. These labs have been reviewed, his white count is improving and is down to 10.1, hemoglobin is 9.7, serum sodium is 135, potassium is 5.4, chloride is 105, CO2 is 18, BUN is 105, creatinine is 5.7, his AST is 21, ALT is 15, and alk phos is 91. His urinalysis showed rare bacteria, his white blood cells in the urinalysis were not significantly elevated, influenza A and B and COVID-19 were all negative. Blood cultures have been sent and pending we will also send a pro-calcitonin level. Clinical patient is feeling better, his Aldactone and Lasix and lisinopril remain on hold, nephrology is following. Qureshi catheter is in place the patient's producing 50-60 mL of clear yellow urine hourly Objective - Vital Signs Vital signs: Vital Signs Temp 98 F 02/26/22 08:00 Pulse 63 02/26/22 10:00 Resp 12 02/26/22 10:00 BP 111/52 02/26/22 10:00 Pulse Ox 97 02/26/22 10:00 FiO2 Intake & Output 02/25/22 02/26/22 02/26/22 18:59 06:59 18:59 Intake Total 1400 1100 400 Output Total 235 695 220 Balance 1165 405 180 Weight 65.771 kg 67.3 kg Intake: IV 1400 1100 400 Calcium Gluconate in NaCl 100 1 gm In Saline 1 100ml. bag @ 100 mls/hr IVPB ONCE ONE Rx#:[id number] Dextrose 5% in Water 1, 300 1100 400 000 ml @ 100 mls/hr IV . [id number] ONE with Sodium Bicarb (1 Meq/ml) 150 ml Rx#:[id number] Sodium Chloride 0.9% 1, 1000 000 ml @ 100 mls/hr IV . Q10H [facility] Rx#:[id number] Output: Urine 235 695 220 Other: Voiding Method Indwelling Catheter Indwelling Catheter Indwelling Catheter - Exam GENERAL EXAM: Alert, very pleasant, 71-year-old white male on room air with a pulse ox of 97%, comfortable in no apparent distress. HEAD: Normocephalic/atraumatic. EYES: Normal reaction of pupils, equal size. Conjunctiva pink, sclera white. NOSE: Clear with pink turbinates. THROAT: No erythema or exudates. NECK: No masses, no JVD, no thyroid enlargement, no adenopathy. CHEST: No chest wall deformity. Symmetrical expansion. LUNGS: Equal air entry with no crackles, wheeze, rhonchi or dullness. CVS: Regular rate and rhythm, normal S1 and S2, no gallops, no murmurs, no rubs ABDOMEN: Soft, nontender. No hepatosplenomegaly, normal bowel sounds, no guarding or rigidity. EXTREMITIES: No clubbing, no edema, no cyanosis, 2+ pulses and upper and lower extremities. MUSCULOSKELETAL: Muscle strength and tone normal. SPINE: No scoliosis or deformity SKIN: No rashes CENTRAL NERVOUS SYSTEM: Alert and oriented -3. No focal deficits, tone is normal in all 4 extremities. PSYCHIATRIC: Alert and oriented -3. Appropriate affect. Intact judgment and insight. - Labs CBC & Chem 7: 02/26/22 06:24 02/26/22 06:24 Labs: Abnormal Lab Results - Last 24 Hours (Table) 02/25/22 02/25/2202/25/22 Range/Units 12:38 12:38 12:38 WBC 16.1 H (3.8-10.6) k/uL RBC 3.84 L (4.30-5.90) m/uL Hgb 11.9 L (13.0-17.5) gm/dL Hct 36.0 L (39.0-53.0) % Neutrophils # 14.3 H (1.3-7.7) k/uL VBG pH (7.31-7.41) VBG pCO2 (37-51) mmHg VBG HCO3 (24-28) mmol/L Sodium 134 L (137-145) mmol/L Potassium 7.8 H* (3.5-5.1) mmol/L Chloride (98-107) mmol/L Carbon Dioxide 10 L (22-30) mmol/L BUN 116 H* (9-20) mg/dL Creatinine 10.13 H* (0.66-1.25) mg/dL Glucose 120 H (74-99) mg/dL POC Glucose (mg/dL) (75-99) mg/dL Alkaline Phosphatase 131 H (38-126) U/L Troponin I 0.148 H* (0.000-0.034) ng/mL Total Protein (6.3-8.2) g/dL Albumin (3.5-5.0) g/dL Urine Protein (Negative) Urine Blood (Negative) Ur Leukocyte Esterase (Negative) Urine RBC (0-5) /hpf Urine Bacteria (None) /hpf Hyaline Casts (0-2) /lpf Urine Mucus (None) /hpf 02/25/22 02/25/22 02/25/22 Range/Units 13:15 15:33 15:45 WBC (3.8-10.6) k/uL RBC (4.30-5.90) m/uL Hgb (13.0-17.5) gm/dL Hct (39.0-53.0) % Neutrophils # (1.3-7.7) k/uL VBG pH 7.15 L* (7.31-7.41) VBG pCO2 32 L (37-51) mmHg VBG HCO3 11 L (24-28) mmol/L Sodium (137-145) mmol/L Potassium (3.5-5.1) mmol/L Chloride (98-107) mmol/L Carbon Dioxide (22-30) mmol/L BUN (9-20) mg/dL Creatinine (0.66-1.25) mg/dL Glucose (74-99) mg/dL POC Glucose (mg/dL) 131 H (75-99) mg/dL Alkaline Phosphatase (38-126) U/L Troponin I 0.129 H* (0.000-0.034) ng/mL Total Protein (6.3-8.2) g/dL Albumin (3.5-5.0) g/dL Urine Protein (Negative) Urine Blood (Negative) Ur Leukocyte Esterase (Negative) Urine RBC (0-5) /hpf Urine Bacteria (None) /hpf Hyaline Casts (0-2) /lpf Urine Mucus (None) /hpf 02/25/22 02/25/22 02/25/22 Range/Units 15:45 16:10 18:53 WBC (3.8-10.6) k/uL RBC (4.30-5.90) m/uL Hgb (13.0-17.5) gm/dL Hct (39.0-53.0) % Neutrophils # (1.3-7.7) k/uL VBG pH (7.31-7.41) VBG pCO2 (37-51) mmHg VBG HCO3 (24-28) mmol/L Sodium (137-145) mmol/L Potassium 6.2 H* (3.5-5.1) mmol/L Chloride (98-107) mmol/L Carbon Dioxide (22-30) mmol/L BUN (9-20) mg/dL Creatinine (0.66-1.25) mg/dL Glucose (74-99) mg/dL POC Glucose (mg/dL) (75-99) mg/dL Alkaline Phosphatase (38-126) U/L Troponin I 0.128 H* (0.000-0.034) ng/mL Total Protein (6.3-8.2) g/dL Albumin (3.5-5.0) g/dL Urine Protein 1+ H (Negative) Urine Blood Moderate H (Negative) Ur Leukocyte Esterase Trace H (Negative) Urine RBC 20 H (0-5) /hpf Urine Bacteria Rare H (None) /hpf Hyaline Casts 44 H (0-2) /lpf Urine Mucus Rare H (None) /hpf 02/25/22 02/26/22 02/26/22 Range/Units 23:00 00:00 00:18 WBC (3.8-10.6) k/uL RBC (4.30-5.90) m/uL Hgb (13.0-17.5) gm/dL Hct (39.0-53.0) % Neutrophils # (1.3-7.7) k/uL VBG pH (7.31-7.41) VBG pCO2 (37-51) mmHg VBG HCO3 (24-28) mmol/L Sodium 136 L (137-145) mmol/L Potassium 5.5 H (3.5-5.1) mmol/L Chloride 109 H (98-107) mmol/L Carbon Dioxide 12 L (22-30) mmol/L BUN 115 H* (9-20) mg/dL Creatinine 7.14 H* (0.66-1.25) mg/dL Glucose 168 H (74-99) mg/dL POC Glucose (mg/dL) 174 H (75-99) mg/dL Alkaline Phosphatase (38-126) U/L Troponin I (0.000-0.034) ng/mL Total Protein (6.3-8.2) g/dL Albumin (3.5-5.0) g/dL Urine Protein (Negative) Urine Blood (Negative) Ur Leukocyte Esterase (Negative) Urine RBC (0-5) /hpf Urine Bacteria (None) /hpf Hyaline Casts (0-2) /lpf Urine Mucus (None) /hpf 02/26/22 02/26/22 02/26/22 Range/Units 05:48 06:24 06:24 WBC (3.8-10.6) k/uL RBC 3.04 L (4.30-5.90) m/uL Hgb 9.7 L D (13.0-17.5) gm/dL Hct 28.3 L (39.0-53.0) % Neutrophils # 8.2 H (1.3-7.7) k/uL VBG pH (7.31-7.41) VBG pCO2 (37-51) mmHg VBG HCO3 (24-28) mmol/L Sodium 135 L (137-145) mmol/L Potassium 5.4 H (3.5-5.1) mmol/L Chloride (98-107) mmol/L Carbon Dioxide 18 L (22-30) mmol/L BUN 105 H* (9-20) mg/dL Creatinine 5.70 H (0.66-1.25) mg/dL Glucose 155 H (74-99) mg/dL POC Glucose (mg/dL) 163 H (75-99) mg/dL Alkaline Phosphatase (38-126) U/L Troponin I (0.000-0.034) ng/mL Total Protein 5.9 L (6.3-8.2) g/dL Albumin 3.4 L (3.5-5.0) g/dL Urine Protein (Negative) Urine Blood (Negative) Ur Leukocyte Esterase (Negative) Urine RBC (0-5) /hpf Urine Bacteria (None) /hpf Hyaline Casts (0-2) /lpf Urine Mucus (None) /hpf Assessment and Plan Plan: Assessment: #1. Acute kidney injury, related to intravascular volume depletion, hypotension and medication effect as the patient was taken diuretics in the form of Lasix, Aldactone and lisinopril on an outpatient basis #2. Acute anion gap metabolic acidosis, improving with hydration #3. Acute hyperkalemia secondary to the above without any acute EKG changes, improving #4. Generalized weakness secondary to the above #5. Troponin leak, possibly a type II ischemia #6. Coronary artery disease with previous coronary artery stenting #7. History of systolic CHF, with most recent echocardiogram showing preserved LV function which is improved from his baseline #8. History of AICD placement for ischemic cardio myopathy #9. History of COVID-19 infection back in February 2022, recovered #10. History of abdominal aortic aneurysm measuring 4 cm #11. History of constipation with previous hospitalization for ileus/constipation #12. Hypertension #13. Hyperlipidemia #14. Recent right carotid endarterectomy Plan: Continue IV fluids per nephrology recommendations Today's labs show improvement of patient's renal function, and electrolytes including potassium level Generally weak, but appears to be in no acute distress Continues to have poor appetite, but has not had any nausea vomiting or diarrhea We'll continue to follow with serial electrolytes and renal profile We'll send a procalcitonin level No clear source of infection Diuretics remain on hold We'll continue to follow in the ICU I have personally seen and examined the patient, performed the documentation and the assessment and plan as written. Number of minutes spent on the visit: [15] Time with Patient: Less than 30
[2022-02-26 11:15] LABS: Glucose,Whole Blood 161 mg/dL (75-99)
--- NOTE | 2022-02-26 13:27 | P.CRDCN ---
History of Present Illness History of present illness: - . HPI: [This is a 71-year-old gentleman with a known history of CAD prior stenting of circumflex and history of cardiomyopathy but subsequently LV function has improved has a dual-chamber ICD. He has abdominal aortic aneurysm which is not significant. In early January he underwent a right carotid endarterectomy complicated by development of some GI symptoms and subsequently was found to have a small bowel obstruction. He came into the hospital with generalized weakness and lack of energy was found to have hyperkalemia and acute kidney injury has been hydrated he feels better last echo actually revealed ejection fraction of nearly 55%. I am seeing him because of the elevated troponin and a history of ICD. Even though he has an ICD his LV function has improved since then and ejection fraction appears to be normal. Troponin elevation however does not suggest any myocardial injury. This could be related to his renal function which is abnormal and additionally acute kidney injury. Patient appears to have intravascular volume depletion and hypotension causing acute kidney injury and troponin elevation is not significant he is resting comfortably without symptoms at the time of my evaluation. He has history of coronary infection in September of this year from which he recovered well and he has a abdominal aortic aneurysm which is also not significant.]. RELEVANT PAST MEDICAL HISTORY: [Remarkable for CAD with previous PCI, decreased ejection fraction placement of dual-chamber AICD and symptoms in recovery of LV function. On Last small Chronic kidney disease Previous small bowel obstruction and ileus from which she has recovered Recent right carotid endarterectomy]. MEDICATIONS: [] ALLERGIES: []. REVIEW OF SYSTEMS: []. PHYSICIAL EXAM: [There is no JVD or carotid bruit. S1-S2 heard normally and no significant murmurs lungs reveal diminished air entry bilaterally abdomen is soft nontender lower extremities reveal diminished pulses central nervous system grossly no focal deficits.]. IMPRESSION: 1. [ Hypovolemia with acute kidney injury on top of previous EKG CAD with the prior PCI and ICD since then LV function is improved ]. 2. [ Small bowel obstruction/ileus]. 3. [ Abdominal aortic aneurysm of about 4 cm stable]. 4. []. 5. []. RECOMMENDATIONS: [No aggressive intervention from a cardiac standpoint. Patient's troponin does not suggest myocardial injury. Agree with cautious hydration and management per nephrology. We will continue to see the patient as needed. He is on a bicarb drip and renal function has shown improvement. Cardiac-warren no intervention. We will see as needed]. Past Medical History Past Medical History: Coronary Artery Disease (CAD), COPD, Hypertension, Myocardial Infarction ([place]) Additional Past Medical History / Comment(s): hx covid 10/14/21-states received infusion., AAA., AICD., pain in legs with walking. Last Myocardial Infarction Date:: UNKNOWN History of Any Multi-Drug Resistant Organisms: None Reported Past Surgical History: Back Surgery, Heart Catheterization With Stent Additional Past Surgical History / Comment(s): [id number] (1972)., AICD - (12/06/20 [employer])., HEART CATH WITH 3 STENTS (10/08/20)., CATARACTS Past Anesthesia/Blood Transfusion Reactions: No Reported Reaction Date of Last Stent Placement:: 10/08/2020 Type of Cardiac Device: Permanent Pacemaker Device Placement Date:: 12/06/2020 Past Psychological History: No Psychological Hx Reported Smoking Status: Former smoker Past Alcohol Use History: Occasional Past Drug Use History: None Reported - Past Family History Father History Unknown: Yes Family Medical History: No Reported History Medications and Allergies Home Medications Medication Instructions Recorded Confirmed Type Aspirin 81 mg PO DAILY #30 chew 10/10/20 02/25/22 Rx Clopidogrel [Plavix] 75 mg PO DAILY #30 tab 10/10/20 02/25/22 Rx Spironolactone [Aldactone] 25 mg PO DAILY #30 tab 10/10/20 02/25/22 Rx Albuterol Sulfate [Albuterol 2 puff PO RT-Q6H PRN 01/25/22 02/25/22 History Sulfate Hfa] Atorvastatin [Lipitor] 40 mg PO HS 01/25/22 02/25/22 History Furosemide [Lasix] 20 mg PO DAILY 01/25/22 02/25/22 History lisinopriL [Zestril] 30 mg PO DAILY 30 Days #90 tab 02/01/22 02/25/22 Rx Metoprolol Tartrate [Lopressor] 50 mg PO BID 30 Days #60 tab 02/06/22 02/25/22 Rx Allergies Allergy/AdvReac Type Severity Reaction Status Date / Time ampicillin Allergy Unknown turned Verified 02/25/22 13:48 pink, trouble breathing Penicillins Allergy turned Verified 02/25/22 13:48 pink, trouble breathing Physical Exam Vitals: Vital Signs Temp Pulse Resp BP Pulse Ox 02/26/22 12:00 98 F 59 L 12 100/51 96 02/26/22 11:00 63 10 L 96/75 99 02/26/22 10:00 63 12 111/52 97 02/26/22 09:00 66 9 L 115/53 95 02/26/22 08:00 98 F 60 15 106/58 95 02/26/22 07:00 67 12 100/54 98 02/26/22 06:00 66 14 98/41 97 02/26/22 05:00 65 14 108/56 98 02/26/22 04:00 65 13 102/50 98 02/26/22 03:00 63 16 115/53 97 02/26/22 02:00 62 15 110/56 96 02/26/22 01:00 65 16 115/56 98 02/26/22 00:14 63 13 115/56 98 02/26/22 00:00 98 F 64 15 96/81 100 02/25/22 23:00 64 18 108/50 98 02/25/22 22:00 67 12 130/51 98 02/25/22 21:00 67 19 142/57 98 02/25/22 20:00 98.1 F 66 18 131/52 100 02/25/22 19:30 66 16 129/58 100 02/25/22 19:00 73 14 129/58 99 02/25/22 18:30 67 16 99 02/25/22 18:00 86 16 162/58 98 02/25/22 17:30 64 16 148/60 96 02/25/22 17:00 63 14 162/59 100 02/25/22 16:30 60 15 100/88 02/25/22 16:00 67 23 124/67 02/25/22 15:33 97.9 F 65 15 125/84 02/25/22 15:00 68 19 02/25/22 14:30 64 19 92 L 02/25/22 14:16 68 16 139/88 02/25/22 14:00 61 24 96 02/25/22 13:30 71 23 84 L Intake and Output 02/25/22 02/26/22 02/26/22 22:59 06:59 14:59 Intake Total 1700 800 500 Output Total 485 445 295 Balance 1215 355 205 Intake: IV 1700 800 500 Calcium Gluconate in NaCl 100 1 gm In Saline 1 100ml. bag @ 100 mls/hr IVPB ONCE ONE Rx#:[id number] Dextrose 5% in Water 1, 600 800 500 000 ml @ 100 mls/hr IV . [id number] ONE with Sodium Bicarb (1 Meq/ml) 150 ml Rx#:[id number] Sodium Chloride 0.9% 1, 1000 000 ml @ 100 mls/hr IV . Q10H [facility] Rx#:[id number] Output: Urine 485 445 295 Other: Voiding Method Indwelling Catheter Indwelling Catheter Indwelling Catheter Weight 65.771 kg 67.3 kg 67.3 kg Results 02/26/22 06:24 02/26/22 06:24 Cardiac Enzymes 02/25/22 02/25/22 02/26/22 Range/Units 15:45 18:53 06:24 AST 21 (17-59) U/L Troponin I 0.129 H* 0.128 H* (0.000-0.034) ng/mL CBC 02/26/22 Range/Units 06:24 WBC 10.1 (3.8-10.6) k/uL RBC 3.04 L (4.30-5.90) m/uL Hgb 9.7 L D (13.0-17.5) gm/dL Hct 28.3 L (39.0-53.0) % Plt Count 242 (150-450) k/uL Comprehensive Metabolic Panel 02/25/22 02/25/22 02/26/22 Range/Units 15:45 23:00 00:18 Sodium 136 L (137-145) mmol/L Potassium 6.2 H* 5.5 H (3.5-5.1) mmol/L Chloride 109 H (98-107) mmol/L Carbon Dioxide 12 L (22-30) mmol/L BUN 115 H* (9-20) mg/dL Creatinine 7.14 H* (0.66-1.25) mg/dL Glucose 168 H (74-99) mg/dL Calcium 9.1 (8.4-10.2) mg/dL AST (17-59) U/L ALT (4-49) U/L Alkaline Phosphatase (38-126) U/L Total Protein (6.3-8.2) g/dL Albumin (3.5-5.0) g/dL 02/26/22 Range/Units 06:24 Sodium 135 L (137-145) mmol/L Potassium 5.4 H (3.5-5.1) mmol/L Chloride 105 (98-107) mmol/L Carbon Dioxide 18 L (22-30) mmol/L BUN 105 H* (9-20) mg/dL Creatinine 5.70 H (0.66-1.25) mg/dL Glucose 155 H (74-99) mg/dL Calcium 8.7 (8.4-10.2) mg/dL AST 21 (17-59) U/L ALT 15 (4-49) U/L Alkaline Phosphatase 91 (38-126) U/L Total Protein 5.9 L (6.3-8.2) g/dL Albumin 3.4 L (3.5-5.0) g/dL Current Medications Generic Name Dose Route Start Last Admin Trade Name Freq PRN Reason Stop Dose Admin Albuterol Sulfate 2.5 mg 02/25/22 18:19 Albuterol Nebulized 2.5 Mg/3 Ml INHALATION RT-Q6H PRN Shortness Of Breath Aspirin 81 mg 02/26/22 09:00 02/26/22 08:21 Aspirin 81 Mg PO 81 mg DAILY [facility] Administration Atorvastatin Calcium 40 mg 02/25/22 21:00 02/25/22 20:32 Atorvastatin 40 Mg Tab PO 40 mg HS BUCK Administration Clopidogrel Bisulfate 75 mg 02/26/22 09:00 02/26/22 08:21 Clopidogrel 75 Mg Tab PO 75 mg DAILY [facility]CK Administration Famotidine 20 mg 02/25/22 21:00 02/26/22 08:21 Famotidine 20 Mg Tab PO 20 mg BID BUCK Administration Heparin Sodium (Porcine) 5,000 unit 02/25/22 21:00 02/26/22 08:21 Heparin Sodium,Porcine/Pf 5,000 Unit/0.5 Ml Syringe SQ 5,000 unit Q12HR [facility] Administration Sodium Bicarbonate 150 ml/ 1,150 mls @ 100 mls/hr 02/26/22 01:30 02/26/22 02: 25 Dextrose/Water IV 100 mls/hr .[id number] [facility]CK Administration Metoprolol Tartrate 50 mg 02/25/22 21:00 02/26/22 08:21 Metoprolol Tartrate 50 Mg Tab PO 50 mg BID BUCK Administration Ondansetron HCl 4 mg 02/25/22 13:35 Ondansetron 4 Mg/2 Ml Vial IVP Q8HR PRN Nausea And Vomiting Intake and Output 02/25/22 02/26/22 02/26/22 22:59 06:59 14:59 Intake Total 1700 800 500 Output Total 485 445 295 Balance 1215 355 205 Intake: IV 1700 800 500 Calcium Gluconate in NaCl 100 1 gm In Saline 1 100ml. bag @ 100 mls/hr IVPB ONCE ONE Rx#:[id number] Dextrose 5% in Water 1, 600 800 500 000 ml @ 100 mls/hr IV . [id number] ONE with Sodium Bicarb (1 Meq/ml) 150 ml Rx#:[id number] Sodium Chloride 0.9% 1, 1000 000 ml @ 100 mls/hr IV . Q10H [facility] Rx#:[id number] Output: Urine 485 445 295 Other: Voiding Method Indwelling Catheter Indwelling Catheter Indwelling Catheter Weight 65.771 kg 67.3 kg 67.3 kg Patient Weight 02/27/22 06:59 Weight 67.3 kg 02/26/22 06:24 02/26/22 06:24
[2022-02-26 17:37] LABS: Glucose,Whole Blood 159 mg/dL (75-99)
--- NOTE | 2022-02-26 17:44 | P.PN ---
Subjective Progress Note Date: 02/26/22 (delayed charting seen at 1330) Principal diagnosis: weakness Patient is a 71-year-old man with a history of hypertension, hyperlipidemia, COPD, CAD present for evaluation of generalized weakness. Patient was recently hospitalized here in early January for carotid endarterectomy. On arrival to the ER he was found to have DAVID, severe acidosis, and hyperkalemia. He was admitted to the ICU and started on IV fluids. Nephrology, pulmonary, and cardiology were consulted. He was noted to have elevated troponins which were flat. He had respiratory distress which resolved spontaneously. He did have hypotension which resolved with his lasix, lisinopril, and aldactone being held and fluids being administered. Imagaing: Renal/Bladder US: no hydronephrosis Patient seen and examined at bedside. He denies chest pain, SOB, nasuea. Feeling better than yesterday. Did get slightly dizzy when up in the chair. He reports that his appetite was slightly low at home when he felt as though he is eating and drinking okay. He does report that he has had difficulty swallowing large pieces of food he reports no pain but sometimes felt as though they got stuck after surgery. General: ill appearing, no distress, appears at stated age Derm: warm, dry, bruising b/l chest (improving per patient) Head: atraumatic, normocephalic, symmetric Eyes: EOMI, no lid lag, anicteric sclera Mouth: no lip lesion, mucus membranes moist Cardiovascular: S1S2 reg, no murmur, positive posterior tibial pulse bilateral, Lungs: Decreased bs bilateral, no rhonchi, no rales , no accessory muscle use Abdominal: soft, nontender to palpation, no guarding, no appreciable organomegaly Ext: no gross muscle atrophy, no edema, no contractures Neuro: CN II-XI grossly intact, no focal neuro deficits Psych: Alert, oriented, appropriate affect Assessment/plan: Acute renal failure with hyperkalemia, secondary to ATN from hypotension as well as dehydration High anion gap metabolic acidosis -Nephrology recs -IV fluids with bicarb gtt -Qureshi catheter -Hold home lasix, spironolactone, lisinopril - avoid nephrotoxic agents - follow labs dysphagia since surgery - consult speech Elevated troponin Chronic systolic CHF with most recent EF 50-55% - monitor fluid status - cardio recs - Trop flat and not consistent with ACS - metoprolol -Hold home lasix, spironolactone, lisinopril Recovering acute blood loss anemia - follow CBC - no indication for transfusion at this time - check iron studies Recent CEA Chronic: Hypertension Hyperlipidemia COPD CAD -Home medications reviewed and reconciled, and changes noted above Acute hypoxemic respiratory failure, resolved DVT prophylaxis: Heparin Discussed with: patient, nursing Anticipated discharge: 4-[address]: home A total of 35 minutes was spent on the care of this complex patient more than 50% of the time was spent in counseling and care coordination. Objective - Vital Signs Vital signs: Vital Signs Temp 98.5 F 02/26/22 16:00 Pulse 68 02/26/22 16:00 Resp 12 02/26/22 16:00 BP 87/53 02/26/22 16:00 Pulse Ox 96 02/26/22 16:00 FiO2 Intake & Output 02/25/22 02/26/22 02/26/22 18:59 06:59 18:59 Intake Total 1400 1100 1000 Output Total 235 695 580 Balance 1165 405 420 Weight 65.771 kg 67.3 kg 67.3 kg Intake: IV 1400 1100 1000 Calcium Gluconate in NaCl 100 1 gm In Saline 1 100ml. bag @ 100 mls/hr IVPB ONCE ONE Rx#:[id number] Dextrose 5% in Water 1, 300 1100 1000 000 ml @ 100 mls/hr IV . [id number] ONE with Sodium Bicarb (1 Meq/ml) 150 ml Rx#:[id number] Sodium Chloride 0.9% 1, 1000 000 ml @ 100 mls/hr IV . Q10H [facility] Rx#:[id number] Output: Urine 235 695 580 Other: Voiding Method Indwelling Catheter Indwelling Catheter Indwelling Catheter - Labs CBC & Chem 7: 02/26/22 06:24 02/26/22 06:24 Labs: Abnormal Lab Results - Last 24 Hours (Table) 02/25/22 02/25/22 02/26/22 Range/Units 18:53 23:00 00:00 RBC (4.30-5.90) m/uL Hgb (13.0-17.5) gm/dL Hct (39.0-53.0) % Neutrophils # (1.3-7.7) k/uL Sodium 136 L (137-145) mmol/L Potassium (3.5-5.1) mmol/L Chloride 109 H (98-107) mmol/L Carbon Dioxide 12 L (22-30) mmol/L BUN 115 H* (9-20) mg/dL Creatinine 7.14 H* (0.66-1.25) mg/dL Glucose 168 H (74-99) mg/dL POC Glucose (mg/dL) 174 H (75-99) mg/dL Troponin I 0.128 H* (0.000-0.034) ng/mL Total Protein (6.3-8.2) g/dL Albumin (3.5-5.0) g/dL 02/26/22 02/26/22 02/26/22 Range/Units 00:18 05:48 06:24 RBC 3.04 L (4.30-5.90) m/uL Hgb 9.7 L D (13.0-17.5) gm/dL Hct 28.3 L (39.0-53.0) % Neutrophils # 8.2 H (1.3-7.7) k/uL Sodium (137-145) mmol/L Potassium 5.5 H (3.5-5.1) mmol/L Chloride (98-107) mmol/L Carbon Dioxide (22-30) mmol/L BUN (9-20) mg/dL Creatinine (0.66-1.25) mg/dL Glucose (74-99) mg/dL POC Glucose (mg/dL) 163 H (75-99) mg/dL Troponin I (0.000-0.034) ng/mL Total Protein (6.3-8.2) g/dL Albumin (3.5-5.0) g/dL 02/26/22 02/26/22 02/26/22 Range/Units 06:24 11:13 17:35 RBC (4.30-5.90) m/uL Hgb (13.0-17.5) gm/dL Hct (39.0-53.0) % Neutrophils # (1.3-7.7) k/uL Sodium 135 L (137-145) mmol/L Potassium 5.4 H (3.5-5.1) mmol/L Chloride (98-107) mmol/L Carbon Dioxide 18 L (22-30) mmol/L BUN 105 H* (9-20) mg/dL Creatinine 5.70 H (0.66-1.25) mg/dL Glucose 155 H (74-99) mg/dL POC Glucose (mg/dL) 161 H 159 H (75-99) mg/dL Troponin I (0.000-0.034) ng/mL Total Protein 5.9 L (6.3-8.2) g/dL Albumin 3.4 L (3.5-5.0) g/dL Microbiology - Last 24 Hours (Table) 02/25/22 14:25 Blood Culture - Preliminary Blood No Growth after 24 hours 02/25/22 14:10 Blood Culture - Preliminary Blood No Growth after 24 hours
[2022-02-26] MEDS: ATORVASTATIN 40 MG TAB PO SCH (20:22)
[2022-02-26 23:57] LABS: Glucose,Whole Blood 123 mg/dL (75-99)
[2022-02-27] MEDS: DEXTROSE 5% IN WATER 1,000 ML with SODIUM BICARB (1 MEQ/ML) 150 ML IV SCH (02:27)
[2022-02-27 06:43] LABS: HCT 27.4 % (39.0-53.0); HGB 9.3 gm/dL (13.0-17.5); MCH 31.3 pg (25.0-35.0); MCHC 33.8 g/dL (31.0-37.0); MCV 92.7 fL (80.0-100.0); Mean Platelet Volume 7.5; Platelet Count 190 k/uL (150-450); RBC 2.95 m/uL (4.30-5.90); RDW 14.1 % (11.5-15.5); WBC 8.7 k/uL (3.8-10.6)
[2022-02-27 07:11] LABS: Calcium 8.1 mg/dL (8.4-10.2); Potassium 4.6 mmol/L (3.5-5.1)
[2022-02-27] MEDS: ASPIRIN 81 MG PO SCH (08:41)
[2022-02-27] MEDS: METOPROLOL TARTRATE 50 MG TAB PO SCH ×2 (08:41→21:16)
[2022-02-27] MEDS: FAMOTIDINE 20 MG TAB PO SCH (08:41)
[2022-02-27] MEDS: HEPARIN SODIUM,PORCINE/PF 5,000 UNIT/0.5 ML SYRINGE SQ SCH ×2 (08:41→21:16)
[2022-02-27] MEDS: CLOPIDOGREL 75 MG TAB PO SCH (08:41)
--- NOTE | 2022-02-27 10:13 | P.PN ---
Subjective Progress Note Date: 02/27/22 Principal diagnosis: Acute kidney injury 71-year-old male patient, presented to the emergency department because of generalized weakness and significantly abnormal blood work which includes an acute kidney injury and acute hyperkalemia and low urine output. The patient has been having diminished oral intake along with nausea and emesis and diminished appetite and he hasn't been able to tolerate any food. His blood pressure was also running low. He was maintained on a combination of medication which included BASSAM inhibitor and diuretics and Aldactone. His antihypertensive medications were modified and his lisinopril level was increased including a dosage of 30 mg and subsequently dropped down to 10 mg. Nevertheless, the patient was running a lower blood pressure on outpatient basis. No chest pain. No shortness of breath. No pleurisy. No hemoptysis. No abdominal pain. No altered mentation. He is known to have multiple medical problems and comorbidities which includes CAD, previous history of coronary stent, history of cardiomyopathy and the most recent echo cardiac exam shows a preserved LV function. The patient has an AICD in place. The patient has an abdominal aortic aneurysm measuring 4 cm in size along with hypertension, hyperlipidemia, crotid artery disease. The patient was in the hospital between 01/28/2022 and 02/01/2022 and at that time he underwent a right carotid artery endarterectomy and his course was complicated by development of some constipation and this was treated medically and the patient was discharged. On 02/03/2022, the patient came in to the hospital again for abdominal pain and distention. CAT scan of the abdomen was done and showed ileus versus small bowel obstruction. The patient ultimately recovered with conservative measures. 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 Gen. surgery and breast surgery were both consulted on the case. For now, the patient is an acute kidney injury. No fever no chills. Lactic acid level is at 1.4. Troponin is at 0.048. His sodium level is at 134 and a Cardizem 3 with a bicarb of 10 and a mild anion gap of the bullet acidosis. The BUN is at 160 with a creatinine of 10.1 and a glucose level is at 120. EKG is not showing any acute hyperkalemia changes. The white cell count is at 60 with a hemoglobin 11.9 and platelet count of 361. Chest x-ray shows no acute abnormalities. I was informed of this admission and accepted this patient to come in to the ICU with nephrology consultation. He received hyperkalemia cocktail in the emergency department the potassium level is to be monitored. He received calcium, bicarb, Kayexalate, and D50 insulin. His EKG showed no acute changes right hyperkalemia. Note that the patient had a COVID 19 infection back in Sep 2021 and he was treated with monoclonal antibodies. His current COVID 19 testing is negative and influenza screen is also negative. On 02/26/2022 patient seen in follow-up in intensive care unit, he is awake and alert, in no acute distress, he is responding appropriately, he is oriented 3, breathing comfortably, room air pulse ox is 97%, he is not on any vasopressor support, IV fluids are D5 W with 3 A of bicarbonate at a rate of 100 ML per hour. His been tolerating oral intake, no nausea vomiting or diarrhea. However his appetite has been poor per nursing staff, blood pressure is been stable, no hypotension, he is afebrile, no cough, no shortness of breath, no complaints of chest discomfort, no abdominal pain no urinary complaints. He received a dose of Rocephin in the ER for possibility of sepsis during initial presentation. He has been fluid resuscitated, his vitals have been stable, his been afebrile. These labs have been reviewed, his white count is improving and is down to 10.1, hemoglobin is 9.7, serum sodium is 135, potassium is 5.4, chloride is 105, CO2 is 18, BUN is 105, creatinine is 5.7, his AST is 21, ALT is 15, and alk phos is 91. His urinalysis showed rare bacteria, his white blood cells in the urinalysis were not significantly elevated, influenza A and B and COVID-19 were all negative. Blood cultures have been sent and pending we will also send a pro-calcitonin level. Clinical patient is feeling better, his Aldactone and Lasix and lisinopril remain on hold, nephrology is following. Qureshi catheter is in place the patient's producing 50-60 mL of clear yellow urine hourly On 02/27/2022 patient seen in follow-up in the intensive care unit. Patient is awake and alert, in no acute distress, his appetite is improving, his had no nausea or vomiting, he had one bout of diarrhea last night, but she said that his stool is a bit more solid compared to what it was before admission. Hemodynamically stable, he is in sinus mechanism, the rate is controlled, blood pressure stable, D5W with 3 A of bicarbonate is infusing at a rate of 100 ML per hour. His diuretics including Lasix, Aldactone and lisinopril remain on hold. Patient denies any difficulty breathing, lung sounds are clear to auscultation, no abdominal pain. Today's labs have been reviewed showing white blood cell count of 8.7, hemoglobin of 9.3, electrolytes are within normal limits, BUN is 85, creatinine is 2.74. Pro-calcitonin level was negative at 0.12. Objective - Vital Signs Vital signs: Vital Signs Temp 98.1 F 02/27/22 04:00 Pulse 62 02/27/22 07:00 Resp 18 02/27/22 07:00 BP 109/50 02/27/22 07:00 Pulse Ox 95 02/27/22 03:00 FiO2 Intake & Output 02/26/22 02/27/22 02/27/22 18:59 06:59 18:59 Intake Total 1300 1100 100 Output Total 680 935 60 Balance 620 165 40 Weight 67.3 kg 65.3 kg Intake: IV 1300 600 Dextrose 5% in Water 1, 1300 600 000 ml @ 100 mls/hr IV . [id number] ONE with Sodium Bicarb (1 Meq/ml) 150 ml Rx#:[id number] Intake, IV Titration 500 100 Amount Dextrose 5% in Water 1, 500 100 000 ml @ 100 mls/hr IV . [id number] BUCK with Sodium Bicarb (1 Meq/ml) 150 ml Rx#:[id number] Output: Urine 680 585 60 Stool 350 Other: Voiding Method Indwelling Catheter Indwelling Catheter Indwelling Catheter # Bowel Movements 1 - Exam GENERAL EXAM: Alert, very pleasant, 71-year-old white male on room air with a p ulse ox of 97%, comfortable in no apparent distress. HEAD: Normocephalic/atraumatic. EYES: Normal reaction of pupils, equal size. Conjunctiva pink, sclera white. NOSE: Clear with pink turbinates. THROAT: No erythema or exudates. NECK: No masses, no JVD, no thyroid enlargement, no adenopathy. CHEST: No chest wall deformity. Symmetrical expansion. LUNGS: Equal air entry with no crackles, wheeze, rhonchi or dullness. CVS: Regular rate and rhythm, normal S1 and S2, no gallops, no murmurs, no rubs ABDOMEN: Soft, nontender. No hepatosplenomegaly, normal bowel sounds, no guarding or rigidity. EXTREMITIES: No clubbing, no edema, no cyanosis, 2+ pulses and upper and lower extremities. MUSCULOSKELETAL: Muscle strength and tone normal. SPINE: No scoliosis or deformity SKIN: No rashes CENTRAL NERVOUS SYSTEM: Alert and oriented -3. No focal deficits, tone is normal in all 4 extremities. PSYCHIATRIC: Alert and oriented -3. Appropriate affect. Intact judgment and insight. - Labs CBC & Chem 7: 02/27/22 06:12 02/27/22 06:12 Labs: Abnormal Lab Results - Last 24 Hours (Table) 02/26/22 02/26/22 02/26/22 Range/Units 06:24 11:13 17:35 RBC (4.30-5.90) m/uL Hgb (13.0-17.5) gm/dL Hct (39.0-53.0) % BUN (9-20) mg/dL Creatinine (0.66-1.25) mg/dL Glucose (74-99) mg/dL POC Glucose (mg/dL) 161 H 159 H (75-99) mg/dL Calcium (8.4-10.2) mg/dL Procalcitonin 0.12 H (0.02-0.09) ng/mL 02/26/22 02/27/22 02/27/22 Range/Units 23:55 06:12 06:12 RBC 2.95 L (4.30-5.90) m/uL Hgb 9.3 L (13.0-17.5) gm/dL Hct 27.4 L (39.0-53.0) % BUN 85 H (9-20) mg/dL Creatinine 2.74 H (0.66-1.25) mg/dL Glucose 106 H (74-99) mg/dL POC Glucose (mg/dL) 123 H (75-99) mg/dL Calcium 8.1 L (8.4-10.2) mg/dL Procalcitonin (0.02-0.09) ng/mL Microbiology - Last 24 Hours (Table) 02/25/22 14:25 Blood Culture - Preliminary Blood No Growth after 24 hours 02/25/22 14:10 Blood Culture - Preliminary Blood No Growth after 24 hours Assessment and Plan Plan: Assessment: #1. Acute kidney injury, related to intravascular volume depletion, hypotension and medication effect as the patient was taken diuretics in the form of Lasix, Aldactone and lisinopril on an outpatient basis #2. Acute anion gap metabolic acidosis, improving with hydration #3. Acute hyperkalemia secondary to the above without any acute EKG changes, improving #4. Generalized weakness secondary to the above #5. Troponin leak, possibly a type II ischemia #6. Coronary artery disease with previous coronary artery stenting #7. History of systolic CHF, with most recent echocardiogram showing preserved LV function which is improved from his baseline #8. History of AICD placement for ischemic cardio myopathy #9. History of COVID-19 infection back in February 2022, recovered #10. History of abdominal aortic aneurysm measuring 4 cm #11. History of constipation with previous hospitalization for ileus/constipation #12. Hypertension #13. Hyperlipidemia #14. Recent right carotid endarterectomy Plan: Continue IV fluids per nephrology recommendations Renal function continues to improve, potassium is within normal limits Oral intake is improving Urine output is in the order of 45-70 ML per hour Diarrhea has improved, no nausea or vomiting Diuretics remain on hold, lisinopril remains on hold Pro-calcitonin level is negative No clear evidence of infection Increase activity as tolerated Stable to go out of intensive care unit today to medical surgical floor with remote telemetry for 24 hours I have personally seen and examined the patient, performed the documentation and the assessment and plan as written. Number of minutes spent on the visit: [10] Time with Patient: Less than 30
[2022-02-27 11:09] LABS: % Iron Saturation 17.76 (15.00-50.00)
[2022-02-27] MEDS: SODIUM CHLORIDE 0.9% 1,000 ML IV SCH (11:51)
[2022-02-27 11:52] LABS: Glucose,Whole Blood 131 mg/dL (75-99)
--- NOTE | 2022-02-27 11:53 | PN ---
PROGRESS NOTE This gentleman presented to the hospital with what seems to be generalized weakness, lack of energy, was found to have hyperkalemia, acute kidney injury, and was extremely dehydrated. He has history of CAD, prior stenting of circumflex and history of cardiomyopathy as well. At the time of my evaluation, he looks a lot better. He feels well. He has no chest pain or shortness of breath and his creatinine has improved to 2.74. His vitals are stable. He is doing well. Plan is to continue current medications, increase activity. He is maintaining sinus rhythm. He can be moved to the medical floor and continue his bicarb drip and hydration. He is already on a subcutaneous heparin beta alexsander. Vitals are stable. There is no JVD. S1-S2 heard normally. No significant murmurs. Lungs reveal improved air entry. Abdomen and lower extremity exam unchanged. Plan is to continue current medical regimen. Patient can be moved to medical floor. MMLEA / ESMERN: [id number] /
--- NOTE | 2022-02-27 11:57 | CA ---
Transthoracic Echo Report Name: Narendra Miguel Age: 71 Gender: M : 1950 Exam Date: 02/26/2022 13:34 Exam Location: [facility] Ht (in): 71 Wt (lb): 148 Ordering Physician: Dior Soliz MD ([id number]) Attending/Referring Phys: Wood Pattern Maker Sima Wong, DOTTIE Procedure CPT: Indications: LV function Cardiac Hx: Hx of carotid surgery and AICD, cardiac stents. Technical Quality: Technically difficult study Contrast 1: Lumason Total Dose (mL): 1 Contrast 2: Total Dose (mL): MEASUREMENTS (Male / Female) Normal Values M-MODE Aortic Root Diameter MM 3.7 cm LA Systolic Diameter MM 3.0 cm LA Ao Ratio MM 0.8 AV Cusp Separation MM 2.1 cm DOPPLER AV Peak Velocity 128.0 cm/s AV Peak Gradient 6.5 mmHg MV Area PHT 3.0 cm??? MR Peak Velocity 97.3 cm/s MR Peak Gradient 3.8 mmHg Mitral E Point Velocity 59.2 cm/s Mitral A Point Velocity 71.9 cm/s Mitral E to A Ratio 0.8 MV Deceleration Time 256.9 ms MV E' Velocity 5.8 cm/s Mitral E to MV E' Ratio 10.2 TR Peak Velocity 67.1 cm/s TR Peak Gradient 1.8 mmHg Right Ventricular Systolic Press 6.8 mmHg FINDINGS Left Ventricle Left ventricular ejection fraction is estimated at 50-55 %. Right Ventricle Right ventricle not well visualized. Right Atrium Right atrium not well visualized. Left Atrium The left atrium is normal in size. Mitral Valve There is trace mitral regurgitation. Mitral valve not well visualized. Aortic Valve There is no aortic regurgitation. Aortic valve not well visualized. Tricuspid Valve Pulmonary artery systolic pressure is normal. Pulmonic Valve There is no pulmonic regurgitation. Pulmonic valve not well visualized. Pericardium Normal pericardium without effusion. Aorta Aortic root and proximal ascending aorta not well visualized. CONCLUSIONS Left ventricular ejection fraction 50-55% Technically difficult study Trace mitral regurgitation No pericardial effusion Previewed by: Dr. Arthur Griffith DO (Electronically Signed) Final Date: 27 February 2022 11:56
--- NOTE | 2022-02-27 14:50 | PN ---
PROGRESS NOTE Patient is seen for followup for acute kidney injury severe metabolic acidosis. The patient has been maintained on IV bicarb with significant improvement in his chemistry profile. Renal function has also been improving. Urine output has been 50-70 mL an hour. Overall patient states he is feeling much better. He is tolerating oral intake. PHYSICAL EXAMINATION: On examination today, blood pressure 109/50, heart rate 62 per minute. He is afebrile. Examination of the heart S1, S2. Examination of the lungs, bilateral breath sounds are heard. Abdomen is soft, nontender. Examination of lower extremities shows no significant edema. 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 LAB: Show sodium 140, potassium 4.6, chloride 101, CO2 is 29, BUN 85, creatinine 2.7, hemoglobin 9.3 g/dL. ASSESSMENT: 1. Acute kidney injury, prerenal, associated with severe hypotension, hypovolemia, currently improving. No evidence of obstruction on ultrasound. 2. Severe hyperkalemia associated with acute kidney injury, metabolic acidosis and use of BASSAM inhibitors prior to admission, currently improved. 3. Anion gap metabolic acidosis associated with acute kidney injury currently improved. 4. Severe hypotension, hypovolemia, now resolved. 5. Recent right carotid endarterectomy. PLAN: Discontinue bicarb drip. Change to normal saline. Repeat labs in a.m. Continue to avoid nephrotoxic agents. MMODL / IJN: [id number] /
--- NOTE | 2022-02-27 16:14 | P.PN ---
Subjective Progress Note Date: 02/27/22 (delayed charting seen at 1430) Principal diagnosis: weakness Patient is a 71-year-old man with a history of hypertension, hyperlipidemia, COPD, CAD present for evaluation of generalized weakness. Patient was recently hospitalized here in early January for carotid endarterectomy. On arrival to the ER he was found to have DAVID, severe acidosis, and hyperkalemia. He was admitted to the ICU and started on IV fluids. Nephrology, pulmonary, and cardiology were consulted. He was noted to have elevated troponins which were flat. He had respiratory distress which resolved spontaneously. He did have hypotension which resolved with his lasix, lisinopril, and aldactone being held and fluids being administered. Imaging: Renal ultrasound-no evidence of obstructive uropathy Echocardiogram-ejection fraction 50-55% Patient seen and examined at bedside. Feeling better, still with low appetite per patient, no chest pain, no shortness of breath, no nausea. General: non toxic, no distress, appears at stated age Derm: warm, dry, bruising b/l chest (improving per patient) Head: atraumatic, normocephalic, symmetric Eyes: EOMI, no lid lag, anicteric sclera Mouth: no lip lesion, mucus membranes moist Cardiovascular: S1S2 reg, no murmur, positive posterior tibial pulse bilateral, Lungs: Decreased bs bilateral, no rhonchi, no rales , no accessory muscle use Abdominal: soft, nontender to palpation, no guarding, no appreciable organomegaly Ext: no gross muscle atrophy, no edema, no contractures Neuro: CN II-XI grossly intact, no focal neuro deficits Psych: Alert, oriented, appropriate affect Assessment/plan: Acute renal failure with hyperkalemia, secondary to ATN from hypotension as well as dehydration High anion gap metabolic acidosis -Nephrology recs -Ioff bicarb and started on NS -Qureshi catheter -Hold home lasix, spironolactone, lisinopril - avoid nephrotoxic agents - follow labs dysphagia since surgery - per speech no oral pharyngeal dysphagia but concerns of esophageal dysmotality - consult surgery for possible EGD Elevated troponin Chronic systolic CHF with most recent EF 50-55% - monitor fluid status - cardio recs - Trop flat and not consistent with ACS - metoprolol -Hold home lasix, spironolactone, lisinopril Recovering acute blood loss anemia - follow CBC - no indication for transfusion at this time - Iron studies without significant iron deficiency Recent CEA Chronic: Hypertension Hyperlipidemia COPD CAD -Home medications reviewed and reconciled, and changes noted above Acute hypoxemic respiratory failure, resolved DVT prophylaxis: Heparin Discussed with: patient, nursing Anticipated discharge: 2-[address]: home A total of 35 minutes was spent on the care of this complex patient more than 50% of the time was spent in counseling and care coordination. Objective - Vital Signs Vital signs: Vital Signs Temp 98.1 F 02/27/22 04:00 Pulse 62 02/27/22 07:00 Resp 18 02/27/22 07:00 BP 109/50 02/27/22 07:00 Pulse Ox 95 02/27/22 03:00 FiO2 Intake & Output 02/26/22 02/27/22 02/27/22 18:59 06:59 18:59 Intake Total 1300 1100 100 Output Total 680 935 60 Balance 620 165 40 Weight 67.3 kg 65.3 kg Intake: IV 1300 600 Dextrose 5% in Water 1, 1300 600 000 ml @ 100 mls/hr IV . [id number] ONE with Sodium Bicarb (1 Meq/ml) 150 ml Rx#:[id number] Intake, IV Titration 500 100 Amount Dextrose 5% in Water 1, 500 100 000 ml @ 100 mls/hr IV . [id number] BUCK with Sodium Bicarb (1 Meq/ml) 150 ml Rx#:[id number] Output: Urine 680 585 60 Stool 350 Other: Voiding Method Indwelling Catheter Indwelling Catheter Indwelling Catheter # Bowel Movements 1 - Labs CBC & Chem 7: 02/27/22 06:12 02/27/22 06:12 Labs: Abnormal Lab Results - Last 24 Hours (Table) 02/26/22 02/26/22 02/26/22 Range/Units 06:24 17:35 23:55 RBC (4.30-5.90) m/uL Hgb (13.0-17.5) gm/dL Hct (39.0-53.0) % BUN (9-20) mg/dL Creatinine (0.66-1.25) mg/dL Glucose (74-99) mg/dL POC Glucose (mg/dL) 159 H 123 H (75-99) mg/dL Calcium (8.4-10.2) mg/dL Iron (65-175) ug/dL TIBC (228-460) ug/dL Transferrin (204.0-354.0) mg/dL Ferritin (22.0-322.0) ng/mL Procalcitonin 0.12 H (0.02-0.09) ng/mL 02/27/22 02/27/22 02/27/22 Range/Units 06:12 06:12 11:51 RBC 2.95 L (4.30-5.90) m/uL Hgb 9.3 L (13.0-17.5) gm/dL Hct 27.4 L (39.0-53.0) % BUN 85 H (9-20) mg/dL Creatinine 2.74 H (0.66-1.25) mg/dL Glucose 106 H (74-99) mg/dL POC Glucose (mg/dL) 131 H (75-99) mg/dL Calcium 8.1 L (8.4-10.2) mg/dL Iron 37 L (65-175) ug/dL TIBC 210 L (228-460) ug/dL Transferrin 150.0 L (204.0-354.0) mg/dL Ferritin 491.0 H (22.0-322.0) ng/mL Procalcitonin (0.02-0.09) ng/mL Microbiology - Last 24 Hours (Table) 02/25/22 14:25 Blood Culture - Preliminary Blood No Growth after 24 hours 02/25/22 14:10 Blood Culture - Preliminary Blood No Growth after 24 hours
[2022-02-27 17:37] LABS: Glucose,Whole Blood 140 mg/dL (75-99)
[2022-02-27] MEDS: ATORVASTATIN 40 MG TAB PO SCH (21:16)
[2022-02-28] MEDS: SODIUM CHLORIDE 0.9% 1,000 ML IV SCH ×2 (03:44→15:56)
[2022-02-28 06:56] LABS: Basophils % (A) 0 %; Eosinophils # (A) 0.2 k/uL (0-0.7); Eosinophils % (A) 4 %; HCT 25.4 % (39.0-53.0); HGB 8.3 gm/dL (13.0-17.5); Lymphocytes # (A) 1.3 k/uL (1.0-4.8); Lymphocytes % (A) 22 %; MCH 31.1 pg (25.0-35.0); MCHC 32.7 g/dL (31.0-37.0); MCV 94.9 fL (80.0-100.0); Mean Platelet Volume 7.6; Monocytes # (A) 0.3 k/uL (0-1.0); Monocytes % (A) 5 %; Neutrophils % (A) 67 %; Platelet Count 173 k/uL (150-450); RBC 2.68 m/uL (4.30-5.90); RDW 13.4 % (11.5-15.5)
[2022-02-28 07:21] LABS: Calcium 7.7 mg/dL (8.4-10.2); Potassium 4.1 mmol/L (3.5-5.1); Total Bilirubin 0.3 mg/dL (0.2-1.3); Total Protein 5.3 g/dL (6.3-8.2)
[2022-02-28] MEDS: ASPIRIN 81 MG PO SCH (08:41)
[2022-02-28] MEDS: FAMOTIDINE 20 MG TAB PO SCH (08:41)
[2022-02-28] MEDS: METOPROLOL TARTRATE 25 MG TAB PO SCH ×2 (08:41→20:32)
[2022-02-28] MEDS: HEPARIN SODIUM,PORCINE/PF 5,000 UNIT/0.5 ML SYRINGE SQ SCH (08:41)
[2022-02-28] MEDS: CLOPIDOGREL 75 MG TAB PO SCH (08:41)
--- NOTE | 2022-02-28 10:05 | P.PN ---
Subjective Progress Note Date: 02/28/22 Principal diagnosis: Acute kidney injury 71-year-old male patient, presented to the emergency department because of generalized weakness and significantly abnormal blood work which includes an acute kidney injury and acute hyperkalemia and low urine output. The patient has been having diminished oral intake along with nausea and emesis and diminished appetite and he hasn't been able to tolerate any food. His blood pressure was also running low. He was maintained on a combination of medication which included BASSAM inhibitor and diuretics and Aldactone. His antihypertensive medications were modified and his lisinopril level was increased including a dosage of 30 mg and subsequently dropped down to 10 mg. Nevertheless, the patient was running a lower blood pressure on outpatient basis. No chest pain. No shortness of breath. No pleurisy. No hemoptysis. No abdominal pain. No altered mentation. He is known to have multiple medical problems and comorbidities which includes CAD, previous history of coronary stent, history of cardiomyopathy and the most recent echo cardiac exam shows a preserved LV function. The patient has an AICD in place. The patient has an abdominal aortic aneurysm measuring 4 cm in size along with hypertension, hyperlipidemia, crotid artery disease. The patient was in the hospital between 01/28/2022 and 02/01/2022 and at that time he underwent a right carotid artery endarterectomy and his course was complicated by development of some constipation and this was treated medically and the patient was discharged. On 02/03/2022, the patient came in to the hospital again for abdominal pain and distention. CAT scan of the abdomen was done and showed ileus versus small bowel obstruction. The patient ultimately recovered with conservative measures. This mill turner to be an ileus. Gen. surgery and breast surgery were both consulted on the case. For now, the patient is an acute kidney injury. No fever no chills. Lactic acid level is at 1.4. Troponin is at 0.048. His sodium level is at 134 and a Cardizem 3 with a bicarb of 10 and a mild anion gap of the bullet acidosis. The BUN is at 160 with a creatinine of 10.1 and a glucose level is at 120. EKG is not showing any acute hyperkalemia changes. The white cell count is at 60 with a hemoglobin 11.9 and platelet count of 361. Chest x-ray shows no acute abnormalities. I was informed of this admission and accepted this patient to come in to the ICU with nephrology consultation. He received hyperkalemia cocktail in the emergency department the potassium level is to be monitored. He received calcium, bicarb, Kayexalate, and D50 insulin. His EKG showed no acute changes right hyperkalemia. Note that the patient had a COVID 19 infection back in Sep 2021 and he was treated with monoclonal antibodies. His current COVID 19 testing is negative and influenza screen is also negative. On 02/26/2022 patient seen in follow-up in intensive care unit, he is awake and alert, in no acute distress, he is responding appropriately, he is oriented 3, breathing comfortably, room air pulse ox is 97%, he is not on any vasopressor support, IV fluids are D5 W with 3 A of bicarbonate at a rate of 100 ML per hour. His been tolerating oral intake, no nausea vomiting or diarrhea. However his appetite has been poor per nursing staff, blood pressure is been stable, no hypotension, he is afebrile, no cough, no shortness of breath, no complaints of chest discomfort, no abdominal pain no urinary complaints. He received a dose of Rocephin in the ER for possibility of sepsis during initial presentation. He has been fluid resuscitated, his vitals have been stable, his been afebrile. These labs have been reviewed, his white count is improving and is down to 10.1, hemoglobin is 9.7, serum sodium is 135, potassium is 5.4, chloride is 105, CO2 is 18, BUN is 105, creatinine is 5.7, his AST is 21, ALT is 15, and alk phos is 91. His urinalysis showed rare bacteria, his white blood cells in the urinalysis were not significantly elevated, influenza A and B and COVID-19 were all negative. Blood cultures have been sent and pending we will also send a pro-calcitonin level. Clinical patient is feeling better, his Aldactone and Lasix and lisinopril remain on hold, nephrology is following. Qureshi catheter is in place the patient's producing 50-60 mL of clear yellow urine hourly On 02/27/2022 patient seen in follow-up in the intensive care unit. Patient is awake and alert, in no acute distress, his appetite is improving, his had no nausea or vomiting, he had one bout of diarrhea last night, but she said that his stool is a bit more solid compared to what it was before admission. Hemodynamically stable, he is in sinus mechanism, the rate is controlled, blood pressure stable, D5W with 3 A of bicarbonate is infusing at a rate of 100 ML per hour. His diuretics including Lasix, Aldactone and lisinopril remain on hold. Patient denies any difficulty breathing, lung sounds are clear to auscultation, no abdominal pain. Today's labs have been reviewed showing white blood cell count of 8.7, hemoglobin of 9.3, electrolytes are within normal limits, BUN is 85, creatinine is 2.74. Pro-calcitonin level was negative at 0.12. On 02/28/2022 patient seen in follow-up in the intensive care unit, he is awake and alert, in no acute distress, breathing comfortable, room air pulse ox is 96%, vital signs are stable, bicarbonate infusion has been discontinued, patient is on point and wheezing. 75 ML per hour, his appetite is improving, he had 2 episodes of loose stools yesterday, no vomiting, no nausea no abdominal pain. Qureshi catheter has been removed, patient has been voiding, today's labs have been reviewed showing continued improvement in his renal function, BUN is down to 55, creatinine is 1.65, CO2 31, sodium is 142, potassium is 4.1, white count was 6.0, and hemoglobin is 8.3. Patient has been up out of bed and sitting up in the chair, tolerated activity well. Blood cultures have been negative. Objective - Vital Signs Vital signs: Vital Signs Temp 97.7 F 02/28/22 08:00 Pulse 65 02/28/22 08:00 Resp 11 L 02/28/22 08:00 BP 158/72 02/28/22 08:00 Pulse Ox 96 02/28/22 08:00 FiO2 Intake & Output 02/27/22 02/28/22 02/28/22 18:59 06:59 18:59 Intake Total 1025 525 Output Total 61 Balance 964 525 Intake: Intake, IV Titration 625 525 Amount Dextrose 5% in Water 1, 100 000 ml @ 100 mls/hr IV . [id number] BUCK with Sodium Bicarb (1 Meq/ml) 150 ml Rx#:[id number] Sodium Chloride 0.9% 1, 525 525 000 ml @ 75 mls/hr IV . [id number] COUNT INCLUDES THE [facility] Rx#:[id number] Oral 400 Output: Urine 60 Urine/Stool Mix 1 Other: Voiding Method Indwelling Catheter Indwelling Catheter Toilet # Voids 2 # Bowel Movements 1 - Exam GENERAL EXAM: Alert, very pleasant, 71-year-old white male on room air with a pulse ox of 97%, comfortable in no apparent distress. HEAD: Normocephalic/atraumatic. EYES: Normal reaction of pupils, equal size. Conjunctiva pink, sclera white. NOSE: Clear with pink turbinates. THROAT: No erythema or exudates. NECK: No masses, no JVD, no thyroid enlargement, no adenopathy. CHEST: No chest wall deformity. Symmetrical expansion. LUNGS: Equal air entry with no crackles, wheeze, rhonchi or dullness. CVS: Regular rate and rhythm, normal S1 and S2, no gallops, no murmurs, no rubs ABDOMEN: Soft, nontender. No hepatosplenomegaly, normal bowel sounds, no guarding or rigidity. EXTREMITIES: No clubbing, no edema, no cyanosis, 2+ pulses and upper and lower extremities. MUSCULOSKELETAL: Muscle strength and tone normal. SPINE: No scoliosis or deformity SKIN: No rashes CENTRAL NERVOUS SYSTEM: Alert and oriented -3. No focal deficits, tone is normal in all 4 extremities. PSYCHIATRIC: Alert and oriented -3. Appropriate affect. Intact judgment and insight. - Labs CBC & Chem 7: 02/28/22 06:39 02/28/22 06:39 Labs: Abnormal Lab Results - Last 24 Hours (Table) 02/27/22 02/27/22 02/27/22 Range/Units 06:12 11:51 17:35 RBC (4.30-5.90) m/uL Hgb (13.0-17.5) gm/dL Hct (39.0-53.0) % Carbon Dioxide (22-30) mmol/L BUN (9-20) mg/dL Creatinine (0.66-1.25) mg/dL POC Glucose (mg/dL) 131 H 140 H (75-99) mg/dL Calcium (8.4-10.2) mg/dL Iron 37 L (65-175) ug/dL TIBC 210 L (228-460) ug/dL Transferrin 150.0 L (204.0-354.0) mg/dL Ferritin 491.0 H (22.0-322.0) ng/mL Total Protein (6.3-8.2) g/dL Albumin (3.5-5.0) g/dL 02/28/22 02/28/22 Range/Units 06:39 06:39 RBC 2.68 L (4.30-5.90) m/uL Hgb 8.3 L (13.0-17.5) gm/dL Hct 25.4 L (39.0-53.0) % Carbon Dioxide 31 H (22-30) mmol/L BUN 55 H (9-20) mg/dL Creatinine 1.65 H (0.66-1.25) mg/dL POC Glucose (mg/dL) (75-99) mg/dL Calcium 7.7 L (8.4-10.2) mg/dL Iron (65-175) ug/dL TIBC (228-460) ug/dL Transferrin (204.0-354.0) mg/dL Ferritin (22.0-322.0) ng/mL Total Protein 5.3 L (6.3-8.2) g/dL Albumin 3.0 L (3.5-5.0) g/dL Microbiology - Last 24 Hours (Table) 02/25/22 14:25 Blood Culture - Preliminary Blood No Growth after 48 hours 02/25/22 14:10 Blood Culture - Preliminary Blood No Growth after 48 hours Assessment and Plan Plan: Assessment: #1. Acute kidney injury, related to intravascular volume depletion, hypotension and medication effect as the patient was taken diuretics in the form of Lasix, Aldactone and lisinopril on an outpatient basis #2. Acute anion gap metabolic acidosis, improving with hydration #3. Acute hyperkalemia secondary to the above without any acute EKG changes, resolved #4. Generalized weakness secondary to the above #5. Troponin leak, possibly a type II ischemia #6. Coronary artery disease with previous coronary artery stenting #7. History of systolic CHF, with most recent echocardiogram showing preserved LV function which is improved from his baseline #8. History of AICD placement for ischemic cardio myopathy #9. History of COVID-19 infection back in February 2022, recovered #10. History of abdominal aortic aneurysm measuring 4 cm #11. History of constipation with previous hospitalization for ileus/constipation #12. Hypertension #13. Hyperlipidemia #14. Recent right carotid endarterectomy Plan: Renal function continues to improve, Continue with IV hydration per nephrology recommendations Patient is tolerating oral intake Qureshi has been discontinued, patient is voiding Stable to out of intensive care unit today to medical surgical floor I have personally seen and examined the patient, performed the documentation and the assessment and plan as written. Number of minutes spent on the visit: [10] Time with Patient: Less than 30
--- NOTE | 2022-02-28 10:46 | P.PN ---
Subjective Patient is seen for follow-up for acute kidney injury mostly prerenal and improvement IV hydration. Patient is eating. He states he is feeling quite well. Serum creatinine is down to 1.65. Good urine output Patient is maintained on saline at 75 mL an hour Objective - Vital Signs Vital signs: Vital Signs Temp 97.7 F 02/28/22 08:00 Pulse 65 02/28/22 08:00 Resp 11 L 02/28/22 08:00 BP 158/72 02/28/22 08:00 Pulse Ox 96 02/28/22 08:00 FiO2 Intake & Output 02/27/22 02/28/22 02/28/22 18:59 06:59 18:59 Intake Total 1025 525 Output Total 61 Balance 964 525 Intake: Intake, IV Titration 625 525 Amount Dextrose 5% in Water 1, 100 000 ml @ 100 mls/hr IV . [id number] BUCK with Sodium Bicarb (1 Meq/ml) 150 ml Rx#:[id number] Sodium Chloride 0.9% 1, 525 525 000 ml @ 75 mls/hr IV . [id number] BUCK Rx#:[id number] Oral 400 Output: Urine 60 Urine/Stool Mix 1 Other: Voiding Method Indwelling Catheter Indwelling Catheter Toilet # Voids 2 # Bowel Movements 1 - Exam Awake, comfortable, not in any acute distress Alert oriented 3 Examination of the heart S1 and S2 Examination lungs bilateral breath sounds are heard Abdomen is soft nontender Examination lower extremities shows no evidence of edema FIRE RANGER exam grossly intact - Labs CBC & Chem 7: 02/28/22 06:39 02/28/22 06:39 Labs: Abnormal Lab Results - Last 24 Hours (Table) 02/27/22 02/27/22 02/27/22 Range/Units 06:12 11:51 17:35 RBC (4.30-5.90) m/uL Hgb (13.0-17.5) gm/dL Hct (39.0-53.0) % Carbon Dioxide (22-30) mmol/L BUN (9-20) mg/dL Creatinine (0.66-1.25) mg/dL POC Glucose (mg/dL) 131 H 140 H (75-99) mg/dL Calcium (8.4-10.2) mg/dL Iron 37 L (65-175) ug/dL TIBC 210 L (228-460) ug/dL Transferrin 150.0 L (204.0-354.0) mg/dL Ferritin 491.0 H (22.0-322.0) ng/mL Total Protein (6.3-8.2) g/dL Albumin (3.5-5.0) g/dL 02/28/22 02/28/22 Range/Units 06:39 06:39 RBC 2.68 L (4.30-5.90) m/uL Hgb 8.3 L (13.0-17.5) gm/dL Hct 25.4 L (39.0-53.0) % Carbon Dioxide 31 H (22-30) mmol/L BUN 55 H (9-20) mg/dL Creatinine 1.65 H (0.66-1.25) mg/dL POC Glucose (mg/dL) (75-99) mg/dL Calcium 7.7 L (8.4-10.2) mg/dL Iron (65-175) ug/dL TIBC (228-460) ug/dL Transferrin (204.0-354.0) mg/dL Ferritin (22.0-322.0) ng/mL Total Protein 5.3 L (6.3-8.2) g/dL Albumin 3.0 L (3.5-5.0) g/dL Microbiology - Last 24 Hours (Table) 02/25/22 14:25 Blood Culture - Preliminary Blood No Growth after 48 hours 02/25/22 14:10 Blood Culture - Preliminary Blood No Growth after 48 hours Assessment and Plan Assessment: 1. Acute kidney injury prerenal associated with severe hypotension and hypovolemia. Currently nonoliguric and improving with IV hydration. Ultrasound shows no evidence of hydronephrosis. UA shows 1+ protein and moderate blood 2. Severe hyperkalemia associated with acute kidney injury and metabolic acidosis as well as use of manav inhibitors prior to admission. Currently improved 3. Anion gap metabolic acidosis associated with acute kidney injury. Lactic acid was not checked. Acidosis currently improved. Patient is status post bicarb drip 4. Severe hypotension, hypovolemia currently improved 5. Coronary artery disease with previous history of coronary artery stenting 6. Recent right carotid endarterectomy with bruising in the upper chest area Plan: Continue to encourage increase oral intake Okay for discharge from nephrology standpoint and follow-up in the office in about 1-2 weeks'. Patient is advised to continue to avoid use of NSAIDs post discharge and check labs in about 3-4 days post discharge
--- NOTE | 2022-02-28 11:26 | P.PN ---
Subjective Progress Note Date: 02/28/22 Principal diagnosis: weakness Patient is a 71-year-old man with a history of hypertension, hyperlipidemia, COPD, CAD present for evaluation of generalized weakness. Patient was recently hospitalized here in early January for carotid endarterectomy. On arrival to the ER he was found to have DAVID, severe acidosis, and hyperkalemia. He was admitted to the ICU and started on IV fluids. Nephrology, pulmonary, and cardiology were consulted. He was noted to have elevated troponins which were flat. He had respiratory distress which resolved spontaneously. He did have hypotension which resolved with his lasix, lisinopril, and aldactone being held and fluids being administered. He continued to improve but complained of some difficult swallow. Imaging: Renal ultrasound-no evidence of obstructive uropathy Echocardiogram-ejection fraction 50-55% Patient seen and examined at bedside. No pain, still had an aversion to food, now unsure if he has some sticking in his throat but only ate 3 bites of chicken last night. General: non toxic, no distress, appears at stated age Derm: warm, dry, bruising b/l chest (improving per patient) Head: atraumatic, normocephalic, symmetric Eyes: EOMI, no lid lag, anicteric sclera Mouth: no lip lesion, mucus membranes moist Cardiovascular: S1S2 reg, no murmur, positive posterior tibial pulse bilateral, Lungs: Decreased bs bilateral, no rhonchi, no rales , no accessory muscle use Abdominal: soft, nontender to palpation, no guarding, no appreciable organomegaly Ext: no gross muscle atrophy, no edema, no contractures Neuro: CN II-XI grossly intact, no focal neuro deficits Psych: Alert, oriented, appropriate affect Assessment/plan: Acute renal failure with hyperkalemia, secondary to ATN from hypotension as well as dehydration High anion gap metabolic acidosis -Nephrology recs -Hold home lasix, spironolactone -follow BP today and if stable then resume lisinopril - avoid nephrotoxic agents - follow labs dysphagia since surgery - per speech no oral pharyngeal dysphagia but concerns of esophageal dysmotality - Await surgery recs Elevated troponin Chronic systolic CHF with most recent EF 50-55% - monitor fluid status - cardio recs - Trop flat and not consistent with ACS - metoprolol -Hold home lasix, spironolactone, lisinopril Recovering acute blood loss anemia - follow CBC - no indication for transfusion at this time - Iron studies without significant iron deficiency Recent CEA Chronic: Hypertension Hyperlipidemia COPD CAD -Home medications reviewed and reconciled, and changes noted above Acute hypoxemic respiratory failure, resolved DVT prophylaxis: Heparin Discussed with: patient, nursing Anticipated discharge in AM Anticipated discharge place: home A total of 35 minutes was spent on the care of this complex patient more than 50% of the time was spent in counseling and care coordination. Objective - Vital Signs Vital signs: Vital Signs Temp 97.7 F 02/28/22 08:00 Pulse 65 02/28/22 08:00 Resp 11 L 02/28/22 08:00 BP 158/72 02/28/22 08:00 Pulse Ox 96 02/28/22 08:00 FiO2 Intake & Output 02/27/22 02/28/22 02/28/22 18:59 06:59 18:59 Intake Total 1025 525 Output Total 61 Balance 964 525 Intake: Intake, IV Titration 625 525 Amount Dextrose 5% in Water 1, 100 000 ml @ 100 mls/hr IV . [id number] BUCK with Sodium Bicarb (1 Meq/ml) 150 ml Rx#:[id number] Sodium Chloride 0.9% 1, 525 525 000 ml @ 75 mls/hr IV . [id number] BUCK Rx#:[id number] Oral 400 Output: Urine 60 Urine/Stool Mix 1 Other: Voiding Method Indwelling Catheter Indwelling Catheter Toilet # Voids 2 # Bowel Movements 1 - Labs CBC & Chem 7: 02/28/22 06:39 02/28/22 06:39 Labs: Abnormal Lab Results - Last 24 Hours (Table) 02/27/22 02/27/22 02/28/22 Range/Units 11:51 17:35 06:39 RBC 2.68 L (4.30-5.90) m/uL Hgb 8.3 L (13.0-17.5) gm/dL Hct 25.4 L (39.0-53.0) % Carbon Dioxide (22-30) mmol/L BUN (9-20) mg/dL Creatinine (0.66-1.25) mg/dL POC Glucose (mg/dL) 131 H 140 H (75-99) mg/dL Calcium (8.4-10.2) mg/dL Total Protein (6.3-8.2) g/dL Albumin (3.5-5.0) g/dL 02/28/22 Range/Units 06:39 RBC (4.30-5.90) m/uL Hgb (13.0-17.5) gm/dL Hct (39.0-53.0) % Carbon Dioxide 31 H (22-30) mmol/L BUN 55 H (9-20) mg/dL Creatinine 1.65 H (0.66-1.25) mg/dL POC Glucose (mg/dL) (75-99) mg/dL Calcium 7.7 L (8.4-10.2) mg/dL Total Protein 5.3 L (6.3-8.2) g/dL Albumin 3.0 L (3.5-5.0) g/dL Microbiology - Last 24 Hours (Table) 02/25/22 14:25 Blood Culture - Preliminary Blood No Growth after 48 hours 02/25/22 14:10 Blood Culture - Preliminary Blood No Growth after 48 hours
[2022-02-28 11:31] LABS: Glucose,Whole Blood 122 mg/dL (75-99)
--- NOTE | 2022-02-28 11:45 | P.GSCN ---
History of Present Illness Consult date: 02/28/22 History of present illness: CHIEF COMPLAINT: Weakness HISTORY OF PRESENT ILLNESS: This is a 71-year-old female with a recent carotid endarterectomy in January 2022. He presents to hospital with complaint of weakness with nausea, vomiting and diarrhea. Patient was also hypotensive and had evidence of acute kidney injury and hyperkalemia. He required admission to the ICU. He is followed by critical care service and nephrology. Patient is not in eating well. There was concerns for possible some dysphagia. At one point patient reported that the solid foods had been sticking when he tried to swallow. Patient was seen by speech therapy and they reported oral and pharyngeal phases of swallow are within normal limits. No overt signs or symptoms of aspiration. Patient had reported sensation of food textures sticking and mid chest clearing with liquid wash. Suspect esophageal dysphagia recommend esophagram and/or EGD for assessment of structure and motility. Patient remains in the ICU. At this time he denies any difficulty with swallowing. He reports that he does not like the taste of the food. He reports reports that he was able to eat a few bites of the chicken when he cut it very small. Patient denies any abdominal pain. He's had no further nausea or vomiting. Denies any coughing while eating. Note that patient is on Plavix. He does report loose bowel movements this morning. Patient denies any prior EGD. PAST MEDICAL HISTORY: See list. PAST SURGICAL HISTORY: See list. MEDICATIONS: See list. ALLERGIES: See list. SOCIAL HISTORY: No illicit drug use. REVIEW OF SYSTEMS: CONSTITUTIONAL: Denies fever or chills. HEENT: Denies blurred vision, vision changes, or eye pain. Denies hemoptysis CARDIOVASCULAR: Denies chest pain or pressure. RESPIRATORY: No shortness of breath. GASTROINTESTINAL: See HPI for pertinent findings HEMATOLOGIC: Denies bleeding disorders. GENITOURINARY: Denies any blood in urine or increased urinary frequency. SKIN: Denies pruitis. Denies rash. PHYSICAL EXAM: VITAL SIGNS: Reviewed GENERAL: Well-developed in no acute distress. HEENT: No sclera icterus. Extraocular movements grossly intact. Moist buccal mucosa. Head is atraumatic, normocephalic. No nasal drainage. ABDOMEN: Soft. Nondistended. Nontender NEUROLOGIC: Alert and oriented. Cranial nerves II through XII grossly intact. LABORATORY DATA: WBC 6.0 hemoglobin trending downwards. 11.9 at admission is now 8.3 platelets 173 Sodium 142 potassium 7.8 down to 4.1 creatinine 10-1.65 IMAGING: ASSESSMENT: 1. Dysphagia 2. Acute kidney injury with hypotension and dehydration 3. Hyperkalemia 4. Recent right carotid endarterectomy 5. Nausea, vomiting and diarrhea improved PLAN: -Esophagram ordered for further evaluation of patient's dysphagia -Further recommendations forthcoming per surgeon -Continue supportive care thank you for this consultation Physician Sales Lead Generator note has been reviewed by physician. Signing provider agrees with the documented findings, assessment, and plan of care. I have personally seen and examined the patient, reviewed the GARBAGE MAN /PAs history, exam and MDM and agree with the assessment and plan as written. Based on total visit time, I have performed more than 50% of the visit. As above: Patient known to our service. He has mild dysphagia symptoms. Upper GI noted. We'll proceed with EGD tomorrow. Past Medical History Past Medical History: Coronary Artery Disease (CAD), COPD, Hypertension, Myocardial Infarction (LA) Additional Past Medical History / Comment(s): hx covid 10/14/21-states received infusion., AAA., AICD., pain in legs with walking. Last Myocardial Infarction Date:: UNKNOWN History of Any Multi-Drug Resistant Organisms: None Reported Past Surgical History: Back Surgery, Heart Catheterization With Stent Additional Past Surgical History / Comment(s): [id number] (1972)., AICD - (12/06/20 [employer])., HEART CATH WITH 3 STENTS (10/08/20)., CATARACTS Past Anesthesia/Blood Transfusion Reactions: No Reported Reaction Date of Last Stent Placement:: 10/08/2020 Type of Cardiac Device: Permanent Pacemaker Device Placement Date:: 12/06/2020 Past Psychological History: No Psychological Hx Reported Smoking Status: Former smoker Past Alcohol Use History: Occasional Past Drug Use History: None Reported - Past Family History Father History Unknown: Yes Family Medical History: No Reported History Medications and Allergies Home Medications Medication Instructions Recorded Confirmed Type Aspirin 81 mg PO DAILY #30 chew 10/10/20 02/25/22 Rx Clopidogrel [Plavix] 75 mg PO DAILY #30 tab 10/10/20 02/25/22 Rx Spironolactone [Aldactone] 25 mg PO DAILY #30 tab 10/10/20 02/25/22 Rx Albuterol Sulfate [Albuterol 2 puff PO RT-Q6H PRN 01/25/22 02/25/22 History Sulfate Hfa] Atorvastatin [Lipitor] 40 mg PO HS 01/25/22 02/25/22 History Furosemide [Lasix] 20 mg PO DAILY 01/25/22 02/25/22 History lisinopriL [Zestril] 30 mg PO DAILY 30 Days #90 tab 02/01/22 02/25/22 Rx Metoprolol Tartrate [Lopressor] 50 mg PO BID 30 Days #60 tab 02/06/22 02/25/22 Rx Allergies Allergy/AdvReac Type Severity Reaction Status Date / Time ampicillin Allergy Unknown turned Verified 02/25/22 13:48 pink, trouble breathing Penicillins Allergy turned Verified 02/25/22 13:48 pink, trouble breathing Surgical - Exam Vital Signs Temp Pulse Resp BP Pulse Ox 98 F 58 L 18 64/42 87 L 02/25/22 11:50 02/25/22 11:50 02/25/22 11:50 02/25/22 11:50 02/25/22 11:50 Results - Labs 02/28/22 06:39 02/28/22 06:39 Abnormal Lab Results - Last 24 Hours (Table) 02/27/22 02/27/22 02/27/22 Range/Units 06:12 11:51 17:35 RBC (4.30-5.90) m/uL Hgb (13.0-17.5) gm/dL Hct (39.0-53.0) % Carbon Dioxide (22-30) mmol/L BUN (9-20) mg/dL Creatinine (0.66-1.25) mg/dL POC Glucose (mg/dL) 131 H 140 H (75-99) mg/dL Calcium (8.4-10.2) mg/dL Iron 37 L (65-175) ug/dL TIBC 210 L (228-460) ug/dL Transferrin 150.0 L (204.0-354.0) mg/dL Ferritin 491.0 H (22.0-322.0) ng/mL Total Protein (6.3-8.2) g/dL Albumin (3.5-5.0) g/dL 02/28/22 02/28/22 Range/Units 06:39 06:39 RBC 2.68 L (4.30-5.90) m/uL Hgb 8.3 L (13.0-17.5) gm/dL Hct 25.4 L (39.0-53.0) % Carbon Dioxide 31 H (22-30) mmol/L BUN 55 H (9-20) mg/dL Creatinine 1.65 H (0.66-1.25) mg/dL POC Glucose (mg/dL) (75-99) mg/dL Calcium 7.7 L (8.4-10.2) mg/dL Iron (65-175) ug/dL TIBC (228-460) ug/dL Transferrin (204.0-354.0) mg/dL Ferritin (22.0-322.0) ng/mL Total Protein 5.3 L (6.3-8.2) g/dL Albumin 3.0 L (3.5-5.0) g/dL Microbiology - Last 24 Hours (Table) 02/25/22 14:25 Blood Culture - Preliminary Blood No Growth after 48 hours 02/25/22 14:10 Blood Culture - Preliminary Blood No Growth after 48 hours Diabetes panel 02/28/22 Range/Units 06:39 Sodium 142 (137-145) mmol/L Potassium 4.1 (3.5-5.1) mmol/L Chloride 105 (98-107) mmol/L Carbon Dioxide 31 H (22-30) mmol/L BUN 55 H (9-20) mg/dL Creatinine 1.65 H (0.66-1.25) mg/dL Glucose 94 (74-99) mg/dL Calcium 7.7 L (8.4-10.2) mg/dL AST 30 (17-59) U/L ALT 19 (4-49) U/L Alkaline Phosphatase 84 (38-126) U/L Total Protein 5.3 L (6.3-8.2) g/dL Albumin 3.0 L (3.5-5.0) g/dL Calcium panel 02/28/22 Range/Units 06:39 Calcium 7.7 L (8.4-10.2) mg/dL Albumin 3.0 L (3.5-5.0) g/dL Pituitary panel 02/28/22 Range/Units 06:39 Sodium 142 (137-145) mmol/L Potassium 4.1 (3.5-5.1) mmol/L Chloride 105 (98-107) mmol/L Carbon Dioxide 31 H (22-30) mmol/L BUN 55 H (9-20) mg/dL Creatinine 1.65 H (0.66-1.25) mg/dL Glucose 94 (74-99) mg/dL Calcium 7.7 L (8.4-10.2) mg/dL Adrenal panel 02/28/22 Range/Units 06:39 Sodium 142 (137-145) mmol/L Potassium 4.1 (3.5-5.1) mmol/L Chloride 105 (98-107) mmol/L Carbon Dioxide 31 H (22-30) mmol/L BUN 55 H (9-20) mg/dL Creatinine 1.65 H (0.66-1.25) mg/dL Glucose 94 (74-99) mg/dL Calcium 7.7 L (8.4-10.2) mg/dL Total Bilirubin 0.3 (0.2-1.3) mg/dL AST 30 (17-59) U/L ALT 19 (4-49) U/L Alkaline Phosphatase 84 (38-126) U/L Total Protein 5.3 L (6.3-8.2) g/dL Albumin 3.0 L (3.5-5.0) g/dL
--- NOTE | 2022-02-28 14:23 | PN ---
PROGRESS NOTE This gentleman has a history of CAD, prior PCI and came in with what seems to be a combination of sepsis and hypoxia with severe prerenal azotemia. Compared to yesterday he feels better. He still has some cough and some swallowing issues. He is getting a swallow evaluation and esophagogram probably; however, cardiac-warren he is quite stable. No anginal symptoms. Maintaining sinus rhythm. Hemodynamically stable. Vitals are stable. No JVD. S1, S2 heard normally. There is no significant murmur. Lungs reveal decent air entry. Abdomen and lower extremity exam is unremarkable. Advised to continue current medical regimen and we can move him to medical floor. I will continue to see him as needed. MMODL / IJN: [id number] /
--- NOTE | 2022-02-28 15:14 | FL ---
EXAMINATION TYPE: FL UGI w esophagus DATE OF EXAM: 02/28/2022 COMPARISON: CT abdomen and pelvis February 02, 2022. Low-dose lung screening CT May 08, 2021 HISTORY: Dysphagia. TECHNIQUE: A double contrast UGI study is attempted. A total of 92 seconds of fluoroscopic time was utilized during procedure and 45 images obtained. FINDINGS: Beauty Operator image of the abdomen shows overall nonobstructive bowel gas pattern. Exam is suboptimal as patient is unable to stand or tolerate air contrast. There is mild dysmotility . No stricture or intraluminal mass. No fixed hiatal hernia. Stomach shows less than optimal distenti on. No focal ulcer disease. Visualized portion of the duodenal sweep are within normal limits. [place] ing defibrillator leads are noted. IMPRESSION: Suboptimal study. Mild esophageal dysmotility. No significant focal stricture.
[2022-02-28 16:45] LABS: Glucose,Whole Blood 115 mg/dL (75-99)
[2022-02-28] MEDS: ATORVASTATIN 40 MG TAB PO SCH (20:32)
[2022-02-28 21:36] LABS: HCT 26.7 % (39.0-53.0); HGB 8.5 gm/dL (13.0-17.5); MCH 30.6 pg (25.0-35.0); MCHC 31.8 g/dL (31.0-37.0); Platelet Count 165 k/uL (150-450); RBC 2.78 m/uL (4.30-5.90); RDW 13.4 % (11.5-15.5); WBC 7.6 k/uL (3.8-10.6)
[2022-03-01] MEDS: HEPARIN SODIUM,PORCINE/PF 5,000 UNIT/0.5 ML SYRINGE SQ SCH ×2 (02:41→08:36)
[2022-03-01] MEDS: SODIUM CHLORIDE 0.9% 1,000 ML IV SCH (03:49)
[2022-03-01 07:38] LABS: HCT 25.3 % (39.0-53.0); HGB 8.4 gm/dL (13.0-17.5); MCH 31.5 pg (25.0-35.0); MCHC 33.3 g/dL (31.0-37.0); MCV 94.5 fL (80.0-100.0); Mean Platelet Volume 7.7; Platelet Count 167 k/uL (150-450); RBC 2.68 m/uL (4.30-5.90); WBC 6.2 k/uL (3.8-10.6)
[2022-03-01 07:56] LABS: Calcium 7.6 mg/dL (8.4-10.2); Magnesium 1.2 mg/dL (1.6-2.3); Potassium 3.8 mmol/L (3.5-5.1)
[2022-03-01 08:10] VITALS: RESP 18; TEMP 98.5
[2022-03-01] MEDS: CLOPIDOGREL 75 MG TAB PO SCH (08:36)
[2022-03-01] MEDS: FAMOTIDINE 20 MG TAB PO SCH (08:36)
[2022-03-01] MEDS: ASPIRIN 81 MG PO SCH (08:36)
[2022-03-01] MEDS ORDERED: SPIRONOLACTONE 25 MG TAB PO SCH (09:00)
[2022-03-01] MEDS ORDERED: lisinopriL 10 MG TAB PO SCH (09:00)
[2022-03-01] MEDS ORDERED: METOPROLOL TARTRATE 50 MG TAB PO SCH (09:00)
[2022-03-01] MEDS: MAGNESIUM SULFATE-D5W PMX 1 GM in DEXTROSE/WATER 1 100ML.BAG IVPB SCH ×4 (10:00→15:52)
--- NOTE | 2022-03-01 10:42 | P.PN ---
Subjective Patient is seen for follow-up for acute kidney injury mostly prerenal and improvement IV hydration. Patient is eating. He states he is feeling quite well. Serum creatinine is down to 1.21. Good urine output Patient is maintained on saline at 75 mL an hour Objective - Vital Signs Vital signs: Vital Signs Temp 98.5 F 03/01/22 08:09 Pulse 69 03/01/22 08:09 Resp 18 03/01/22 08:09 BP 146/54 03/01/22 08:09 Pulse Ox 96 03/01/22 08:09 FiO2 Intake & Output 02/28/22 03/01/22 03/01/22 18:59 06:59 18:59 Intake Total 1000 225 Output Total 1 350 Balance 999 225 -350 Weight 65.3 kg Intake: Intake, IV Titration 750 225 Amount Sodium Chloride 0.9% 1, 750 225 000 ml @ 75 mls/hr IV . [id number] [facility] Rx#:[id number] Oral 250 Output: Urine 1 350 Other: Voiding Method Toilet Toilet Toilet # Voids 1 # Bowel Movements 1 ABP, PAP, CO, CI - Last Documented Arterial Blood Pressure 124/55 - Exam Awake, comfortable, not in any acute distress Alert oriented 3 Examination of the heart S1 and S2 Examination lungs bilateral breath sounds are heard Abdomen is soft nontender Examination lower extremities shows no evidence of edema VASCULAR SURGERY PHYSICIAN exam grossly intact - Labs CBC & Chem 7: 03/01/22 06:39 03/01/22 06:39 Labs: Abnormal Lab Results - Last 24 Hours (Table) 02/28/22 02/28/22 02/28/22 Range/Units 11:30 16:44 21:18 RBC 2.78 L (4.30-5.90) m/uL Hgb 8.5 L (13.0-17.5) gm/dL Hct 26.7 L (39.0-53.0) % Carbon Dioxide (22-30) mmol/L BUN (9-20) mg/dL POC Glucose (mg/dL) 122 H 115 H (75-99) mg/dL Calcium (8.4-10.2) mg/dL Magnesium (1.6-2.3) mg/dL 03/01/22 03/01/22 Range/Units 06:39 06:39 RBC 2.68 L (4.30-5.90) m/uL Hgb 8.4 L (13.0-17.5) gm/dL Hct 25.3 L (39.0-53.0) % Carbon Dioxide 31 H (22-30) mmol/L BUN 33 H (9-20) mg/dL POC Glucose (mg/dL) (75-99) mg/dL Calcium 7.6 L (8.4-10.2) mg/dL Magnesium 1.2 L (1.6-2.3) mg/dL Microbiology - Last 24 Hours (Table) 02/25/22 14:25 Blood Culture - Preliminary Blood No Growth after 72 hours 02/25/22 14:10 Blood Culture - Preliminary Blood No Growth after 72 hours Assessment and Plan Assessment: 1. Acute kidney injury prerenal associated with severe hypotension and hypovolemia. Currently nonoliguric and improving with IV hydration. Ultrasound shows no evidence of hydronephrosis. UA shows 1+ protein and moderate blood. Creatinine down to 1.2 today. Repeat UA. 2. Severe hyperkalemia associated with acute kidney injury and metabolic acidosis as well as use of manav inhibitors prior to admission. Currently improved 3. Anion gap metabolic acidosis associated with acute kidney injury. Lactic acid was not checked. Acidosis currently improved. Patient is status post bicarb drip 4. Severe hypotension, hypovolemia currently improved 5. Coronary artery disease with previous history of coronary artery stenting 6. Recent right carotid endarterectomy with bruising in the upper chest area Plan: Repeat UA prior to discharge. Continue to encourage increase oral intake Check labs in 5-6 days post discharge Continue to avoid NSAIDs post discharge
[2022-03-01] MEDS ORDERED: LIDOCAINE 2% INJ 20 MG/ML (2 ML VIAL) ONE (13:03)
[2022-03-01] MEDS ORDERED: PROPOFOL 10 MG/ML 20 ML VIAL IV ONE (13:03)
[2022-03-01 13:05] VITALS: BP 148/64; PULSE 60
--- NOTE | 2022-03-01 13:25 | P.PCN ---
Date of Procedure: 03/01/22 Procedure(s) Performed: Preoperative Dx: Dysphagia Postoperative Dx: Gastritis with small erosions, esophagitis with linear erosion and scarring Procedure: EGD with Bx Anesthesia: Sedation Endoscopist: Dr. Moncada Specimens: Antrum, distal esophagus Endoscopic Procedure: The patient was on the endoscopy table in the left decubitus position. The Olympus gastroscope was inserted into the oropharynx and passed under direct visualization to the region of the third portion of the duodenum. From that point the scope was slowly withdrawn inspecting all surfaces carefully. There were no neoplastic inflammatory or polypoid lesions throughout the duodenum. The pylorus was widely patent. The stomach was c arefully inspected. There was gastritis present with small erosions present. A biopsy of the antrum took place to rule out H. pylori. Retroflexion revealed a normal hiatus. The esophagus was then carefully examined. There was noted to be mild distal esophagitis with a single linear erosion extending about 2-3 cm in length. The patient had evidence of scarring involving the distal 20% or so of the esophagus. There was slight narrowing of the lumen at the site of chronic scarring. This did not impede the passage of the endoscope however. Lumen estimated to be approximately 1.5 cm in diameter. This may have been the source of intermittent dysphagia. The mid and proximal esophagus appeared normal. The patient was then taken to the recovery room in stable condition per anesthesia guidelines. Recommendations: Begin dysphagia diet. Continue antiacids both inpatient and outpatient. Await biopsy results.
--- NOTE | 2022-03-01 20:22 | P.DS ---
Providers Date of admission: 02/25/22 13:31 Expected date of discharge: 03/01/22 Attending physician: Darell Lopez MD Consults: 02/25/22 13:31 Consult Physician Routine Consulting Provider: Yue Navarro Consult Reason/Comments: acute renal failure, hyperkalemia Do you want consulting provider notified?: Already Contacted Consult Physician Stat Consulting Provider: Leslie Fu Consult Reason/Comments: sepsis, ARF, Hyperkalemia Do you want consulting provider notified?: Already Contacted 02/27/22 16:12 Consult Physician Routine Consulting Provider: César Moncada Consult Reason/Comments: dysphagia- concern for esophageal etiology Do you want consulting provider notified?: Yes Primary care physician: Beka Cunha Hospital Course: Discharge Diagnosis: Gastritis with erosions and esophagitis Acute renal failure with hyperkalemia, secondary to ATN from hypotension as well as dehydration High anion gap metabolic acidosis dysphagia Elevated troponin Chronic systolic CHF with most recent EF 50-55% Recovering acute blood loss anemia Recent CEA Acute hypoxemic respiratory failure, resolved Hypertension Hyperlipidemia COPD CAD Hematuria, resolved suspect pollard induced. Hospital Course: Patient is a 71-year-old man with a history of hypertension, hyperlipidemia, COPD, CAD present for evaluation of generalized weakness. Patient was recently hospitalized here in early January for carotid endarterectomy. On arrival to the ER he was found to have DAVID, severe acidosis, and hyperkalemia. He was admitted to the ICU and started on IV fluids. Nephrology, pulmonary, and cardiology were consulted. He was noted to have elevated troponins which were flat. He had respiratory distress which resolved spontaneously. He did have hypotension which resolved with his lasix, lisinopril, and aldactone being held and fluids being administered. He continued to improve but complained of some difficult swallow. He was seen by speech therapy and did not have difficulty swallowing in the oropharyngeal phase. He was seen by general surgery and underwent EGD which did demonstrate esophageal erosions. His renal function improved to baseline. He was tolerating a diet. He was determined stable for discharge home. Follow-up: Continue off Aldactone and Lasix. Continue on Pepcid and Protonix. Follow-up with Dr. Soliz in 1-2 days, Dr. Mhaoney in 1-2 days. He should have a repeat basic metabolic profile in 5 days with results to Dr. Cunha. If this shows any abnormality he again should see Dr. Navarro. Patient was told to weigh himself daily and call cardiology. Greater than a 5 pound increase in weight. Biopsy results pending on discharge Imaging: Renal ultrasound-no evidence of obstructive uropathy Echocardiogram-ejection fraction 50-55% Patient seen and examined at bedside. Feeling much better. Weakness has pretty much resolved. His daughters will be with him and can help him for the next several days. He denies any chest discomfort. He states he was eating and drinking better until he took away his food for the EGD. Vital signs reviewed and stable. General: non toxic, no distress, appears at stated age Derm: warm, dry Head: atraumatic, normocephalic, symmetric Eyes: EOMI, no lid lag, anicteric sclera Mouth: no lip lesion, mucus membranes moist Cardiovascular: S1S2 reg, no murmur, positive posterior tibial pulse bilateral, Lungs: CTA bilateral, no rhonchi, no rales , no accessory muscle use Abdominal: soft, nontender to palpation, no guarding, no appreciable organomegaly Ext: no gross muscle atrophy, no edema, no contractures Neuro: CN II-XI grossly intact, no focal neuro deficits Psych: Alert, oriented, appropriate affect A total of 35 minutes of time were spent preparing this complex discharge summary . Patient Condition at Discharge: Stable Plan - Discharge Summary Discharge Rx Participant: Yes New Discharge Prescriptions: New RX: Famotidine [Pepcid] 20 mg PO DAILY #30 tab Pantoprazole [Protonix] 40 mg PO DAILY #30 tab Continue RX: Aspirin 81 mg PO DAILY #30 chew RX: Clopidogrel [Plavix] 75 mg PO DAILY #30 tab RX: Atorvastatin [Lipitor] 40 mg PO HS RX: Albuterol Sulfate [Albuterol Sulfate Hfa] 2 puff PO RT-Q6H PRN PRN Reason: Shortness Of Breath RX: lisinopriL [Zestril] 30 mg PO DAILY 30 Days #90 tab RX: Metoprolol Tartrate [Lopressor] 50 mg PO BID 30 Days #60 tab Discontinued RX: Spironolactone [Aldactone] 25 mg PO DAILY #30 tab RX: Furosemide [Lasix] 20 mg PO DAILY Discharge Medication List Aspirin 81 mg PO DAILY #30 chew 10/10/20 [Rx] Clopidogrel [Plavix] 75 mg PO DAILY #30 tab 10/10/20 [Rx] Albuterol Sulfate [Albuterol Sulfate Hfa] 2 puff PO RT-Q6H PRN 01/25/22 [Hist ory] Atorvastatin [Lipitor] 40 mg PO HS 01/25/22 [History] lisinopriL [Zestril] 30 mg PO DAILY 30 Days #90 tab 02/01/22 [Rx] Metoprolol Tartrate [Lopressor] 50 mg PO BID 30 Days #60 tab 02/06/22 [Rx] Famotidine [Pepcid] 20 mg PO DAILY #30 tab 03/01/22 [Rx] Pantoprazole [Protonix] 40 mg PO DAILY #30 tab 03/01/22 [Rx] Follow up Appointment(s)/Referral(s): Dior Soliz MD [STAFF PHYSICIAN] - 03/19/22 8:30 am Beka Cunha [Primary Care Provider] - 1-2 days (office is closed on Friday, patient will have to call and schedule own appt.) Ambulatory/Diagnostic Orders: Basic Metabolic Panel [LAB.AMB] Time Frame: 5 Days, Location: None Selected Patient Instructions/Handouts: Famotidine (By mouth), Pantoprazole (By mouth), Dehydration (DC), Acute Kidney Injury (DC), Esophagitis (DC) Activity/Diet/Wound Care/Special Instructions: Activity: as tolerated Diet: Chopped diet Special Instructions: encourage fluids stay eating Follow with Dr. Reed as told prior repeat labs in 5 days -- stay off Lasix and Aldactone until these are reviewed by Dr. Cunha Check daily weight and call cardiology if you gain more than 5 pounds in 3 days Discharge Disposition: HOME WITH HOME HEALTH SERVICES
== END 2022-03-01 17:20 | disposition home health service (06) | DRG 682 ==
LOC: EC 11:25 → 2SICU 13:31 → 5NMEDONC 03-01 04:35
PROVIDERS: ADMIT Internal Medicine; ATTEND Internal Medicine
DX: N17.0 Acute kidney failure with tubular necrosis (principal); J96.01 Acute respiratory failure with hypoxia; E87.2 Acidosis; I50.22 Chronic systolic (congestive) heart failure; D62 Acute posthemorrhagic anemia; T83.83XA Hemorrhage due to genitourinary prosthetic devices, implants and grafts, initial encounter; I11.0 Hypertensive heart disease with heart failure; I95.9 Hypotension, unspecified; I71.4 Abdominal aortic aneurysm, without rupture; J44.9 Chronic obstructive pulmonary disease, unspecified; Z20.822 Contact with and (suspected) exposure to COVID-19; R31.9 Hematuria, unspecified; E87.5 Hyperkalemia; E86.0 Dehydration; E86.1 Hypovolemia; I25.5 Ischemic cardiomyopathy; K29.70 Gastritis, unspecified, without bleeding; K20.80 Other esophagitis without bleeding; K22.4 Dyskinesia of esophagus; E78.5 Hyperlipidemia, unspecified; T50.1X5A Adverse effect of loop [high-ceiling] diuretics, initial encounter; T50.0X5A Adverse effect of mineralocorticoids and their antagonists, initial encounter; T46.4X5A Adverse effect of angiotensin-converting-enzyme inhibitors, initial encounter; I45.10 Unspecified right bundle-branch block; I44.0 Atrioventricular block, first degree; S20.213A Contusion of bilateral front wall of thorax, initial encounter; I25.2 Old myocardial infarction; M79.662 Pain in left lower leg; M79.661 Pain in right lower leg; I25.10 Atherosclerotic heart disease of native coronary artery without angina pectoris; Z79.82 Long term (current) use of aspirin; Z79.02 Long term (current) use of antithrombotics/antiplatelets; Z79.899 Other long term (current) drug therapy; Z87.891 Personal history of nicotine dependence; Z86.79 Personal history of other diseases of the circulatory system; Z95.810 Presence of automatic (implantable) cardiac defibrillator; Z86.16 Personal history of COVID-19; Z95.5 Presence of coronary angioplasty implant and graft; Z87.39 Personal history of other diseases of the musculoskeletal system and connective tissue; Z98.42 Cataract extraction status, left eye; Z98.41 Cataract extraction status, right eye; Z98.890 Other specified postprocedural states; Z88.0 Allergy status to penicillin
CPT/HCPCS: 36415; 43239; 71046; 74240; 76770; 80048; 80053; 81001; 82728; 82803; 83540; 83550; 83605; 83735; 84132; 84145; 84484; 85025; 85027; 85610; 85730; 87040; 87502; 87635; 88305; 93005; 93306; 96365; 96366; 96368; 96375; 99291

== ENCOUNTER → 2022-06-04 | Outpatient (CLI) | payer MEDICARE, OTHER ==
[2022-06-04 14:50] LABS: ALT 18 U/L (10-49); AST 24 U/L (14-35); African American GFR (CKD) 86.2 (60.0-200.0); Albumin 4.5 g/dL (3.8-4.9); Albumin/Globulin Ratio 1.67 (1.60-3.17); Alkaline Phosphatase 111 U/L (41-126); Carbon Dioxide 26.7 mmol/L (20.0-27.5); Chloride 105 mmol/L (96-109); Chol/HDL Ratio 2.47 Ratio; Globulin 2.7 g/dL (1.6-3.3); Glucose 103 mg/dL (70-110); LDL Cholesterol,Calculated 81.3 mg/dL (0.0-131.0); Non-African American GFR(CKD) 74.3 (60.0-200.0); Potassium 4.7 mmol/L (3.5-5.5); Sodium 142 mmol/L (135-145); Total Protein 7.2 g/dL (6.2-8.2); VLDL Calculation 12.08 mg/dL (5.00-40.00)
== END | disposition home or self-care (01) ==
LOC: LABWHC1 09:30
PROVIDERS: ATTEND Nurse Practitioner Adult Health
DX: I10 Essential (primary) hypertension (principal); E78.2 Mixed hyperlipidemia
CPT/HCPCS: 36415; 80053; 80061

== ENCOUNTER → 2023-05-23 | Outpatient (CLI) | payer MEDICARE, OTHER ==
[2023-05-23 13:28] LABS: African American GFR (CKD) 69 (>60 ml/min/1.73 sqM); Blood Urea Nitrogen 34 mg/dL (9-20); Non-African American GFR(CKD) 60 (>60 ml/min/1.73 sqM)
--- NOTE | 2023-05-25 12:33 | CT ---
EXAMINATION TYPE: CT angio abd aorta w/Runoff DATE OF EXAM: 05/23/2023 COMPARISON: Abdomen and pelvis 02/02/2022 HISTORY: 72-year-old male I71.40, ABDOMINAL AORTIC ANEURYSM TECHNIQUE: Contiguous axial scanning of the abdomen and pelvis with bilateral lower extremity runoff performed with IV Contrast, patient injected with 125 mL of Isovue 370. Initial noncontrast scan thro ugh the abdomen pelvis. Delayed images through distal bilateral lower extremities. Coronal/sagittal r econstructions performed. 3-D reconstructions generated on a dedicated independent workstation. CT DLP: 1707.5 mGycm Automated exposure control for dose reduction was used. FINDINGS: Abdomen and pelvis: Pacer leads. Heart normal size. Emphysematous change in the lower lungs. No pleural effusion. No focal liver lesion. Gallbladder, adrenal glands, kidneys, spleen and pancreas appear within normal limits. No dilated small bowel, free fluid, free air. Some scattered prominent mesenteric lymph nodes measuring up to 7 mm are nonspecific, probably reacti ve/post inflammatory. Normal appendix. Mild to moderate stool burden. Left-sided colonic diverticulosis, more extensive in the sigmoid colon. There may be mild wall thickening and mild pericolonic hazy density along the proximal sigmoid colon. Correlate to exclude any symptoms of mild acute diverticulitis. Bladder is urine distended. Prostate gland is enlarged at 4.7 cm wide. No abnormal fluid collection i n the pelvis or pelvic lymphadenopathy. Bones: Mild to moderate degenerative change of the hips. Vasculature: Moderate to severe atherosclerotic calcifications throughout the abdominal aorta, iliac arteries, and throughout the bilateral lower extremities. Mild atherosclerotic narrowing at the origin of the celiac axis. There is occlusion at the SMA origin with eventual reconstitution of the SMA beyond its origin. Mild to moderate atherosclerotic narrowing at the bilateral renal artery origins. Circumferential plaque infrarenal abdominal aorta with fusiform aneurysm of 4.0 cm. Right: Severe atherosclerotic narrowing at the origin of the right external iliac artery. Moderate to severe at the origin of the right internal iliac artery. Right P[employer]ATOR is patent with moderate atherosclerotic calcifications. The right PFA is patent. There is SFA occlusion with reconstitution distally beyond the adductor hiatus. Mild atherosclerotic calcifications throughout the popliteal artery. The trifurcation vessels are patent. There is runoff into the foot. Left: Moderate atherosclerotic narrowing at the proximal left common iliac artery. Borderline ectasia left common iliac artery up to 1.5 cm. Severe stenoses at the origin of both the external and internal iliac arteries. Mild to moderate atherosclerotic changes at the left common femoral artery. Moderate stenoses at the P[employer] OPERATOR bifurcation and in the proximal SFA and PFA. PFA is patent. Moderate atherosclerotic narrowing at SFA especially at the adductor hiatus. Moderate atherosclerotic calcifications continue throughout the popliteal artery. Segmental moderate stenoses throughout the left popliteal artery, severe, axial image 389 and 407 above the knee joint l ine. The anterior tibial artery is patent. Moderate stenosis at the origin of the tibial peroneal trunk. Trifurcation vessels are patent though the peroneal artery becomes very diminutive at the mid leg lev el. Runoff via the anterior and posterior tibial arteries. IMPRESSION: ABDOMEN AND PELVIS: A. Left-sided colonic diverticulosis though more extensive in the sigmoid colon. There may be mild wa ll thickening and pericolonic hazy density along the proximal sigmoid colon. Correlate to exclude any symptoms of mild acute diverticulitis. B. COPD. VASCULATURE: 1. Moderate atherosclerotic calcifications throughout the abdominal iliac arteries and bilateral lowe r extremities. 2. Infrarenal AAA measuring 4.0 cm. 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 RIGHT: 4. Severe atherosclerotic stenosis origin of the right external iliac artery. Moderate to severe at t he origin of the right internal iliac artery. 5. Patent PSA but with SFA occlusion at its origin. Eventual SFA reconstitution beyond the adductor h iatus. 6. Patent trifurcation vessels with runoff into the foot. LEFT: 7. Moderate stenosis proximal left common iliac artery. Borderline ectasia to 1.5 cm. 8. Severe stenosis at the origin of both external and internal iliac arteries. 9. Moderate stenoses at the PUSHER O[employer]ATOR bifurcation and at the proximal SFA and proximal PFA. 10. Additional scattered moderate atherosclerotic changes throughout the SFA and popliteal artery. Se gmental moderate stenoses at the lower thigh and knee. However, there are a couple levels of more sev ere popliteal artery stenoses just above the knee joint line. 11. Patent anterior tibial artery. Moderate stenosis at the origin of the tibial peroneal trunk. 12. Trifurcation vessels are patent though the peroneal artery becomes diminutive at the mid leg. Run off via the anterior and posterior tibial arteries.
== END | disposition home or self-care (01) ==
LOC: RADCTMAIN 11:56
PROVIDERS: ATTEND Surgery
DX: I71.43 Infrarenal abdominal aortic aneurysm, without rupture (principal); J44.9 Chronic obstructive pulmonary disease, unspecified; K57.30 Diverticulosis of large intestine without perforation or abscess without bleeding; I70.203 Unspecified atherosclerosis of native arteries of extremities, bilateral legs
CPT/HCPCS: 82565; 84520; 75635; 36415; Q9967

== ENCOUNTER 2023-07-18 13:33 | Inpatient (IN) | payer MEDICARE, OTHER ==
--- NOTE | 2023-07-18 14:02 | ED ---
Weakness HPI - General Source: RN notes reviewed <Izzy Gamboa - Last Filed: 07/18/23 14:02> <Richi Sheppard - Last Filed: 07/18/23 20:16> - General Stated complaint: Weakness-heart issues Time Seen by Provider: 07/18/23 14:00 - History of Present Illness Initial comments: Patient is a 72-year-old male who presents the emergency department for weakness. According to family patient had a syncopal episode witnessed by his friend. He hit his head he is on blood thinners. Today neighbor came over to find patient in bed with vomit and urine and it was difficult to wake patient up. Patient denies any pain no headache or chest pain. No fever, chills, cold symptoms, shortness of breath, abdominal pain. (Izzy Gamboa) Patient is a 72-year-old male with extensive past medical history including AAA last measuring 4 cm a few months ago, hypertension, CAD with cardiac stents, cardiomyopathy with diminished LV function with dual-chamber ICD on aspirin and Plavix who presents emergency Department complaining of mechanical fall versus syncopal's episode yesterday. Describes the episode as rearranging his blankets on his bed when he thinks he lost his balance and did not syncopized but this is not 100% certain. He does remember ending up on the ground. Was unable to get back up due to chronic joint pain and stiffness. He ambulates with a cane and walker at baseline. He remained on the floor all night. Was found this morning by a neighbor covered in his own vomit in urine. States he did have what he describes as an anxiety episode during this where he had some chest tightness but denies any chest pain or shortness of breath throughout this time. He is on Plavix. Denies any new weakness or numbness anywhere. His chronic right knee pain, chronic lower lower extremity weakness. Denies any chest pain or shortness of breath. Denies any abdominal pain. Does endorse mild nausea. Denies any back pain. Denies any headaches or blurry vision. Is alert and oriented 4. Was brought by family for further evaluation. Initially evaluated as a clinic note malingering. I was notified of the patient's EKG at 1515, and instructed triaged to place the patient in trauma room 2 for evaluation. (Richi Sheppard) - Related Data Home Medications Medication Instructions Recorded Confirmed Atorvastatin [Lipitor] 40 mg PO HS 01/25/22 07/18/23 Lisinopril-Hctz 20-12.5 mg 1 tab PO DAILY 07/18/23 07/18/23 [Zestoretic 20-12.5] lisinopriL [Zestril] 10 mg PO DAILY 07/18/23 07/18/23 Previous Rx's Medication Instructions Recorded Aspirin 81 mg PO DAILY #30 chew 10/10/20 Metoprolol Tartrate [Lopressor] 50 mg PO BID 30 Days #60 tab 02/06/22 Famotidine [Pepcid] 20 mg PO DAILY #30 tab 03/01/22 Allergies Allergy/AdvReac Type Severity Reaction Status Date / Time ampicillin Allergy Unknown turned Verified 07/18/23 17:54 pink, trouble breathing Penicillins Allergy turned Verified 07/18/23 17:54 pink, trouble breathing Review of Systems ROS Other: All systems not noted in ROS Statement are negative. <Izzy Gamboa - Last Filed: 07/18/23 14:02> ROS Other: All systems not noted in ROS Statement are negative. <Richi Sheppard - Last Filed: 07/18/23 20:16> ROS Statement: Those systems with pertinent positive or pertinent negative responses have been documented in the HPI. Review of Systems: CONST: Denies fever EYES: Denies blurry vision ENT: Denies nasal congestion C/V: Denies Chest pain RESP: Denies shortness of breath GI: Denies abdominal pain : Denies dysuria SKIN: Denies rash. MSK: Endorses right knee pain NEURO: Endorses weakness (Richi Sheppard) Past Medical History Past Medical History: Coronary Artery Disease (CAD), COPD, Hypertension, Myocardial Infarction (PR) Additional Past Medical History / Comment(s): hx covid 10/14/21-states received infusion., AAA., AICD., pain in legs with walking. Last Myocardial Infarction Date:: UNKNOWN History of Any Multi-Drug Resistant Organisms: None Reported Past Surgical History: Back Surgery, Heart Catheterization With Stent Additional Past Surgical History / Comment(s): [id number] (1972)., AICD - (12/06/20 [employer])., HEART CATH WITH 3 STENTS (10/08/20)., CATARACTS Past Anesthesia/Blood Transfusion Reactions: No Reported Reaction Date of Last Stent Placement:: 10/08/2020 Type of Cardiac Device: Permanent Pacemaker Device Placement Date:: 12/06/2020 Past Psychological History: No Psychological Hx Reported Smoking Status: Former smoker Past Alcohol Use History: Occasional Past Drug Use History: None Reported - Past Family History Father History Unknown: Yes Family Medical History: No Reported History <Izzy Gamboa - Last Filed: 07/18/23 14:02> General Exam <Izzy Gamboa - Last Filed: 07/18/23 14:02> <Richi Sheppard - Last Filed: 07/18/23 20:16> - General Exam Comments Initial Comments: Visual Physical Exam Vital signs reviewed General: Well-appearing, nontoxic, no acute distress. Head: Normocephalic, atraumatic Eyes: PERRLA, EOMI ENT: Airway patent Chest: Nonlabored breathing Skin: No visual rash, normal skin tone Neuro: Alert and oriented 3 Musculoskeletal: No gross abnormalities (Izzy Gamboa) General: Appears in no acute distress. febrile. HEAD: Normal with no signs of head trauma. Negative ferro sign. Negative raccoon eyes. EYES: PERRLA, EOMI, conjunctiva normal, no discharge. Pupils are 2 mm and equal bilaterally. ENT: Hearing grossly intact, normal oropharynx. RESPIRATORY: Clear breath sounds bilaterally. No wheezes, rales, or rhonchi. No hypoxia. C/V: Regular rate and rhythm. S1 and S2 auscultated, no edema, peripheral pulses 2+ and intact throughout ABD: Abd is soft, nontender, nondistended EXT: Normal range of motion, no obvious deformity. Pelvis stable. No midline cervical, thoracic, lumbar spine tenderness to palpation. No spinal step-offs or deformities. Reduced range of motion the right hand secondary to chronic pain. SKIN: No rashes or lesions observed on exposed skin. NEURO: Alert and oriented x 4. Cranial nerves II-XII intact. No focal sensory or strength deficits. NIH is 0 for new symptoms. His chronic lower extremity weakness. (Richi Sheppard) Course Vital Signs 07/18/23 07/18/23 07/18/23 13:56 15:25 15:30 Temperature 98.4 F 101.2 F H Pulse Rate 73 104 H 106 H Respiratory 16 18 20 Rate Blood Pressure 164/74 176/80 176/80 O2 Sat by Pulse 94 L 95 96 Oximetry 07/18/23 07/18/23 07/18/23 16:45 17:00 17:30 Temperature 99.5 F Pulse Rate 102 H 104 H Respiratory 20 20 Rate Blood Pressure 168/78 O2 Sat by Pulse 94 L 96 Oximetry 07/18/23 07/18/23 07/18/23 18:00 18:30 19:00 Temperature Pulse Rate 102 H 101 H 104 H Respiratory 22 20 18 Rate Blood Pressure 181/82 170/72 174/71 O2 Sat by Pulse 95 95 94 L Oximetry 07/18/23 19:30 Temperature Pulse Rate 105 H Respiratory 18 Rate Blood Pressure 167/83 O2 Sat by Pulse 95 Oximetry Medical Decision Making <Izzy Gamboa - Last Filed: 07/18/23 14:02> - Lab Data Result diagrams: 07/18/23 14:32 07/18/23 14:32 - EKG Data -: EKG Interpreted by Me <Richi Sheppard - Last Filed: 07/18/23 20:16> - Medical Decision Making I performed the QuickNote portion of this chart - Izzy Gamboa PA-C (Izzy Gamboa) Was pt. sent in by a medical professional or institution ([facility], JOB TRAINING SPECIALIST, urgent care, hospital, or long-term...) When possible be specific @ -No Did you speak to anyone other than the patient for history (EMS, parent, family, police, friend...)? What history was obtained from this source @ -Spoke patient's children who are at bedside and help with the patient's history. Did you review nursing and triage notes (agree or disagree)? Why? @ -I reviewed and agree with nursing and triage notes Were old charts reviewed (outside hosp., previous admission, EMS record, old EKG, old radiological studies, urgent care reports/EKG's, long-term records)? Report findings @ -Old charts reviewed Differential Diagnosis (chest pain, altered mental status, abdominal pain women, abdominal pain men, vaginal bleeding, weakness, fever, dyspnea, syncope, headac he, dizziness, GI bleed, back pain, seizure, CVA, palpatations, mental health, musculoskeletal)? @ -Differential Weakness: Hypoglycemia, shock, sepsis, hyponatremia, anemia, infection, PR, ETOH, adverse medicine reaction, overdose, stroke, this is not meant to be an all-inclusive list. Differential Musculoskeletal Muscular strain, contusion, ligament sprain, fracture, arthritis, septic arthritis, bursitis, cellulitis, muscle spasm, nerve compression, DVT, arterial occlusion, herpes zoster, electrolyte abnormality, tumor.... This is not meant to be in all inclusive list EKG interpreted by me (3pts min.). @ -As above X-rays interpreted by me (1pt min.). @ -Chest x-ray, pelvis x-ray, knee x-ray negative for any obvious traumatic injury or infectious process. CT interpreted by me (1pt min.). @ -CT brain, C-spine, angiogram of the chest abdomen pelvis negative for any obvious acute traumatic injury, aortic injury, intracranial bleed. U/S interpreted by me (1pt. min.). @ -None done What testing was considered but not performed or refused? (CT, X-rays, U/S, labs)? Why? @ -None What meds were considered but not given or refused? Why? @ -None Did you discuss the management of the patient with other professionals (professionals i.e. , PA, JOB TRAINING SPECIALIST, lab, RT, psych nurse, social scientist, gastroenterology technician, teacher, command center officer, case therapist)? Give summary @ -Spoke with Dr. Mckinney who agreed to evaluate the EKG but was in agreement that EKG findings as well as mildly elevated troponin likely secondary to underlying medical issue whether that be from a fall, dehydration, infection.Discussed with Dr. Saldana who accepted the patient was in agreement with the plan. Was smoking cessation discussed for >3mins.? @ -No Was critical care preformed (if so, how long)? @ -Yes, 37 minutes Were there social determinants of health that impacted care today? How? (Homelessness, low income, unemployed, alcoholism, drug addiction, transportation, low edu. Level, literacy, decrease access to med. care, fpc, rehab)? @ -No Was there de-escalation of care discussed even if they declined (Discuss DNR or withdrawal of care, Hospice)? DNR status @ -No What co-morbidities impacted this encounter? (DM, HTN, Smoking, COPD, CAD, Cancer, CVA, ARF, Chemo, Hep., AIDS, mental health diagnosis, sleep apnea, morbid obesity)? @ -4 cm AAA, CAD, ICD for cardiomyopathy Was patient admitted / discharged? Hospital course, mention meds given and route, prescriptions, significant lab abnormalities, going to OR and other [facility] [place] info. @ -Based on the patient's presentation and physical exam, I'm concerned for what sounds that mechanical fall versus syncopal episode at home last night. Workup was already starting triage but due to EKG showing possible mild changes as well as his extensive history I did have been placed the patient trauma bay 2 where I evaluated him. Vital signs are within acceptable limits except for a fever. No obvious source of infection. She smells of urine. Has been throwing up as well. Only complaint is right knee pain at this time. We will obtain broad workup including creatinine kinase, basic labs, as well as CT brain, C- spine as well as CT angiogram of the chest abdomen and pelvis to evaluate the AAA due to concern for possible syncopal episode. Patient was in agreement with this plan. He was given IV fluids, Tylenol, as well as Zofran for nausea. Patient does not meet criteria for trauma activation as it was a fall from standing on Plavix and it occurred sometime yesterday/last night. Patient patient's family were in agreement this plan. I did recheck to cardiology regarding the patient's EKG findings as a largely does appear to be chronic and somewhat nonspecific ischemia likely secondary to his underlying event that he expands currently at home. Dr. Mckinney did agree to evaluate the EKG but otherwise was in agreement with the plan. Patient's laboratory studies remarkable for leukocytosis of 11.6. Lactic acidosis of 3.2 which could be secondary to infection or dehydration. Creatinine kinase is elevated to 1060 concerning for rhabdomyolysis. Troponin minimally elevated to 0.064 likely secondary to dehydration and infection. Remainder the workup unremarkable. Chest x-ray shows no evidence of pneumonia. Pelvis x-ray knee x-ray negative for any traumatic injury. Brain CT and C- spine CT negative for any obvious reticulocyte injury or intracranial bleed. CT of the chest abdomen pelvis to evaluate the aorta and negative for any ruptured AAA or change in his chronic AAA. Patient meet sepsis criteria at 1749. Patient started on broad-spectrum antibodies vancomycin and cefepime. Patient was given 30 mL per KG fluid bolus. Blood cultures obtained and sent. Patient remains symptomatically stable. I discussed results with the patient. Also discussed with family members. They expressed understanding. Patient will be admitted on IV antibiotics for fluid hydration and further evaluation by cardiology as well as Dr. Nelson of infectious disease at Dr. Saldana's request. Dr. Benitez accepted the patient onto his service. Undiagnosed new problem with uncertain prognosis? @ -No Drug Therapy requiring intensive monitoring for toxicity (Heparin, Nitro, Insuli n, Cardizem)? @ -No Were any procedures done? @ -No Diagnosis/symptom? @ -Syncope versus fall, sepsis, dehydration, rhabdomyolysis Acute, or Chronic, or Acute on Chronic? @ -Acute Uncomplicated (without systemic symptoms) or Complicated (systemic symptoms)? @ -Complicated Side effects of treatment? @ -none Exacerbation, Progression, or Severe Exacerbation] @ -no Poses a threat to life or bodily function? @ -Yes (Richi Sheppard) - Lab Data Lab Results 07/18/23 07/18/23 07/18/23 Range/Units 14:32 14:32 14:32 WBC 11.6 H (3.8-10.6) k/uL RBC 4.29 L (4.30-5.90) m/uL Hgb 13.6 (13.0-17.5) gm/dL Hct 39.4 (39.0-53.0) % MCV 91.9 (80.0-100.0) fL MCH 31.7 (25.0-35.0) pg MCHC 34.5 (31.0-37.0) g/dL RDW 13.0 (11.5-15.5) % Plt Count 239 (150-450) k/uL MPV 7.4 Neutrophils % 87 % Lymphocytes % 7 % Monocytes % 5 % Eosinophils % 0 % Basophils % 0 % Neutrophils # 10.1 H (1.3-7.7) k/uL Lymphocytes # 0.9 L (1.0-4.8) k/uL Monocytes # 0.6 (0-1.0) k/uL Eosinophils # 0.0 (0-0.7) k/uL Basophils # 0.0 (0-0.2) k/uL PT 10.5 (10.0-12.5) sec INR 0.9 (<1.2) APTT 22.8 (22.0-30.0) sec Sodium 137 (137-145) mmol/L Potassium 4.4 (3.5-5.1) mmol/L Chloride 99 (98-107) mmol/L Carbon Dioxide 21 L (22-30) mmol/L Anion Gap 17 mmol/L BUN 27 H (9-20) mg/dL Creatinine 0.91 (0.66-1.25) mg/dL Est GFR (CKD-EPI)AfAm >90 (>60 ml/min/1.73 sqM) Est GFR (CKD-EPI)NonAf 83 (>60 ml/min/1.73 sqM) Glucose 149 H (74-99) mg/dL Lactic Ac Sepsis Rflx Plasma Lactic Acid [place] (0.7-2.0) mmol/L Calcium 9.7 (8.4-10.2) mg/dL Magnesium 1.8 (1.6-2.3) mg/dL Total Bilirubin 1.1 (0.2-1.3) mg/dL AST 55 (17-59) U/L ALT 30 (4-49) U/L Alkaline Phosphatase 102 (38-126) U/L Creatine Kinase (55-170) U/L Troponin I (0.000-0.034) ng/mL Total Protein 7.8 (6.3-8.2) g/dL Albumin 4.7 (3.5-5.0) g/dL Urine Color Urine Appearance (Clear) Urine pH (5.0-8.0) Ur Specific [place] (1.001-1.035) Urine Protein (Negative) Urine Glucose (UA) (Negative) Urine Ketones (Negative) Urine Blood (Negative) Urine Nitrite (Negative) Urine Bilirubin (Negative) Urine Urobilinogen (<2.0) mg/dL Ur Leukocyte Esterase (Negative) Urine RBC (0-5) /hpf Urine WBC (0-5) /hpf Urine Bacteria (None) /hpf Hyaline Casts (0-2) /lpf Urine Mucus (None) /hpf Influenza Type A (PCR) (Not Detectd) Influenza Type B (PCR) (Not Detectd) RSV (PCR) (Not Detectd) SARS-CoV-2 (PCR) (Not Detectd) 07/18/23 07/18/23 07/18/23 Range/Units 14:32 14:32 15:23 WBC (3.8-10.6) k/uL RBC (4.30-5.90) m/uL Hgb (13.0-17.5) gm/dL Hct (39.0-53.0) % MCV (80.0-100.0) fL MCH (25.0-35.0) pg MCHC (31.0-37.0) g/dL RDW (11.5-15.5) % Plt Count (150-450) k/uL MPV Neutrophils % % Lymphocytes % % Monocytes % % Eosinophils % % Basophils % % Neutrophils # (1.3-7.7) k/uL Lymphocytes # (1.0-4.8) k/uL Monocytes # (0-1.0) k/uL Eosinophils # (0-0.7) k/uL Basophils # (0-0.2) k/uL PT (10.0-12.5) sec INR (<1.2) APTT (22.0-30.0) sec Sodium (137-145) mmol/L Potassium (3.5-5.1) mmol/L Chloride (98-107) mmol/L Carbon Dioxide (22-30) mmol/L Anion Gap mmol/L BUN (9-20) mg/dL Creatinine (0.66-1.25) mg/dL Est GFR (CKD-EPI)AfAm (>60 ml/min/1.73 sqM) Est GFR (CKD-EPI)NonAf (>60 ml/min/1.73 sqM) Glucose (74-99) mg/dL Lactic Ac Sepsis Rflx Plasma Lactic Acid [place] (0.7-2.0) mmol/L Calcium (8.4-10.2) mg/dL Magnesium (1.6-2.3) mg/dL Total Bilirubin (0.2-1.3) mg/dL AST (17-59) U/L ALT (4-49) U/L Alkaline Phosphatase (38-126) U/L Creatine Kinase 1060 H* (55-170) U/L Troponin I 0.064 H* (0.000-0.034) ng/mL Total Protein (6.3-8.2) g/dL Albumin (3.5-5.0) g/dL Urine Color Yellow Urine Appearance Clear (Clear) Urine pH 5.5 (5.0-8.0) Ur Specific [place] 1.029 (1.001-1.035) Urine Protein 1+ H (Negative) Urine Glucose (UA) Trace H (Negative) Urine Ketones 1+ H (Negative) Urine Blood Small H (Negative) Urine Nitrite Negative (Negative) Urine Bilirubin Negative (Negative) Urine Urobilinogen <2.0 (<2.0) mg/dL Ur Leukocyte Esterase Negative (Negative) Urine RBC 5 (0-5) /hpf Urine WBC 4 (0-5) /hpf Urine Bacteria Occasional H (None) /hpf Hyaline Casts 7 H (0-2) /lpf Urine Mucus Rare H (None) /hpf Influenza Type A (PCR) (Not Detectd) Influenza Type B (PCR) (Not Detectd) RSV (PCR) (Not Detectd) SARS-CoV-2 (PCR) (Not Detectd) 07/18/23 07/18/23 07/18/23 Range/Units 15:23 15:37 15:46 WBC (3.8-10.6) k/uL RBC (4.30-5.90) m/uL Hgb (13.0-17.5) gm/dL Hct (39.0-53.0) % MCV (80.0-100.0) fL MCH (25.0-35.0) pg MCHC (31.0-37.0) g/dL RDW (11.5-15.5) % Plt Count (150-450) k/uL MPV Neutrophils % % Lymphocytes % % Monocytes % % Eosinophils % % Basophils % % Neutrophils # (1.3-7.7) k/uL Lymphocytes # (1.0-4.8) k/uL Monocytes # (0-1.0) k/uL Eosinophils # (0-0.7) k/uL Basophils # (0-0.2) k/uL PT (10.0-12.5) sec INR (<1.2) APTT (22.0-30.0) sec Sodium (137-145) mmol/L Potassium (3.5-5.1) mmol/L Chloride (98-107) mmol/L Carbon Dioxide (22-30) mmol/L Anion Gap mmol/L BUN (9-20) mg/dL Creatinine (0.66-1.25) mg/dL Est GFR (CKD-EPI)AfAm (>60 ml/min/1.73 sqM) Est GFR (CKD-EPI)NonAf (>60 ml/min/1.73 sqM) Glucose (74-99) mg/dL Lactic Ac Sepsis Rflx Y Plasma Lactic Acid [place] 3.2 H* (0.7-2.0) mmol/L Calcium (8.4-10.2) mg/dL Magnesium (1.6-2.3) mg/dL Total Bilirubin (0.2-1.3) mg/dL AST (17-59) U/L ALT (4-49) U/L Alkaline Phosphatase (38-126) U/L Creatine Kinase (55-170) U/L Troponin I (0.000-0.034) ng/mL Total Protein (6.3-8.2) g/dL Albumin (3.5-5.0) g/dL Urine Color Urine Appearance (Clear) Urine pH (5.0-8.0) Ur Specific [place] (1.001-1.035) Urine Protein (Negative) Urine Glucose (UA) (Negative) Urine Ketones (Negative) Urine Blood (Negative) Urine Nitrite (Negative) Urine Bilirubin (Negative) Urine Urobilinogen (<2.0) mg/dL Ur Leukocyte Esterase (Negative) Urine RBC (0-5) /hpf Urine WBC (0-5) /hpf Urine Bacteria (None) /hpf Hyaline Casts (0-2) /lpf Urine Mucus (None) /hpf Influenza Type A (PCR) Not Detected (Not Detectd) Influenza Type B (PCR) Not Detected (Not Detectd) RSV (PCR) Not Detected (Not Detectd) SARS-CoV-2 (PCR) Not Detected (Not Detectd) - EKG Data EKG Comments: 12-lead Electrocardiogram Interpretation Note EKG was reviewed and interpreted by myself. 12-lead ECG performed at 1502. Reviewed at approximately 1515. Is interpreted by me as revealing sinus versus junctional tachycardia at a rate of 104 beats per minute. [place] is normal. [place] intervals 140 ms, QRS duration is 124 ms, QTc is 384 seconds.. She does have some chronic ST segment depressions in the precordial leads and there is somewhat diffuse. Patient is subtle elevation of ST segment in aVR. Many of these changes are chronic but seems more pronounced in this EKG.. R wave progression across the precordium was satisfactory. 12-lead Electrocardiogram Interpretation Note EKG was reviewed and interpreted by myself. 12-lead ECG performed at 1650 is interpreted by me as revealing normal sinus rhythm with a good amount of baseline artifact secondary to tremors at a rate of 103 beats per minute. [place] is normal. QRS duration is 122 ms, QTc is 184 ms.. No significant dynamic changes. Continues to have the ST segment changes seen on prior EKG which are mostly chronic.. (Richi Sheppard) Critical Care Time Critical Care Time: Yes Total Critical Care Time: 37 <Richi Sheppard - Last Filed: 07/18/23 20:16> Disposition <Izzy Gamboa - Last Filed: 07/18/23 14:02> Time of Disposition: 20:15 <Richi Sheppard - Last Filed: 07/18/23 20:16> Clinical Impression: Sepsis, Weakness, Dehydration, Rhabdomyolysis, Fall Disposition: ADMITTED IP TO THIS HOSP Condition: Stable
[2023-07-18 15:02] LABS: Basophils % (A) 0 %; Eosinophils % (A) 0 %; HCT 39.4 % (39.0-53.0); HGB 13.6 gm/dL (13.0-17.5); Lymphocytes # (A) 0.9 k/uL (1.0-4.8); Lymphocytes % (A) 7 %; MCH 31.7 pg (25.0-35.0); MCHC 34.5 g/dL (31.0-37.0); MCV 91.9 fL (80.0-100.0); Mean Platelet Volume 7.4; Monocytes # (A) 0.6 k/uL (0-1.0); Monocytes % (A) 5 %; Neutrophils # (A) 10.1 k/uL (1.3-7.7); Neutrophils % (A) 87 %; Platelet Count 239 k/uL (150-450); RBC 4.29 m/uL (4.30-5.90); WBC 11.6 k/uL (3.8-10.6)
[2023-07-18 15:14] LABS: INR 0.9 (<1.2); Partial Thromboplastin Time 22.8 sec (22.0-30.0); Prothrombin Time 10.5 sec (10.0-12.5)
[2023-07-18 15:20] LABS: ALT 30 U/L (4-49); AST 55 U/L (17-59); African American GFR (CKD) >90 (>60 ml/min/1.73 sqM); Albumin 4.7 g/dL (3.5-5.0); Alkaline Phosphatase 102 U/L (38-126); Anion Gap 17 mmol/L; Blood Urea Nitrogen 27 mg/dL (9-20); Calcium 9.7 mg/dL (8.4-10.2); Carbon Dioxide 21 mmol/L (22-30); Chloride 99 mmol/L (98-107); Glucose 149 mg/dL (74-99); Magnesium 1.8 mg/dL (1.6-2.3); Non-African American GFR(CKD) 83 (>60 ml/min/1.73 sqM); Potassium 4.4 mmol/L (3.5-5.1); Sodium 137 mmol/L (137-145); Total Bilirubin 1.1 mg/dL (0.2-1.3); Total Protein 7.8 g/dL (6.3-8.2)
[2023-07-18] MEDS ORDERED: ACETAMINOPHEN TAB 500 MG TAB PO STA (15:32)
[2023-07-18] MEDS ORDERED: SODIUM CHLORIDE 0.9% 1,000 ML IV STA ×2 (15:32→15:51)
[2023-07-18] MEDS ORDERED: ONDANSETRON 4 MG/2 ML VIAL IVP STA (15:38)
--- NOTE | 2023-07-18 16:46 | CT ---
EXAMINATION TYPE: CT brain cspine wo con CT DLP: Combined DLP of 3096.1 mGycm, Automated exposure control for dose reduction was used. DATE OF EXAM: 07/18/2023 4:36 PM COMPARISON: 01/30/2022 CLINICAL INDICATION:Male, 72 years old with history of syncope; Syncope episode last night found on f bre this am. TECHNIQUE: Brain: Multiple axial CT images of the brain were obtained without IV contrast. Cspine: Axial CT images from the skull base to the inferior aspect of T2 we obtained without intraven ous contrast. Coronal and sagittal reformatted images were also reviewed. FINDINGS: Brain: Extra-axial spaces: No abnormal extra-axial fluid collections. Ventricular system: Within normal limits Cerebral parenchyma: Loss of davalos-white matter junction differentiation in the right parietal region as well as encephalomalacia in the right temporal lobe. No acute intraparenchymal hemorrhage or mass effect. The davalos-white junction is well differentiated. Cerebellum: Unremarkable. Mass effect: No evidence of midline shift. Intracranial vasculature: Atherosclerotic calcifications of the intracranial vessels. Soft tissues: Normal. Calvarium/osseous structures: No depressed skull fracture. Paranasal sinuses and mastoid air cells: Clear. Visualized orbits: Bilaterally aphakia. Cervical spine: Fracture: None. Osseous structures: Multilevel degenerative disc disease changes with endplate spurring and disc oste ophyte complex's. Vertebral alignment: Increased lordotic curvature of the cervical spine. Spinal canal/Neural Foramina: No evidence of significant spinal canal narrowing. No evidence for sign ificant neural foraminal stenosis. Neck soft tissues: Prevertebral soft tissues are within normal limits. Other: The airway is patent. Emphysema changes in the lung apices with scarring..Atherosclerosis of t he carotid bifurcations. IMPRESSION: 1. No intracranial hemorrhage. New from prior cephalization of the right temporal region and similar encephalomalacia in the right parietal region. Right temporal region is new from 01/30/2022. 2. No evidence of cervical spine fracture. 3. Mild multilevel degenerative disc disease. 4. Moderate to severe emphysema changes.
--- NOTE | 2023-07-18 17:11 | XR ---
EXAMINATION TYPE: XR pelvis AP view DATE OF EXAM: 07/18/2023 4:48 PM CLINICAL INDICATION:Male, 72 years old with history of fall, pain; COMPARISON: 01/31/2022 TECHNIQUE: The pelvis was examined in a single projection. FINDINGS: There is no evidence of fracture or dislocation. There is no soft tissue abnormality. No a bnormal calcifications are present. The spine appears intact. Excreted IV contrast seen within the collecting systems. IMPRESSION: No acute osseous pathology.
--- NOTE | 2023-07-18 17:11 | XR ---
EXAMINATION TYPE: XR knee limited RT DATE OF EXAM: 07/18/2023 4:48 PM CLINICAL INDICATION:Male, 72 years old with history of fall, pain; [facility] COMPARISON: 04/17/2021. TECHNIQUE: XR knee limited RT; examined in Frontal, lateral and oblique projections. FINDINGS: No evidence of any acute osseous pathology, soft tissue swelling, or joint effusion is no garrett. Tricompartmental osteophyte formation involving the femoral condyles, tibial plateau and patella. Mo derate joint space narrowing. Atherosclerosis of the arterial vasculature. IMPRESSION: 1. No acute osseous pathology. 2. Moderate to severe tricompartmental osteoarthritic changes.
--- NOTE | 2023-07-18 17:12 | XR ---
EXAMINATION TYPE: XR chest 2V DATE OF EXAM: 07/18/2023 4:48 PM CLINICAL INDICATION:Male, 72 years old with history of weakness; COMPARISON: Chest radiographs from 02/25/2022 TECHNIQUE: XR chest 2V Frontal and lateral views of the chest. FINDINGS: Lungs/Pleura: There is no evidence of pleural effusion, focal consolidation, or pneumothorax. Pulmonary vascularity: Pulmonary vascular congestion. Heart/mediastinum: Cardiomediastinal silhouette is enlarged and stable. Three lead cardiac conduction device overlying the left hemithorax with lead tips projecting over the right ventricle, right atriu m and coronary sinus. Musculoskeletal: Multiple level degenerative disc disease changes seen throughout the spine. Other findings: None Lines/Tubes: IMPRESSION: Cardiomegaly and mild pulmonary vascular congestion. Correlate with BNP for congestive heart failure.
[2023-07-18 17:27] LABS: Appearance,Urine Clear (Clear); Bacteria,Urine Occasional /hpf; Bilirubin,Urine Negative (Negative); Blood,Urine Small (Negative); Color,Urine Yellow; Glucose,Urine (UA) Trace (Negative); Hyaline Casts,Urine 7 /lpf (0-2); Ketones,Urine 1+ (Negative); Leukocyte Esterase,Urine Negative (Negative); Mucus,Urine Rare /hpf; Nitrite,Urine Negative (Negative); PH, Urine 5.5 (5.0-8.0); Protein,Urine 1+ (Negative); RBC,Urine 5 /hpf (0-5); Specific Gravity,Urine 1.029 (1.001-1.035); Urobilinogen,Urine <2.0 mg/dL (<2.0); WBC,Urine 4 /hpf (0-5)
--- NOTE | 2023-07-18 17:30 | CT ---
EXAMINATION TYPE: CT angio thor/abd pel aorta CT DLP: Combined DLP of 3096.1 mGycm, Automated exposure control for dose reduction was used. DATE OF EXAM: 07/18/2023 4:47 PM COMPARISON: 05/23/2023. CLINICAL INDICATION:Male, 72 years old with history of history of AAA, syncopal episode; PHH, Syncope episode last night found on floor this am, hx of AAA. Vomiting with incont of urine. TECHNIQUE: Dissection protocol: Multiple axial CT images of the chest, abdomen, and pelvis were obtai coretta prior and to the administration of IV contrast. 3-D reformats and maximum intensity projection fo rmat were performed on a separate workstation. Contrast used:100 ml mL of Isovue 370 with IV Contrast, Oral contrast used: FINDINGS: ARTERIAL VASCULATURE: No evidence for intramural hematoma on noncontrast imaging. There is scattered atherosclerosis of the arterial vasculature including the coronary arteries. The origins of the major vessels of the aortic arch are patent. The ascending and descending thoracic aorta is within normal limits with scattered atherosclerotic plaque. The abdominal aorta demonstrates infrarenal fusiform an eurysmal dilation up to 3.9 x 3.5 cm with mural thrombus. There is severe atherosclerotic disease inv olving the common iliac arteries bilaterally. The external iliac arteries also demonstrate atheroscle rotic plaque. The celiac axis is patent. 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 There is reconstitution with multiple collaterals. PULMONARY ARTERIAL VASCULATURE: Normal caliber. No evidence of filling defect to suggest pulmonary em bolus. VENOUS SYSTEM: Unremarkable. Lungs/pleura: Moderate to severe emphysema changes throughout the lungs. No focal consolidation, pneu mothorax or pleural effusion. Heart: Cardiac conduction leads are present. There is mild to moderate coronary artery atherosclerosi s. Cardiomegaly is present. Mediastinum: No gross evidence of adenopathy. Lower Neck: No significant findings. Abdomen: Liver: Unremarkable. Gallbladder and Bile ducts: Unremarkable. Pancreas: Unremarkable. Spleen: Unremarkable. Adrenal glands: Unremarkable. Kidneys and Ureters: Unremarkable. No hydronephrosis. Bladder: Unremarkable. Reproductive: Prostate calcifications prostate gland measures up to 4.5 cm at the upper limits of nor mal.. Stomach and Bowel: Scattered colonic diverticula are present throughout the colon most pronounced in the sigmoid colon. Circumferential second portion duodenal wall thickening up to 10 mm. No evidence o f bowel obstruction. Peritoneum: No evidence of pneumoperitoneum, free fluid, or adenopathy. Musculoskeletal: The osseous structures appear intact. Multilevel degeneration changes throughout the spine with disc space narrowing, osteophytes and facet joint arthropathy. Lymph nodes: No evidence of lymphadenopathy. Abdominal wall/soft tissues: Unremarkable. IMPRESSION: 1. 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 2. Similar Infrarenal fusiform infrarenal abdominal aortic aneurysm measuring up to 2.9 cm measuring cm. 3. Circumferential second portion duodenal wall thickening up to 10 mm corrected for duodenitis. 4. Colonic diverticulosis. 5. Moderate to severe emphysema.
[2023-07-18] MEDS ORDERED: VANCOMYCIN IV PER PHARMACY 1 EACH MISC MISCELLANE PRN (17:49)
[2023-07-18] MEDS ORDERED: VANCOMYCIN 1,500 MG in SODIUM CHLORIDE 0.9% 500 ML 500 ML IVPB STA (17:55)
[2023-07-18] MEDS ORDERED: NALOXONE 0.4 MG/ML 1 ML VIAL IV PRN (18:06)
[2023-07-18] MEDS ORDERED: ONDANSETRON 4 MG/2 ML VIAL IVP PRN (18:06)
[2023-07-18] MEDS ORDERED: ACETAMINOPHEN TAB 500 MG TAB PO PRN (18:08)
[2023-07-18] MEDS: SODIUM CHLORIDE 0.9% 1,000 ML IV SCH (18:56)
[2023-07-18] MEDS: CEFEPIME 2 GM in SODIUM CHLORIDE 0.9% 100 ML IVPB SCH (18:59)
[2023-07-18] MEDS: METOPROLOL TARTRATE 50 MG TAB PO SCH (21:08)
[2023-07-18] MEDS: ATORVASTATIN 40 MG TAB PO SCH (21:08)
[2023-07-19] MEDS: CEFEPIME 2 GM in SODIUM CHLORIDE 0.9% 100 ML IVPB SCH ×3 (02:35→17:37)
[2023-07-19 03:02] LABS: Basophils % (A) 0 %; Eosinophils % (A) 0 %; HCT 33.1 % (39.0-53.0); HGB 11.3 gm/dL (13.0-17.5); Lymphocytes # (A) 1.6 k/uL (1.0-4.8); Lymphocytes % (A) 14 %; MCH 31.9 pg (25.0-35.0); MCV 93.8 fL (80.0-100.0); Mean Platelet Volume 8.8; Monocytes % (A) 8 %; Neutrophils % (A) 76 %; Platelet Count 209 k/uL (150-450); RBC 3.52 m/uL (4.30-5.90); RDW 13.4 % (11.5-15.5); WBC 11.9 k/uL (3.8-10.6)
[2023-07-19 04:14] LABS: African American GFR (CKD) >90 (>60 ml/min/1.73 sqM); Anion Gap 11 mmol/L; Blood Urea Nitrogen 25 mg/dL (9-20); Calcium 8.6 mg/dL (8.4-10.2); Carbon Dioxide 20 mmol/L (22-30); Chloride 105 mmol/L (98-107); Glucose 106 mg/dL (74-99); Non-African American GFR(CKD) 86 (>60 ml/min/1.73 sqM); Potassium 4.1 mmol/L (3.5-5.1); Sodium 136 mmol/L (137-145)
--- NOTE | 2023-07-19 04:20 | HP ---
HISTORY AND PHYSICAL HISTORY OF PRESENT ILLNESS: 72-year-old male presents with weakness, syncopal episode. He is on blood thinners was difficult to wake him up. Denies any pain or headache, chest pain, fevers or chills, shortness of breath. syncope but this is not 100% certain. He does remember end up on the ground, hard to get up due to chronic joint pain and stiffness. He had anxiety attack with chest tightness. PAST MEDICAL HISTORY: History of AAA, coronary artery disease with stents, cardiomyopathy LV dysfunction, ICD, hypertension, COPD, myocardial infarction. MEDICATIONS: Reviewed. ALLERGIES: Reviewed. SURGERIES: Back surgery, heart catheterization with stent, L5-S1 laminectomy, permanent pacemaker. FAMILY HISTORY: Father, negative. REVIEW OF SYSTEMS: 14-point review of systems negative. PHYSICAL EXAMINATION: VITAL SIGNS: Pulse 102 to 104, O2 is 94 to 95, respiratory rate 20 to 22, temp is 99.5. CARDIOVASCULAR: S1, S2. LUNGS: Transmitted upper sounds. HEMATOLOGY: Negative for Homans. PSYCH: Fair mood and affect. NEUROLOGIC: Alert and oriented x3. GI: Soft. OPHTHALMOLOGIC: Pupils equal, round, reactive. ASSESSMENT: 1. Lactic acidosis secondary to infection, dehydration. 2. ischemia. 3. Progressive ptosis. 4. Pacemaker. 5. Sepsis criteria. Broad-spectrum antibiotics, vancomycin and cefepime. antibodies. White count is 11.6. Sugar is 149. 6. Rule out sepsis. 7. Probable pneumonia. 8. Acute febrile illness. 9. Dehydration. 10.Weakness. 11.Rhabdomyolysis. 12.Fall. 13.Prognosis guarded. Please see further orders. MMODL / IJN: [id number] /
[2023-07-19] MEDS ORDERED: VANCOMYCIN 1,500 MG in SODIUM CHLORIDE 0.9% 500 ML 500 ML IVPB SCH (07:00)
[2023-07-19] MEDS: BUDESONIDE 0.5 MG/2 ML NEBU INHALATION SCH ×2 (08:03→20:24)
[2023-07-19] MEDS: IPRATROPIUM-ALBUTEROL 3 ML NEB INHALATION SCH ×4 (08:03→20:24)
[2023-07-19] MEDS: LISINOPRIL-HCTZ 20-12.5 MG 1 EACH TAB PO SCH (08:38)
[2023-07-19] MEDS: ASPIRIN 81 MG PO SCH (08:38)
[2023-07-19] MEDS: lisinopriL 10 MG TAB PO SCH (08:38)
[2023-07-19] MEDS: FAMOTIDINE 20 MG TAB PO SCH (08:39)
[2023-07-19] MEDS: METOPROLOL TARTRATE 50 MG TAB PO SCH (08:40)
--- NOTE | 2023-07-19 11:44 | P.GSCN ---
History of Present Illness Consult date: 07/19/23 History of present illness: Patient is a 72-year-old male who was admitted for possible syncopal episode and evidence of confusion. He had a friend over and noticed vomiting urine. Patient is mildly confused but denies any abdominal pain nausea or vomiting. He is eating fine. He is sitting at the bedside writing multiple notes and letters on the paper from the cafeteria tray. Past Medical History Past Medical History: Coronary Artery Disease (CAD), COPD, Hypertension, Myocardial Infarction ([place]) Additional Past Medical History / Comment(s): hx covid 10/14/21-states received infusion., AAA., AICD., pain in legs with walking. Last Myocardial Infarction Date:: UNKNOWN History of Any Multi-Drug Resistant Organisms: None Reported Past Surgical History: Back Surgery, Heart Catheterization With Stent Additional Past Surgical History / Comment(s): [id number] (1972)., AICD - (12/06/20 [employer])., HEART CATH WITH 3 STENTS (10/08/20)., CATARACTS Past Anesthesia/Blood Transfusion Reactions: No Reported Reaction Date of Last Stent Placement:: 10/08/2020 Type of Cardiac Device: Permanent Pacemaker Device Placement Date:: 12/06/2020 Past Psychological History: No Psychological Hx Reported Smoking Status: Former smoker Past Alcohol Use History: Occasional Additional Past Alcohol Use History / Comment(s): QUIT SMOKING OCT 2020, HX OF 1-2 PPD, SMOKED APPROX 56 YEARS. Past Drug Use History: None Reported - Past Family History Father History Unknown: Yes Family Medical History: No Reported History Medications and Allergies Home Medications Medication Instructions Recorded Confirmed Type Aspirin 81 mg PO DAILY #30 chew 10/10/20 07/18/23 Rx Atorvastatin [Lipitor] 40 mg PO HS 01/25/22 07/18/23 History Metoprolol Tartrate [Lopressor] 50 mg PO BID 30 Days #60 tab 02/06/22 07/18/23 Rx Famotidine [Pepcid] 20 mg PO DAILY #30 tab 03/01/22 07/18/23 Rx Lisinopril-Hctz 20-12.5 mg 1 tab PO DAILY 07/18/23 07/18/23 History [Zestoretic 20-12.5] lisinopriL [Zestril] 10 mg PO DAILY 07/18/23 07/18/23 History Allergies Allergy/AdvReac Type Severity Reaction Status Date / Time ampicillin Allergy Unknown turned Verified 07/18/23 17:54 pink, trouble breathing Penicillins Allergy turned Verified 07/18/23 17:54 pink, trouble breathing Surgical - Exam Vital Signs Temp Pulse Resp BP Pulse Ox 98.4 F 73 16 164/74 94 L 07/18/23 13:56 07/18/23 13:56 07/18/23 13:56 07/18/23 13:56 07/18/23 13:56 Gen. is a pleasant cooperative male practically writing notes and letters on the [email or web address] tray paper. HEENT is normocephalic, atraumatic, extraocular motion intact. Heart appears regular this time. Lungs are diminished no respiratory distress. Abdomen is soft, nontender, nondistended. No peritoneal. No rebound. No guarding. Extremities show no clubbing, cyanosis or edema. Relatively normal mood and affect. Alert and oriented to person and place. Does admit to having to look at the board to orient himself to time. Is not able to name the president. Results Computed tomography scan is personally reviewed. There is evidence of occlusion of the proximal most superior Mesenteric artery with reconstitution. There is a stable appearing abdominal aortic aneurysm - Labs 07/19/23 02:16 07/19/23 02:16 Abnormal Lab Results - Last 24 Hours (Table) 07/18/23 07/18/23 07/18/23 Range/Units 14:32 14:32 14:32 WBC 11.6 H (3.8-10.6) k/uL RBC 4.29 L (4.30-5.90) m/uL Hgb (13.0-17.5) gm/dL Hct (39.0-53.0) % Neutrophils # 10.1 H (1.3-7.7) k/uL Lymphocytes # 0.9 L (1.0-4.8) k/uL Sodium (137-145) mmol/L Carbon Dioxide 21 L (22-30) mmol/L BUN 27 H (9-20) mg/dL Glucose 149 H (74-99) mg/dL Plasma Lactic Acid Gulshan (0.7-2.0) mmol/L Creatine Kinase (55-170) U/L Troponin I 0.064 H* (0.000-0.034) ng/mL Urine Protein (Negative) Urine Glucose (UA) (Negative) Urine Ketones (Negative) Urine Blood (Negative) Urine Bacteria (None) /hpf Hyaline Casts (0-2) /lpf Urine Mucus (None) /hpf 07/18/23 07/18/23 07/18/23 Range/Units 14:32 15:23 15:23 WBC (3.8-10.6) k/uL RBC (4.30-5.90) m/uL Hgb (13.0-17.5) gm/dL Hct (39.0-53.0) % Neutrophils # (1.3-7.7) k/uL Lymphocytes # (1.0-4.8) k/uL Sodium (137-145) mmol/L Carbon Dioxide (22-30) mmol/L BUN (9-20) mg/dL Glucose (74-99) mg/dL Plasma Lactic Acid Gulshan 3.2 H* (0.7-2.0) mmol/L Creatine Kinase 1060 H* (55-170) U/L Troponin I (0.000-0.034) ng/mL Urine Protein 1+ H (Negative) Urine Glucose (UA) Trace H (Negative) Urine Ketones 1+ H (Negative) Urine Blood Small H (Negative) Urine Bacteria Occasional H (None) /hpf Hyaline Casts 7 H (0-2) /lpf Urine Mucus Rare H (None) /hpf 07/18/23 07/19/23 07/19/23 Range/Units 21:26 00:33 02:16 WBC (3.8-10.6) k/uL RBC (4.30-5.90) m/uL Hgb (13.0-17.5) gm/dL Hct (39.0-53.0) % Neutrophils # (1.3-7.7) k/uL Lymphocytes # (1.0-4.8) k/uL Sodium 136 L (137-145) mmol/L Carbon Dioxide 20 L (22-30) mmol/L BUN 25 H (9-20) mg/dL Glucose 106 H (74-99) mg/dL Plasma Lactic Acid Gulshan (0.7-2.0) mmol/L Creatine Kinase (55-170) U/L Troponin I 0.091 H* 0.118 H* (0.000-0.034) ng/mL Urine Protein (Negative) Urine Glucose (UA) (Negative) Urine Ketones (Negative) Urine Blood (Negative) Urine Bacteria (None) /hpf Hyaline Casts (0-2) /lpf Urine Mucus (None) /hpf 07/19/23 07/19/23 Range/Units 02:16 02:16 WBC 11.9 H (3.8-10.6) k/uL RBC 3.52 L (4.30-5.90) m/uL Hgb 11.3 L (13.0-17.5) gm/dL Hct 33.1 L (39.0-53.0) % Neutrophils # 9.0 H (1.3-7.7) k/uL Lymphocytes # (1.0-4.8) k/uL Sodium (137-145) mmol/L Carbon Dioxide (22-30) mmol/L BUN (9-20) mg/dL Glucose (74-99) mg/dL Plasma Lactic Acid Gulshan (0.7-2.0) mmol/L Creatine Kinase 1307 H* (55-170) U/L Troponin I (0.000-0.034) ng/mL Urine Protein (Negative) Urine Glucose (UA) (Negative) Urine Ketones (Negative) Urine Blood (Negative) Urine Bacteria (None) /hpf Hyaline Casts (0-2) /lpf Urine Mucus (None) /hpf Diabetes panel 07/18/23 07/19/23 Range/Units 14:32 02:16 Sodium 137 136 L (137-145) mmol/L Potassium 4.4 4.1 (3.5-5.1) mmol/L Chloride 99 105 (98-107) mmol/L Carbon Dioxide 21 L 20 L (22-30) mmol/L BUN 27 H 25 H (9-20) mg/dL Creatinine 0.91 0.86 (0.66-1.25) mg/dL Glucose 149 H 106 H (74-99) mg/dL Calcium 9.7 8.6 (8.4-10.2) mg/dL AST 55 (17-59) U/L ALT 30 (4-49) U/L Alkaline Phosphatase 102 (38-126) U/L Total Protein 7.8 (6.3-8.2) g/dL Albumin 4.7 (3.5-5.0) g/dL Calcium panel 07/18/23 07/19/23 Range/Units 14:32 02:16 Calcium 9.7 8.6 (8.4-10.2) mg/dL Albumin 4.7 (3.5-5.0) g/dL Pituitary panel 07/18/23 07/19/23 Range/Units 14:32 02:16 Sodium 137 136 L (137-145) mmol/L Potassium 4.4 4.1 (3.5-5.1) mmol/L Chloride 99 105 (98-107) mmol/L Carbon Dioxide 21 L 20 L (22-30) mmol/L BUN 27 H 25 H (9-20) mg/dL Creatinine 0.91 0.86 (0.66-1.25) mg/dL Glucose 149 H 106 H (74-99) mg/dL Calcium 9.7 8.6 (8.4-10.2) mg/dL Adrenal panel 07/18/23 07/19/23 Range/Units 14:32 02:16 Sodium 137 136 L (137-145) mmol/L Potassium 4.4 4.1 (3.5-5.1) mmol/L Chloride 99 105 (98-107) mmol/L Carbon Dioxide 21 L 20 L (22-30) mmol/L BUN 27 H 25 H (9-20) mg/dL Creatinine 0.91 0.86 (0.66-1.25) mg/dL Glucose 149 H 106 H (74-99) mg/dL Calcium 9.7 8.6 (8.4-10.2) mg/dL Total Bilirubin 1.1 (0.2-1.3) mg/dL AST 55 (17-59) U/L ALT 30 (4-49) U/L Alkaline Phosphatase 102 (38-126) U/L Total Protein 7.8 (6.3-8.2) g/dL Albumin 4.7 (3.5-5.0) g/dL Assessment and Plan Assessment: SMA occlusion with reconstitution, no evidence of mesenteric ischemia Stable infrarenal abdominal aortic aneurysm Plan: I had the pleasure of seeing Narendra. I personally reviewed the imaging. At this point there is no evidence of mesenteric ischemia, it appears to be chronically occluded at the proximal superior mesenteric artery. He remains asymptomatic from this and tolerating a diet. Continue medical management and workup. Abdominal aortic aneurysm is stable, requires outpatient surveillance. No further vascular testing or intervention warranted at this time. Please let us know if we can be of further assistance.
[2023-07-19] MEDS: IOPAMIDOL CONTRAST (ORAL USE) VIAL PO PRN ×2 (14:00→14:59)
--- NOTE | 2023-07-19 15:37 | P.CRDCN ---
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 He has history of hypertension and dyslipidemia and COPD. He presented to the hospital with concerns of possible loss of consciousness and fall. Patient was apparently found on the ground by his friend. He was also noticed to be covered and vomiting. Later that day his daughter visited him and found him to be very weak and confused due to which she brought him to the hospital. Currently he is being evaluated for possible pneumonia and sepsis cartilage was consulted for elevated troponin. His troponins were 0.09, 0.118. ECG showed sinus rhythm with, moderate ventricular conduction delay and prominent R-wave in V2 and nonspecific ST changes concerning of either posterior ND or RV strain, possibly PE Hemoglobin 11.3, REVIEW OF SYSTEMS 14 point review of system is negative except what is mentioned above in HPI. PHYSICAL EXAMINATION Vital signs reviewed. febrile to touch Head: Normocephalic. Eyes: Sclerae nonicteric. Neck: Brisk carotid upstroke, no jugular venous distention. Lungs: Clear to auscultation. Heart: Regular rate and rhythm, S1-S2, no S3, no murmur or rub. Abdomen: Soft nontender, positive bowel sounds no organomegaly. Extremities: No edema, intact distal pulses. 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 Obtain an echocardiogram Obtain d-dimer levels, obtain venous Doppler If d-dimer is elevated, obtain CTA PE protocol. Continue treatment for sepsis as per primary team Other comorbidities to be managed by primary team Past Medical History Past Medical History: Coronary Artery Disease (CAD), COPD, Hypertension, Myocardial Infarction ([place]) Additional Past Medical History / Comment(s): hx covid 10/14/21-states received infusion., AAA., AICD., pain in legs with walking. Last Myocardial Infarction Date:: UNKNOWN History of Any Multi-Drug Resistant Organisms: None Reported Past Surgical History: Back Surgery, Heart Catheterization With Stent Additional Past Surgical History / Comment(s): [id number] (1972)., AICD -(12/06/20 [employer])., HEART CATH WITH 3 STENTS (10/08/20)., CATARACTS Past Anesthesia/Blood Transfusion Reactions: No Reported Reaction Date of Last Stent Placement:: 10/08/2020 Type of Cardiac Device: Permanent Pacemaker Device Placement Date:: 12/06/2020 Past Psychological History: No Psychological Hx Reported Smoking Status: Former smoker Past Alcohol Use History: Occasional Additional Past Alcohol Use History / Comment(s): QUIT SMOKING OCT 2020, HX OF 1-2 PPD, SMOKED APPROX 56 YEARS. Past Drug Use History: None Reported - Past Family History Father History Unknown: Yes Family Medical History: No Reported History Medications and Allergies Home Medications Medication Instructions Recorded Confirmed Type Aspirin 81 mg PO DAILY #30 chew 10/10/20 07/18/23 Rx Atorvastatin [Lipitor] 40 mg PO HS 01/25/22 07/18/23 History Metoprolol Tartrate [Lopressor] 50 mg PO BID 30 Days #60 tab 02/06/22 07/18/23 Rx Famotidine [Pepcid] 20 mg PO DAILY #30 tab 03/01/22 07/18/23 Rx Lisinopril-Hctz 20-12.5 mg 1 tab PO DAILY 07/18/23 07/18/23 History [Zestoretic 20-12.5] lisinopriL [Zestril] 10 mg PO DAILY 07/18/23 07/18/23 History Allergies Allergy/AdvReac Type Severity Reaction Status Date / Time ampicillin Allergy Unknown turned Verified 07/18/23 17:54 pink, trouble breathing Penicillins Allergy turned Verified 07/18/23 17:54 pink, trouble breathing Physical Exam Vitals: Vital Signs Temp Pulse Pulse Resp BP BP Pulse Ox 07/19/23 14:00 84 18 07/19/23 12:04 84 07/19/23 12:00 99.2 F 84 18 173/72 97 07/19/23 11:48 80 07/19/23 08:17 84 07/19/23 08:04 83 96 07/19/23 08:00 98.4 F 82 18 173/70 94 L 07/19/23 04:00 98.1 F 76 20 149/68 96 07/19/23 02:00 74 18 07/19/23 00:00 99.1 F 74 18 147/86 92 L 07/18/23 21:34 100.3 F H 105 H 16 153/71 96 07/18/23 21:08 105 H 18 156/70 95 07/18/23 20:23 99.8 F H 07/18/23 20:00 82 07/18/23 19:30 105 H 18 167/83 95 07/18/23 19:00 104 H 18 174/71 94 L 07/18/23 18:30 101 H 20 170/72 95 07/18/23 18:00 102 H 22 181/82 95 07/18/23 17:30 104 H 20 168/78 96 07/18/23 17:00 102 H 20 94 L 07/18/23 16:45 99.5 F Intake and Output 07/19/23 07/19/23 07/19/23 06:59 14:59 22:59 Intake Total 240 118 Output Total 375 Balance -135 118 Intake: Oral 240 118 Output: Urine 375 Other: Voiding Method Indwelling Catheter Indwelling Catheter Results 07/19/23 02:16 07/19/23 02:16 Cardiac Enzymes 07/18/23 07/18/23 07/19/23 Range/Units 14:32 21:26 00:33 Troponin I 0.064 H* 0.091 H* 0.118 H* (0.000-0.034) ng/mL CBC 07/19/23 Range/Units 02:16 WBC 11.9 H (3.8-10.6) k/uL RBC 3.52 L (4.30-5.90) m/uL Hgb 11.3 L (13.0-17.5) gm/dL Hct 33.1 L (39.0-53.0) % Plt Count 209 (150-450) k/uL Comprehensive Metabolic Panel 07/19/23 Range/Units 02:16 Sodium 136 L (137-145) mmol/L Potassium 4.1 (3.5-5.1) mmol/L Chloride 105 (98-107) mmol/L Carbon Dioxide 20 L (22-30) mmol/L BUN 25 H (9-20) mg/dL Creatinine 0.86 (0.66-1.25) mg/dL Glucose 106 H (74-99) mg/dL Calcium 8.6 (8.4-10.2) mg/dL Current Medications Generic Name Dose Route Start Last Admin Trade Name Freq PRN Reason Stop Dose Admin Acetaminophen 500 mg 07/18/23 18:08 07/18/23 21:52 Acetaminophen Tab 500 Mg Tab PO 500 mg Q6HR PRN Administration Fever and/ or Pain Albuterol/Ipratropium 3 ml 07/19/23 08:00 07/19/23 11:47 Ipratropium-Albuterol 3 Ml Neb INHALATION 3 ml RT-QID BUCK Administration Aspirin 81 mg 07/19/23 09:00 07/19/23 08:38 Aspirin 81 Mg PO 81 mg DAILY BUCK Administration Atorvastatin Calcium 40 mg 07/18/23 21:00 07/18/23 21:08 Atorvastatin 40 Mg Tab PO 40 mg HS BUCK Administration Budesonide 0.5 mg 07/19/23 08:00 07/19/23 08:03 Budesonide 0.5 Mg/2 Ml Nebu INHALATION 0.5 mg RT-BID BUCK Administration Carvedilol 6.25 mg 07/19/23 17:30 Carvedilol 6.25 Mg Tab PO BID-W/MEALS BUCK Famotidine 20 mg 07/19/23 09:00 07/19/23 08:39 Famotidine 20 Mg Tab PO 20 mg DAILY BUCK Administration Lisinopril/HCTZ 1 each 07/19/23 09:00 07/19/23 08:38 Lisinopril-Hctz 20-12.5 Mg 1 Each Tab PO 1 each DAILY BUCK Administration Cefepime HCl 2 gm/ Sodium 100 mls @ 25 mls/hr 07/18/23 18:00 07/19/23 10:58 Chloride IVPB 25 mls/hr Q8H BUCK Administration Protocol Sodium Chloride 1,000 mls @ 75 mls/hr 07/18/23 18:15 07/18/23 18:56 Saline 0.9% IV 75 mls/hr .[id number] BUCK Administration Lisinopril 10 mg 07/19/23 09:00 07/19/23 08:38 Lisinopril 10 Mg Tab PO 10 mg DAILY BUCK Administration Naloxone HCl 0.2 mg 07/18/23 18:06 Naloxone 0.4 Mg/Ml 1 Ml Vial IV Q2M PRN Opioid Reversal Ondansetron HCl 4 mg 07/18/23 18:06 Ondansetron 4 Mg/2 Ml Vial IVP Q8HR PRN Nausea And Vomiting Intake and Output 07/19/23 07/19/23 07/19/23 06:59 14:59 22:59 Intake Total 240 118 Output Total 375 Balance -135 118 Intake: Oral 240 118 Output: Urine 375 Other: Voiding Method Indwelling Catheter Indwelling Catheter 07/19/23 02:16 07/19/23 02:16
[2023-07-19] MEDS: carvediloL 6.25 MG TAB PO SCH (17:37)
[2023-07-19] MEDS: SODIUM CHLORIDE 0.9% 1,000 ML IV SCH ×2 (17:37→22:50)
--- NOTE | 2023-07-19 18:06 | CT ---
EXAMINATION TYPE: CT abdomen pelvis wo con CT DLP: 563.5 mGycm, Automated exposure control for dose reduction was used. DATE OF EXAM: 07/19/2023 3:53 PM COMPARISON: CT abdomen pelvis most recent from 07/18/2023 CLINICAL INDICATION:Male, 72 years old with history of fever; Fever TECHNIQUE: Axial CT of the abdomen and pelvis. Sagittal and coronal reformats were created on a [employer] workstation. Contrast used: mL of , (none if empty) Oral contrast used: with Oral Contrast (none if empty) FINDINGS: LOWER CHEST: The heart is mildly enlarged for size. There is coronary artery cusp patient's. Cardiac conduction leads are visualized in the right ventricle and right atrium. Suspected atelectasis in the posterior aspect of the lungs. Costophrenic angles. ABDOMEN LIVER: Unremarkable GALLBLADDER AND BILE DUCTS: Unremarkable. PANCREAS: Mild inflammation changes around the descending duodenum. SPLEEN: Unremarkable. ADRENAL GLANDS: Unremarkable. KIDNEYS AND URETERS: No evidence of hydronephrosis or renal calculus. The ureters are unremarkable. PELVIS BLADDER: Nondistended with Qureshi catheter in place. REPRODUCTIVE: Unremarkable. ABDOMEN & PELVIS STOMACH AND BOWEL: No evidence of bowel obstruction. Duodenal wall thickening up to 13 mm series 201 image 38. Scattered colonic diverticula. PERITONEUM/RETROPERITONEUM: No evidence of pneumoperitoneum or free fluid. VASCULATURE: Moderate atherosclerotic calcifications are present throughout the abdominal aorta and i ts branches. No evidence of aortic aneurysm. Infrarenal aortic aneurysm similar to 07/18/2023 exam me asuring up to 3.9 cm. MUSCULOSKELETAL: No acute osseous abnormalities LYMPH NODES: No gross evidence for lymphadenopathy. SOFT TISSUE/ABDOMINAL WALL: Unremarkable IMPRESSION: 1. Duodenal wall thickening up to 13 mm correlate for duodenitis, additionally there may be some inf lammation changes around the duodenum near the pancreatic head correlate with serum lipase. 2. Please see CT angiogram from 07/18/2023 for findings regarding the vascular structures.
[2023-07-19] MEDS: ATORVASTATIN 40 MG TAB PO SCH (19:55)
--- NOTE | 2023-07-19 21:21 | P.CONS ---
History of Present Illness - Reason for Consult Consult date: 07/19/23 Sepsis, fever of unknown origin Requesting physician: Richi Sheppard - Chief Complaint Weakness and not feeling well x few days - History of Present Illness Patient is a 72-year-old male with a past medical history significant for coronary artery disease COPD hypertension [place] patient presented to hospital yesterday afternoon for evaluation of weakness according to the ER note per the family patient was noticed to be in bed with vomit and urine and was difficult to wake the patient up patient was brought into the ER patient on presentation to the hospital did have a fever of 101.2 degrees following hide patient was tachycardic however not hypotensive or hypoxic and no need for supplemental oxygen patient did have vital of 11.6 with a left shift creatinine 0.91 liver exams are normal CK and troponins are elevated urine has been relatively negative influenza RSV and COVID testing was negative patient did have a head and cervical spine CT chest x-ray cardiomegaly mild pulmonary vascular congestion patient has been admitted to hospital started on cefepime and vancomycin infectious disease was consulted for further management of antibiotic therapy patient at time of evaluation denies having any headache or URI symptoms no chest pain shortness of breath or cough patient denies any further vomiting mentioned has vomited only once yesterday denies significant abdominal pain no diarrhea constipation no urinary symptoms no joint swelling Review of Systems Positive point and negatives has been mentioned in the HPI, complete review of systems was performed and all other systems are negative Past Medical History Past Medical History: Coronary Artery Disease (CAD), COPD, Hypertension, Myocardial Infarction ([place]) Additional Past Medical History / Comment(s): hx covid 10/14/21-states received infusion., AAA., AICD., pain in legs with walking. Last Myocardial Infarction Date:: UNKNOWN History of Any Multi-Drug Resistant Organisms: None Reported Past Surgical History: Back Surgery, Heart Catheterization With Stent Additional Past Surgical History / Comment(s): [id number] (1972)., AICD - (12/06/20 [employer])., HEART CATH WITH 3 STENTS (10/08/20)., CATARACTS Past Anesthesia/Blood Transfusion Reactions: No Reported Reaction Date of Last Stent Placement:: 10/08/2020 Type of Cardiac Device: Permanent Pacemaker Device Placement Date:: 12/06/2020 Past Psychological History: No Psychological Hx Reported Smoking Status: Former smoker Past Alcohol Use History: Occasional Additional Past Alcohol Use History / Comment(s): QUIT SMOKING OCT 2020, HX OF 1 -2 PPD, SMOKED APPROX 58 YEARS. Past Drug Use History: None Reported - Past Family History Father History Unknown: Yes Family Medical History: No Reported History Medications and Allergies Home Medications Medication Instructions Recorded Confirmed Type Aspirin 81 mg PO DAILY #30 chew 10/10/20 07/18/23 Rx Atorvastatin [Lipitor] 40 mg PO HS 01/25/22 07/18/23 History Lisinopril-Hctz 20-12.5 mg 1 tab PO DAILY 07/18/23 07/18/23 History [Zestoretic 20-12.5] Acetaminophen Tab [Tylenol] 500 mg PO Q6HR PRN tab 07/24/23 Rx Budesonide [Pulmicort] 0.5 mg INHALATION RT-BID ml 07/24/23 Rx Dapagliflozin Propanediol [Farxiga] 10 mg PO DAILY tab 07/24/23 Rx Fluticasone Nasal [place] [Flonase 2 spray EA NOSTRIL DAILY PRN ml 07/24/23 Rx Nasal [place]] Ipratropium-Albuterol Nebulize 3 ml INHALATION RT-QID each 07/24/23 Rx [Duoneb 0.5 mg-3 mg/3 ml Soln] Loratadine [Claritin] 10 mg PO DAILY tab 07/24/23 Rx Moxifloxacin HCl [Avelox] 400 mg PO DAILY #7 tab 07/24/23 Rx Pantoprazole [Protonix] 40 mg PO AC-BID tab 07/24/23 Rx Potassium Chloride ER [K-Dur 20] 20 meq PO DAILY tab 07/24/23 Rx carvediloL [Coreg*] 12.5 mg PO BID-W/MEALS tab 07/24/23 Rx Allergies Allergy/AdvReac Type Severity Reaction Status Date / Time ampicillin Allergy Unknown turned Verified 07/18/23 17:54 pink, trouble breathing Penicillins Allergy turned Verified 07/18/23 17:54 pink, trouble breathing Physical Exam Vitals: Vital Signs Temp Pulse Pulse Resp BP BP Pulse Ox 07/19/23 08:17 84 07/19/23 08:04 83 96 07/19/23 04:00 98.1 F 76 20 149/68 96 07/19/23 02:00 74 18 07/19/23 00:00 99.1 F 74 18 147/86 92 L 07/18/23 21:34 100.3 F H 105 H 16 153/71 96 07/18/23 21:08 105 H 18 156/70 95 07/18/23 20:23 99.8 F H 07/18/23 20:00 82 07/18/23 19:30 105 H 18 167/83 95 07/18/23 19:00 104 H 18 174/71 94 L 07/18/23 18:30 101 H 20 170/72 95 07/18/23 18:00 102 H 22 181/82 95 07/18/23 17:30 104 H 20 168/78 96 07/18/23 17:00 102 H 20 94 L 07/18/23 16:45 99.5 F 07/18/23 15:30 106 H 20 176/80 96 07/18/23 15:25 101.2 F H 104 H 18 176/80 95 07/18/23 13:56 98.4 F 73 16 164/74 94 L Intake and Output 07/18/23 07/19/23 07/19/23 22:59 06:59 14:59 Intake Total 240 0 Output Total 650 375 Balance -650 -135 0 Intake: Oral 240 0 Output: Urine 650 375 Other: Voiding Method Indwelling Catheter Indwelling Catheter Weight 81.647 kg GENERAL DESCRIPTION: Elderly male lying in bed, no distress. No tachypnea or accessory muscle of respiration use. HEENT: Shows Pallor , no scleral icterus. Oral mucous membrane is dry. No pharyngeal erythema or thrush NECK: Trachea central, no thyromegaly. LUNGS: Unlabored breathing. Decreased breath sound at the base No wheeze or crackle. HEART: S1, S2, regular rate and rhythm. No loud murmur ABDOMEN: Soft, mild tenderness EXTREMITIES: No edema of feet. SKIN: No rash, no masses palpable. NEUROLOGICAL: The patient is awake, alert, oriented x3, mood and affect normal. Results CBC & Chem 7: 07/22/23 06:34 07/24/23 21:42 Labs: Abnormal Lab Results - Last 24 Hours (Table) 07/18/23 07/18/23 07/18/23 Range/Units 14:32 14:32 14:32 WBC 11.6 H (3.8-10.6) k/uL RBC 4.29 L (4.30-5.90) m/uL Hgb (13.0-17.5) gm/dL Hct (39.0-53.0) % Neutrophils # 10.1 H (1.3-7.7) k/uL Lymphocytes # 0.9 L (1.0-4.8) k/uL Sodium (137-145) mmol/L Carbon Dioxide 21 L (22-30) mmol/L BUN 27 H (9-20) mg/dL Glucose 149 H (74-99) mg/dL Plasma Lactic Acid Gulshan (0.7-2.0) mmol/L Creatine Kinase (55-170) U/L Troponin I 0.064 H* (0.000-0.034) ng/mL Urine Protein (Negative) Urine Glucose (UA) (Negative) Urine Ketones (Negative) Urine Blood (Negative) Urine Bacteria (None) /hpf Hyaline Casts (0-2) /lpf Urine Mucus (None) /hpf 07/18/23 07/18/23 07/18/23 Range/Units 14:32 15:23 15:23 WBC (3.8-10.6) k/uL RBC (4.30-5.90) m/uL Hgb (13.0-17.5) gm/dL Hct (39.0-53.0) % Neutrophils # (1.3-7.7) k/uL Lymphocytes # (1.0-4.8) k/uL Sodium (137-145) mmol/L Carbon Dioxide (22-30) mmol/L BUN (9-20) mg/dL Glucose (74-99) mg/dL Plasma Lactic Acid Gulshan 3.2 H* (0.7-2.0) mmol/L Creatine Kinase 1060 H* (55-170) U/L Troponin I (0.000-0.034) ng/mL Urine Protein 1+ H (Negative) Urine Glucose (UA) Trace H (Negative) Urine Ketones 1+ H (Negative) Urine Blood Small H (Negative) Urine Bacteria Occasional H (None) /hpf Hyaline Casts 7 H (0-2) /lpf Urine Mucus Rare H (None) /hpf 07/18/23 07/19/23 07/19/23 Range/Units 21:26 00:33 02:16 WBC (3.8-10.6) k/uL RBC (4.30-5.90) m/uL Hgb (13.0-17.5) gm/dL Hct (39.0-53.0) % Neutrophils # (1.3-7.7) k/uL Lymphocytes # (1.0-4.8) k/uL Sodium 136 L (137-145) mmol/L Carbon Dioxide 20 L (22-30) mmol/L BUN 25 H (9-20) mg/dL Glucose 106 H (74-99) mg/dL Plasma Lactic Acid Gulshan (0.7-2.0) mmol/L Creatine Kinase (55-170) U/L Troponin I 0.091 H* 0.118 H* (0.000-0.034) ng/mL Urine Protein (Negative) Urine Glucose (UA) (Negative) Urine Ketones (Negative) Urine Blood (Negative) Urine Bacteria (None) /hpf Hyaline Casts (0-2) /lpf Urine Mucus (None) /hpf 07/19/23 07/19/23 Range/Units 02:16 02:16 WBC 11.9 H (3.8-10.6) k/uL RBC 3.52 L (4.30-5.90) m/uL Hgb 11.3 L (13.0-17.5) gm/dL Hct 33.1 L (39.0-53.0) % Neutrophils # 9.0 H (1.3-7.7) k/uL Lymphocytes # (1.0-4.8) k/uL Sodium (137-145) mmol/L Carbon Dioxide (22-30) mmol/L BUN (9-20) mg/dL Glucose (74-99) mg/dL Plasma Lactic Acid Gulshan (0.7-2.0) mmol/L Creatine Kinase 1307 H* (55-170) U/L Troponin I (0.000-0.034) ng/mL Urine Protein (Negative) Urine Glucose (UA) (Negative) Urine Ketones (Negative) Urine Blood (Negative) Urine Bacteria (None) /hpf Hyaline Casts (0-2) /lpf Urine Mucus (None) /hpf Assessment and Plan (1) Fever Status: Acute Code(s): R50.9 - FEVER, UNSPECIFIED SNOMED Code(s): 962181129 Plan: 1patient presented hospital with SIRS/sepsis in this patient who did have fever and elevated white count patient initial work-up has been negative chest x-ray was suggestive of CHF urine is negative no evidence of any cellulitis or joint swelling patient did have episode of vomiting and mild tenderness with a question of possible abdominal source 2-we will obtain CT of abdominal pelvis with oral contrast only 3-we will check inflammatory markers 4-continue with the cefepime however discontinue vancomycin We will follow on clinical condition and cultures to further adjust medication if needed Thank you for this consultation we will follow the patient along with you Dictation was produced using [employer] dictation software. please excuse any grammatical, word or spelling errors. Time with Patient: Greater than 30
[2023-07-20] MEDS: CEFEPIME 2 GM in SODIUM CHLORIDE 0.9% 100 ML IVPB SCH ×3 (03:15→17:34)
[2023-07-20] MEDS: carvediloL 6.25 MG TAB PO SCH ×2 (05:48→17:34)
[2023-07-20] MEDS ORDERED: VANCOMYCIN TROUGH DUE 1 EACH MISC MISCELLANE ONE (06:00)
[2023-07-20 07:58] LABS: Basophils % (A) 0 %; Eosinophils # (A) 0.1 k/uL (0-0.7); Eosinophils % (A) 1 %; HCT 30.9 % (39.0-53.0); HGB 10.5 gm/dL (13.0-17.5); Lymphocytes # (A) 1.2 k/uL (1.0-4.8); Lymphocytes % (A) 13 %; MCH 31.6 pg (25.0-35.0); MCHC 34.1 g/dL (31.0-37.0); MCV 92.8 fL (80.0-100.0); Mean Platelet Volume 7.4; Monocytes # (A) 0.6 k/uL (0-1.0); Monocytes % (A) 7 %; Neutrophils # (A) 6.9 k/uL (1.3-7.7); Neutrophils % (A) 78 %; Platelet Count 186 k/uL (150-450); RBC 3.33 m/uL (4.30-5.90); RDW 13.1 % (11.5-15.5); WBC 8.9 k/uL (3.8-10.6)
[2023-07-20 08:08] LABS: ALT 25 U/L (4-49); AST 51 U/L (17-59); African American GFR (CKD) >90 (>60 ml/min/1.73 sqM); Albumin 3.1 g/dL (3.5-5.0); Alkaline Phosphatase 66 U/L (38-126); Amylase 51 U/L (30-110); Anion Gap 8 mmol/L; Blood Urea Nitrogen 17 mg/dL (9-20); Calcium 8.3 mg/dL (8.4-10.2); Carbon Dioxide 20 mmol/L (22-30); Chloride 105 mmol/L (98-107); Creatine Kinase 769 U/L (55-170); Glucose 118 mg/dL (74-99); Lipase 99 U/L (23-300); Non-African American GFR(CKD) 89 (>60 ml/min/1.73 sqM); Potassium 3.5 mmol/L (3.5-5.1); Sodium 133 mmol/L (137-145); Total Bilirubin 0.9 mg/dL (0.2-1.3); Total Protein 5.5 g/dL (6.3-8.2)
[2023-07-20] MEDS: IPRATROPIUM-ALBUTEROL 3 ML NEB INHALATION SCH ×4 (08:33→21:14)
[2023-07-20] MEDS: BUDESONIDE 0.5 MG/2 ML NEBU INHALATION SCH ×2 (08:33→21:14)
[2023-07-20] MEDS: ASPIRIN 81 MG PO SCH (08:37)
[2023-07-20] MEDS: lisinopriL 10 MG TAB PO SCH (08:37)
[2023-07-20] MEDS: LISINOPRIL-HCTZ 20-12.5 MG 1 EACH TAB PO SCH (08:37)
[2023-07-20] MEDS: FAMOTIDINE 20 MG TAB PO SCH (08:37)
--- NOTE | 2023-07-20 11:29 | CA ---
Transthoracic Echo Report Name: Narendra Miguel Age: 72 Gender: M : 1950 Exam Date: 07/19/2023 16:48 Exam Location: [facility] Ht (in): 72 Wt (lb): 180 Ordering Physician: Kody Dsouza MD ([email or web address]) Attending/Referring Phys: Cobbler Mckay Ana Coates RDCS Procedure CPT: Indications: Rule out PE Cardiac Hx: Technical Quality: Fair Contrast 1: Total Dose (mL): Contrast 2: Total Dose (mL): MEASUREMENTS (Male / Female) Normal Values 2D ECHO LV Diastolic Diameter PLAX 4.3 cm 4.2 - 5.9 / 3.9 - 5.3 cm LV Systolic Diameter PLAX 3.6 cm IVS Diastolic Thickness 1.5 cm 0.6 - 1.0 / 0.6 - 0.9 cm LVPW Diastolic Thickness 1.7 cm 0.6 - 1.0 / 0.6 - 0.9 cm LV Relative Wall Thickness 0.7 RV Internal Dim ED PLAX 3.6 cm LA Volume 91.7 cm??? 18 - 58 / 22 - 52 cm??? LA Volume Index 44.9 cm???/m??? 16 - 28 cm???/m??? M-MODE Aortic Root Diameter MM 3.4 cm DOPPLER AV Peak Velocity 148.8 cm/s AV Peak Gradient 8.9 mmHg AV Mean Velocity 97.6 cm/s AV Mean Gradient 4.5 mmHg AV Velocity Time Integral 23.8 cm LVOT Peak Velocity 120.0 cm/s LVOT Peak Gradient 5.8 mmHg LVOT Velocity Time Integral 18.7 cm MV Area PHT 4.9 cm??? Mitral E Point Velocity 82.0 cm/s Mitral A Point Velocity 102.0 cm/s Mitral E to A Ratio 0.8 MV Deceleration Time 155.4 ms MV E' Velocity 5.8 cm/s Mitral E to MV E' Ratio 14.1 FINDINGS Left Ventricle Moderately increased left ventricular wall thickness. Left ventricular cavity size normal. Normal left ventricular systolic function with no obvious regional wall motion abnormalities. Left ventricular ejection fraction is estimated at 50-55 %. Right Ventricle Mild right ventricular dilatation. Right ventricular systolic pressure within normal limits. Normal Tapse values 31mm and S' 12cm/sec. Right Atrium Normal right atrial size. Catheter/pacemaker wire in the right atrial cavity. Left Atrium Severely increased left atrial volume. Mildly increased left atrial area. Mitral Valve No mitral stenosis. Mitral valve thickened. Moderate mitral annular calcification. Omok-sw-saowdzvf mitral regurgitation. Aortic Valve No aortic valve stenosis or regurgitation. Tricuspid Valve Structurally normal tricuspid valve. Mild tricuspid regurgitation. Pulmonic Valve Trace pulmonic regurgitation. Pericardium No pericardial effusion. Aorta Normal size aortic root and proximal ascending aorta. CONCLUSIONS Left ventricular ejection fraction is estimated at 50-55 %. No obvious regional wall motion abnormalitie. Right ventricular systolic pressure within normal limits. Catheter/pacemaker wire in the right atrial cavity. Moderate mitral annular calcification. Huui-dl-hquhegwa mitral regurgitation. Previewed by: Dr Kody Dsouza (Electronically Signed) Final Date: 20 July 2023 11:28
[2023-07-20 12:11] LABS: C Reactive Protein 1.9 mg/dL (<1.0)
--- NOTE | 2023-07-20 14:29 | P.PN ---
Subjective Progress Note Date: 07/20/23 Principal diagnosis: Fever Patient is a 72-year-old male with a past medical history significant for coronary artery disease COPD hypertension [place] patient presented to hospital for evaluation of weakness, patient was noticed to have a fever and did have an episode of vomiting further workup did include a CT of abdominal pelvis with evidence of peritonitis and question of pancreatitis. On today's evaluation that is07/20/2023, the patient remains to be afebrile, the patient is breathing comfortably on room air without the need for supplemental oxygen , the patient denies chest pain or cough, patient denies nausea/vomiting or diarrhea and denies any abdominal pain Patient white count normalized to 8.9, creatinine 0.79, amylase lipase are normal Objective - Vital Signs Vital signs: Vital Signs Temp 98.7 F 07/20/23 12:00 Pulse 108 H 07/20/23 12:42 Resp 18 07/20/23 12:00 BP 125/67 07/20/23 12:00 Pulse Ox 93 L 07/20/23 12:00 FiO2 Intake & Output 07/19/23 07/20/23 07/20/23 18:59 06:59 18:59 Intake Total 118 970 180 Output Total 1400 825 700 Balance -1282 145 -520 Intake: Intake, IV Titration 850 Amount Cefepime 2 gm In Sodium 100 Chloride 0.9% 100 ml @ 25 mls/hr IVPB Q8H [facility] Rx#: [id number] Sodium Chloride 0.9% 1, 750 000 ml @ 75 mls/hr IV . [id number] [facility] Rx#:[id number] Oral 118 120 180 Output: Urine 1400 825 700 Other: Voiding Method Indwelling Catheter Indwelling Catheter Indwelling Catheter - Exam GENERAL DESCRIPTION: An elderly male lying in bed in no distress RESPIRATORY SYSTEM: Unlabored breathing , clear to auscultation anteriorly HEART: S1 S2 regular rate and rhythm , ABDOMEN: Soft , no tenderness EXTREMITIES: No edema feet - Labs CBC & Chem 7: 07/20/23 07:17 07/20/23 07:17 Labs: Abnormal Lab Results - Last 24 Hours (Table) 07/19/23 07/20/23 07/20/23 Range/Units 15:21 07:17 07:17 RBC 3.33 L (4.30-5.90) m/uL Hgb 10.5 L (13.0-17.5) gm/dL Hct 30.9 L (39.0-53.0) % D-Dimer 6.47 H (<0.60) mg/L FEU Sodium 133 L (137-145) mmol/L Carbon Dioxide 20 L (22-30) mmol/L Glucose 118 H (74-99) mg/dL Calcium 8.3 L (8.4-10.2) mg/dL Creatine Kinase 769 H (55-170) U/L C-Reactive Protein 1.9 H (<1.0) mg/dL Total Protein 5.5 L (6.3-8.2) g/dL Albumin 3.1 L (3.5-5.0) g/dL Microbiology - Last 24 Hours (Table) 07/18/23 18:35 Blood Culture - Preliminary Blood 07/18/23 18:20 Blood Culture - Preliminary Blood Assessment and Plan (1) Fever Current Visit: Yes Status: Acute Code(s): R50.9 - FEVER, UNSPECIFIED SNOMED Code(s): 569864866 (2) Duodenitis Current Visit: Yes Status: Acute Code(s): K29.80 - DUODENITIS WITHOUT BLEEDING SNOMED Code(s): 55437842 (3) Sepsis Current Visit: Yes Status: Acute Code(s): A41.9 - SEPSIS, UNSPECIFIED ORGANISM SNOMED Code(s): 93551885 Plan: 1patient presented hospital with SIRS/sepsis in this patient who did have fever and elevated white count patient initial work-up has been negative chest x-ray was suggestive of CHF urine is negative no evidence of any cellulitis or joint swelling patient did have episode of vomiting and mild tenderness with a question of possible abdominal source 2-patient did have CT of abdominal pelvis with oral contrast only, evidence of duodenitis and question of pancreatitis however the patient did have normal amylase and lipase that will make pancreatitis to be less likely 3-patient did have resolution of his fever and white count normalized, we will continue with the cefepime while waiting for the cultures to finalize Family the bedside and multiple questions concerned were answered Dictation was produced using [employer] dictation software. please excuse any grammatical, word or spelling errors. Time with Patient: Less than 30
[2023-07-20] MEDS: POTASSIUM CHLORIDE ER 20 MEQ TAB.ER PO SCH (14:30)
[2023-07-20] MEDS: SODIUM CHLORIDE 0.9% 1,000 ML IV SCH (14:31)
--- NOTE | 2023-07-20 15:21 | CT ---
EXAMINATION TYPE: CT angio chest DATE OF EXAM: 07/20/2023 3:05 PM COMPARISON: None HISTORY: elevated d-dimer CT DLP: 566.8 mGycm Automated exposure control for dose reduction was used. CONTRAST: CTA scan of the thorax is performed with IV Contrast, patient injected with 100 mL of Isovue 370, pul monary embolism protocol. 3-D postprocessing was performed. FINDINGS: There are marked emphysematous changes. There is mild cardiomegaly and 2-lead cardiac pacemaker. There are small bilateral pleural effusions. There is no airspace consolidation. The great vessels chest are normal is no filling defect within the pulmonary artery or branches to tyson ggest pulmonary embolism. There is no mediastinal, hilar or axillary adenopathy. The osseous structures are intact. Limited scanning the upper abdomen reveals no gross abnormality. IMPRESSION: 1. No evidence of pulmonary embolus. 2. COPD and small bilateral pleural effusions. 3. Mild Cardiomegaly and 2-lead cardiac pacemaker.
[2023-07-20 15:36] LABS: Creatine Kinase 607 U/L (55-170)
[2023-07-20] MEDS: PANTOPRAZOLE 40 MG TABLET PO SCH (17:34)
--- NOTE | 2023-07-20 18:55 | P.PN ---
Subjective Progress Note Date: 07/20/23 Progress note: Patient is hemodynamics stable. He denies having any active chest pain chest pressure. He is more awake today more conversational. CT abdomen showed possible concerns of duodenitis. HISTORY OF PRESENTING ILLNESS Patient is a 72-year-old with past medical history of anomalous left circumflex status post PCI by Dr. Mckinney. He has history of hypertension and dyslipidemia and COPD. He presented to the hospital with concerns of possible loss of consciousness and fall. Patient was apparently found on the ground by his friend. He was also noticed to be covered and vomiting. Later that day his daughter visited him and found him to be very weak and confused due to which she brought him to the hospital. Currently he is being evaluated for possible pneumonia and sepsis cartilage was consulted for elevated troponin. His troponins were 0.09, 0.118. ECG showed sinus rhythm with, moderate ventricular conduction delay and prominent R-wave in V2 and nonspecific ST changes concerning of either posterior WA or RV strain, possibly PE Hemoglobin 11.3, REVIEW OF SYSTEMS 14 point review of system is negative except what is mentioned above in HPI. PHYSICAL EXAMINATION Vital signs reviewed. febrile to touch Head: Normocephalic. Eyes: Sclerae nonicteric. Neck: Brisk carotid upstroke, no jugular venous distention. Lungs: Clear to auscultation. Heart: Regular rate and rhythm, S1-S2, no S3, no murmur or rub. Abdomen: Soft nontender, positive bowel sounds no organomegaly. Extremities: No edema, intact distal pulses. 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 Echocardiogram showed preserved LV systolic function with no major valvular abnormalities I anticipate that patient must have had nausea vomiting from duodenitis, and then became dehydrated and collapsed. No evidence of arrhythmias on telemetry. Echo is nonrevealing for any obvious cause of syncope. No evidence of PE. Continue treatment for sepsis as per primary team Other comorbidities to be managed by primary team At this time cardiology team's sign off. Please reconsult us in case of any questions. Outpatient follow-up with cardiology recommended Objective - Vital Signs Vital signs: Vital Signs Temp 100.3 F H 07/20/23 16:00 Pulse 96 07/20/23 16:17 Resp 18 07/20/23 16:00 BP 172/86 07/20/23 16:00 Pulse Ox 95 07/20/23 16:15 FiO2 Intake & Output 07/19/23 07/20/23 07/20/23 18:59 06:59 18:59 Intake Total 118 970 360 Output Total 8081 763 9820 Balance -1282 145 -940 Intake: Intake, IV Titration 850 Amount Cefepime 2 gm In Sodium 100 Chloride 0.9% 100 ml @ 25 mls/hr IVPB Q8H [facility] Rx#: [id number] Sodium Chloride 0.9% 1, 750 000 ml @ 75 mls/hr IV . [id number] [facility] Rx#:[id number] Oral 118 120 360 Output: Urine 5937 035 9721 Other: Voiding Method Indwelling Catheter Indwelling Catheter Indwelling Catheter - Labs CBC & Chem 7: 07/20/23 07:17 07/20/23 07:17 Labs: Abnormal Lab Results - Last 24 Hours (Table) 07/20/23 07/20/23 07/20/23 Range/Units 07:17 07:17 14:35 RBC 3.33 L (4.30-5.90) m/uL Hgb 10.5 L (13.0-17.5) gm/dL Hct 30.9 L (39.0-53.0) % Sodium 133 L (137-145) mmol/L Carbon Dioxide 20 L (22-30) mmol/L Glucose 118 H (74-99) mg/dL Calcium 8.3 L (8.4-10.2) mg/dL Creatine Kinase 769 H 607 H (55-170) U/L C-Reactive Protein 1.9 H (<1.0) mg/dL Total Protein 5.5 L (6.3-8.2) g/dL Albumin 3.1 L (3.5-5.0) g/dL Microbiology - Last 24 Hours (Table) 07/18/23 18:35 Blood Culture - Preliminary Blood 07/18/23 18:20 Blood Culture - Preliminary Blood
--- NOTE | 2023-07-20 20:35 | PN ---
PROGRESS NOTE The patient remains on cefepime, DuoNeb updrafts, and vancomycin. There was positive D- dimer. We are going to order CTA of the chest. Echocardiogram shows ventricular dilation. Catheter and pacemaker in the right atrial cavity. Left atrial volume has increased. Ejection fraction is 50% to 55%. Moderate mitral annular calcification. [id number] mitral regurg. CTA of the thoracic aorta showed moderate to severe emphysema. Continue with breathing treatments. Rule out PE with a CTA of the chest. Wait for Cardiology recommendations. Prognosis guarded. MMODL / IJN: [id number] /
[2023-07-20] MEDS: ATORVASTATIN 40 MG TAB PO SCH (20:37)
[2023-07-21] MEDS: CEFEPIME 2 GM in SODIUM CHLORIDE 0.9% 100 ML IVPB SCH ×3 (01:56→16:31)
[2023-07-21] MEDS: SODIUM CHLORIDE 0.9% 1,000 ML IV SCH ×2 (06:12→14:05)
[2023-07-21] MEDS: PANTOPRAZOLE 40 MG TABLET PO SCH ×2 (06:12→16:31)
[2023-07-21] MEDS: carvediloL 6.25 MG TAB PO SCH ×2 (06:12→16:31)
[2023-07-21] MEDS: BUDESONIDE 0.5 MG/2 ML NEBU INHALATION SCH ×2 (08:13→20:43)
[2023-07-21] MEDS: IPRATROPIUM-ALBUTEROL 3 ML NEB INHALATION SCH ×4 (08:13→20:43)
[2023-07-21 08:24] LABS: Basophils % (A) 0 %; Eosinophils # (A) 0.1 k/uL (0-0.7); Eosinophils % (A) 1 %; HCT 32.3 % (39.0-53.0); HGB 10.7 gm/dL (13.0-17.5); Lymphocytes # (A) 1.3 k/uL (1.0-4.8); Lymphocytes % (A) 15 %; MCH 31.2 pg (25.0-35.0); MCHC 33.2 g/dL (31.0-37.0); MCV 93.8 fL (80.0-100.0); Mean Platelet Volume 8.4; Monocytes # (A) 0.5 k/uL (0-1.0); Monocytes % (A) 5 %; Neutrophils # (A) 6.6 k/uL (1.3-7.7); Neutrophils % (A) 77 %; Platelet Count 184 k/uL (150-450); RBC 3.45 m/uL (4.30-5.90); RDW 13.4 % (11.5-15.5); WBC 8.6 k/uL (3.8-10.6)
[2023-07-21] MEDS: POTASSIUM CHLORIDE ER 20 MEQ TAB.ER PO SCH (08:24)
[2023-07-21] MEDS: LISINOPRIL-HCTZ 20-12.5 MG 1 EACH TAB PO SCH (08:24)
[2023-07-21] MEDS: lisinopriL 10 MG TAB PO SCH (08:24)
[2023-07-21] MEDS: ASPIRIN 81 MG PO SCH (08:24)
[2023-07-21 08:38] LABS: ALT 23 U/L (4-49); AST 39 U/L (17-59); African American GFR (CKD) >90 (>60 ml/min/1.73 sqM); Albumin 3.3 g/dL (3.5-5.0); Alkaline Phosphatase 66 U/L (38-126); Anion Gap 8 mmol/L; Blood Urea Nitrogen 14 mg/dL (9-20); Calcium 8.6 mg/dL (8.4-10.2); Carbon Dioxide 23 mmol/L (22-30); Chloride 105 mmol/L (98-107); Glucose 127 mg/dL (74-99); Non-African American GFR(CKD) >90 (>60 ml/min/1.73 sqM); Potassium 3.7 mmol/L (3.5-5.1); Sodium 136 mmol/L (137-145); Total Bilirubin 0.7 mg/dL (0.2-1.3); Total Protein 5.8 g/dL (6.3-8.2)
[2023-07-21 11:08] LABS: Chol/HDL Ratio 2.58 Ratio; LDL Cholesterol,Calculated 55.7 mg/dL (0.0-131.0)
[2023-07-21] MEDS: hydrALAZINE HCL 10 MG TAB PO SCH (20:30)
[2023-07-21] MEDS: ATORVASTATIN 40 MG TAB PO SCH (20:30)
--- NOTE | 2023-07-22 01:44 | PN ---
PROGRESS NOTE SUBJECTIVE: The patient remains on DuoNeb, Pulmicort updrafts, Lipitor for cholesterol, for hypertension, cefepime for infection, Hydralazine for blood pressure, Zestril for blood pressure, Zestoretic for blood pressure, Protonix for GERD, potassium replacement. He is sitting up on the commode. He is breathing better, he does wear his oxygen. He had chest CTA, marked emphysema, negative PE. Reviewed results of echo. The patient is doing much better, so we gave him breathing treatments, etc. He is on oxygen, feels better, he is doing better. OBJECTIVE: VITAL SIGNS: Pulse is low 100s, temp 99.5, blood pressure is 170s to 180s over 70s to 80s, and O2 95. CARDIOVASCULAR: S1, S2. LUNGS: Scattered wheeze x4. HEMATOLOGY: Negative for Homans. PSYCH: Fair mood and affect. ASSESSMENT: COPD, pulmonary hypertension, CHF, negative blood cultures. Community-acquired pneumonia most likely, possibly add hydralazine 25 b.i.d. for hypertension. Continue breathing treatments, etc. Continue to get his blood pressure down, prognosis guarded. MMODL / IJN: [id number] /
[2023-07-22] MEDS: CEFEPIME 2 GM in SODIUM CHLORIDE 0.9% 100 ML IVPB SCH ×3 (02:19→16:37)
[2023-07-22] MEDS: PANTOPRAZOLE 40 MG TABLET PO SCH ×2 (06:10→16:37)
[2023-07-22] MEDS: carvediloL 6.25 MG TAB PO SCH ×2 (06:10→16:37)
[2023-07-22] MEDS: DAPAGLIFLOZIN PROPANEDIOL 10 MG TABLET PO SCH (08:14)
[2023-07-22] MEDS: lisinopriL 10 MG TAB PO SCH (08:14)
[2023-07-22] MEDS: hydrALAZINE HCL 10 MG TAB PO SCH ×2 (08:14→20:58)
[2023-07-22] MEDS: POTASSIUM CHLORIDE ER 20 MEQ TAB.ER PO SCH (08:14)
[2023-07-22] MEDS: ASPIRIN 81 MG PO SCH (08:14)
[2023-07-22] MEDS: LISINOPRIL-HCTZ 20-12.5 MG 1 EACH TAB PO SCH (08:14)
[2023-07-22] MEDS: IPRATROPIUM-ALBUTEROL 3 ML NEB INHALATION SCH ×4 (08:56→20:41)
[2023-07-22] MEDS: BUDESONIDE 0.5 MG/2 ML NEBU INHALATION SCH ×2 (08:57→20:41)
[2023-07-22 08:58] LABS: Basophils % (A) 0 %; Eosinophils # (A) 0.4 k/uL (0-0.7); Eosinophils % (A) 4 %; HCT 33.7 % (39.0-53.0); HGB 11.7 gm/dL (13.0-17.5); Lymphocytes # (A) 1.3 k/uL (1.0-4.8); Lymphocytes % (A) 14 %; MCH 32.5 pg (25.0-35.0); MCHC 34.6 g/dL (31.0-37.0); Mean Platelet Volume 8.9; Monocytes # (A) 0.7 k/uL (0-1.0); Monocytes % (A) 8 %; Neutrophils # (A) 6.4 k/uL (1.3-7.7); Neutrophils % (A) 72 %; Platelet Count 200 k/uL (150-450); RBC 3.58 m/uL (4.30-5.90); RDW 13.2 % (11.5-15.5); WBC 8.9 k/uL (3.8-10.6)
[2023-07-22 09:13] LABS: ALT 24 U/L (4-49); AST 36 U/L (17-59); African American GFR (CKD) >90 (>60 ml/min/1.73 sqM); Albumin 3.3 g/dL (3.5-5.0); Alkaline Phosphatase 87 U/L (38-126); Anion Gap 8 mmol/L; Blood Urea Nitrogen 17 mg/dL (9-20); Calcium 8.7 mg/dL (8.4-10.2); Carbon Dioxide 24 mmol/L (22-30); Chloride 102 mmol/L (98-107); Glucose 92 mg/dL (74-99); Non-African American GFR(CKD) >90 (>60 ml/min/1.73 sqM); Potassium 3.9 mmol/L (3.5-5.1); Sodium 134 mmol/L (137-145); Total Bilirubin 0.8 mg/dL (0.2-1.3)
--- NOTE | 2023-07-22 14:20 | P.PN ---
Subjective Progress Note Date: 07/21/23 Principal diagnosis: Fever Patient is a 72-year-old male with a past medical history significant for coronary artery disease COPD hypertension [place] patient presented to hospital for evaluation of weakness, patient was noticed to have a fever and did have an episode of vomiting further workup did include a CT of abdominal pelvis with evidence of peritonitis and question of pancreatitis. On today's evaluation that is 07/21/2023, the patient continues to be afebrile, the patient is breathing comfortably on 2 L nasal cannula oxygen and denies any chest pain or cough, patient denies abdominal pain, and denies any nausea/vomiting or diarrhea Patient white count normalized to 8.6, creatinine 0.73, amylase lipase are normal, blood culture negative Objective - Vital Signs Vital signs: Vital Signs Temp 97.6 F 07/21/23 08:25 Pulse 70 07/21/23 11:41 Resp 16 07/21/23 11:41 BP 153/74 07/21/23 10:55 Pulse Ox 94 L 07/21/23 10:55 FiO2 Intake & Output 07/20/23 07/21/23 07/21/23 18:59 06:59 18:59 Intake Total 360 180 Output Total 1300 660 475 Balance -940 -660 -295 Intake: Oral 360 180 Output: Urine 1300 660 475 Other: Voiding Method Indwelling Catheter Indwelling Catheter Urinal # Voids 1 - Exam GENERAL DESCRIPTION: An elderly male lying in bed in no distress RESPIRATORY SYSTEM: Unlabored breathing , clear to auscultation anteriorly HEART: S1 S2 regular rate and rhythm , ABDOMEN: Soft , no tenderness EXTREMITIES: No edema feet - Labs CBC & Chem 7: 07/22/23 06:34 07/22/23 06:34 Labs: Abnormal Lab Results - Last 24 Hours (Table) 07/20/23 07/20/23 07/21/23 Range/Units 07:17 14:35 07:00 RBC 3.45 L (4.30-5.90) m/uL Hgb 10.7 L (13.0-17.5) gm/dL Hct 32.3 L (39.0-53.0) % Sodium (137-145) mmol/L Glucose (74-99) mg/dL Creatine Kinase 607 H (55-170) U/L C-Reactive Protein 1.9 H (<1.0) mg/dL Total Protein (6.3-8.2) g/dL Albumin (3.5-5.0) g/dL 07/21/23 Range/Units 07:00 RBC (4.30-5.90) m/uL Hgb (13.0-17.5) gm/dL Hct (39.0-53.0) % Sodium 136 L (137-145) mmol/L Glucose 127 H (74-99) mg/dL Creatine Kinase (55-170) U/L C-Reactive Protein (<1.0) mg/dL Total Protein 5.8 L (6.3-8.2) g/dL Albumin 3.3 L (3.5-5.0) g/dL Microbiology - Last 24 Hours (Table) 07/18/23 18:35 Blood Culture - Preliminary Blood 07/18/23 18:20 Blood Culture - Preliminary Blood Assessment and Plan (1) Fever Current Visit: Yes Status: Acute Code(s): R50.9 - FEVER, UNSPECIFIED SNOMED Code(s): 486000742 (2) Duodenitis Current Visit: Yes Status: Acute Code(s): K29.80 - DUODENITIS WITHOUT BLEEDING SNOMED Code(s): 65085815 (3) Sepsis Current Visit: Yes Status: Acute Code(s): A41.9 - SEPSIS, UNSPECIFIED ORGANISM SNOMED Code(s): 70267622 Plan: 1patient presented hospital with SIRS/sepsis in this patient who did have fever and elevated white count patient initial work-up has been negative chest x-ray was suggestive of CHF urine is negative no evidence of any cellulitis or joint swelling patient did have episode of vomiting and mild tenderness with a que stion of possible abdominal source 2-patient did have CT of abdominal pelvis with oral contrast only, evidence of duodenitis and question of pancreatitis however the patient did have normal amylase and lipase that will make pancreatitis to be less likely 3-patient did have resolution of his fever and white count normalized, patient to cefepime and hopefully short course of oral antibiotics on discharge Dictation was produced using [employer] dictation software. please excuse any grammatical, word or spelling errors. Time with Patient: Less than 30
--- NOTE | 2023-07-22 14:22 | P.PN ---
Subjective Progress Note Date: 07/22/23 Principal diagnosis: Fever Patient is a 72-year-old male with a past medical history significant for coronary artery disease COPD hypertension [place] patient presented to hospital for evaluation of weakness, patient was noticed to have a fever and did have an episode of vomiting further workup did include a CT of abdominal pelvis with evidence of peritonitis and question of pancreatitis. On today's evaluation that is 07/22/2023, the patient remains to be afebrile, the patient is breathing comfortably on 2 L nasal cannula supplemental oxygen and denies any shortness of breath, the patient denies having any chest pain or cough, patient denies nausea/vomiting /diarrhea did have some right upper quadrant abdominal pain earlier Patient white count normalized to 8.9, creatinine 0.70, amylase lipase are normal, blood culture negative Objective - Vital Signs Vital signs: Vital Signs Temp 98.4 F 07/22/23 08:15 Pulse 103 H 07/22/23 12:00 Resp 17 07/22/23 12:00 BP 147/76 07/22/23 12:00 Pulse Ox 94 L 07/22/23 12:00 FiO2 Intake & Output 07/21/23 07/22/23 07/22/23 18:59 06:59 18:59 Intake Total 298 550 Output Total 925 2090 871 Balance -277 -2090 -321 Intake: Oral 298 550 Output: Urine 925 2090 870 Urine/Stool Mix 1 Other: Voiding Method Urinal Urinal Urinal # Voids 1 1 # Bowel Movements 1 - Exam GENERAL DESCRIPTION: An elderly male lying in bed in no distress RESPIRATORY SYSTEM: Unlabored breathing , clear to auscultation anteriorly HEART: S1 S2 regular rate and rhythm , ABDOMEN: Soft , no tenderness EXTREMITIES: No edema feet - Labs CBC & Chem 7: 07/22/23 06:34 07/22/23 06:34 Labs: Abnormal Lab Results - Last 24 Hours (Table) 07/21/23 07/22/23 07/22/23 Range/Units 07:00 06:34 06:34 RBC 3.58 L (4.30-5.90) m/uL Hgb 11.7 L (13.0-17.5) gm/dL Hct 33.7 L (39.0-53.0) % Sodium 134 L (137-145) mmol/L Creatine Kinase 341 H (55-170) U/L Total Protein 6.0 L (6.3-8.2) g/dL Albumin 3.3 L (3.5-5.0) g/dL Microbiology - Last 24 Hours (Table) 07/18/23 18:35 Blood Culture - Preliminary Blood 07/18/23 18:20 Blood Culture - Preliminary Blood Assessment and Plan (1) Fever Current Visit: Yes Status: Acute Code(s): R50.9 - FEVER, UNSPECIFIED SNOMED Code(s): 627807110 (2) Duodenitis Current Visit: Yes Status: Acute Code(s): K29.80 - DUODENITIS WITHOUT BLEEDING SNOMED Code(s): 89932059 (3) Sepsis Current Visit: Yes Status: Acute Code(s): A41.9 - SEPSIS, UNSPECIFIED ORGANISM SNOMED Code(s): 01379272 Plan: 1patient presented hospital with SIRS/sepsis in this patient who did have fever and elevated white count patient initial work-up has been negative chest x-ray was suggestive of CHF urine is negative no evidence of any cellulitis or joint swelling patient did have episode of vomiting and mild tenderness with a question of possible abdominal source 2-patient did have CT of abdominal pelvis with oral contrast only, evidence of duodenitis and question of pancreatitis however the patient did have normal amylase and lipase that will make pancreatitis to be less likely 3-patient did have resolution of his fever and white count normalized 4- patient to cefepime and plan to finish therapy short course of oral Avelox on discharge Dictation was produced using [employer] dictation software. please excuse any grammatical, word or spelling errors. Time with Patient: Less than 30
[2023-07-22] MEDS: carvediloL 12.5 MG TAB PO SCH (20:57)
[2023-07-22] MEDS: ATORVASTATIN 40 MG TAB PO SCH (20:57)
[2023-07-22] MEDS: LISINOPRIL-HCTZ 20-25 MG 1 EACH TAB PO SCH (20:58)
--- NOTE | 2023-07-22 23:02 | PN ---
PROGRESS NOTE SUBJECTIVE: A 72-year-old white male. He is being treated for COPD, CHF, hypertension acceleration, and possible UT. 2 L of oxygen. White count is stable. Creatinine is 0.7. Amylase and lipase are normal. Blood cultures are reviewed. OBJECTIVE: CARDIOVASCULAR: S1 and S2. LUNGS: Wheezes x4. NEUROLOGIC: He is able to get up into his commode. ASSESSMENT AND PLAN: He had fevers. He had duodenitis, sepsis, congestive heart failure, chronic obstructive pulmonary disease, pulmonary hypertension, possible pancreatitis, but has normal lipase. He was given cefepime. Switch to oral Avelox and discharge if he is improved. Possible discharge home soon. MMODL / IJN: [id number] /
[2023-07-23] MEDS ORDERED: FLUTICASONE 50MCG/SPRAY NASAL 16GM EA NOSTRIL PRN (00:07)
[2023-07-23] MEDS: CEFEPIME 2 GM in SODIUM CHLORIDE 0.9% 100 ML IVPB SCH ×3 (02:57→16:21)
[2023-07-23] MEDS: carvediloL 12.5 MG TAB PO SCH ×2 (06:19→16:22)
[2023-07-23] MEDS: PANTOPRAZOLE 40 MG TABLET PO SCH ×2 (06:19→16:22)
[2023-07-23] MEDS: IPRATROPIUM-ALBUTEROL 3 ML NEB INHALATION SCH ×4 (08:05→21:02)
[2023-07-23] MEDS: BUDESONIDE 0.5 MG/2 ML NEBU INHALATION SCH ×2 (08:05→21:02)
[2023-07-23] MEDS: LISINOPRIL-HCTZ 20-25 MG 1 EACH TAB PO SCH ×2 (08:29→21:22)
[2023-07-23] MEDS: LORATADINE 10 MG TAB PO SCH (08:29)
[2023-07-23] MEDS: POTASSIUM CHLORIDE ER 20 MEQ TAB.ER PO SCH (08:29)
[2023-07-23] MEDS: ASPIRIN 81 MG PO SCH (08:30)
[2023-07-23] MEDS: hydrALAZINE HCL 10 MG TAB PO SCH ×2 (08:30→21:22)
[2023-07-23] MEDS: DAPAGLIFLOZIN PROPANEDIOL 10 MG TABLET PO SCH (08:30)
[2023-07-23] MEDS: ATORVASTATIN 40 MG TAB PO SCH (21:22)
--- NOTE | 2023-07-24 01:11 | PN ---
PROGRESS NOTE SUBJECTIVE: The patient is getting stronger every day. He is breathing better. OBJECTIVE: VITAL SIGNS: Blood pressure is 140s/70s, O2 is 95 on 2 L, pulse is 116 to 81, respiratory rate 18 to 20, and temperature 98.1. CARDIOVASCULAR: S1, S2. LUNGS: Scattered wheeze x4. HEMATOLOGY: Negative for Homans. PSYCH: Fair mood and affect. He wears 2 L oxygen currently. His labs today, white count is 8.9, hemoglobin is 11.7. He is going to try ambulating today. His A1c is 6 for prediabetes. His strength is improving. Possibly go to rehab center or go home pending family's wishes. Cardiology signed off and will try to get him in to a rehab center or he can go home. Prognosis guarded. MMODL / IJN: [id number] /
[2023-07-24] MEDS: CEFEPIME 2 GM in SODIUM CHLORIDE 0.9% 100 ML IVPB SCH ×3 (02:30→16:08)
[2023-07-24] MEDS: PANTOPRAZOLE 40 MG TABLET PO SCH ×2 (06:17→16:08)
[2023-07-24] MEDS: carvediloL 12.5 MG TAB PO SCH ×2 (06:17→16:08)
[2023-07-24] MEDS: IPRATROPIUM-ALBUTEROL 3 ML NEB INHALATION SCH ×4 (08:31→20:53)
[2023-07-24] MEDS: BUDESONIDE 0.5 MG/2 ML NEBU INHALATION SCH ×2 (08:31→20:53)
[2023-07-24] MEDS: LISINOPRIL-HCTZ 20-25 MG 1 EACH TAB PO SCH ×2 (08:49→20:50)
[2023-07-24] MEDS: LORATADINE 10 MG TAB PO SCH (08:49)
[2023-07-24] MEDS: hydrALAZINE HCL 10 MG TAB PO SCH ×2 (08:49→20:50)
[2023-07-24] MEDS: POTASSIUM CHLORIDE ER 20 MEQ TAB.ER PO SCH (08:49)
[2023-07-24] MEDS: ASPIRIN 81 MG PO SCH (08:49)
[2023-07-24] MEDS: DAPAGLIFLOZIN PROPANEDIOL 10 MG TABLET PO SCH (08:50)
[2023-07-24 12:32] VITALS: BMI 22.4
--- NOTE | 2023-07-24 14:35 | P.PN ---
Subjective Progress Note Date: 07/23/23 Principal diagnosis: Fever Patient is a 72-year-old male with a past medical history significant for coronary artery disease COPD hypertension [place] patient presented to hospital for evaluation of weakness, patient was noticed to have a fever and did have an episode of vomiting further workup did include a CT of abdominal pelvis with evidence of peritonitis and question of pancreatitis. On today's evaluation that is 07/23/2023, the patient denies any fever and chills, the patient is breathing comfortably on 2 L nasal cannula oxygen and denies any shortness of breath, the patient denies having any chest pain or cough, patient denies Abdominal pain, nausea/vomiting /diarrhea Patient white count normalized to 8.9, creatinine 0.70 as of 07/22/2023, amylase lipase are normal, blood culture negative Objective - Vital Signs Vital signs: Vital Signs Temp 98.2 F 07/23/23 08:00 Pulse 80 07/23/23 11:45 Resp 18 07/23/23 08:00 BP 169/73 07/23/23 08:00 Pulse Ox 95 07/23/23 08:05 FiO2 Intake & Output 07/22/23 07/23/23 07/23/23 18:59 06:59 18:59 Intake Total 660 Output Total 991 910 300 Balance -331 -910 -300 Intake: Oral 660 Output: Urine 990 910 300 Urine/Stool Mix 1 Other: Voiding Method Urinal Urinal # Voids 1 1 - Exam GENERAL DESCRIPTION: An elderly male lying in bed in no distress RESPIRATORY SYSTEM: Unlabored breathing , clear to auscultation anteriorly HEART: S1 S2 regular rate and rhythm , ABDOMEN: Soft , no tenderness EXTREMITIES: No edema feet - Labs CBC & Chem 7: 07/22/23 06:34 07/22/23 06:34 Assessment and Plan (1) Fever Current Visit: Yes Status: Acute Code(s): R50.9 - FEVER, UNSPECIFIED SNOMED Code(s): 276721962 (2) Duodenitis Current Visit: Yes Status: Acute Code(s): K29.80 - DUODENITIS WITHOUT BLEEDING SNOMED Code(s): 58807696 (3) Sepsis Current Visit: Yes Status: Acute Code(s): A41.9 - SEPSIS, UNSPECIFIED ORGANISM SNOMED Code(s): 06651691 Plan: 1patient presented hospital with SIRS/sepsis in this patient who did have fever and elevated white count patient initial work-up has been negative chest x-ray was suggestive of CHF urine is negative no evidence of any cellulitis or joint swelling patient did have episode of vomiting and mild tenderness with a question of possible abdominal source 2-patient did have CT of abdominal pelvis with oral contrast only, evidence of duodenitis and question of pancreatitis however the patient did have normal amylase and lipase that will make pancreatitis to be less likely 3-patient did have resolution of his fever and white count normalized, patient to continue with cefepime while inpatient and finish therapy with short course of oral Avelox on discharge Dictation was produced using [employer] dictation software. please excuse any grammatical, word or spelling errors. Time with Patient: Less than 30
--- NOTE | 2023-07-24 14:37 | P.PN ---
Subjective Progress Note Date: 07/24/23 Principal diagnosis: Fever Patient is a 72-year-old male with a past medical history significant for coronary artery disease COPD hypertension [place] patient presented to hospital for evaluation of weakness, patient was noticed to have a fever and did have an episode of vomiting further workup did include a CT of abdominal pelvis with evidence of peritonitis and question of pancreatitis. On today's evaluation that is 07/24/2023, the patient continues to be afebrile, the patient is breathing comfortably on 2 L nasal cannula oxygen apparently the patient did have low O2 sats on room air per the family, the patient denies any chest pain or cough, patient denies abdominal pain, and denies any nausea/vomiting or diarrhea Patient white count normalized to 8.9, creatinine 0.70 as of 07/22/2023, amylase lipase are normal, blood culture negative Objective - Vital Signs Vital signs: Vital Signs Temp 98.1 F 07/24/23 08:00 Pulse 102 H 07/24/23 11:24 Resp 18 07/24/23 08:00 BP 137/72 07/24/23 08:00 Pulse Ox 92 L 07/24/23 04:00 FiO2 Intake & Output 07/23/23 07/24/23 07/24/23 18:59 06:59 18:59 Intake Total 220 Output Total 633 432 1567 Balance -380 -451 -1200 Weight 74.9 kg Intake: Oral 220 Output: Urine 080 624 0817 Stool 1 Other: Voiding Method Diaper Incontinent # Voids 2 - Exam GENERAL DESCRIPTION: An elderly male lying in bed in no distress RESPIRATORY SYSTEM: Unlabored breathing , clear to auscultation anteriorly HEART: S1 S2 regular rate and rhythm , ABDOMEN: Soft , no tenderness EXTREMITIES: No edema feet - Labs CBC & Chem 7: 07/22/23 06:34 07/22/23 06:34 Labs: Microbiology - Last 24 Hours (Table) 07/18/23 18:35 Blood Culture - Final Blood 07/18/23 18:20 Blood Culture - Final Blood Assessment and Plan (1) Fever Current Visit: Yes Status: Acute Code(s): R50.9 - FEVER, UNSPECIFIED SNOMED Code(s): 448814889 (2) Duodenitis Current Visit: Yes Status: Acute Code(s): K29.80 - DUODENITIS WITHOUT BLEEDING SNOMED Code(s): 52200954 (3) Sepsis Current Visit: Yes Status: Acute Code(s): A41.9 - SEPSIS, UNSPECIFIED ORGANISM SNOMED Code(s): 21810485 Plan: 1patient presented hospital with SIRS/sepsis in this patient who did have fever and elevated white count patient initial work-up has been negative chest x-ray was suggestive of CHF urine is negative no evidence of any cellulitis or joint swelling patient did have episode of vomiting and mild tenderness with a question of possible abdominal source 2-patient did have CT of abdominal pelvis with oral contrast only, evidence of duodenitis and question of pancreatitis however the patient did have normal amylase and lipase that will make pancreatitis to be less likely 3-patient did have resolution of his fever and white count normalized, 4-patient is mildly hypoxic however lungs are clear to auscultation and has been started on incentive spirometry 5-patient to continue with cefepime while inpatient and finish therapy with short course of oral Avelox on discharge, medication entered into the discharge instruction as possible discharge per the director of casework department Dictation was produced using [employer] dictation software. please excuse any grammatical, word or spelling errors. Time with Patient: Less than 30
[2023-07-24] MEDS: ATORVASTATIN 40 MG TAB PO SCH (20:50)
[2023-07-25] MEDS: CEFEPIME 2 GM in SODIUM CHLORIDE 0.9% 100 ML IVPB SCH (02:50)
[2023-07-25] MEDS: carvediloL 12.5 MG TAB PO SCH (06:15)
[2023-07-25] MEDS: PANTOPRAZOLE 40 MG TABLET PO SCH (06:15)
--- NOTE | 2023-07-25 07:08 | DS ---
DISCHARGE SUMMARY MEDICATIONS: Include: 1. 2 L of oxygen nasal cannula 24 hours a day. Try to wean off during the day, keep him on it at night. 2. Avelox 400 mg daily. 3. Farxiga 10 mg daily. 4. Flonase nasal spray daily. 5. K-Dur 20 mEq daily. 6. Loratadine 10 mg daily. 7. Coreg 12.5 b.i.d. 8. DuoNeb q.i.d. 9. Protonix 40 b.i.d. 10.Budesonide 0.5 mg b.i.d. 11.Aspirin 81 daily. 12.Lipitor 40 daily. 13.Lisinopril and hydrochlorothiazide 20/12.5 one p.o. b.i.d. CONDITION: Stable. PROGNOSIS: Guarded. Ambulate as tolerated. HOSPITAL COURSE: This is a white male, 72, came in with COPD exacerbation, pulmonary hypertension, tracheobronchitis versus aspiration pneumonia. Treated with IV antibiotics, switched to oral Avelox and discharged. His breathing improved with breathing treatments. He required oxygen. He will need to wear oxygen at home. He is on allergy medications as mentioned above. He is on pulmonary hypertension medicine. He is cleared by Cardiology. He is on acid reflux medicine. Follow up with [facility]dana [facility]. Condition stable. Diet as tolerated. He is going up there for physical therapy as he is not ambulating quite well and his legs are weak. Prognosis guarded. MMODL / IJN: [id number] /
[2023-07-25 08:02] VITALS: BP 110/56; RESP 18; TEMP 98.9
[2023-07-25] MEDS: LISINOPRIL-HCTZ 20-25 MG 1 EACH TAB PO SCH (09:12)
[2023-07-25] MEDS: ASPIRIN 81 MG PO SCH (09:12)
[2023-07-25] MEDS: POTASSIUM CHLORIDE ER 20 MEQ TAB.ER PO SCH (09:12)
[2023-07-25] MEDS: DAPAGLIFLOZIN PROPANEDIOL 10 MG TABLET PO SCH (09:12)
[2023-07-25] MEDS: hydrALAZINE HCL 10 MG TAB PO SCH (09:12)
[2023-07-25] MEDS: LORATADINE 10 MG TAB PO SCH (09:12)
[2023-07-25] MEDS: IPRATROPIUM-ALBUTEROL 3 ML NEB INHALATION SCH (09:33)
[2023-07-25] MEDS: BUDESONIDE 0.5 MG/2 ML NEBU INHALATION SCH (09:33)
[2023-07-25 10:08] VITALS: PULSE 100
== END 2023-07-25 11:22 | DRG 871 ==
LOC: EC 13:33 → 3SCARD 18:08
PROVIDERS: ADMIT Family Medicine; ATTEND Family Medicine
DX: A41.9 Sepsis, unspecified organism (principal); J69.0 Pneumonitis due to inhalation of food and vomit; K65.9 Peritonitis, unspecified; J44.1 Chronic obstructive pulmonary disease with (acute) exacerbation; E87.20 Acidosis, unspecified; I42.9 Cardiomyopathy, unspecified; M62.82 Rhabdomyolysis; I71.43 Infrarenal abdominal aortic aneurysm, without rupture; I11.0 Hypertensive heart disease with heart failure; I50.9 Heart failure, unspecified; I27.20 Pulmonary hypertension, unspecified; I34.0 Nonrheumatic mitral (valve) insufficiency; J40 Bronchitis, not specified as acute or chronic; J43.9 Emphysema, unspecified; Z87.891 Personal history of nicotine dependence; E78.5 Hyperlipidemia, unspecified; E86.0 Dehydration; F41.1 Generalized anxiety disorder; G89.29 Other chronic pain; I25.10 Atherosclerotic heart disease of native coronary artery without angina pectoris; I25.2 Old myocardial infarction; I45.9 Conduction disorder, unspecified; H02.409 Unspecified ptosis of unspecified eyelid; K21.9 Gastro-esophageal reflux disease without esophagitis; K29.80 Duodenitis without bleeding; Z79.02 Long term (current) use of antithrombotics/antiplatelets; Z79.84 Long term (current) use of oral hypoglycemic drugs; Z79.899 Other long term (current) drug therapy; Z86.16 Personal history of COVID-19; Z86.79 Personal history of other diseases of the circulatory system; Z95.5 Presence of coronary angioplasty implant and graft; Z79.82 Long term (current) use of aspirin; Z88.0 Allergy status to penicillin
CPT/HCPCS: 36415; 70450; 71046; 71275; 72125; 72170; 74174; 74176; 80048; 80053; 80061; 81001; 82150; 82550; 82553; 83036; 83605; 83690; 83735; 84132; 84145; 84484; 85025; 85379; 85610; 85730; 86140; 87040; 87636; 93005; 93306; 94640; 94760; 96361; 96365; 96366; 99285

== ENCOUNTER 2023-08-27 08:00 | Day surgery (SDC) | payer MEDICARE, OTHER ==
[~2023-08-27 08:00] MED LIST changes: +ALPRAZolam 0.25 MG TAB PO PRN; +ALPRAZolam 0.5 MG TAB PO PRN; +ASPIRIN 325 MG TAB PO PRN; -CLINDAMYCIN 600 MG in SODIUM CHLORIDE 0.9% 250 ML IRRIGATION PRN; -CLINDAMYCIN 900 MG in DEXTROSE 5% IN WATER 50 ML IVPB PRN; +HEPARIN SODIUM,PORCINE (1 ML) 2,500 UNIT in SODIUM CHLORIDE 0.9% 250 ML IRRIGATION PRN; +HEPARIN SODIUM,PORCINE 10,000 UNIT in SODIUM CHLORIDE 0.9% 1,000 ML IRRIGATION PRN; -LIDOCAINE 1% (10MG/ML) FOR IV START INTRADERMA PRN; -SODIUM CHLORIDE 0.9% 1,000 ML IV SCH; +SODIUM CHLORIDE 0.9% 1,000 ML in EMPTY BAG 1 BAG IV ONE; +ZOLPIDEM 5 MG TAB PO PRN
[2023-08-27] MEDS ORDERED: SODIUM CHLORIDE 0.9% 1,000 ML IV ONE (08:15)
[2023-08-27 08:33] LABS: Glucose,Whole Blood 101 mg/dL (70-110)
[2023-08-27 08:36] VITALS: RESP 16; TEMP 97.6
[2023-08-27 08:38] LABS: Basophils % (A) 0 %; Eosinophils # (A) 0.3 k/uL (0-0.7); Eosinophils % (A) 5 %; Lymphocytes # (A) 1.3 k/uL (1.0-4.8); Lymphocytes % (A) 22 %; MCH 31.3 pg (25.0-35.0); MCHC 33.3 g/dL (31.0-37.0); MCV 93.9 fL (80.0-100.0); Mean Platelet Volume 7.5; Monocytes # (A) 0.3 k/uL (0-1.0); Monocytes % (A) 5 %; Neutrophils # (A) 3.9 k/uL (1.3-7.7); Neutrophils % (A) 66 %; Platelet Count 237 k/uL (150-450); RBC 3.84 m/uL (4.30-5.90); RDW 13.4 % (11.5-15.5); WBC 5.8 k/uL (3.8-10.6)
[2023-08-27 08:53] LABS: African American GFR (CKD) 81 (>60 ml/min/1.73 sqM); Anion Gap 12 mmol/L; Blood Urea Nitrogen 25 mg/dL (9-20); Calcium 9.6 mg/dL (8.4-10.2); Carbon Dioxide 25 mmol/L (22-30); Chloride 103 mmol/L (98-107); Glucose 105 mg/dL (74-99); Non-African American GFR(CKD) 70 (>60 ml/min/1.73 sqM); Potassium 4.7 mmol/L (3.5-5.1); Sodium 140 mmol/L (137-145)
[2023-08-27] MEDS ORDERED: MIDAZOLAM 2 MG/2 ML VIAL IVP ONE (10:37)
[2023-08-27] MEDS ORDERED: fentaNYL (PF) 50 MCG/ML 2 ML AMP IVP ONE (10:37)
[2023-08-27] MEDS ORDERED: LIDOCAINE 1% INJ 10MG/ML (30 ML VIAL-PF) SQ ONE (10:38)
[2023-08-27] MEDS ORDERED: IOPAMIDOL-370 100ML BTL INJ ONE (11:15)
--- NOTE | 2023-08-27 11:40 | IR ---
EXAMINATION TYPE: IR angio abdominal w runoff DATE OF EXAM: 08/27/2023 COMPARISON: NONE HISTORY: Fluoroscopy time. Fluoroscopy was provided to the referring clinician.
[2023-08-27] MEDS ORDERED: FLUTICASONE 50MCG/SPRAY NASAL 16GM EA NOSTRIL PRN (11:46)
[2023-08-27] MEDS ORDERED: ACETAMINOPHEN TAB 500 MG TAB PO PRN (11:46)
--- NOTE | 2023-08-27 11:46 | P.OP ---
Date of Procedure: 08/27/23 Preoperative Diagnosis: 1: Severe aortoiliac as well as femoral arterial occlusive disease. 2: Severe lifestyle limiting bilateral lower extremity claudication secondary to above. 3: 4.1 cm infrarenal abdominal aortic aneurysm. Postoperative Diagnosis: 1:4.1 cm infrarenal abdominal aortic aneurysm. 2: Nonvisualization of inferior mesenteric artery. 3: Severe left common iliac artery stenosis both proximally and distally. Proximal stenosis is approximately 5060% and distally approximately 90%, heavily calcified at origin of internal iliac artery. 4: Hemodynamically severe distal right common iliac artery stenosis, heavily calcified at origin of the internal iliac artery. 5: Flush occlusion left superficial femoral artery with collateral flow filling the distal SFA at the adductor canal. 6: Patent anterior and posterior tibial as well as peroneal arterial segments. 7: Focal severe stenosis distal segment left superficial femoral artery 8: Patent anterior and posterior tibial as well as peroneal arterial segments. Procedure(s) Performed: 1: Ultrasound-guided cannulation right common femoral artery. 2: Abdominal aortogram with iliofemoral, popliteal and tibial runoff. Implants: None. Anesthesia: local (1% Xylocaine as well as 50 g of fentanyl and 2 mg of Versed administered intravenously for moderate conscious sedation.) Surgeon: Sameer Gutiérrez Estimated Blood Loss (ml): 5 Urine output (ml): 0 Pathology: none sent Condition: stable Disposition: no change Indications for Procedure: Patient is a 72-year-old male with history of severe peripheral vascular disease who presented with lifestyle limiting bilateral hip and calf claudication which effectively limited his ambulation to less than 1 block. Physical examination was consistent with iliofemoral as well as popliteal arterial occlusive disease. CTA was performed which demonstrated to severely stenotic area iliac vessels with significant calcific changes as well as a 4.1 cm infrarenal abdominal aortic aneurysm. He is now offered catheter directed angiography and possible percutaneous intervention. The procedure, risk and benefits were discussed with the patient. All questions were answered to patient's satisfaction. Operative Findings: Highly calcified iliac arteries with severe stenosis of the distal common iliac arteries bilaterally at the origin of the internal iliac segments. Concern was expressed due to heavily calcified nature of vessels with possible dissection/rupture if balloon angioplasty was performed with subsequent covering of one or possibly both of the internal iliac arteries. Additionally bilateral femoral arterial occlusive disease was noted, more severe on the right than on the left. Description of Procedure: Patient was brought to the special procedure suite. Both groins were sterilely prepped and draped in usual manner. Utilizing ultrasound the right common femoral artery was identified. 1% Xylocaine was utilized for local anesthesia of the tissues overlying this arterial segment. Through this anesthetized area and with the aid of ultrasound a micropuncture needle was utilized to cannulate the artery. Once cannulated Softip guidewire was advanced to the needle was withdrawn and a micropuncture sheath and dilator advanced over the guidewire. The guidewire and dilator were withdrawn and a 0.035 inch Glidewire was advanced into the abdominal aortic segment. A 5-Bhutanese sheath was exchanged for the micropuncture sheath. The side-port was then flushed. 5-Bhutanese pigtail catheter was advanced to the L1-L2 interspace and abdominal aortogram was performed. Once adequate films were obtained catheter was pulled down the level aortic bifurcation and pelvic, femoral, popliteal and tibial angiography was performed on a bilateral basis. Based on findings of the imaging no further intervention was felt appropriate. The catheter was withdrawn and the sheath was withdrawn and pressure was held at the puncture site until all evidence of bleeding ceased. The patient tolerated procedure well. Findings: Single renal artery is identified bilaterally. There appears to be no significant renal artery stenosis. Mild aneurysmal dilation of the abdominal aorta was noted. Her graft right iliac angiography demonstrates varying degrees of stenosis of proximal and mid segment of the common iliac severe stenosis of the distal common iliac at the origin of the internal iliac artery. The segment was extremely calcified. The external iliac artery demonstrates mild the varying degrees of stenosis. Right femoral angiography demonstrates flush occlusion of the superficial femoral artery with a hypertrophied profundus segment. This provides collaterals to the distal femoral artery at the level of the adductor canal. The common femoral artery is appropriately patent. Right popliteal artery is normally patent. Right tibial angiography demonstrates three-vessel runoff with patency of the anterior, posterior tibial and peroneal arterial segments to the level of the ankle mortise. Left iliac angiography demonstrates the proximal common iliac to be stenotic estimated to be approximately 50% over the distal segment is severely stenosed and heavily calcified. Degree of stenosis is approximately 90% and this is at the origin of the internal iliac artery. The external iliac segment demonstrates post stenotic dilation although was relatively free of atherosclerotic change. Right femoral angiography demonstrates the common femoral to be patent. The profundus is patent although there appears to be stenosis at the origin of the profundus segment. Superficial femoral artery is patent although demonstrates a very focal and severe stenosis at the level of the adductor canal. Left popliteal artery is patent although has some moderate stenosis at its proximal/middle segment. Left tibial angiography demonstrates patency of the anterior and posterior tibials as well as the peroneal artery. Total flush be time 1.4 minutes. Total contrast volume: 90 ML's of Isovue 370. Total conscious sedation time: 36 minutes. Plan - Discharge Summary Discharge Rx Participant: No New Discharge Prescriptions: No Action Atorvastatin [Lipitor] 40 mg PO HS Fluticasone Nasal [place] [Flonase Nasal [place]] 2 spray EA NOSTRIL DAILY PRN ml PRN Reason: Allergy Symptoms Acetaminophen Tab [Tylenol] 500 mg PO Q6HR PRN tab PRN Reason: Fever And/ Or Pain Aspirin 81 mg PO QAM Dapagliflozin Propanediol [Farxiga] 10 mg PO QAM Ipratropium-Albuterol Nebulize [Duoneb 0.5 mg-3 mg/3 ml Soln] 3 ml INHALATION TID Potassium Chloride ER [K-Dur 20] 20 meq PO QAM Lisinopril-Hctz 20-12.5 mg [Zestoretic 20-12.5] 1 tab PO QAM carvediloL [Coreg*] 12.5 mg PO BID-W/MEALS tab Pantoprazole [Protonix] 40 mg PO AC-BID tab Budesonide [Pulmicort] 0.5 mg INHALATION RT-BID ml Loratadine [Claritin] 10 mg PO QAM Discharge Medication List Atorvastatin [Lipitor] 40 mg PO HS 01/25/22 [History] Lisinopril-Hctz 20-12.5 mg [Zestoretic 20-12.5] 1 tab PO QAM 07/18/23 [History] Acetaminophen Tab [Tylenol] 500 mg PO Q6HR PRN tab 07/24/23 [Rx] Budesonide [Pulmicort] 0.5 mg INHALATION RT-BID ml 07/24/23 [Rx] Fluticasone Nasal [place] [Flonase Nasal [place]] 2 spray EA NOSTRIL DAILY PRN ml 07/24/23 [Rx] Pantoprazole [Protonix] 40 mg PO AC-BID tab 07/24/23 [Rx] carvediloL [Coreg*] 12.5 mg PO BID-W/MEALS tab 07/24/23 [Rx] Aspirin 81 mg PO QAM 08/20/23 [History] Dapagliflozin Propanediol [Farxiga] 10 mg PO QAM 08/20/23 [History] Ipratropium-Albuterol Nebulize [Duoneb 0.5 mg-3 mg/3 ml Soln] 3 ml INHALATION TID 08/20/23 [History] Loratadine [Claritin] 10 mg PO QAM 08/20/23 [History] Potassium Chloride ER [K-Dur 20] 20 meq PO QAM 08/20/23 [History] Follow up Appointment(s)/Referral(s): Sameer Gutiérrez DO [Doctor of Osteopathic Medicine] - 09/04/23 10:00 am (August AT 10:00 AM FOR FOLLOW UP APPOINTMENT.) Patient Instructions/Handouts: Moderate Sedation (DC), Angiogram (DC) Activity/Diet/Wound Care/Special Instructions: NO DRIVING FOR TWO DAYS. REMOVE DRESSING FIRST THEN OK TO SHOWER TOMORROW BUT NO BATHS SWIMMING SOAKING FOR THREE DAYS SIGNS OF INFECTION IE: FEVER RASH SWELLING OR HARD KNOT OVER PUNCTURE SITE OR A [place] UNUSUAL DRAINAGE CONTACT DR TO BE EVALUATED. NO LIFTING MORE THAN 10 LBS FOR THREE DAYS, AVOID PUSHING PULLING STRAINING ALSO FOR THREE DAYS. MEDICATIONS DIRECTED.
[2023-08-27] MEDS ORDERED: IPRATROPIUM-ALBUTEROL 3 ML NEB INHALATION SCH (16:00)
[2023-08-27 16:43] VITALS: BP 160/72
[2023-08-27 17:10] VITALS: PULSE 78
[2023-08-27] MEDS ORDERED: carvediloL 12.5 MG TAB PO SCH (17:30)
[2023-08-27] MEDS ORDERED: PANTOPRAZOLE 40 MG TABLET PO SCH (17:30)
[2023-08-27] MEDS ORDERED: BUDESONIDE 0.5 MG/2 ML NEBU INHALATION SCH (20:00)
[2023-08-27] MEDS ORDERED: ATORVASTATIN 40 MG TAB PO SCH (21:00)
[2023-08-28] MEDS ORDERED: DAPAGLIFLOZIN PROPANEDIOL 10 MG TABLET PO SCH (09:00)
[2023-08-28] MEDS ORDERED: LORATADINE 10 MG TAB PO SCH (09:00)
[2023-08-28] MEDS ORDERED: LISINOPRIL-HCTZ 20-12.5 MG 1 EACH TAB PO SCH (09:00)
[2023-08-28] MEDS ORDERED: ASPIRIN 81 MG PO SCH (09:00)
[2023-08-28] MEDS ORDERED: POTASSIUM CHLORIDE ER 20 MEQ TAB.ER PO SCH (09:00)
== END 2023-08-27 17:20 | disposition home or self-care (01) ==
LOC: CATHCVL 08:00
PROVIDERS: ATTEND Surgery
DX: I71.43 Infrarenal abdominal aortic aneurysm, without rupture (principal); I73.9 Peripheral vascular disease, unspecified; I10 Essential (primary) hypertension; J44.9 Chronic obstructive pulmonary disease, unspecified; F17.210 Nicotine dependence, cigarettes, uncomplicated; Z79.02 Long term (current) use of antithrombotics/antiplatelets; Z79.82 Long term (current) use of aspirin; Z79.899 Other long term (current) drug therapy
CPT/HCPCS: 36200; 75625; 75716; 76937; 80048; 85025; 99152; 99153; C1894; C1769 ×4; J2250; J2001; J3010; Q9967

== ENCOUNTER → 2023-10-20 | Outpatient (CLI) | payer MEDICARE, OTHER ==
[2023-10-20 11:27] LABS: NT-Pro-B-Type Natriuretic Pept 558 pg/mL
[2023-10-20 15:08] LABS: Calcium 10.4 mg/dL (8.7-10.3); Carbon Dioxide 21.6 mmol/L (21.6-31.8); Chloride 104 mmol/L (96-109); Glucose 101 mg/dL (70-110); Potassium 5.2 mmol/L (3.5-5.5); Sodium 142 mmol/L (135-145)
== END | disposition home or self-care (01) ==
LOC: LABWHC1 10:28
PROVIDERS: ATTEND Nurse Practitioner Adult Health
DX: I42.8 Other cardiomyopathies (principal); I50.22 Chronic systolic (congestive) heart failure
CPT/HCPCS: 36415; 80048; 83880

== ENCOUNTER → 2024-03-02 | Outpatient (CLI) | payer MEDICARE, OTHER ==
[2024-03-02 10:28] LABS: NT-Pro-B-Type Natriuretic Pept 1487 pg/mL (0-450)
[2024-03-02 10:30] LABS: ALT 27 U/L (10-49); AST 28 U/L (14-35); Albumin 4.3 g/dL (3.8-4.9); Albumin/Globulin Ratio 2.05 Ratio (1.60-3.17); Alkaline Phosphatase 104 U/L (41-126); BUN/Creat Ratio 22.67 Ratio (12.00-20.00); Blood Urea Nitrogen 27.2 mg/dL (9.0-27.0); Calcium 8.6 mg/dL (8.7-10.3); Carbon Dioxide 22.7 mmol/L (21.6-31.8); Chloride 106 mmol/L (96-109); Globulin 2.1 g/dL (1.6-3.3); Glucose 108 mg/dL (70-110); Potassium 4.4 mmol/L (3.5-5.5); Sodium 143 mmol/L (135-145); Total Bilirubin 0.4 mg/dL (0.3-1.2); Total Protein 6.4 g/dL (6.2-8.2)
== END | disposition home or self-care (01) ==
LOC: LABWHC1 06:51
PROVIDERS: ATTEND Internal Medicine Interventional Cardiology
DX: I42.8 Other cardiomyopathies (principal)
CPT/HCPCS: 36415; 80053; 83880

== ENCOUNTER → 2024-06-04 | Outpatient (CLI) | payer MEDICARE, OTHER ==
[2024-06-04 11:25] LABS: NT-Pro-B-Type Natriuretic Pept 872 pg/mL (0-450)
[2024-06-04 11:26] LABS: ALT 9 U/L (10-49); AST 22 U/L (14-35); Albumin 4.5 g/dL (3.8-4.9); Albumin/Globulin Ratio 2.05 Ratio (1.60-3.17); Alkaline Phosphatase 123 U/L (41-126); BUN/Creat Ratio 21.17 Ratio (12.00-20.00); Blood Urea Nitrogen 25.4 mg/dL (9.0-27.0); Calcium 9.5 mg/dL (8.7-10.3); Carbon Dioxide 23.1 mmol/L (21.6-31.8); Chloride 104 mmol/L (96-109); Chol/HDL Ratio 2.38 Ratio; Globulin 2.2 g/dL (1.6-3.3); Glucose 101 mg/dL (70-110); LDL Cholesterol,Calculated 65.2 mg/dL (0.0-131.0); Potassium 4.6 mmol/L (3.5-5.5); Sodium 140 mmol/L (135-145); Total Bilirubin 0.5 mg/dL (0.3-1.2); Total Protein 6.7 g/dL (6.2-8.2); VLDL Calculation 15.86 mg/dL (5.00-40.00)
== END | disposition home or self-care (01) ==
LOC: LABWHC1 07:07
PROVIDERS: ATTEND Nurse Practitioner Adult Health
DX: I25.5 Ischemic cardiomyopathy (principal); E78.2 Mixed hyperlipidemia
CPT/HCPCS: 36415; 80053; 80061; 83880

== ENCOUNTER → 2024-06-24 | Outpatient (CLI) | payer MEDICARE, OTHER ==
[2024-06-24 11:21] LABS: BUN/Creat Ratio 20.55 Ratio (12.00-20.00); Blood Urea Nitrogen 22.6 mg/dL (9.0-27.0); Calcium 9.9 mg/dL (8.7-10.3); Carbon Dioxide 24.4 mmol/L (21.6-31.8); Chloride 103 mmol/L (96-109); Glucose 100 mg/dL (70-110); Potassium 4.4 mmol/L (3.5-5.5); Sodium 141 mmol/L (135-145)
== END | disposition home or self-care (01) ==
LOC: LABWHC1 06:55
PROVIDERS: ATTEND Nurse Practitioner Adult Health
DX: I25.5 Ischemic cardiomyopathy (principal)
CPT/HCPCS: 36415; 80048

== ENCOUNTER → 2024-08-31 | Outpatient (CLI) | payer MEDICARE, OTHER ==
[2024-08-31 15:34] LABS: ALT 12 U/L (10-49); AST 18 U/L (14-35); Albumin 4.4 g/dL (3.8-4.9); Albumin/Globulin Ratio 1.69 Ratio (1.60-3.17); Alkaline Phosphatase 100 U/L (41-126); BUN/Creat Ratio 23.13 Ratio (12.00-20.00); Blood Urea Nitrogen 34.7 mg/dL (9.0-27.0); Carbon Dioxide 22.4 mmol/L (21.6-31.8); Chloride 106 mmol/L (96-109); Globulin 2.6 g/dL (1.6-3.3); Glucose 107 mg/dL (70-110); Potassium 5.5 mmol/L (3.5-5.5); Sodium 143 mmol/L (135-145); Total Bilirubin 0.4 mg/dL (0.3-1.2)
[2024-08-31 16:23] LABS: NT-Pro-B-Type Natriuretic Pept 1090 pg/mL (0-450)
== END | disposition home or self-care (01) ==
LOC: LABWHC1 07:27
PROVIDERS: ATTEND Internal Medicine Interventional Cardiology
DX: I42.8 Other cardiomyopathies (principal)
CPT/HCPCS: 36415; 80053; 83880

== ENCOUNTER → 2025-01-05 | Outpatient (CLI) | payer MEDICARE, OTHER ==
[2025-01-05 10:56] LABS: Blood Urea Nitrogen 27.3 mg/dL (9.0-27.0); Carbon Dioxide 24.8 mmol/L (21.6-31.8); Chloride 103 mmol/L (96-109); Chol/HDL Ratio 2.38 Ratio; Glucose 92 mg/dL (70-110); LDL Cholesterol,Calculated 84.7 mg/dL (0.0-131.0); Potassium 4.7 mmol/L (3.5-5.5); Sodium 140 mmol/L (135-145); VLDL Calculation 11.06 mg/dL (5.00-40.00)
[2025-01-05 10:57] LABS: ALT 25 U/L (10-49); AST 28 U/L (14-35); Calcium 9.9 mg/dL (8.7-10.3)
== END | disposition home or self-care (01) ==
LOC: LABWHC1 06:52
PROVIDERS: ATTEND Internal Medicine Interventional Cardiology
DX: E78.2 Mixed hyperlipidemia (principal); I10 Essential (primary) hypertension; N39.0 Urinary tract infection, site not specified; Z79.899 Other long term (current) drug therapy
CPT/HCPCS: 36415; 80048; 80061; 84450; 84460

== ENCOUNTER 2025-04-02 15:36 | Inpatient (IN) | payer MEDICARE, OTHER ==
[2025-04-02 16:42] LABS: Basophils # (A) 0.03 10*3/uL (0.00-0.10); Basophils % (A) 0.2 %; Eosinophils # (A) 0.16 10*3/uL (0.04-0.35); Eosinophils % (A) 1.1 %; HCT 40.1 % (39.6-50.0); HGB 13.8 g/dL (13.0-17.0); Lymphocytes # (A) 1.14 10*3/uL (0.90-5.00); Lymphocytes % (A) 8.1 %; MCH 32.2 pg (27.0-32.0); MCHC 34.4 g/dL (32.0-37.0); MCV 93.7 fL (80.0-97.0); Monocytes # (A) 1.00 10*3/uL (0.20-1.00); Monocytes % (A) 7.1 %; Neutrophils # (A) 11.64 10*3/uL (1.80-7.70); Neutrophils % (A) 82.4 %; Platelet Count 229 10*3/uL (140-440); RBC 4.28 10*6/uL (4.40-5.60); RDW 13.4 % (11.5-14.5); WBC 14.13 10*3/uL (4.50-10.00)
[2025-04-02 16:54] LABS: ALT 27 U/L (4-49); AST 32 U/L (17-59); African American GFR (CKD) 71 (>60 ml/min/1.73 sqM); Albumin 4.8 g/dL (3.5-5.0); Alkaline Phosphatase 129 U/L (38-126); Anion Gap 11 mmol/L; Blood Urea Nitrogen 34 mg/dL (9-20); Calcium 10.2 mg/dL (8.4-10.2); Carbon Dioxide 24 mmol/L (22-30); Chloride 103 mmol/L (98-107); Glucose 105 mg/dL (74-99); INR 1.0 (<1.2); Magnesium 1.4 mg/dL (1.6-2.3); Non-African American GFR(CKD) 61 (>60 ml/min/1.73 sqM); Partial Thromboplastin Time 23.1 sec (22.0-30.0); Potassium 5.3 mmol/L (3.5-5.1); Prothrombin Time 10.7 sec (10.0-12.5); Sodium 138 mmol/L (137-145); Total Protein 7.6 g/dL (6.3-8.2)
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
[2025-04-02] MEDS: SODIUM CHLORIDE 0.9% 1,000 ML IV ONE (16:59)
[2025-04-02] MEDS: MORPHINE SULFATE 4 MG/ML SYRINGE IV STA (17:00)
[2025-04-02 17:03] LABS: NT-Pro-B-Type Natriuretic Pept 981 pg/mL
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
[2025-04-02] MEDS ORDERED: NALOXONE 0.4 MG/ML 1 ML VIAL IV PRN ×2 (18:39→18:45)
[2025-04-02] MEDS ORDERED: MORPHINE SULFATE 4 MG/ML SYRINGE IV PRN (18:39)
[2025-04-02] MEDS ORDERED: ONDANSETRON 4 MG/2 ML VIAL IVP PRN (18:39)
[2025-04-02] MEDS: IPRATROPIUM-ALBUTEROL 3 ML NEB INHALATION STA (18:41)
[2025-04-02] MEDS: SODIUM CHLORIDE 0.9% 1,000 ML IV SCH (19:55)
[2025-04-02] MEDS: MAGNESIUM SULFATE-D5W PMX 1 GM in DEXTROSE/WATER 1 100ML.BAG IVPB SCH (21:56)
[2025-04-02 23:44] LABS: Glucose,Whole Blood 144 mg/dL (70-110)
[2025-04-03] MEDS: ASPIRIN 81 MG PO ONE (00:21)
[2025-04-03 01:10] LABS: Bilirubin,Urine Negative (Negative); Blood,Urine Negative (Negative); Color,Urine Light Yellow; Glucose,Urine (UA) 4+ (Negative); Ketones,Urine 1+ (Negative); Leukocyte Esterase,Urine Negative (Negative); Nitrite,Urine Negative (Negative); PH, Urine 5.5 (5.0-8.0); Protein,Urine Negative (Negative); Urobilinogen,Urine <2.0 mg/dL (<2.0)
[2025-04-03 01:12] LABS: Specific Gravity,Urine 1.046 (1.001-1.035)
[2025-04-03] MEDS: ALBUTEROL NEBULIZED 2.5 MG/3 ML INHALATION SCH (01:30)
--- NOTE | 2025-04-03 03:06 | CT ---
EXAM: CT Chest With Intravenous Contrast CLINICAL HISTORY: ITS.REASON CT Reason: D-Dimer elevated TECHNIQUE: Axial computed tomographic images of the chest with intravenous contrast. Coronal and sagittal reconstructions are performed. CTDI is 38.3 mGy and DLP is 455.4 mGy-cm. This CT exam was performed using one or more of the following dose reduction techniques: automated exposure control, adjustment of the mA and/or kV according to patient size, and/or use of iterative reconstruction technique. COMPARISON: CT chest abdomen and pelvis from yesterday FINDINGS: Pulmonary arteries: Unremarkable. No pulmonary embolism. Aorta: 3.8 cm Infrarenal fusiform abdominal aortic aneurysm is again noted. Large amount of atherosclerotic calcifications. 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 Renal arteries: Likely ostial/proximal stenosis of bilateral renal arteries due to heavy calcifications. Lungs: Severe centrilobular pulmonary emphysema. Small amount of posterior dependent airspace opacities more on the left, likely representing atelectasis and less likely pneumonia. Pleural space: Trace of bilateral pleural effusions. No pneumothorax. Heart: Unremarkable. No cardiomegaly. No significant pericardial effusion. No evidence of RV dysfunction. Bones/joints: Osteopenia. Moderate degenerative changes. Moderate upper thoracic scoliosis convex to the right. Please refer to comparison report for left rib fractures. Soft tissues: Unremarkable. Lymph nodes: Unremarkable. No enlarged lymph nodes. Gallbladder and bile ducts: Likely vicarious excretion of IV contrast in a contracted gallbladder. Stomach and bowel: The transverse colon is mildly dilated to 5 cm in maximal diameter, may suggest ileus. Tubes, lines and devices: Left pacer leads are in place. IMPRESSION: 1. No pulmonary embolism. No thoracic aortic dissection. 2. 3.8 cm Infrarenal fusiform abdominal aortic aneurysm is again noted. 3. 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 Severe centrilobular pulmonary emphysema. 5. Trace of bilateral pleural effusions, new. 6. Small amount of posterior dependent airspace opacities more on the left, likely representing atelectasis and less likely pneumonia, new. 7. The transverse colon is mildly dilated to 5 cm in maximal diameter, may suggest ileus, new.
[2025-04-03] MEDS: methylPREDNISolone SOD SUCCI 40 MG/ML 1 ML VIAL IV SCH (04:31)
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
[2025-04-03] MEDS: MAGNESIUM OXIDE 400 MG TAB PO SCH (08:35)
[2025-04-03] MEDS: HEPARIN SOD,PORK IN 0.45% NACL 25,000 UNIT in 0.45% NACL 1 250ML.BAG IV SCH (08:48)
[2025-04-03] MEDS: MONTELUKAST 10 MG TAB PO SCH (08:49)
[2025-04-03] MEDS: SACUBITRIL/VALSARTAN 49 MG-51 MG TABLET PO SCH ×2 (08:49→20:38)
[2025-04-03] MEDS: PANTOPRAZOLE 40 MG TABLET PO SCH (08:49)
[2025-04-03] MEDS: METOPROLOL SUCCINATE (ER) 50 MG TAB.ER.24H PO SCH (08:49)
[2025-04-03] MEDS: POTASSIUM CHLORIDE ER 20 MEQ TAB.ER PO SCH (08:49)
[2025-04-03] MEDS: CALCIUM CARBONATE 500 MG CHEWABLE PO SCH (08:49)
[2025-04-03] MEDS: HEPARIN SODIUM 1,000 UN/ML (10ML VL) IV ONE (08:49)
[2025-04-03] MEDS: FERROUS SULFATE 325 MG TAB PO SCH (08:49)
[2025-04-03] MEDS: SPIRONOLACTONE 25 MG TAB PO SCH (08:49)
[2025-04-03] MEDS: ATORVASTATIN 40 MG TAB PO SCH (08:49)
[2025-04-03] MEDS: DAPAGLIFLOZIN PROPANEDIOL 10 MG TABLET PO SCH (08:50)
[2025-04-03 08:53] LABS: Basophils # (A) 0.03 X 10*3/uL (0.00-0.10); Basophils % (A) 0.3 %; Eosinophils # (A) 0.04 X 10*3/uL (0.04-0.35); Eosinophils % (A) 0.4 %; HCT 35.9 % (39.6-50.0); HGB 11.8 g/dL (13.0-17.0); Immature Grans, Automated 0.80 %; Lymphocytes # (A) 0.65 X 10*3/uL (0.90-5.00); Lymphocytes % (A) 6.0 %; MCH 31.7 pg (27.0-32.0); MCHC 32.9 g/dL (32.0-37.0); MCV 96.5 FL (80.0-97.0); Monocytes # (A) 0.64 X 10*3/uL (0.20-1.00); Monocytes % (A) 5.9 %; NRBC Per 100 WBC 0 X 10*3/uL (0.00-0.01); Neutrophils # (A) 9.38 X 10*3/uL (1.80-7.70); Neutrophils % (A) 86.6 %; Platelet Count 183 X 10*3/uL (140-440); RBC 3.72 X 10*6/uL (4.40-5.60); RDW 13.4 % (11.5-14.5); WBC 10.83 X 10*3/uL (4.50-10.00)
[2025-04-03] MEDS ORDERED: ASPIRIN 81 MG PO SCH (09:00)
[2025-04-03 09:13] LABS: ALT 25 U/L (10-49); AST 29 U/L (14-35); Albumin 3.9 g/dL (3.8-4.9); Albumin/Globulin Ratio 1.77 Ratio (1.60-3.17); Alkaline Phosphatase 88 U/L (41-126); Anion Gap 12.70 mmol/L (4.00-12.00); BUN/Creat Ratio 24.08 Ratio (12.00-20.00); Blood Urea Nitrogen 31.3 mg/dL (9.0-27.0); Calcium 8.6 mg/dL (8.7-10.3); Carbon Dioxide 20.3 mmol/L (21.6-31.8); Chloride 103 mmol/L (96-109); Globulin 2.2 g/dL (1.6-3.3); Glucose 140 mg/dL (70-110); Magnesium 2.1 mg/dL (1.5-2.4); Potassium 4.6 mmol/L (3.5-5.5); Sodium 136 mmol/L (135-145); Total Protein 6.1 g/dL (6.2-8.2)
[2025-04-03] MEDS: BUDESONIDE 1 MG/2 ML NEBU INHALATION SCH (09:23)
[2025-04-03] MEDS: IPRATROPIUM-ALBUTEROL 3 ML NEB INHALATION SCH (09:23)
[2025-04-03] MEDS: FORMOTEROL FUMARATE 20 MCG/2 ML NEBU INHALATION SCH (09:23)
[2025-04-03 09:24] LABS: Basophils # (A) 0.03 10*3/uL (0.00-0.10); Basophils % (A) 0.3 %; Eosinophils # (A) 0.25 10*3/uL (0.04-0.35); Eosinophils % (A) 2.4 %; HCT 35.5 % (39.6-50.0); HGB 11.7 g/dL (13.0-17.0); Lymphocytes # (A) 0.98 10*3/uL (0.90-5.00); Lymphocytes % (A) 9.2 %; MCH 30.9 pg (27.0-32.0); MCHC 33.0 g/dL (32.0-37.0); MCV 93.7 fL (80.0-97.0); Monocytes # (A) 0.74 10*3/uL (0.20-1.00); Monocytes % (A) 7.0 %; Neutrophils # (A) 8.52 10*3/uL (1.80-7.70); Neutrophils % (A) 80.3 %; Platelet Count 182 10*3/uL (140-440); RBC 3.79 10*6/uL (4.40-5.60); RDW 13.4 % (11.5-14.5); WBC 10.60 10*3/uL (4.50-10.00)
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
[2025-04-03 09:48] LABS: INR 1.1 (<1.2); Prothrombin Time 12.3 sec (10.0-12.5)
[2025-04-03 10:03] LABS: Partial Thromboplastin Time 111.6 sec (22.0-30.0)
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
[2025-04-03] MEDS: LIDOCAINE 4% PATCH TOPICAL SCH (17:07)
[2025-04-03 17:59] LABS: Basophils # (A) 0.02 10*3/uL (0.00-0.10); Basophils % (A) 0.2 %; Eosinophils # (A) 0.00 10*3/uL (0.04-0.35); Eosinophils % (A) 0.0 %; HCT 36.3 % (39.6-50.0); HGB 12.4 g/dL (13.0-17.0); Lymphocytes # (A) 0.47 10*3/uL (0.90-5.00); Lymphocytes % (A) 4.4 %; MCH 32.5 pg (27.0-32.0); MCHC 34.2 g/dL (32.0-37.0); MCV 95.0 fL (80.0-97.0); Monocytes # (A) 0.18 10*3/uL (0.20-1.00); Monocytes % (A) 1.7 %; Neutrophils # (A) 9.81 10*3/uL (1.80-7.70); Neutrophils % (A) 92.8 %; Platelet Count 208 10*3/uL (140-440); RBC 3.82 10*6/uL (4.40-5.60); RDW 13.3 % (11.5-14.5); WBC 10.58 10*3/uL (4.50-10.00)
[2025-04-03] MEDS: HEPARIN SODIUM 1,000 UN/ML (10ML VL) IV PRN (18:34)
[2025-04-04] MEDS ORDERED: REGADENOSON 0.4 MG/5 ML SYRINGE IV PRN (06:00)
[2025-04-04] MEDS ORDERED: CAFFEINE CITRATE 60 MG/3 ML VIAL IV PRN (06:00)
[2025-04-04] MEDS ORDERED: AMINOPHYLLINE 500 MG/20 ML VIAL IV PRN (06:00)
[2025-04-04 06:34] LABS: Basophils # (A) 0.01 10*3/uL (0.00-0.10); Basophils % (A) 0.1 %; Eosinophils # (A) 0.00 10*3/uL (0.04-0.35); Eosinophils % (A) 0.0 %; HCT 35.3 % (39.6-50.0); HGB 11.9 g/dL (13.0-17.0); Lymphocytes # (A) 0.55 10*3/uL (0.90-5.00); Lymphocytes % (A) 4.5 %; MCH 31.8 pg (27.0-32.0); MCHC 33.7 g/dL (32.0-37.0); MCV 94.4 fL (80.0-97.0); Monocytes # (A) 0.40 10*3/uL (0.20-1.00); Monocytes % (A) 3.3 %; Neutrophils # (A) 11.11 10*3/uL (1.80-7.70); Neutrophils % (A) 91.1 %; Platelet Count 178 10*3/uL (140-440); RBC 3.74 10*6/uL (4.40-5.60); RDW 13.2 % (11.5-14.5); WBC 12.19 10*3/uL (4.50-10.00)
[2025-04-04 06:41] LABS: INR 1.0 (<1.2); Prothrombin Time 10.8 sec (10.0-12.5)
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
[2025-04-04] MEDS: ASPIRIN 81 MG PO SCH (12:15)
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
--- NOTE | 2025-04-04 19:37 | CA ---
Lexiscan Nuclear Stress Test Report Name: Narendra Miguel Exam Date: 04/04/2025 09:46 Exam Location: [facility] Ht (in): 72 Wt (lb): 162 BSA: 1.95 Ordering Phys: Tasha Simpson Referring Phys: TASHA SIMPSON Technologist: JULIANO KNOTT Age: 74 Gender: M : 1950 Procedure CPT: Indications: Reflex order-Stress test ICD-10 Codes: Patient History: CHEST PAIN, DIFFICULTY IN BREATHING, FAMILY HX OF HEART DISEASE, PRIOR SMOKER, PRIOR UT, PRIOR HEART CATH WITH STENT X 3, COPD Medications: SEE LIST,,, Meds past 24 hrs: Pretest Chest Pain: STRESS TEST Lexiscan Protocol Exercise Duration (min:sec): 02:[address] Depressions (mm): Angina Score: Villalpando Score: Resting HR (bpm): 105 Peak HR (bpm): 115 Resting BP (mmHg): 160 / 83 Peak BP (mmHg): 160 / 83 MPHR: 144 Target HR: 122 % MPHR: 80 METS: 1.0 Total Dose: Peak Dose: Atropine: Double Product: 49816 BP Response: Stress Termination: INFUSION COMPLETE Stress Symptoms: NO SYMPTOMS Stress Summary: ECG ANALYSIS Resting ECG: Stress ECG: CONCLUSIONS Diagnosis chest pain evaluate for CAD Lexiscan Cardiolite stress test did not show any ECG changes of ischemia. Nuclear portion will be reported separately. Occasional PVCs Dr. Tom Gan MD (Electronically Signed) Final Date: 04 April 2025 19:37
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
--- NOTE | 2025-04-04 21:23 | US ---
EXAMINATION TYPE: US carotid duplex BILAT DATE OF EXAM: 04/04/2025 COMPARISON: NONE CLINICAL INDICATION: Male, 74 years old with history of Diplopia; patient states right sided carotid endarterectomy. states double vision when he looks to the right Additional History: .... TECHNIQUE: Grayscale, color Doppler and spectral Doppler evaluation of the bilateral carotid systems and vertebral arteries. Indirect Doppler criteria was utilized. FINDINGS: EXAM MEASUREMENTS: RIGHT: Peak Systolic Velocity (PSV) cm/sec ----- Right CCA: 83.2 ----- Right ICA: 116.0 ----- Right ECA: 150.0 ICA/CCA ratio: 1.4 RIGHT: End Diastole cm/sec ----- Right CCA: 9.09 ----- Right ICA: 29.9 ----- Right ECA: 0.0 LEFT: Peak Systolic Velocity (PSV) cm/sec ----- Left CCA: 80.2 ----- Left ICA: 220.0 ----- Left ECA: 93.0 (? reversed flow within) ICA/CCA ratio: 2.7 LEFT: End Diastole cm/sec ----- Left CCA: 19.0 ----- Left ICA: 47.1 ----- Left ECA: 0.0 VERTEBRALS (direction of flow): Right Vertebral: Antegrade Left Vertebral: Antegrade Rhythm: Normal QUICK PRINT OPERATOR NOTES: plaque seen bilaterally, significantly worse on the left. Elevated velocity left I CA. ? reversed flow within the left ECA Color Doppler imaging shows patency with blood flow throughout the carotid artery. Spectral waveforms are within normal limits. IMPRESSION: 1. Right: Less than 50% stenosis of the carotid bifurcation. 2. Left: 50-69% stenosis of the carotid bifurcation. 3. Reversal of flow in the left external carotid artery of unknown clinical significance. Criteria for Assigning % of Stenosis / Diameter reduction (Estimation based on the indirect measurements of the internal carotid artery velocities (ICA PSV). 1. Normal (no stenosis)=ICA PSV < 180 cm/s: ratio < 2.0: ICA EDV<40 cm/s. 2. Less than 50% stenosis=ICA PSV < 180 cm/s: ratio < 2.0: ICA EDV<40 cm/s. 3. 50 to 69% stenosis=ICA PSV of 180 to 230 cm/s: ration 2.0 ? 4.0: ICA EDV 40-100 cm/s. PSV 125-180 cm/sec and ICA/CCA PSV Ratio ? 2.0 is also consistent with 50-69% stenosis 4. Greater than 70% stenosis to near occlusion= ICA PSV > 230 cm/s: ratio > 4.0: ICA EDV > 100 cm/s. 5. Near occlusion= ICA PSV velocities may be low or undetectable: variable ratio and ICA EDV. 6. Total occlusion=unable to detect flow. [facility], , 04/04/2025 9:21 PM
[2025-04-05 07:16] LABS: Basophils # (A) 0.02 10*3/uL (0.00-0.10); Basophils % (A) 0.1 %; Eosinophils # (A) 0.00 10*3/uL (0.04-0.35); Eosinophils % (A) 0.0 %; HCT 33.7 % (39.6-50.0); HGB 11.4 g/dL (13.0-17.0); Lymphocytes # (A) 0.37 10*3/uL (0.90-5.00); Lymphocytes % (A) 2.6 %; MCH 32.3 pg (27.0-32.0); MCHC 33.8 g/dL (32.0-37.0); MCV 95.5 fL (80.0-97.0); Monocytes # (A) 0.53 10*3/uL (0.20-1.00); Monocytes % (A) 3.8 %; Neutrophils # (A) 13.03 10*3/uL (1.80-7.70); Neutrophils % (A) 92.2 %; Platelet Count 184 10*3/uL (140-440); RBC 3.53 10*6/uL (4.40-5.60); RDW 13.5 % (11.5-14.5); WBC 14.13 10*3/uL (4.50-10.00)
[2025-04-05 07:35] LABS: African American GFR (CKD) 82 (>60 ml/min/1.73 sqM); Anion Gap 9 mmol/L; Blood Urea Nitrogen 31 mg/dL (9-20); Calcium 9.2 mg/dL (8.4-10.2); Carbon Dioxide 20 mmol/L (22-30); Chloride 112 mmol/L (98-107); Glucose 142 mg/dL (74-99); Non-African American GFR(CKD) 71 (>60 ml/min/1.73 sqM); Potassium 4.5 mmol/L (3.5-5.1); Sodium 141 mmol/L (137-145)
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
[2025-04-06] MEDS: SACUBITRIL/VALSARTAN 24 MG-26 MG TABLET PO SCH ×2 (11:18→19:39)
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
[2025-04-07 08:19] VITALS: RESP 16
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
[2025-04-07 15:39] VITALS: BP 115/63; PULSE 79; TEMP 98
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
== END 2025-04-07 17:40 | DRG 189 ==
LOC: EC 15:36 → 4SSUR 18:42 → 3SCARD 04-03 11:22
PROVIDERS: ADMIT Surgery; ATTEND Surgery
DX: J96.01 Acute respiratory failure with hypoxia (principal); I50.21 Acute systolic (congestive) heart failure; I21.A1 Myocardial infarction type 2; S22.42XA Multiple fractures of ribs, left side, initial encounter for closed fracture; I42.8 Other cardiomyopathies; G93.89 Other specified disorders of brain; I11.0 Hypertensive heart disease with heart failure; J43.2 Centrilobular emphysema; I71.43 Infrarenal abdominal aortic aneurysm, without rupture; I08.3 Combined rheumatic disorders of mitral, aortic and tricuspid valves; J98.11 Atelectasis; I25.10 Atherosclerotic heart disease of native coronary artery without angina pectoris; I25.5 Ischemic cardiomyopathy; E78.2 Mixed hyperlipidemia; H53.2 Diplopia; I44.0 Atrioventricular block, first degree; I73.9 Peripheral vascular disease, unspecified; Y92.410 Unspecified street and highway as the place of occurrence of the external cause; V43.52XA Car driver injured in collision with other type car in traffic accident, initial encounter; I25.2 Old myocardial infarction; Z79.82 Long term (current) use of aspirin; Z79.84 Long term (current) use of oral hypoglycemic drugs; Z79.51 Long term (current) use of inhaled steroids; Z79.899 Other long term (current) drug therapy; Z87.891 Personal history of nicotine dependence; Z95.810 Presence of automatic (implantable) cardiac defibrillator; Z95.5 Presence of coronary angioplasty implant and graft
CPT/HCPCS: 36415; 70450; 71046; 71260; 71275; 72125; 74177; 78452; 80048; 80053; 81003; 83605; 83735; 83880; 84100; 84145; 84484; 85025; 85379; 85610; 85730; 93005; 93017; 93308; 93880; 94640; 94760; 96361; 96374; 99291